=== PATIENT | male | born 1985 | race Hispanic/Latino ===

== ENCOUNTER 2018-04-07 18:37 | Emergency (ER) | payer OTHER ==
[~2018-04-07] VITALS: Ht 144.8 cm; Wt 52.6 kg
[2018-04-07 18:58] LABS: BASOPHILS # (AUTO) 0.1 (0.0-0.1); BASOPHILS % 1.3 % (0.0-1.0); EOSINOPHILS # (AUTO) 0.1 (0.0-0.4); EOSINOPHILS % 2.6 % (0.0-6.0); HEMOGLOBIN 8.4 g/dL (14.0-18.0); LYMPHOCYTES # (AUTO) 2.2 (1.0-3.2); LYMPHOCYTES % 58.2 % (18.0-39.1); MEAN CORPUSCULAR HEMOGLOBIN 32.3 pg (28-32); MEAN CORPUSCULAR HGB CONC 32.3 g/dL (31-35); MONOCYTES # (AUTO) 0.4 (0.2-0.8); MONOCYTES % 10.5 % (4.4-11.3); NEUTROPHILS % 27.1 % (38.7-80.0); PLATELET COUNT 249 x10e3/uL (140-360); RED CELL DISTRIBUTION WIDTH 14.4 % (11.7-14.4)
[2018-04-07] MEDS ORDERED: SODIUM CHLORIDE 0.9% 1000ML 1,000 ML IV SCH (19:00)
[2018-04-07 19:18] LABS: ALBUMIN 3.7 g/dL (3.5-5.0); ALBUMIN/GLOBULIN RATIO 0.9 (0.8-2.0); ANION GAP 14.6 mmol/L (8-16); CREATININE, SERUM 3.81 mg/dL (0.72-1.25); POTASSIUM 3.6 mmol/L (3.5-5.1)
--- NOTE | 2018-04-07 19:18 | Diagnostic Imaging Report ---
EXAMINATION: CHEST SINGLE (PORTABLE) INDICATION: \S\syncope. Weakness. COMPARISON: None FINDINGS: AP view TUBES and LINES: Right IJ dialysis catheter with tip in the right atrium. LUNGS: Lungs are well inflated. Lungs are clear. There is no evidence of pneumonia or pulmonary edema. PLEURA: No pleural effusion or pneumothorax. HEART AND MEDIASTINUM: The cardiomediastinal silhouette is unremarkable. BONES AND SOFT TISSUES: No acute osseous lesion. Soft tissues are unremarkable. UPPER ABDOMEN: No free air under the diaphragm. IMPRESSION: No acute thoracic abnormality. Signed by: Dr. Beau Eaton M.D. on 04/07/2018 7:15 PM
[2018-04-07 19:24] LABS: CREATINE KINASE MB 0.4 ng/mL (0-5.0)
--- NOTE | 2018-04-07 19:58 | Diagnostic Imaging Report ---
EXAMINATION: Head CT without contrast. HISTORY:Syncope and weakness. COMPARISON:None. TECHNIQUE: Multidetector axial images were obtained from the foramen magnum to the vertex without contrast. The images were reconstructed using brain and bone algorithms. Thin section brain images were reformatted into coronal and sagittal planes. Dose modulation, iterative reconstruction, and/or weight based adjustment of the mA/kV was utilized to reduce the radiation dose to as low as reasonably achievable. Intravenous contrast: None IMAGE QUALITY: Acceptable. FINDINGS: Skull/scalp: No lytic or blastic. lesions. No surgical changes. Parenchyma: No abnormal density. No acute hemorrhage, mass or acute major vascular territorial infarct. Arteries: No density suggestive of thrombosis. Dural sinuses: No abnormal density suggestive of thrombosis. Ventricles: No hydrocephalus or displacement. Extra-axial spaces: No abnormal density. Brain volume: Normal for age. Craniocervical junction: No mass, Chiari malformation, or basilar invagination. Sella: No mass. Paranasal/mastoid sinuses: Under pneumatization, partial opacification and sclerosis of left mastoid air cells may represents sequel of chronic inflammatory process. IMPRESSION: No intracranial abnormality. Signed by: Dr. Rosio Neal M.D. on 04/07/2018 7:55 PM
[2018-04-07 21:39] VITALS: BP 110/78
== END 2018-04-07 21:49 | disposition home or self-care (01) ==
LOC: ER 18:37
DX: R55 Syncope and collapse (principal); R51 Headache; R53.1 Weakness; N18.6 End stage renal disease; Z99.2 Dependence on renal dialysis; Q90.9 Down syndrome, unspecified
CPT/HCPCS: 36415; 70450; 71045; 80053; 82550; 82553; 83735; 84484; 85025; 93005; 99284

== ENCOUNTER 2018-09-04 21:46 | Emergency (ER) | payer OTHER ==
[~2018-09-04] VITALS: Ht 144.8 cm; Wt 57.2 kg
--- OUTSIDE RECORDS SUMMARY | 2018-09-04 21:49 | XMS REPORT ---
Author [facility] Address Unknown Phone Unavailable Care Team Providers Care Low Heel Builder Name Role Phone Bernie MCFARLAND Unavailable Unavailable Milad MUNROE Unavailable Unavailable Payers Payer Name Policy Type Policy Number Effective Date Expiration Date Problems This patient has no known problems. Allergies, Adverse Reactions, Alerts Allergy Name Allergy Type Status Severity Reaction(s) Onset Date Inactive Date Treating Clinician Comments phenylpropanolamine DA Active [place] 2018-03-09 00:00:00 brompheniramine DA Active [place] 2018-03-09 00:00:00 Medications This patient has no known medications. Results Test Description Test Time Test Comments Text Results Atomic Results Result Comments CT BRAIN WO 2018-04-07 19:49:00 [place] [address] Patient Name: LUIZA CHUN MR #: [id number] : 1985 Age/Sex: 32/M Req #: [id number] Adm Physician: Ordered by: NATE DE LA VEGA UND[employer]WRITER [employer] Report #: [id number] Location: ER Room/Bed: Procedure: [id number] CT/CT BRAIN WO Exam Date: 04/07/18 Exam Time: 1939 REPORT STATUS: Signed EXAMINATION: Head CT without contrast. HISTORY:Syncope and weakness. COMPARISON:None. TECHNIQUE: Multidetector axial images were obtained from the foramen magnum to the vertex without contrast. The images were reconstructed using brain and bone algorithms. Thin section brain images were reformatted into coronal and sagittal planes. Dose modulation, iterative reconstruction, and/or weight based adjustment of the mA/kV was utilized to reduce the radiation dose to as low as reasonably achievable. Intravenous contrast: None IMAGE QUALITY: Acceptable. FINDINGS: Skull/scalp: No lytic or blastic. lesions. No surgical changes. Parenchyma: No abnormal density. No acute hemorrhage, mass or acute major vascular territorial infarct. Arteries: No density suggestive of thrombosis. Dural sinuses: No abnormal density suggestive of thrombosis. Ventricles: No hydrocephalus or displacement. Extra- axial spaces: No abnormal density. Brain volume: Normal for age. Craniocervical junction: No mass, Chiari malformation, or basilar invagination. Sella: No mass. Paranasal/mastoid sinuses: Under pneumatization, partial opacification and sclerosis of left mastoid air cells may represents sequel of chronic inflammatory process. IMPRESSION: No intracranial abnormality. Signed by: Dr. Rosio Neal M.D. on 04/07/2018 7:55 PM Dictated By: ROSIO NEAL MD 54 Transcribed By: SAUNDRA on 04/07/181954 COPY TO: NATE DE LA VEGA NP CHEST SINGLE (PORTABLE) 2018-04-07 19:14:00 [place] [address] Patient Name: LUIZA CHUN MR #: [id number] : 1985 Age/Sex: 32/M Req #: [id number] Adm Physician: Ordered by: KIRK MCFARLAND MD Report #: [id number] Location: ER Room/Bed: Procedure: [id number] DX/CHEST SINGLE (PORTABLE) Exam Date: 04/07/18 Exam Time: 1850 REPORT STATUS: Signed EXAMINATION: CHEST SINGLE (PORTABLE) INDICATION: S syncope. Weakness. COMPARISON: None FINDINGS: AP view TUBES and LINES: Right IJ dialysis catheter with tip in the right atrium. LUNGS: Lungs are well inflated. Lungs are clear. There is no evidence of pneumonia or pulmonary edema. PLEURA: No pleural effusion or pneumothorax. HEART AND MEDIASTINUM: The cardiomediastinal silhouette is unremarkable. BONES AND SOFT TISSUES: No acute osseous lesion. Soft tissues are unremarkable. UPPER ABDOMEN: No free air under the diaphragm. IMPRESSION: No acute thoracic abnormality. Signed by: Dr. Beau Perez M.D. on 04/07/2018 7:15 PM Dictated By: BEAU PEREZ MD 14 Transcribed By: SAUNDRA on 04/07/181914 COPY TO: KIRK MCFARLAND MD U/S, PELVIC, LIMITED 2017-11-07 18:20:00 Reason for Exam:->CKD/KIDNEY TRANSPLANT EVALUATION FINAL REPORT HISTORY : Chronic kidney disease, kidney transplant evaluation COMPARISON : No comparisons available for review COMMENT : Complete ultrasound examination of the abdomen was performed and limited pelvic ultrasound was performed. The liver is normal in size measuring 14.0 cm in length along the right midclavicular line and homogeneous in echo- texture without evidence of a focal mass. The gallbladder contains shadowing echogenic gallstones. There is no gallbladder wall thickening or pericholecystic fluid. The gallbladder is nondistended The biliary tract is within normal limits with the common bile duct measuring 2 mm in maximum diameter. The visualized portions of the pancreas are within normal limits. The spleen is normal in size and echo-texture measuring 8.0 cm. The right kidney measures 7.4 cm and the left kidney 8.0 cm in maximum size. Both kidneys demonstrate increased cortical echogenicity. There is no evidence of cysts, masses, stones or hydronephrosis. The portal vein measures to a maximum of 0.8 cm in diameter. There is no ascites or pleural effusion. The visualized inferior vena cava, hepatic veins and abdominal aorta are within normal limits. The bladder is normal in appearance. Prevoid volume is 347 mL. Postvoid volume is 2 mL. IMPRESSION :1. Cholelithiasis without ultrasonographic evidence of acute cholecystitis.2. Atrophic bilateral kidneys with increased echogenicity compatible with medical renal disease. Signed: Miguelangel Abel Verified Date/Time: 11/07/2017 18:20:05 Reading Location: [place] [id number] Ultrasound Reading Room U/S, ABDOMINAL, COMPLETE 2017-11-07 18:20:00 Reason for Exam:->CKD/KIDNEY TRANSPLANT EVALUATION FINAL REPORT HISTORY : Chronic kidney disease, kidney transplant evaluation COMPARISON : No comparisons available for review COMMENT : Complete ultrasound examination of the abdomen was performed and limited pelvic ultrasound was performed. The liver is normal in size measuring 14.0 cm in length along the right midclavicular line and homogeneous in echo- texture without evidence of a focal mass. The gallbladder contains shadowing echogenic gallstones. There is no gallbladder wall thickening or pericholecystic fluid. The gallbladder is nondistended The biliary tract is within normal limits with the common bile duct measuring 2 mm in maximum diameter. The visualized portions of the pancreas are within normal limits. The spleen is normal in size and echo-texture measuring 8.0 cm. The right kidney measures 7.4 cm and the left kidney 8.0 cm in maximum size. Both kidneys demonstrate increased cortical echogenicity. There is no evidence of cysts, masses, stones or hydronephrosis. The portal vein measures to a maximum of 0.8 cm in diameter. There is no ascites or pleural effusion. The visualized inferior vena cava, hepatic veins and abdominal aorta are within normal limits. The bladder is normal in appearance. Prevoid volume is 347 mL. Postvoid volume is 2 mL. IMPRESSION :1. Cholelithiasis without ultrasonographic evidence of acute cholecystitis.2. Atrophic bilateral kidneys with increased echogenicity compatible with medical renal disease. Signed: Miguelangel bAel Verified Date/Time: 11/07/2017 18:20:05 Reading Location: [facility] B1 [id number] Ultrasound Reading Room , CHEST, 2 VIEWS 2017-11-07 11:05:00 Reason for Exam:->CKD/KIDNEY TRANSPLANT EVALUATION FINAL REPORT TECHNIQUE: 2 views of the chest. COMPARISON: None FINDINGS: The cardiac silhouette is within normal limits. Mediastinum is unremarkable. Lungs are clear. Osseous structures appear unremarkable. Soft tissues appear unremarkable. IMPRESSION: Normal chest exam. Signed: John Paul Rasconort Verified Date/Time: 11/07/2017 11:05:03 Reading Location: [facility] Radiology Reading Room D PANEL 2017-11-07 08:01:00 TRIGLYCERIDES (BEAKER) (test fqrh=252) 141 mg/dL CHOLESTEROL (BEAKER) (test hndx=224) 148 mg/dL HDL CHOLESTEROL (BEAKER) (test gllp=868) 27 mg/dL LDL CHOLESTEROL CALCULATED (BEAKER) (test hdmh=557) 93 mg/dL Triglyceride Reference Range: Low Risk <150 Borderline 150-199 High Risk 200-499 Very High Risk >=500Cholesterol Reference Range: Low Risk <200 Borderline 200-239 High Risk >240HDL Cholesterol Reference Range: Low Risk >=60 High Risk <40LDL Cholesterol Reference Range: Optimal <100 Near Optimal 100-129 Borderline 130-159 High 160-189 Very High >=190 OCCULT BLOOD, [id number] 01:02:00* Test Item Value Reference Range Comments FECAL OCCULT BLOOD (BEAKER) (test qcbi=890) Negative Negative OCCULT BLOOD, [id number] 01:02:00* Test Item Value Reference Range Comments FECAL OCCULT BLOOD (BEAKER) (test ezfy=673) Negative Negative URINE [id number] 10:07:00* Test Item Value Reference Range Comments CULTURE (BEAKER) (test udbe=4783) 10-19,000 col/mL skin chanelle VARICELLA ZOSTER ANTIBODY, [id number] 13:40:00* Test Item Value Reference Range Comments VARICELLA ZOSTER IGG (AL) (BEAKER) (test mrsw=1143) 2.5 Al VARICELLA ZOSTER RESULT INTERPRETATIONS: <=0.8 Al Nonreactive: Presumed non-immune to VZV 0.9-1.0 Al Equivocal >=1.1 Al Reactive: Presumed immune to VZVCYTOMEGALOVIRUS ANTIBODY, [id number] 13:37:00* Test Item Value Reference Range Comments CYTOMEGALOVIRUS IGG ANTIBODY (BEAKER) (test crmz=732) Positive CYTOMEGALOVIRUS ANTIBODY, [id number] 13:37:00* Test Item Value Reference Range Comments CYTOMEGALOVIRUS IGM ANTIBODY (BEAKER) (test ouaz=726) Negative EBV-VCA ANTIBODY, [id number] 13:37:00* Test Item Value Reference Range Comments NEFTALY-HATCH VCA IGG (BEAKER) (test epow=315) Positive EBV-VCA ANTIBODY, [id number] 13:37:00* Test Item Value Reference Range Comments NEFTALY-HATCH VCA IGM (BEAKER) (test hhkq=893) Negative [id number] 23:19:00* Test Item Value Reference Range Comments RPR SCREEN (BEAKER) (test uyom=919) Nonreactive Nonreactive HEPATITIS B SURFACE [id number] 15:15:00* Test Item Value Reference Range Comments HEPATITIS B SURFACE ANTIBODY (BEAKER) (test qgux=167) 9.7 mIU/mL <8.0 HEPATITIS B SURFACE [id number] 15:13:00* Test Item Value Reference Range Comments HEPATITIS B SURFACE ANTIGEN (2) (BEAKER) (test cqje=2638) Nonreactive Nonreactive HEPATITIS B CORE ANTIBODY, [id number] 15:13:00* Test Item Value Reference Range Comments HEPATITIS B CORE IGM ANTIBODY (BEAKER) (test emxl=820) Nonreactive Nonreactive HEPATITIS C [id number] 15:13:00* Test Item Value Reference Range Comments HEPATITIS C ANTIBODY (BEAKER) (test evbv=773) Nonreactive Nonreactive HIV-1 ANTIGEN WITH HIV-1/2 [id number] 15:13:00* Test Item Value Reference Range Comments HIV-1 ANTIGEN WITH HIV 1\T\2 ANTIBODY (2) (BEAKER) (test rlyq=2571) Nonreactive Nonreactive HEMOGLOBIN [id number] 13:30:00* Test Item Value Reference Range Comments HEMOGLOBIN A1C (BEAKER) (test bsmr=743) 5.2 % 4.3-6.1 URINALYSIS W/ [id number] 12:03:00* Test Item Value Reference Range Comments COLOR (BEAKER) (test avsg=800) Light Yellow CLARITY (BEAKER) (test qliz=978) Hazy SPECIFIC GRAVITY UA (BEAKER) (test jlny=485) 1.009 1.001-1.035 PH UA (BEAKER) (test islp=812) 5.5 5.0-8.0 PROTEIN UA (BEAKER) (test qgwo=245) 200 mg/dL Negative GLUCOSE UA (BEAKER) (test grei=382) Negative Negative KETONES UA (BEAKER) (test ftqe=188) Negative Negative BILIRUBIN UA (BEAKER) (test zsau=928) Negative Negative BLOOD UA (BEAKER) (test itjd=412) Moderate Negative NITRITE UA (BEAKER) (test ipfh=880) Negative Negative LEUKOCYTE ESTERASE UA (BEAKER) (test rgvv=643) Negative Negative UROBILINOGEN UA (BEAKER) (test nrha=010) 0.2 mg/dL 0.2-1.0 RBC UA (BEAKER) (test xvcj=258) 9 /HPF WBC UA (BEAKER) (test neip=513) 1 /HPF MUCUS (BEAKER) (test maqm=3470) Rare SQUAMOUS EPITHELIAL (BEAKER) (test wozc=783) < /HPF SOURCE(BEAKER) (test zffw=0813) CBC W/PLT COUNT & AUTO [id number] 12:02:00* Test Item Value Reference Range Comments WHITE BLOOD CELL COUNT (BEAKER) (test xzbk=147) 3.4 K/ L 3.5-10.5 RED BLOOD CELL COUNT (BEAKER) (test zcrn=970) 3.54 M/ L 4.63-6.08 HEMOGLOBIN (BEAKER) (test catk=184) 11.1 GM/DL 13.7-17.5 HEMATOCRIT (BEAKER) (test klmx=245) 33.8 % 40.1-51.0 MEAN CORPUSCULAR VOLUME (BEAKER) (test tpnb=343) 95.5 fL 79.0-92.2 MEAN CORPUSCULAR HEMOGLOBIN (BEAKER) (test rrwa=702) 31.4 pg 25.7-32.2 MEAN CORPUSCULAR HEMOGLOBIN CONC (BEAKER) (test xuyy=560) 32.8 GM/DL 32.3-36.5 RED CELL DISTRIBUTION WIDTH (BEAKER) (test kony=664) 14.3 % 11.6-14.4 PLATELET COUNT (BEAKER) (test hdyc=124) 206 K/CU MM 150-450 MEAN PLATELET VOLUME (BEAKER) (test dpet=676) 10.6 fL 9.4-12.4 NUCLEATED RED BLOOD CELLS (BEAKER) (test umwb=996) 0 /100 WBC 0-0 NEUTROPHILS RELATIVE PERCENT (BEAKER) (test gvdl=056) 40 % LYMPHOCYTES RELATIVE PERCENT (BEAKER) (test gvmg=096) 47 % MONOCYTES RELATIVE PERCENT (BEAKER) (test hwxq=831) 9 % EOSINOPHILS RELATIVE PERCENT (BEAKER) (test hkuv=127) 2 % BASOPHILS RELATIVE PERCENT (BEAKER) (test cywm=233) 2 % NEUTROPHILS ABSOLUTE COUNT (BEAKER) (test xxwf=492) 1.33 K/ L 1.78-5.38 LYMPHOCYTES ABSOLUTE COUNT (BEAKER) (test yohj=732) 1.59 K/ L 1.32-3.57 MONOCYTES ABSOLUTE COUNT (BEAKER) (test whpy=147) 0.31 K/ L 0.30-0.82 EOSINOPHILS ABSOLUTE COUNT (BEAKER) (test ietu=082) 0.06 K/ L 0.04-0.54 BASOPHILS ABSOLUTE COUNT (BEAKER) (test fvca=818) 0.06 K/ L 0.01-0.08 IMMATURE GRANULOCYTES-RELATIVE PERCENT (BEAKER) (test qrii=0661) 0 % 0-1 COMPREHENSIVE METABOLIC [id number] 11:44:00* Test Item Value Reference Range Comments TOTAL PROTEIN (BEAKER) (test wuyb=419) 7.4 gm/dL 6.0-8.3 ALBUMIN (BEAKER) (test xyzc=3629) 4.2 g/dL 3.5-5.0 ALKALINE PHOSPHATASE (BEAKER) (test jvkg=290) 118 U/L 40-150 BILIRUBIN TOTAL (BEAKER) (test tvfg=822) 0.3 mg/dL 0.2-1.2 SODIUM (BEAKER) (test nfaw=797) 141 meq/L 136-145 POTASSIUM (BEAKER) (test melr=568) 4.0 meq/L 3.5-5.1 CHLORIDE (BEAKER) (test yslk=025) 111 meq/L 98-107 CO2 (BEAKER) (test woik=076) 18 meq/L 22-29 BLOOD UREA NITROGEN (BEAKER) (test zuzf=071) 85 mg/dL 7-21 CREATININE (BEAKER) (test swzx=133) 5.78 mg/dL 0.57-1.25 GLUCOSE RANDOM (BEAKER) (test wnzz=023) 90 mg/dL 70-105 CALCIUM (BEAKER) (test eikn=113) 9.1 mg/dL 8.4-10.2 AST (SGOT) (BEAKER) (test mxrr=295) 10 U/L 5-34 ALT (SGPT) (BEAKER) (test ocqn=495) 10 U/L 6-55 EGFR (BEAKER) (test dzpl=5891) 12 mL/min/1.73 sq m ESTIMATED GFR IS NOT ACCURATE CREATININE CLEARANCE IN PREDICTING GLOMERULAR FILTRATION RATE. ESTIMATED GFR IS NOT APPLICABLE FOR DIALYSIS PATIENTS. URIC [id number] 11:42:00* Test Item Value Reference Range Comments URIC ACID (BEAKER) (test qonj=801) 12.7 mg/dL 2.6-7.2 [id number] 11:42:00* Test Item Value Reference Range Comments PHOSPHORUS (BEAKER) (test lqjj=922) 4.9 mg/dL 2.3-4.7 GAMMA GLUTAMYL TRANSFERASE (GGT)2017-10-25 11:42:00* Test Item Value Reference Range Comments GAMMA GLUTAMYL TRANSFERASE (BEAKER) (test gsdk=229) 11 U/L 9-64 LACTATE DEHYDROGENASE (LDH)2017-10-25 11:42:00* Test Item Value Reference Range Comments LACTATE DEHYDROGENASE (BEAKER) (test jfdf=835) 138 U/L 125-220 PTH, [id number] 11:37:00* Test Item Value Reference Range Comments PARATHYROID HORMONE INTACT (BEAKER) (test ekjn=026) 265.3 pg/mL 8.5-72.5 PT/[id number] 11:11:00* Test Item Value Reference Range Comments PROTIME (BEAKER) (test czgi=338) 14.0 seconds 11.7-14.7 INR (BEAKER) (test kewm=165) 1.1 <=5.9 PARTIAL THROMBOPLASTIN TIME (BEAKER) (test khew=509) 30.4 seconds 22.5-36.0 RECOMMENDED COUMADIN/WARFARIN INR THERAPY RANGESSTANDARD DOSE: 2.0 - 3.0 Inclu vandana: PROPHYLAXIS for venous thrombosis, systemic embolization; TREATMENT for german ous thrombosis and/or pulmonary embolus.HIGH RISK: Target INR is 2.5-3.5 for pat ients with mechanical heart valves.
--- OUTSIDE RECORDS SUMMARY | 2018-09-04 21:49 | XMS REPORT | Clinical Summary ---
Author Author [facility] Organization [facility] Address Unknown Phone Unavailable Care Team Providers Care Examiner Of Currency Name Role Phone Kumar Echevarria MD PCP Allergies Comments Active Allergy Reactions Severity Noted Date Brompheniramine-Ppa Rash High 07/13/2018 Medications End Date Status Medication Sig Dispensed Refills Start Date Active allopurinol (ZYLOPRIM) DIANA CELESTINE 1 300 MG tablet TABLETA 8 ORALMENTE CADA THOMAS Active amLODIPine (NORVASC) 5 mg DIANA CELESTINE tablet TABLETA 8 ORALMENTE CADA THOMAS PARA ARIEL PRESION Active ASPIR-LOW 81 mg enteric DIANA CELESTINE 1 coated tablet TABLETA 8 ORALMENTE CADA THOMAS Active ibuprofen (ADVIL,MOTRIN) DIANA CELESTINE 0 800 MG tablet TABLETA 8 ORALMENTE DOS VECES AL THOMAS ANY SEA NECESARIO PARA INFLAMACION Y DOLOR Active levothyroxine (SYNTHROID, DIANA CELESTINE LEVOXYL) 25 mcg tablet TABLETA 8 ORALMENTE CADA THOMAS PARA LA TIROIDES Active losartan (COZAAR) 50 MG 0 tablet 8 Active lovastatin (MEVACOR) 40 DIANA CELESTINE MG tablet TABLETA 8 ORALMENTE CADA THOMAS AL ACOSTARSE PARA COLESTEROL Active predniSONE (DELTASONE) 10 DIANA CELESTINE 0 mg tablet TABLETA 8 ORALMENTE DOS VECES AL THOMAS ANY SEA NECESARIO PARA INFLAMACION Y DOLOR Active docusate sodium (COLACE) Take 100 mg 0 100 MG capsule by mouth 2 (two) times a day as needed for constipation. 07/13/2018 Discontinued LINZESS 145 mcg capsule TOME CELESTINE 1 CAPSULA 8 ORALMENTE CADA THOMAS Active Problems Not on file Encounters Care Team Description Date Type Specialty Nitin Wynne CRNA 07/18/2018 Anesthesia General Surgery Event Donte Villalpando MD Preop testing 07/18/2018 Hospital General Surgery Encounter Canceled RIGHT UPPER EXTREMITY CREATION, AV FISTULA 07/18/2018 Surgery General Surgery Donte Villalpando MD 07/13/2018 Hospital Radiology Encounter Donte Villalpando MD Preop testing (Primary Dx) 07/13/2018 Pre-Admit Pre-Admission Testing Testing Appointment after 09/03/2017 Family History Medical History Relation Name Comments Hypertension Father Diabetes Mother Hypertension Mother Thyroid disease Mother Relation Name Status Comments Father Alive Mother Alive Social History Date Tobacco Use Types Packs/Day Years Used Never Smoker Smokeless Tobacco: Never Used Alcohol Use Drinks/Week oz/Week Comments No Alcohol Habits Answer Date Recorded How often do you have a drink containing alcohol? Never 07/13/2018 How many drinks containing alcohol do you have on Not asked a typical day when you are drinking? How often do you have six or more drinks on one Not asked occasion? Sex Assigned at Date Recorded Not on file Industry Job Start Date Occupation Not on file Not on file Not on file Travel End Travel History Travel Start No recent travel history available. Last Filed Vital Signs Time Taken Vital Sign Reading 07/18/2018 10:47 AM [employer] Blood Pressure 170/102 07/18/2018 10:47 AM [employer] Pulse 67 07/18/2018 10:47 AM [employer]INE [employer] Temperature 36.8 C (98.2 F) 07/18/2018 10:47 AM [employer] Respiratory Rate 18 07/18/2018 10:47 AM [employer]ACHINE [employer] Oxygen Saturation 100% - Inhaled Oxygen - Concentration 07/18/2018 10:47 AM [employer] Weight 56.2 kg (124 lb) 07/18/2018 10:47 AM [employer]INE [employer] Height 144.8 cm (4' 9") 07/18/2018 10:47 AM [employer] Body Mass Index 26.83 Plan of Treatment Health Maintenance Due Date Last Done Comments INFLUENZA VACCINE 02/08/2018 Procedures Comments Procedure Name Priority Date/Time Associated Diagnosis POTASSIUM LEVEL STAT 07/18/2018 Preop testing 10:23 AM [employer] TYPE AND SCREEN Routine 07/14/2018 Preop testing 11:11 AM [employer]INE [employer] XR CHEST 2 VW Routine 07/13/2018 Preop testing 8:46 AM [employer]INE [employer] ECG 12-LEAD Routine 07/13/2018 Preop testing 7:55 AM [employer]INE [employer] ESTIMATED GFR Routine 07/13/2018 6:59 AM [employer]ACHINE [employer]ER PARTIAL THROMBOPLASTIN Routine 07/13/2018 Preop testing TIME (PTT) 6:59 AM [employer]ACHINE [employer] PROTHROMBIN TIME WITH INR Routine 07/13/2018 Preop testing 6:59 AM [employer]EN[employer]ACHINE [employer] BASIC METABOLIC PANEL Routine 07/13/2018 Preop testing 6:59 AM [employer]INE [employer] HC COMPLETE BLD COUNT Routine 07/13/2018 Preop testing W/AUTO DIFF 6:59 AM [employer]ING [employer]ACHINE [employer] after 09/03/2017 Results * Potassium level (07/18/2018 10:23 AM STRAIGHTENING MACHINE FEEDER) Potassium 4.8 3.5 - 5.0 mEq/L [facility] Specimen Plasma specimen Performing Organization Address [facility] Phone Number [address] [place] [address] PATHOLOGY AND GENOMIC MEDICINE [address] * Type and screen (07/14/2018 11:11 AM STRAIGHTENING MACHINE FEEDER) ABO grouping O [facility] Rh type POS [facility] Antibody screen NEG [facility] Specimen Blood Performing Organization Address [facility] Phone Number [facility] [address] [place] [address] PATHOLOGY AND GENOMIC MEDICINE [address] * XR Chest 2 Vw (07/13/2018 8:46 AM STRAIGHTENING MACHINE FEEDER) Narrative Performed At EXAMINATION:XR CHEST 2 VW [facility] CLINICAL HISTORY:Z01.818 Encounter for other preprocedural examination, preop COMPARISON: None . IMPRESSION: 1.Heart size is normal. 2.Lungs are clear. 3.A pleural effusion or pneumothorax is not identified. 4.There is a dual lumen right-sided central venous catheter with the tip at level the distal SVC. 5.Osseous structures are intact. [id number] Procedure Note Hm Interface, Radiology Results Incoming - 07/13/2018 9:01 AM [employer]ENING [employer]ACHINE [employer]ER EXAMINATION: XR CHEST 2 VW CLINICAL HISTORY: Z01.818 Encounter for other preprocedural examination, preop COMPARISON: None . IMPRESSION: 1. Heart size is normal. 2. Lungs are clear. 3. A pleural effusion or pneumothorax is not identified. 4. There is a dual lumen right-sided central venous catheter with the tip at level the distal SVC. 5. Osseous structures are intact. [facility]-[id number] Performing Organization Address [facility] Phone Number [facility] [address] [place] [address] * ECG 12 lead (07/13/2018 7:55 AM STRAIGHTENING MACHINE FE[employer]ER) Ventricular rate 60 [facility] Atrial rate 60 [facility] FL interval 122 [facility] QRSD interval 72 [facility] QT interval 414 [facility] QTC interval 414 [facility] P axis 1 39 [facility] QRS axis 1 72 [facility] T wave axis 75 [facility] EKG impression Normal sinus rhythm-Normal [facility] ECG-No previous ECGs available- Narrative Performed At Performing Organization Address [facility] Phone Number [facility] [address] [place] [address] * Estimated GFR (07/13/2018 6:59 AM STRAIGHTENING MACHINE FEEDER) Estimated GFR 10 (A) mL/min/1.73 m2 [facility] Comment: [facility] CatergoryUnitsInte rpretation G1 >=90 Normal or high G2 60-89Mildly decreased [id number] Mildly to moderately decreased [id number] Moderately to severely decreased G4 15-29Severely decreased G5 <15Kidney failure The eGFR was calculated using the Chronic Kidney Disease Epidemiology Collaboration (CKD-EPI) equation. Interpretation is based on recommendations of the National Kidney Foundation-Kidney Disease Outcomes Quality Initiative (NKF-KDOQI) published in 2014. Specimen Plasma specimen Performing Organization Address [facility] Phone Number [address] [place] [address] [facility] [address] * Partial thromboplastin time, activated (07/13/2018 6:59 AM STRAIGHTENING MACHINE FEEDER) PTT 34.3 23.0 - 36.0 sec [facility] Comment: [facility] PTT therapeutic range for unfractionated heparin is 61.0-112.0 seconds which corresponds to Anti-Xa 0.3-0.7 U/ml. Specimen Blood Performing Organization Address [facility] Phone Number [address] [place] [address] [facility] [address] * Prothrombin time with INR (07/13/2018 6:59 AM STRAIGHTENING MACHINE FEEDER) Prothrombin time 13.3 11.5 - 14.5 sec [facility] INR 1.0 [facility] Comment: [facility] The International Normalized Ratio (INR) is a therapeutic monitoring tool for patients who are stable on oral anticoagulant therapy. An INR of 2.0-3.0 is suggested for deep vein thrombosis/pulmonary embolism. Specimen Blood Performing Organization Address [facility] Phone Number [address] [place] [address] [facility] [address] * CBC with platelet and differential (07/13/2018 6:59 AM STRAIGHTENING MACHINE FEEDER) WBC 6.71 4.50 - 11.00 k/uL [facility] RBC 3.88 (L) 4.40 - 6.00 m/uL [facility] HGB 12.8 (L) 14.0 - 18.0 g/dL [facility] HCT 38.5 (L) 41.0 - 51.0 % [facility] MCV 99.2 82.0 - 100.0 fL [facility] MCH 33.0 27.0 - 34.0 pg [facility] MCHC 33.2 31.0 - 37.0 g/dL [facility] RDW - SD 50.4 37.0 - 55.0 fL [facility] MPV 9.4 8.8 - 13.2 fL [facility] Platelet count 267 150 - 400 k/uL [facility] Nucleated RBC 0.00 /100 WBC [facility] Neutrophils 64.0 39.0 - 69.0 % [facility] Lymphocytes 25.9 25.0 - 45.0 % [facility] Monocytes 7.9 0.0 - 10.0 % [facility] Eosinophils 0.6 0.0 - 5.0 % [facility] Basophils 0.9 0.0 - 1.0 % [facility] Specimen Blood Performing Organization Address [facility] Phone Number [address] [place] [address] PATHOLOGY AND GENOMIC MEDICINE [address] * Basic metabolic panel (07/13/2018 6:59 AM STRAIGHTENING MACHINE FEEDER) Sodium 144 135 - 148 mEq/L [facility] Potassium 5.2 (H) 3.5 - 5.0 mEq/L [facility] Chloride 100 98 - 112 mEq/L [facility] CO2 30 24 - 31 mEq/L [facility] Anion gap 14@ANIO 7 - 15 mEq/L [facility] BUN 37 (H) 6 - 20 mg/dL [facility] Creatinine 6.90 (H) 0.70 - 1.20 mg/dL [facility] Glucose 92 65 - 99 mg/dL [facility] Calcium 8.9 8.3 - 10.2 mg/dL [facility] Specimen Plasma specimen Performing Organization Address [facility] Phone Number [address] [place] [phone] PATHOLOGY AND GENOMIC MEDICINE [address] [place] [phone] [facility] after 09/03/2017 Insurance Payer Benefit Subscriber ID Type Phone Address Plan / Group [facility] MEDICAID [facility] xxxxxxxxx HMO COMM STAR+ ALE[employer] Advance Directives Patient has advance care planning documents on file. For more information, audrey bunn contact: Ismael Mustafa [address] [place] [address]
--- OUTSIDE RECORDS SUMMARY | 2018-09-04 21:49 | XMS REPORT | Clinical Summary ---
Author Author VENKATESH [facility] Address Unknown Phone Unavailable Care Team Providers Care Putty Maker Name Role Phone Chucky--Kumar Escoto PCP Allergies No Known Allergies Medications End Date Status Medication Sig Dispensed Refills Start Date Active lovastatin (ALTOPREV) 40 Take 40 mg by 0 MG 24 hr tablet mouth daily. Active ibuprofen (ADVIL,MOTRIN) Take 400 mg 0 400 MG tablet by mouth every 6 (six) hours as needed for Pain. Active Problems Not on file Encounters Care Team Description Date Type Specialty Love Steinberg RN Awaiting transplantation of kidney (Primary Dx) 07/13/2018 Orders Only Transplant Love Steinberg RN ESRD (end stage renal disease) on dialysis (HCC) (Primary Dx); Awaiting transplantation of kidney 06/07/2018 Orders Only Transplant Betty Pemberton MD Patient awaiting renal transplant (Primary Dx) 06/06/2018 Orders Only Evens Lucia II, MD Patient awaiting renal transplant (Primary Dx) 03/22/2018 Orders Only Evens Lucia II, MD Provider, [facility] Generic 02/11/2018 [facility] Charge Transplant Visit Sally Turner 12/09/2017 Documentation Transplant Love Steinberg RN 12/08/2017 Documentation Transplant Meera Womack RN 12/08/2017 Abstract Transplant Meera Womack RN Chronic kidney disease, unspecified CKD stage (Primary Dx); ESRD (end stage renal disease) (HCC); Pre-transplant evaluation for end stage renal disease; Pre-transplant evaluation for chronic kidney disease 11/17/2017 Orders Only Transplant Mayank Cruz Marcelo 11/15/2017 Documentation Transplant Evens Villa II, MD ESRD (end stage renal disease) (HCC); Pre-transplant evaluation for chronic kidney disease; Anemia of renal disease; Essential hypertension 11/07/2017 Hospital Radiology Encounter Evens Villa II, MD ESRD (end stage renal disease) ([facility]); Pre-transplant evaluation for chronic kidney disease; Anemia of renal disease; Essential hypertension 11/07/2017 Hospital Radiology Encounter Evens Villa II, MD ESRD (end stage renal disease) ([facility]); Pre-transplant evaluation for chronic kidney disease; Anemia of renal disease; Essential hypertension 11/07/2017 Hospital Radiology Encounter Evens Villa II, MD ESRD (end stage renal disease) ([facility]); Pre-transplant evaluation for chronic kidney disease; Anemia of renal disease; Essential hypertension 11/07/2017 Hospital Cardiology Encounter Evens Villa II, MD ESRD (end stage renal disease) ([facility]); Pre-transplant evaluation for chronic kidney disease; Anemia of renal disease; Essential hypertension 11/07/2017 Hospital Cardiology Encounter Evens Villa II, MD ESRD (end stage renal disease) ([facility]); Pre-transplant evaluation for chronic kidney disease; Anemia of renal disease; Essential hypertension 11/07/2017 Orders Only Evens Lucia II, MD ESRD (end stage renal disease) on dialysis ([facility]); Pre-transplant evaluation for chronic kidney disease 11/07/2017 Orders Only Transplant Alondra Triplett RN ESRD (end stage renal disease) on dialysis ([facility]) (Primary Dx); Pre-transplant evaluation for chronic kidney disease 11/07/2017 Orders Only Transplant Evens Villa II, MD Pre-transplant evaluation for chronic kidney disease (Primary Dx) 10/25/2017 Evaluation Transplant Evens Villa II, MD Pre-transplant evaluation for chronic kidney disease (Primary Dx) 10/25/2017 Evaluation Transplant Evens Villa II, MD ESRD (end stage renal disease) ([facility]); Pre-transplant evaluation for chronic kidney disease; Anemia of renal disease; Essential hypertension 10/25/2017 Orders Only Transplant Hepatology Evens Villa II, MD Labrador, Florencia P, RN ESRD (end stage renal disease) ([facility]) (Primary Dx); Pre-transplant evaluation for chronic kidney disease; Anemia of renal disease; Essential hypertension 10/25/2017 Office Visit Transplant Kodi Ponce LCSW 10/25/2017 Social Work Transplant Carmine Keys 09/05/2017 Abstract Transplant Keys, Carmine 09/05/2017 Abstract Transplant after 09/03/2017 Social History Date Tobacco Use Types Packs/Day Years Used Never Smoker Smokeless Tobacco: Never Used Alcohol Use Drinks/Week oz/Week Comments No Sex Assigned at Date Recorded Not on file Industry Job Start Date Occupation Not on file Not on file Not on file Travel End Travel History Travel Start No recent travel history available. Last Filed Vital Signs Time Taken Vital Sign Reading 10/25/2017 1:00 PM CDT Blood Pressure 177/107 10/25/2017 1:00 PM CDT Pulse 67 10/25/2017 1:00 PM CDT Temperature 36.9 C (98.5 F) 10/25/2017 1:00 PM CDT Respiratory Rate 18 - Oxygen Saturation - - Inhaled Oxygen - Concentration 10/25/2017 1:00 PM CDT Weight 59.2 kg (130 lb 8.2 oz) 10/25/2017 1:00 PM CDT Height 145.5 cm (4' 9.28") 10/25/2017 1:00 PM CDT Body Mass Index 27.96 Plan of Treatment Health Maintenance Due Date Last Done Comments INFLUENZA VACCINE 04/10/2018 Procedures Comments Procedure Name Priority Date/Time Associated Diagnosis FLOW PRA CLASS I WITH Routine 06/06/2018 Patient awaiting renal REFLEX TO ANTIBODY 4:05 PM [employer] transplant SPECIFICITY FLOW PRA CLASS II WITH Routine 06/06/2018 Patient awaiting renal REFLEX TO ANTIBODY 4:05 PM [employer] transplant SPECIFICITY FLOW PRA CLASS II WITH Routine 03/22/2018 Patient awaiting renal REFLEX TO ANTIBODY 3:19 PM CDT transplant SPECIFICITY FLOW PRA CLASS I WITH Routine 03/22/2018 Patient awaiting renal REFLEX TO ANTIBODY 3:19 PM CDT transplant SPECIFICITY FLOW PRA CLASS II WITH Routine 11/19/2017 ESRD (end stage renal REFLEX TO ANTIBODY 7:54 AM CDT disease) (HCC) SPECIFICITY Pre-transplant evaluation for end stage renal disease Chronic kidney disease, unspecified CKD stage Pre-transplant evaluation for chronic kidney disease FLOW PRA CLASS I WITH Routine 11/19/2017 ESRD (end stage renal REFLEX TO ANTIBODY 7:54 AM CDT disease) ([facility]) SPECIFICITY Pre-transplant evaluation for end stage renal disease Chronic kidney disease, unspecified CKD stage Pre-transplant evaluation for chronic kidney disease HLA TYPING CII Routine 11/19/2017 ESRD (end stage renal 7:54 AM CDT disease) ([facility]) Pre-transplant evaluation for end stage renal disease Chronic kidney disease, unspecified CKD stage Pre-transplant evaluation for chronic kidney disease HLA TYPING CI Routine 11/19/2017 ESRD (end stage renal 7:54 AM CDT disease) ([facility]) Pre-transplant evaluation for end stage renal disease Chronic kidney disease, unspecified CKD stage Pre-transplant evaluation for chronic kidney disease TRANSFUSION SERVICE 11/08/2017 REPORT - SCAN 5:58 PM CDT ECHOCARDIOGRAM REPORT - 11/07/2017 SCAN 10:51 AM CDT XR CHEST 2 VIEWS Routine 11/07/2017 ESRD (end stage renal 10:13 AM CDT disease) ([facility]) Pre-transplant evaluation for chronic kidney disease Anemia of renal disease Essential hypertension US PELVIS LIMITED Routine 11/07/2017 9:58 AM CDT US ABDOMEN COMPLETE Routine 11/07/2017 ESRD (end stage renal 9:58 AM CDT disease) ([facility]) Pre-transplant evaluation for chronic kidney disease Anemia of renal disease Essential hypertension 2D ECHO W/ DOPPLER Routine 11/07/2017 ESRD (end stage renal (CW/PW/COLOR) 8:13 AM CDT disease) ([facility]) Pre-transplant evaluation for chronic kidney disease Anemia of renal disease Essential hypertension ECG 12-LEAD Routine 11/07/2017 7:33 AM CDT Procedure Note - Interface, External Ris In - 11/07/2017 7:38 AM CDT Ventricula r Rate 64 BPM Atrial Rate 64 BPM P-R Interval 122 ms QRS Duration 82 ms Q-T Interval 414 ms QTC Calculatio n(Bazett) 427 ms P [place] 22 degrees R [place] 70 degrees T [place] 52 degrees Normal sinus rhythm Normal ECG No previous ECGs available ECG 12-LEAD Routine 11/07/2017 ESRD (end stage renal 7:33 AM CDT disease) ([facility]) Pre-transplant evaluation for chronic kidney disease Anemia of renal disease Essential hypertension BLOOD TYPING, AUTOMATED Routine 11/07/2017 ESRD (end stage renal 7:16 AM CDT disease) ([facility]) Pre-transplant evaluation for chronic kidney disease Anemia of renal disease Essential hypertension LIPID PANEL Routine 11/07/2017 ESRD (end stage renal 7:16 AM CDT disease) ([facility]) Pre-transplant evaluation for chronic kidney disease Anemia of renal disease Essential hypertension OCCULT BLOOD, STOOL Routine 11/02/2017 ESRD (end stage renal 1:40 PM CDT disease) ([facility]) Pre-transplant evaluation for chronic kidney disease Anemia of renal disease Essential hypertension OCCULT BLOOD, STOOL Routine 11/02/2017 ESRD (end stage renal 1:40 PM CDT disease) ([facility]) Pre-transplant evaluation for chronic kidney disease Anemia of renal disease Essential hypertension TRANSFUSION SERVICE 10/26/2017 REPORT - SCAN 5:57 PM CDT HEMOGLOBIN A1C Routine 10/25/2017 ESRD (end stage renal 10:30 AM CDT disease) ([facility]) Pre-transplant evaluation for chronic kidney disease Anemia of renal disease Essential hypertension VARICELLA ZOSTER Routine 10/25/2017 ESRD (end stage renal ANTIBODY, IGG 10:30 AM CDT disease) ([facility]) Pre-transplant evaluation for chronic kidney disease Anemia of renal disease Essential hypertension URINALYSIS W/ MICROSCOPIC Routine 10/25/2017 ESRD (end stage renal 10:30 AM CDT disease) ([facility]) Pre-transplant evaluation for chronic kidney disease Anemia of renal disease Essential hypertension HEPATITIS C ANTIBODY Routine 10/25/2017 ESRD (end stage renal 10:30 AM CDT disease) ([facility]) Pre-transplant evaluation for chronic kidney disease Anemia of renal disease Essential hypertension HEPATITIS B CORE Routine 10/25/2017 ESRD (end stage renal ANTIBODY, IGM 10:30 AM CDT disease) ([facility]) Pre-transplant evaluation for chronic kidney disease Anemia of renal disease Essential hypertension HEPATITIS B SURFACE Routine 10/25/2017 ESRD (end stage renal ANTIGEN 10:30 AM CDT disease) ([facility]) Pre-transplant evaluation for chronic kidney disease Anemia of renal disease Essential hypertension HEPATITIS B SURFACE Routine 10/25/2017 ESRD (end stage renal ANTIBODY 10:30 AM CDT disease) ([facility]) Pre-transplant evaluation for chronic kidney disease Anemia of renal disease Essential hypertension HIV-1 ANTIGEN WITH Routine 10/25/2017 ESRD (end stage renal HIV-1/2 ANTIBODY 10:30 AM CDT disease) ([facility]) Pre-transplant evaluation for chronic kidney disease Anemia of renal disease Essential hypertension URINE CULTURE Routine 10/25/2017 ESRD (end stage renal 10:30 AM CDT disease) ([facility]) Pre-transplant evaluation for chronic kidney disease Anemia of renal disease Essential hypertension CBC W/PLT COUNT & AUTO Routine 10/25/2017 ESRD (end stage renal DIFFERENTIAL 10:29 AM CDT disease) ([facility]) Pre-transplant evaluation for chronic kidney disease Anemia of renal disease Essential hypertension TYPE AND SCREEN, Routine 10/25/2017 ESRD (end stage renal AUTOMATED 10:29 AM CDT disease) ([facility]) Pre-transplant evaluation for chronic kidney disease Anemia of renal disease Essential hypertension DIRECT AHG (NAKUL)/DIRECT Routine 10/25/2017 ESRD (end stage renal CIRO 10:29 AM CDT disease) ([facility]) Pre-transplant evaluation for chronic kidney disease Anemia of renal disease Essential hypertension URIC ACID Routine 10/25/2017 ESRD (end stage renal 10:29 AM CDT disease) ([facility]) Pre-transplant evaluation for chronic kidney disease Anemia of renal disease Essential hypertension T SPOT TB Routine 10/25/2017 ESRD (end stage renal 10:29 AM CDT disease) ([facility]) Pre-transplant evaluation for chronic kidney disease Anemia of renal disease Essential hypertension RPR Routine 10/25/2017 ESRD (end stage renal 10:29 AM CDT disease) ([facility]) Pre-transplant evaluation for chronic kidney disease Anemia of renal disease Essential hypertension PT/APTT Routine 10/25/2017 ESRD (end stage renal 10:29 AM CDT disease) ([facility]) Pre-transplant evaluation for chronic kidney disease Anemia of renal disease Essential hypertension PTH, INTACT Routine 10/25/2017 ESRD (end stage renal 10:29 AM CDT disease) ([facility]) Pre-transplant evaluation for chronic kidney disease Anemia of renal disease Essential hypertension PHOSPHORUS Routine 10/25/2017 ESRD (end stage renal 10:29 AM CDT disease) ([facility]) Pre-transplant evaluation for chronic kidney disease Anemia of renal disease Essential hypertension LACTATE DEHYDROGENASE Routine 10/25/2017 ESRD (end stage renal (LDH) 10:29 AM CDT disease) ([facility]) Pre-transplant evaluation for chronic kidney disease Anemia of renal disease Essential hypertension GAMMA GLUTAMYL Routine 10/25/2017 ESRD (end stage renal TRANSFERASE (GGT) 10:29 AM CDT disease) ([facility]) Pre-transplant evaluation for chronic kidney disease Anemia of renal disease Essential hypertension EBV ANTIBODY, IGM Routine 10/25/2017 ESRD (end stage renal 10:29 AM CDT disease) ([facility]) Pre-transplant evaluation for chronic kidney disease Anemia of renal disease Essential hypertension EBV ANTIBODY, IGG Routine 10/25/2017 ESRD (end stage renal 10:29 AM CDT disease) ([facility]) Pre-transplant evaluation for chronic kidney disease Anemia of renal disease Essential hypertension COMPREHENSIVE METABOLIC Routine 10/25/2017 ESRD (end stage renal PANEL 10:29 AM CDT disease) ([facility]) Pre-transplant evaluation for chronic kidney disease Anemia of renal disease Essential hypertension CYTOMEGALOVIRUS ANTIBODY, Routine 10/25/2017 ESRD (end stage renal IGM 10:29 AM CDT disease) ([facility]) Pre-transplant evaluation for chronic kidney disease Anemia of renal disease Essential hypertension CYTOMEGALOVIRUS ANTIBODY, Routine 10/25/2017 ESRD (end stage renal IGG 10:29 AM CDT disease) (HCC) Pre-transplant evaluation for chronic kidney disease Anemia of renal disease Essential hypertension CBC W/PLT COUNT & AUTO Routine 10/25/2017 ESRD (end stage renal DIFFERENTIAL 10:29 AM CDT disease) (HCC) Pre-transplant evaluation for chronic kidney disease Anemia of renal disease Essential hypertension after 09/03/2017 Results * FLOW PRA CLASS II WITH REFLEX TO ANTIBODY SPECIFICITY (06/06/2018 4:05 PM [employer]) Only the most recent of 3 results within the time period is included. Flow Class II Percent 0 [facility] Positive Flow Class Report [facility] Comments Specimen Blood Narrative Performed At Disclaimer: [facility] This test was developed and its performance characteristics determined by the [facility]. It has not been cleared or approved by the U.S. Food and Drug Administration. The FDA has determined that such clearance or approval is not necessary. This test is used for clinical purposes. It should not be regarded as investigational or for research. This laboratory is certified under the Clinical Laboratory Improvement Amendments of 1988 (CLIA-88) as qualified to perform high complexity clinical laboratory testing. Performing Organization Address City/State/Zipcode Phone Number [facility] [address], [address]: [id number], [place] [address] CLIA#[id number] CAP#[id number] [facility]#[id number] * FLOW PRA CLASS I WITH REFLEX TO ANTIBODY SPECIFICITY (06/06/2018 4:05 PM [employer]UM TOUR GUIDE) Only the most recent of 3 results within the time period is included. Flow Class I Percent 0 [facility] Positive Flow Class Report [facility] Comments Specimen Blood Narrative Performed At Disclaimer: [facility] This test was developed and its performance characteristics determined by the [facility]. It has not been cleared or approved by the U.S. Food and Drug Administration. The FDA has determined that such clearance or approval is not necessary. This test is used for clinical purposes. It should not be regarded as investigational or for research. This laboratory is certified under the Clinical Laboratory Improvement Amendments of 1988 (CLIA-88) as qualified to perform high complexity clinical laboratory testing. Performing Organization Address City/[facility]/Zipcode Phone Number [facility] [address], [address]: [id number], [place] [address] CLIA#[id number] CAP#[id number] [facility]#[id number] * HLA TYPING CII (11/19/2017 7:54 AM CDT) HLA-DR AG1 1 [facility] HLA-DR AG2 8 [facility] HLA-DR AG3-1 [facility] HLA-DR AG3-2 [facility] HLA-DR AG4-1 [facility] HLA-DR AG4-2 [facility] HLA-DR AG5-1 [facility] HLA-DR AG5-2 [facility] HLA-DQA1 AG 1-1 01 [facility] HLA-DQA1 AG 1-2 04 [facility] HLA-DQB1 AG 1-1 5 [facility] HLA-DQB1 AG 1-2 4 [facility] HLA-DPA1 AG 1-1 01 [facility] HLA-DPA1 AG 1-2 02 [facility] HLA-DPB1 AG 1-1 04:02 [facility] HLA-DPB1 AG 1-2 05:01 [facility] HLA-AG Notes [facility] HLA-AG Report Comments [facility] Specimen Blood Performing Organization Address [facility] Phone Number [facility] [address] [facility] [address], [address]: [id number], [place] [address] CLIA#[id number] CAP#[id number] [facility]#[id number] * HLA TYPING CI (11/19/2017 7:54 AM CDT) HLA-A AG1 2 [facility] HLA-A AG2 31 [facility] HLA-B AG1 7 [facility] HLA-B AG2 35 [facility] HLA-C AG1 7 [facility] HLA-C AG2 4 [facility] HLA-B BW1 6 [facility] HLA-B BW2 6 [facility] HLA-AG Notes [facility] HLA-AG Report Comments [facility] Specimen Blood Performing Organization Address City/[facility] Phone Number [facility] [address], [address]: [id number], [place] [address] CLIA#[id number] CAP#[id number] [facility]#[id number] * TRANSFUSION SERVICE REPORT - SCAN (11/08/2017 5:58 PM CDT) Only the most recent of 2 results within the time period is included. Narrative Performed At * ECHOCARDIOGRAM REPORT - SCAN (11/07/2017 10:51 AM CDT) Narrative Performed At * XR chest 2 views (11/07/2017 10:13 AM CDT) Narrative Performed At FINAL REPORT [employer] TECHNIQUE: 2 views of the chest. COMPARISON: None FINDINGS: The cardiac silhouette is within normal limits.Mediastinum is unremarkable. Lungs are clear.Osseous structures appear unremarkable. Soft tissues appear unremarkable. IMPRESSION: Normal chest exam. Signed: John Paul Rascon MD Report Verified Date/Time:11/07/2017 11:05:03 Reading Location: [facility] Radiology Reading Room Procedure Note Interface, External Ris In - 11/07/2017 11:07 AM CDT FINAL REPORT TECHNIQUE: 2 views of the chest. COMPARISON: None FINDINGS: The cardiac silhouette is within normal limits. Mediastinum is unremarkable. Lungs are clear. Osseous structures appear unremarkable. Soft tissues appear unremarkable. IMPRESSION: Normal chest exam. Signed: John Paul Rascon MD Report Verified Date/Time: 11/07/2017 11:05:03 Reading Location: [facility] Radiology Reading Room Performing Organization Address City/State/Zipcode Phone Number [employer] * US pelvis limited (11/07/2017 9:58 AM CDT) Narrative Performed At FINAL REPORT [facility] HISTORY : Chronic kidney disease, kidney transplant evaluation COMPARISON : No comparisons available for review COMMENT : Complete ultrasound examination of the abdomen was performed and limited pelvic ultrasound was performed. The liver is normal in size measuring 14.0 cm in length along the right midclavicular line and homogeneous in echo-texture without evidence of a focal mass. The gallbladder contains shadowing echogenic gallstones. There is no gallbladder wall thickening or pericholecystic fluid. The gallbladder is nondistended The biliary tract is within normal limits with the common bile duct measuring 2 mm in maximum diameter.The visualized portions of the pancreas are within normal limits.The spleen is normal in size and echo-texture measuring 8.0 cm.The right kidney measures 7.4 cm and the [...] mL. Postvoid volume is 2 mL. IMPRESSION : 1. Cholelithiasis without ultrasonographic evidence of acute cholecystitis. 2. Atrophic bilateral kidneys with increased echogenicity compatible with medical renal disease. Signed: Miguelangel Abel MD Report Verified Date/Time:11/07/2017 18:20:05 Reading Location: [facility] [id number] Ultrasound Reading Room Procedure Note Interface, External Ris In - 11/07/2017 6:22 PM CDT FINAL REPORT HISTORY : Chronic kidney disease, kidney transplant evaluation COMPARISON : No comparisons available for review COMMENT : Complete ultrasound examination of the abdomen was performed and limited pelvic ultrasound was performed. The liver is normal in size measuring 14.0 cm in length along the right midclavicular line and homogeneous in echo-texture without evidence of a focal mass. The [...] mL. Postvoid volume is 2 mL. IMPRESSION : 1. Cholelithiasis without ultrasonographic evidence of acute cholecystitis. 2. Atrophic bilateral kidneys with increased echogenicity compatible with medical renal disease. Signed: Miguelangel Abel MD Report Verified Date/Time: 11/07/2017 18:20:05 Reading Location: [facility] [id number] Ultrasound Reading Room Performing Organization Address City/State/Zipcode Phone Number [employer] * US abdomen complete (11/07/2017 9:58 AM CDT) Narrative Performed At FINAL REPORT [facility] HISTORY : Chronic kidney disease, kidney transplant evaluation COMPARISON : No comparisons available for review COMMENT : Complete ultrasound examination of the abdomen was performed and limited pelvic ultrasound was performed. The liver is normal in size measuring 14.0 cm in length along the right midclavicular line and homogeneous in echo-texture without evidence of a focal mass. The gallbladder contains shadowing echogenic gallstones. There is no gallbladder wall thickening or pericholecystic fluid. The gallbladder is nondistended The biliary tract is within normal limits with the common bile duct measuring 2 mm in maximum diameter.The visualized portions of the pancreas are within normal limits.The spleen is normal in size and echo-texture measuring 8.0 cm.The right kidney measures 7.4 cm and the [...] mL. Postvoid volume is 2 mL. IMPRESSION : 1. Cholelithiasis without ultrasonographic evidence of acute cholecystitis. 2. Atrophic bilateral kidneys with increased echogenicity compatible with medical renal disease. Signed: Miguelangel Abel MD Report Verified Date/Time:11/07/2017 18:20:05 Reading Location: [facility] P006 Ultrasound Reading Room Procedure Note Interface, External Ris In - 11/07/2017 6:22 PM CDT FINAL REPORT HISTORY : Chronic kidney disease, kidney transplant evaluation COMPARISON : No comparisons available for review COMMENT : Complete ultrasound examination of the abdomen was performed and limited pelvic ultrasound was performed. The liver is normal in size measuring 14.0 cm in length along the right midclavicular line and homogeneous in echo-texture without evidence of a focal mass. The [...] mL. Postvoid volume is 2 mL. IMPRESSION : 1. Cholelithiasis without ultrasonographic evidence of acute cholecystitis. 2. Atrophic bilateral kidneys with increased echogenicity compatible with medical renal disease. Signed: Miguelangel Abel MD Report Verified Date/Time: 11/07/2017 18:20:05 Reading Location: [address] Ultrasound Reading Room Performing Organization Address City/State/Zipcode Phone Number GE RIS * 2D Echo W/Doppler(CW/PW/Color) (11/07/2017 8:13 AM CDT) Ejection Fraction [facility] Narrative Performed At Transthoracic Echocardiography Report (TTE) [facility] Demographics [facility] Patient Name Trev HILL of Study 11/07/2017 [id number] GenderMale Visit Number [id number] RaceUnknown [id number] Number OP Number Date of Birth1985 Referring Physician Allen Stinson Age32 year(s) 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 Clinical History HGB 11.1 HCT 33.8 % Down syndrome, ESRD, HLD, Single kidney, left Height: 57 inches Weight: 58.97 kg (130 lbs) BSA: 1.5 m^2 BMI: 28.13 kg/m^2 HR: 56 bpm BP: 165/103 mmHg Summary The left ventricle is chamber size (by vol index) is normal. No evidence of LV hypertrophy. All of the LV segments contract normally . LVEF by Salinas's method of disk assessment is normal (>60%) . Normal diastolic function. Estimated peak systolic PA pressure is 25-30 mmHg . A trivial pericardial effusion is present . Signature Findings Technical Quality: Technically adequate exam. Rhythm/BPSinus bradycardia during the exam. Left Ventricle The left ventricle is chamber size (by vol index) is normal. No evidence of LV hypertrophy. All of the LV segments contract normally . LVEF by Salinas's method of disk assessment is normal (>60%) . Normal diastolic function. Left AtriumLA size is normal . Right VentricleThe right ventricular chamber size and systolic function are within normal limits. Right Atrium RA size is normal. Aortic Valve Normal AoV structure. No evidence of aortic stenosis. Mild aortic regurgitation. Mitral Valve Normal MV structure. No evidence of mitral regurgitation. Tricuspid ValveTV structure is normal. A trace of tricuspid regurgitation. Estimated peak systolic PA pressure is 25-30 mmHg . Peak systolic pressure may be underestimated; partial TR signal. Pulmonic Valve PV is not well visualized. A trace of pulmonary regurgitation. AortaAortic root size (SInus of Valsalva diameter) is normal . Visualized aortic arch is normal . PericardiumA trivial pericardial effusion is present . IVC/SVC/PA/PV/PleuralThe estimated RA pressure by IVC dynamics 0-5mmHg . Chambers/Structures Left Atrium LA Volume: 42.02 ml LA Area: 15.33 cm^2 LA Vol. Index: 28 ml/m^2 Left Ventricle LVIDd: 3.57 cm LVIDs: 1.79 cm LV Septum Diastolic: 0.99 cm LV PW Diastolic: 0.94 cmLV FS: 49.9 % LVEDV Salinas's:120.88 ml LVESV Salinas's:47.94 mlLVEDVI: 81 ml/m^2 LVEF Salinas's: 60.3 %LVESVI: 32 ml/m^2 LVOT Diameter: 2.32 cm Doppler/Quantitative Measurements Mitral Valve MV Peak E-Wave: 1.04 m/sMV Peak A-Wave: 0.61 m/s E/A Ratio: 1.7 Peak Gradient: 4.32 mmHg MV Trey. Peak: Tissue Doppler E' Lateral Velocity: 0.12 m/s E/E': 8.87 Aortic Valve Peak Velocity: 1.21 m/sMean Velocity: 0.9 m/s Peak Gradient: 5.9 mmHgMean Gradient: 3.62 mmHg AV Area (continuity): 3.55 cm^2 AV VTI: 28.66 cm AV DVI: 0.84 LVOT Peak Velocity: 1.12 m/s Peak Gradient: 4.99 mmHg Mean Velocity: 0.67 m/s Mean Gradient: 2.12 mmHg LVOT Diameter: 2.32 cmLVOT VTI: 24.08 cm LVOT Area: 4.23 cm^2LVOT SV:101.74 ml LVOT CO: 5.7 l/minLVOT CI: 3.8 l/min/m^2 Tricuspid Valve TR Velocity: 2.41 m/s TR Gradient: 23.19 mmHg Procedure Note Interface, External Ris In - 11/07/2017 10:26 AM CDT Transthoracic Echocardiography Report (TTE) Demographics Patient Name GRANT HILL Date of Study 11/07/2017 Gender Male Visit Number [id number] Race Unknown Room Number OP Number Date of 1985 Referring Physician Allen Stinson Age 32 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 Clinical History HGB 11.1 HCT 33.8 % Down syndrome, ESRD, HLD, Single kidney, left Height: 57 inches Weight: 58.97 kg (130 lbs) BSA: 1.5 m^2 BMI: 28.13 kg/m^2 HR: 56 bpm BP: 165/103 mmHg Summary The left ventricle is chamber size (by vol index) is normal. No evidence of LV hypertrophy. All of the LV segments contract normally . LVEF by Salinas's method of disk assessment is normal (>60%) . Normal diastolic function. Estimated peak systolic PA pressure is 25-30 mmHg . A trivial pericardial effusion is present . Signature Findings Technical Quality: Technically adequate exam. Rhythm/BP Sinus bradycardia during the exam. Left Ventricle The left ventricle is chamber size (by vol index) is normal. No evidence of LV hypertrophy. All of the LV segments contract normally . LVEF by Salinas's method of disk assessment is normal (>60%) . Normal diastolic function. Left Atrium LA size is normal . Right Ventricle The right ventricular chamber size and systolic function are within normal limits. Right Atrium RA size is normal. Aortic Valve Normal AoV structure. No evidence of aortic stenosis. Mild aortic regurgitation. Mitral Valve Normal MV structure. No evidence of mitral regurgitation. Tricuspid Valve TV structure is normal. A trace of tricuspid regurgitation. Estimated peak systolic PA pressure is 25-30 mmHg . Peak systolic pressure may be underestimated; partial TR signal. Pulmonic Valve PV is not well visualized. A trace of pulmonary regurgitation. Aorta Aortic root size (SInus of Valsalva diameter) is normal . Visualized aortic arch is normal . Pericardium A trivial pericardial effusion is present . IVC/SVC/PA/PV/Pleural The estimated RA pressure by IVC dynamics 0-5mmHg . Chambers/Structures Left Atrium LA Volume: 42.02 ml LA Area: 15.33 cm^2 LA Vol. Index: 28 ml/m^2 Left Ventricle LVIDd: 3.57 cm LVIDs: 1.79 cm LV Septum Diastolic: 0.99 cm LV PW Diastolic: 0.94 cm LV FS: 49.9 % LVEDV Salinas's:120.88 ml LVESV Salinas's:47.94 ml LVEDVI: 81 ml/m^2 LVEF Salinas's: 60.3 % LVESVI: 32 ml/m^2 LVOT Diameter: 2.32 cm Doppler/Quantitative Measurements Mitral Valve MV Peak E-Wave: 1.04 m/s MV Peak A-Wave: 0.61 m/s E/A Ratio: 1.7 Peak Gradient: 4.32 mmHg MV Trey. Peak: Tissue Doppler E' Lateral Velocity: 0.12 m/s E/E': 8.87 Aortic Valve Peak Velocity: 1.21 m/s Mean Velocity: 0.9 m/s Peak Gradient: 5.9 mmHg Mean Gradient: 3.62 mmHg AV Area (continuity): 3.55 cm^2 AV VTI: 28.66 cm AV DVI: 0.84 LVOT Peak Velocity: 1.12 m/s Peak Gradient: 4.99 mmHg Mean Velocity: 0.67 m/s Mean Gradient: 2.12 mmHg LVOT Diameter: 2.32 cm LVOT VTI: 24.08 cm LVOT Area: 4.23 cm^2 LVOT SV:101.74 ml LVOT CO: 5.7 l/min LVOT CI: 3.8 l/min/m^2 Tricuspid Valve TR Velocity: 2.41 m/s TR Gradient: 23.[address] [facility] Organization Address City/State/Zipcode Phone Number [facility] MKCKESSON CPACS * ECG 12 lead (11/07/2017 7:33 AM CDT) Narrative Performed At Ventricular Rate 64 BPM GE MUSE Atrial Rate 64 BPM P-R Interval 122 ms QRS Duration 82 ms Q-T Interval 414 ms QTC Calculation(Bazett) 427 ms P Demarest 22 degrees R Demarest 70 degrees T Demarest 52 degrees Normal sinus rhythm Normal ECG No previous ECGs available Confirmed by MD HALI, RADHA ([id number]) on 11/08/2017 7:38:27 AM Procedure Note Interface, External Ris In - 11/08/2017 7:38 AM CDT Ventricular Rate 64 BPM Atrial Rate 64 BPM P-R Interval 122 ms QRS Duration 82 ms Q-T Interval 414 ms QTC Calculation(Bazett) 427 ms P Demarest 22 degrees R Demarest 70 degrees T Demarest 52 degrees Normal sinus rhythm Normal ECG No previous ECGs available Confirmed by MD HALI, RADHA ([id number]) on 11/08/2017 7:38:27 AM Performing Organization Address City/State/[facility] Phone Number GE GISELL * Blood typing, automated (11/07/2017 7:16 AM CDT) ABO/RH AUTOMATED (BEAKER) O POSITIVE [facility] Specimen Blood Performing Organization Address City/[facility] Phone Number [facility] [address] [place], [place] [id number] [facility] * Lipid panel (11/07/2017 7:16 AM CDT) Triglycerides 141 mg/dL [facility] Cholesterol 148 mg/dL [facility] HDL 27 mg/dL [facility] LDL Calculated 93 mg/dL [facility] Specimen Blood Narrative Performed At Triglyceride Reference Range: [facility] Low Risk <150 [facility] [id number] High Risk 200-499 Very High Risk>=500 Cholesterol Reference Range: Low Risk <200 [id number] High Risk>240 HDL Cholesterol Reference Range: Low Risk >=60 High Risk <40 LDL Cholesterol Reference Range: Optimal<100 Near [id number] [id number] Very High >=190 Performing Organization Address [facility] Phone Number [address] [address] [facility] * Occult blood, stool (11/02/2017 1:40 PM CDT) Only the most recent of 2 results within the time period is included. Occult blood Negative Negative [facility] Specimen Stool - Stool Performing Organization Address [facility] Phone Number [address] [address] [phone] [address] * HIV-1 Antigen with HIV-1/2 Antibody (10/25/2017 10:30 AM CDT) HIV-1 Antigen with HIV NON-REACTIVE Nonreactive [facility] 1&2 Antibody [facility] Specimen Blood Performing Organization Address [facility] Phone Number [address] [address] [phone] [place] [address] * Hepatitis C Antibody (10/25/2017 10:30 AM CDT) Hepatitis C Ab NON-REACTIVE Nonreactive [facility] Specimen Blood Performing Organization Address [facility] Phone Number [address] [address] [phone] [address] * Hepatitis B core antibody, IgM (10/25/2017 10:30 AM CDT) Hep B C IgM NON-REACTIVE Nonreactive [facility] Specimen Blood Performing Organization Address [facility] Phone Number [address] [address] [facility] * Hepatitis B surface antibody (10/25/2017 10:30 AM CDT) Hep B S Ab 9.7 (H) <8.0 mIU/mL [facility] Specimen Blood Performing Organization Address [facility] Phone Number [address] [phone] * Hepatitis B surface antigen (10/25/2017 10:30 AM CDT) hepatitis B Surface Ag NON-REACTIVE Nonreactive [facility] Specimen Blood Performing Organization Address City/[facility]/Zipcode Phone Number [facility] [address] [place] [address] [facility] * Urinalysis, Routine (10/25/2017 10:30 AM CDT) Color, UA Light Yellow [facility] Clarity, UA Hazy [facility] Specific Sabinal, UA 1.009 1.001 - 1.035 [facility] pH, UA 5.5 5.0 - 8.0 [facility] Protein, UA 200 mg/dL (A) Negative [facility] Glucose, UA Negative Negative [facility] Ketones, UA Negative Negative [facility] Bilirubin, UA Negative Negative [facility] Blood, UA Moderate (A) Negative [facility] Nitrite, UA Negative Negative [facility] Leukocytes, UA Negative Negative [facility] Urobilinogen, UA 0.2 0.2 - 1.0 mg/dL [facility] RBC, UA 9 /HPF [facility] WBC, UA 1 /HPF [facility] Mucus Rare [facility] Squam Epithel, UA <1 /HPF [facility] Specimen Source [facility] Specimen Urine Performing Organization Address City/State/Zipcode Phone Number [facility] [address] [place] [address] [facility] * Urine Culture (10/25/2017 10:30 AM CDT) Result 10-19,000 col/mL skin chanelle [facility] Specimen Urine Performing Organization Address [facility] Phone Number [address] * Varicella Zoster Antibody, IgG (10/25/2017 10:30 AM CDT) Varicella IgG 2.5 Al [facility] Specimen Blood Narrative Performed At VARICELLA ZOSTER RESULT INTERPRETATIONS: [facility] <=0.8 AlNonreactive:Presumed non-immune to VZV [facility] 0.9-1.0 AlEquivocal >=1.1 AlReactive:Presumed immune to VZV Performing Organization Address [facility] Phone Number [address] * Hemoglobin A1c (10/25/2017 10:30 AM CDT) Hemoglobin A1C 5.2 4.3 - 6.1 % [facility] Specimen Blood Performing Organization Address City/[facility] Phone Number [address] * Type and Screen, Automated (10/25/2017 10:29 AM CDT) ABO/RH AUTOMATED (BEAKER) O POSITIVE [facility] Ab Scrn NEGATIVE [facility] Specimen Blood Performing Organization Address [facility] Phone Number [address] * T Spot TB (10/25/2017 10:29 AM CDT) T-Spot TB Negative [facility] Neg Ctrl Spot Count 0 [facility] Panel A Spot 0 [facility] Panel B Spot 0 [facility] Pos Ctrl Spot Ct 0 [facility] Scan Result [facility] Specimen Blood Narrative Performed At Performing Organization Address [facility] Phone Number [facility] [address] [place] [address] LABORATORIES 100 * PT/aPTT (10/25/2017 10:29 AM CDT) Protime 14.0 11.7 - 14.7 seconds [facility] INR 1.1 <=5.9 [facility] PTT 30.4 22.5 - 36.0 seconds [facility] Specimen Blood Narrative Performed At RECOMMENDED COUMADIN/WARFARIN INR THERAPY RANGES [facility] STANDARD DOSE: 2.0 - 3.0 Includes: PROPHYLAXIS for venous thrombosis, [facility] systemic embolization; TREATMENT for venous thrombosis and/or pulmonary embolus. HIGH RISK: Target INR is 2.5-3.5 for patients with mechanical heart valves. Performing Organization Address City/State/Zipcode Phone Number [facility] [address] [place] [address] [facility] * CBC with platelet count + automated diff (10/25/2017 10:29 AM CDT) WBC 3.4 (L) 3.5 - 10.5 K/L [facility] RBC 3.54 (L) 4.63 - 6.08 M/L [facility] Hemoglobin 11.1 (L) 13.7 - 17.5 GM/DL [facility] Hematocrit 33.8 (L) 40.1 - 51.0 % [facility] MCV 95.5 (H) 79.0 - 92.2 fL [facility] MCH 31.4 25.7 - 32.2 pg [facility] MCHC 32.8 32.3 - 36.5 GM/DL [facility] RDW 14.3 11.6 - 14.4 % [facility] Platelets 206 150 - 450 K/CU MM [facility] MPV 10.6 9.4 - 12.4 fL [facility] nRBC 0 0 - 0 /100 WBC [facility] % Neutros 40 % [facility] % Lymphs 47 % [facility] % Monos 9 % [facility] % Eos 2 % [facility] % Baso 2 % [facility] # Neutros 1.33 (L) 1.78 - 5.38 K/L [facility] # Lymphs 1.59 1.32 - 3.57 K/L [facility] # Monos 0.31 0.30 - 0.82 K/L [facility] # Eos 0.06 0.04 - 0.54 K/L [facility] # Baso 0.06 0.01 - 0.08 K/L [facility] Immature 0 0 - 1 % [facility] Granulocytes-[facility] Specimen Blood Performing Organization Address City/[facility]/Zipcode Phone Number [address] * Cytomegalovirus antibody, IgM (10/25/2017 10:29 AM CDT) CMV IgM Negative [facility] Specimen Blood Performing Organization Address City/[facility]/Zipcode Phone Number [address] * EBV-VCA antibody, IgM (10/25/2017 10:29 AM CDT) EBV VCA IgM Negative [facility] Specimen Blood Performing Organization Address City/[facility]/Zipcode Phone Number [address] * EBV-VCA antibody, IgG (10/25/2017 10:29 AM CDT) EBV VCA IgG Positive [facility] Specimen Blood Performing Organization Address City/[facility]/Zipcode Phone Number [facility] [phone] [place] [address] * RPR (10/25/2017 10:29 AM CDT) RPR Nonreactive Nonreactive [facility] Specimen Blood Performing Organization Address City/[facility] Phone Number [phone] [place] [address] * Cytomegalovirus antibody, IgG (10/25/2017 10:29 AM CDT) CMV IgG Positive [facility] Specimen Blood Performing Organization Address [facility] Phone Number [address] * Direct AHG (NAKUL)/Direct Ciro (10/25/2017 10:29 AM CDT) Direct AHG-IGG NEGATIVE [facility] Direct AHG-C3B, C3D NEGATVIE [facility] Specimen Blood Performing Organization Address [facility] Phone Number [address] * Uric Acid (10/25/2017 10:29 AM CDT) Uric Acid 12.7 (H) 2.6 - 7.2 mg/dL [facility] Specimen Blood Performing Organization Address City/[facility] Phone Number [address] * Phosphorus (10/25/2017 10:29 AM CDT) Phosphorus 4.9 (H) 2.3 - 4.7 mg/dL [facility] Specimen Blood Performing Organization Address [facility] Phone Number [address] * PTH, Intact (10/25/2017 10:29 AM CDT) PTH 265.3 (H) 8.5 - 72.5 pg/mL [facility] Specimen Blood Performing Organization Address City/[facility] Phone Number [address] * Lactate Dehydrogenase (LDH) (10/25/2017 10:29 AM CDT) LDH 138 125 - 220 U/L [facility] Specimen Blood Performing Organization Address City/[facility] Phone Number [address] * Gamma Glutamyl Transferase (GGT) (10/25/2017 10:29 AM CDT) GGT 11 9 - 64 U/L [facility] Specimen Blood Performing Organization Address [facility] Phone Number [address] * Comprehensive metabolic panel (10/25/2017 10:29 AM CDT) Protein, Total 7.4 6.0 - 8.3 gm/dL [facility] Albumin 4.2 3.5 - 5.0 g/dL [facility] Alkaline Phosphatase 118 40 - 150 U/L [facility] Total Bilirubin 0.3 0.2 - 1.2 mg/dL [facility] Sodium 141 136 - 145 meq/L [facility] Potassium 4.0 3.5 - 5.1 meq/L [facility] Chloride 111 (H) 98 - 107 meq/L [facility] CO2 18 (L) 22 - 29 meq/L [facility] BUN 85 (H) 7 - 21 mg/dL [facility] Creatinine 5.78 (H) 0.57 - 1.25 mg/dL [facility] Glucose 90 70 - 105 mg/dL [facility] Calcium 9.1 8.4 - 10.2 mg/dL [facility] AST 10 5 - 34 U/L [facility] ALT 10 6 - 55 U/L [facility] EGFR 12Comment: ESTIMATED GFR IS mL/min/1.73 sq m [facility] NOT ACCURATE CREATININE [facility] CLEARANCE IN PREDICTING GLOMERULAR FILTRATION RATE. ESTIMATED GFR IS NOT APPLICABLE FOR DIALYSIS PATIENTS. Specimen Blood Performing Organization Address City/State/Zipcode Phone Number [facility] [address] [place] [address] [facility]ENTER after 09/03/2017 Insurance Payer Benefit Subscriber ID Type Phone Address Plan / Group OPTUM NON UNITED - [employer] xxxxxxxxx MEDICAID MGD CARE NON-UNITED STAR
--- NOTE | 2018-09-05 02:54 | Diagnostic Imaging Report ---
EXAMINATION: CHEST SINGLE (PORTABLE) COMPARISON: Chest x-ray 04/07/2018 INDICATION: Chest pain ^RIGHT TUNNELED IJ WHICH IS NOT SUTURED IN, C/O PAIN AT SITE DISCUSSION: Frontal view of the chest obtained at 0237 hours. HEART AND MEDIASTINUM: The cardiomediastinal silhouette is unremarkable. LINES: Dual lumen central venous catheter remains in the cavoatrial junction. The catheter is intact. No surrounding calcifications. LUNGS: The lungs are well inflated and clear. No pneumonia or pulmonary edema. PLEURA: No pleural effusion or pneumothorax. BONES AND SOFT TISSUES: No focal osseous lesion. The soft tissues are normal. IMPRESSION: No acute cardiopulmonary disease. Stable central venous catheter position as described above. Signed by: Dr. Regina Schultz MD on 09/05/2018 2:51 AM
[2018-09-05 05:07] VITALS: BP 112/87
== END 2018-09-05 05:16 | disposition home or self-care (01) ==
LOC: ER 21:46
DX: R07.89 Other chest pain (principal); N18.6 End stage renal disease; Z99.2 Dependence on renal dialysis; Q90.9 Down syndrome, unspecified
CPT/HCPCS: 71045; 99283

== ENCOUNTER 2019-03-11 10:36 | Emergency (ER) | payer OTHER ==
[~2019-03-11] VITALS: Ht 144.8 cm; Wt 57.2 kg
--- OUTSIDE RECORDS SUMMARY | 2019-03-11 10:39 | XMS REPORT | Clinical Summary ---
Author Author [facility] Organization [facility] Address Unknown Phone Unavailable Care Team Providers Care Tests Superintendent Name Role Phone Kumar Echevarria MD PCP Allergies No Known Allergies Medications End Date Status Medication Sig Dispensed Refills Start Date Active allopurinol (ZYLOPRIM) DIANA CELESTINE 300 MG tablet TABLETA 8 ORALMENTE CADA THOMAS Active amLODIPine (NORVASC) 5 mg DIANA CELESTINE tablet TABLETA 8 ORALMENTE CADA THOMAS PARA ARIEL PRESION Active ASPIR-LOW 81 mg enteric DIANA CELESTINE coated tablet TABLETA 8 ORALMENTE CADA THOMAS [...] Discontinued LINZESS 145 mcg capsule TOME CELESTINE CAPSULA 8 ORALMENTE CADA THOMAS Active Problems Not on file Encounters Care Team Description Date Type Specialty Nathan Kelley MD 10/03/2018 Anesthesia General Surgery Event Donte Villalpando MD RIGHT ARM AV FISTULA CREATION 10/03/2018 Surgery General Surgery Donte Villalpando MD 10/03/2018 Hospital General Surgery Encounter Ben Shah MD Ali, Faisal, COLOR RECEIVER 07/18/2018 Anesthesia General Surgery Event Donte Villalpando MD Preop testing 07/18/2018 Hospital General Surgery Encounter Donte Villalpando MD Canceled RIGHT UPPER EXTREMITY CREATION, AV FISTULA 07/18/2018 Surgery General Surgery Donte Villalpando MD 07/13/2018 Hospital Radiology Encounter Donte Villalpando MD Preop testing (Primary Dx) 07/13/2018 Pre-Admit Pre-Admission Testing Testing Appointment after 03/10/2018 Family History Medical History Relation Name Comments Hypertension Father Diabetes Mother Hypertension Mother Thyroid disease Mother Relation Name Status Comments Father Alive Mother Alive Social History Date Tobacco Use Types Packs/Day Years Used Never Smoker Smokeless Tobacco: Never Used Drinks/Week oz/Week Comments Alcohol Use No Alcohol Habits Answer Date Recorded How [...] travel history available. Last Filed Vital Signs Reading Time Taken Comments Vital Sign 143/74 10/03/2018 5:17 PM CDT Blood Pressure 80 10/03/2018 5:17 PM CDT Pulse 36.6 C (97.8 F) 10/03/2018 4:28 PM CDT Temperature 18 10/03/2018 5:17 PM CDT Respiratory Rate 100% 10/03/2018 5:17 PM CDT Oxygen Saturation - - Inhaled Oxygen Concentration 57.2 kg (126 lb 1 oz) 10/03/2018 11:48 AM CDT Weight 144.8 cm (4' 9") 10/03/2018 11:48 AM CDT Height 27.28 10/03/2018 11:48 AM CDT Body Mass Index Plan of Treatment Health Maintenance Due Date Last Done Comments INFLUENZA VACCINE 02/08/2019 Procedures Comments Procedure Name Priority Date/Time Associated Diagnosis GA AN ELECTIVE Routine 10/03/2018 SUPRAGLOTTIC AIRWAY 2:38 PM CDT Procedure Note - Arden Epstein CRNA - 10/03/2018 2:38 PM CDT Airway Date/Time: 10/03/2018 2:26 PM Performed by: Arden Epstein CRNA Authorized by: Nathan Kelley MD Location: OR Urgency: Elective Anesthesio logist: Nathan Kelley MD Resident/C RNA/AA: Arden Epstein CRNA Performed by: resident/C RNA and resident/C RNA/AA Preoxygena erin with 100% O2: Yes C-spine Precaution s Maintained Throughout : Yes Mask Ventilatio n: Easy mask Final Airway Type: Supraglott ic airway Final LMA: Unique LMA Size: 4 Number of Attempts at Approach: 1 Teeth intact, atraumatic intubation CREATION, AV FISTULA 10/03/2018 ESRD 2:18 PM CDT ESTIMATED GFR Routine 10/03/2018 11:20 AM CDT PROTHROMBIN TIME WITH INR Routine 10/03/2018 11:20 AM CDT PARTIAL THROMBOPLASTIN Routine 10/03/2018 TIME (PTT) 11:20 AM CDT BASIC METABOLIC PANEL Routine 10/03/2018 11:20 AM CDT HC COMPLETE BLD COUNT Routine 10/03/2018 W/AUTO DIFF 11:20 AM CDT TYPE AND SCREEN Routine 10/03/2018 11:14 AM CDT ECG 12-LEAD Routine 10/03/2018 10:18 AM CDT POTASSIUM LEVEL STAT 07/18/2018 Preop testing 10:23 AM MARKETING OPERATIONS COORDINATOR TYPE AND SCREEN Routine 07/14/2018 Preop testing 11:11 AM MARKETING OPERATIONS COORDINATOR XR CHEST 2 VW Routine 07/13/2018 Preop testing 8:46 AM MARKETING OPERATIONS COORDINATOR ECG 12-LEAD Routine 07/13/2018 Preop testing 7:55 AM MARKETING OPERATIONS COORDINATOR ESTIMATED GFR Routine 07/13/2018 6:59 AM MARKETING OPERATIONS COORDINATOR PARTIAL THROMBOPLASTIN Routine 07/13/2018 Preop testing TIME (PTT) 6:59 AM MARKETING OPERATIONS COORDINATOR PROTHROMBIN TIME WITH INR Routine 07/13/2018 Preop testing 6:59 AM MARKETING OPERATIONS COORDINATOR BASIC METABOLIC PANEL Routine 07/13/2018 Preop testing 6:59 AM MARKETING OPERATIONS COORDINATOR HC COMPLETE BLD COUNT Routine 07/13/2018 Preop testing W/AUTO DIFF 6:59 AM MARKETING OPERATIONS COORDINATOR after 03/10/2018 Results * Estimated GFR (10/03/2018 11:20 AM CDT) Only the most recent of 2 results within the time period is included. [facility] Estimated GFR 6 (A) mL/min/1.73 m2 DRURY Comment: [facility] rpretation G1 >=90 Normal or high G2 60-89Mildly decreased [id number] Mildly to moderately decreased O7a06-89 Moderately to severely decreased G4 15-29Severely decreased G5 <15Kidney failure The eGFR was calculated using the Chronic Kidney Disease Epidemiology Collaboration (CKD-EPI) equation. Interpretation is based on recommendations of the National Kidney Foundation-Kidney Disease Outcomes Quality Initiative (NKF-KDOQI) published in 2014. Specimen Plasma specimen Performing Organization Address City/State/Zipcode [place] [address] [place] [address] PATHOLOGY AND GENOMIC MEDICINE [facility] [address] [place] [address] [facility] * Partial thromboplastin time, activated (10/03/2018 11:20 AM CDT) Only the most recent of 2 results within the time period is included. [facility] PTT 36.7 (H) 23.0 - 36.0 sec DRURY Comment: [facility] PTT therapeutic range for [facility] unfractionated heparin is 61.0-112.0 seconds which corresponds to Anti-Xa 0.3-0.7 U/ml. Specimen Blood Performing Organization Address [facility] Phone Number [address] [place] [address] PATHOLOGY AND GENOMIC MEDICINE [address] * Prothrombin time with INR (10/03/2018 11:20 AM CDT) Only the most recent of 2 results within the time period is included. Prothrombin 13.1 11.5 - 14.5 sec [facility] INR 1.0 DRURY Comment: [facility] Normalized [facility] Ratio (INR) is a therapeutic monitoring tool for patients who are stable on oral anticoagulant therapy. An INR of 2.0-3.0 is suggested for deep vein thrombosis/pulmonary embolism. Specimen Blood Performing Organization Address [facility] Phone Number [address] [place] [address] PATHOLOGY AND [facility] MEDICINE [address] * CBC with platelet and differential (10/03/2018 11:20 AM CDT) Only the most recent of 2 results within the time period is included. WBC 4.23 (L) 4.50 - 11.00 k/uL [facility] RBC 3.81 (L) 4.40 - 6.00 m/uL [facility] HGB 12.7 (L) 14.0 - 18.0 g/dL [facility] HCT 38.7 (L) 41.0 - 51.0 % [facility] MCV 101.6 (H) 82.0 - 100.0 fL [facility] MCH 33.3 27.0 - 34.0 pg [facility] MCHC 32.8 31.0 - 37.0 g/dL [facility] RDW - SD 50.1 37.0 - 55.0 fL [facility] MPV 9.6 8.8 - 13.2 fL [facility] Platelet count 212 150 - 400 k/uL [facility] Nucleated RBC 0.00 /100 WBC [facility] Neutrophils 34.3 (L) 39.0 - 69.0 % [facility] Lymphocytes 50.6 (H) 25.0 - 45.0 % [facility] Monocytes 12.5 (H) 0.0 - 10.0 % [facility] Eosinophils 0.7 0.0 - 5.0 % [facility] Basophils 1.4 (H) 0.0 - 1.0 % [facility] Specimen Blood Performing Organization Address [facility] Phone Number [facility] DEPARTMENT [address] [place] [address] PATHOLOGY AND [facility] MEDICINE [address] * Basic metabolic panel (10/03/2018 11:20 AM CDT) Only the most recent of 2 results within the time period is included. Sodium 140 135 - 148 mEq/L [facility] Potassium 5.2 (H) 3.5 - 5.0 mEq/L [facility] Chloride 98 98 - 112 mEq/L [facility] CO2 28 24 - 31 mEq/L [facility] Anion gap 14@ANIO 7 - 15 mEq/L [facility] BUN 43 (H) 6 - 20 mg/dL [facility] Creatinine 10.70 (H) 0.70 - 1.20 mg/dL [facility] Glucose 93 65 - 99 mg/dL [facility] Calcium 9.2 8.3 - 10.2 mg/dL [facility] Specimen Plasma specimen Performing Organization Address [facility] Phone Number [address] [place] [address] PATHOLOGY AND GENOMIC MEDICINE [address] * Type and screen (10/03/2018 11:14 AM CDT) Only the most recent of 2 results within the time period is included. ABO grouping O [facility] Rh type POS [facility] Antibody screen NEG [facility] Specimen Blood Performing Organization Address [facility] Phone Number [facility] [place] [address] PATHOLOGY AND GENOMIC MEDICINE [address] * ECG 12 lead (10/03/2018 10:18 AM CDT) Only the most recent of 2 results within the time period is included. Ventricular 51 [facility] rate Atrial rate 51 [facility] GA interval 126 [facility] QRSD interval 88 [facility] QT interval 464 [facility] QTC interval 427 [facility] P axis 1 36 [facility] QRS axis 1 61 [facility] T wave axis 63 [facility] EKG impression Sinus bradycardia-Otherwise [facility] normal ECG-In automated comparison with ECG of 13-JUL-2018 07:55,-No significant change was found- Specimen Narrative Performed At Performing Organization Address [facility] Phone Number [facility] [address] [place] [address] * Potassium level (07/18/2018 10:23 AM MARKETING OPERATIONS COORDINATOR) Potassium 4.8 3.5 - 5.0 mEq/L [facility] Specimen Plasma specimen Performing Organization Address [facility] Phone Number [facility] [place] [address] PATHOLOGY AND GENOMIC MEDICINE [address] * XR Chest 2 Vw (07/13/2018 8:46 AM MARKETING OPERATIONS COORDINATOR) Specimen Narrative Performed At EXAMINATION:XR CHEST 2 VW RADIANT CLINICAL HISTORY:Z01.818 Encounter for other preprocedural examination, preop COMPARISON: None . IMPRESSION: 1.Heart size is normal. 2.Lungs are clear. 3.A pleural effusion or pneumothorax is not identified. 4.There is a dual lumen right-sided central venous catheter with the tip at level the distal SVC. 5.Osseous structures are intact. [facility]-[id number] Procedure Note Interface, Radiology Results Incoming - 07/13/2018 9:01 AM MARKETING OPERATIONS COORDINATOR EXAMINATION: XR CHEST 2 VW CLINICAL HISTORY: Z01.818 Encounter for other preprocedural examination, preop COMPARISON: None . IMPRESSION: 1. Heart size is normal. 2. Lungs are clear. 3. A pleural effusion or pneumothorax is not identified. 4. There is a dual lumen right-sided central venous catheter with the tip at level the distal SVC. 5. Osseous structures are intact. [facility]-[id number] Performing Organization Address City/State/Zipcode Phone Number [facility] [address] [place] [address] after 03/10/2018 Insurance Type Payer Benefit Subscriber ID Effective Phone Address Plan / Dates Group O [facility] MEDICAID [facility] xxxxxxxxx 2011-P [employer]+ resent [facility] Advance Directives For more information, please contact: [phone] Patient Manager Plan Explanation Type Date Recorded Letter of Guardianship Advance Directives, 10/03/2018 10:58 AM Living Will and Medical Power of Public Finance Specialist
--- OUTSIDE RECORDS SUMMARY | 2019-03-11 10:39 | XMS REPORT | Clinical Summary ---
Author Author [facility] Organization [facility] Address Unknown Phone Unavailable Care Team Providers Care Cinder Crew Worker Name Role Phone Chucky--Kumar Escoto PCP Allergies No Known Allergies Medications End Date Status Medication Sig Dispensed Refills Start Date Active lovastatin (ALTOPREV) 40 Take 40 mg by 0 MG 24 hr tablet mouth daily. Active ibuprofen (ADVIL,MOTRIN) Take 400 mg 0 400 MG tablet by mouth every 6 (six) hours as needed for Pain. Active linaclotide (LINZESS) 145 Take 145 mcg 0 mcg Cap by mouth daily. Active sevelamer (RENVELA) 800 Take 800 mg 0 mg tabletIndications: 3 by mouth 3 tabs w/ meals (three) times daily with meals. Active cholecalciferol, vitamin Take 5,000 0 D3, 5,000 unit Tab Units by mouth daily. Active amLODIPine (NORVASC) 5 MG Take 5 mg by 0 tablet mouth daily. Active Problems Not on file Encounters Care Team Description Date Type Specialty Betty Pemberton MD Etheridge, Whitson B. II, MD Awaiting transplantation of kidney (Primary Dx) 10/26/2018 Evaluation Transplant Yue Sally 10/10/2018 Documentation Transplant Love Steinberg RN Awaiting transplantation of kidney (Primary Dx) 07/13/2018 Orders Only Transplant Love Steinberg RN ESRD (end stage renal disease) on dialysis (HCC) (Primary Dx); Awaiting transplantation of kidney 06/07/2018 Orders Only Transplant Betty Pemberton MD Patient awaiting renal transplant (Primary Dx) 06/06/2018 Orders Only Lab Evens Villa II, MD Patient awaiting renal transplant (Primary Dx) 03/22/2018 Orders Only Lab after 03/10/2018 Social History Date Tobacco Use Types Packs/Day Years Used Never Smoker Smokeless Tobacco: Never Used Alcohol Use Drinks/Week oz/Week Comments No Sex Assigned at Date Recorded Not on file Industry Job Start Date Occupation Not on file Not on file Not on file Travel End Travel History Travel Start No recent travel history available. Last Filed Vital Signs Time Taken Vital Sign Reading 10/26/2018 1:21 PM CDT Blood Pressure 131/82 10/26/2018 1:21 PM CDT Pulse 73 10/26/2018 1:21 PM CDT Temperature 36.8 C (98.3 F) 10/26/2018 1:21 PM CDT Respiratory Rate 18 - Oxygen Saturation - - Inhaled Oxygen - Concentration 10/26/2018 1:21 PM CDT Weight 57.7 kg (127 lb 3.2 oz) 10/26/2018 1:21 PM CDT Height 145.5 cm (4' 9.28") 10/26/2018 1:21 PM CDT Body Mass Index 27.26 Plan of Treatment Not on file Procedures Comments Procedure Name Priority Date/Time Associated Diagnosis FLOW PRA CLASS II WITH Routine 09/06/2018 Awaiting transplantation REFLEX TO ANTIBODY 1:13 PM MACHINE MILKER of kidney SPECIFICITY FLOW PRA CLASS I WITH Routine 09/06/2018 Awaiting transplantation REFLEX TO ANTIBODY 1:13 PM MACHINE MILKER of kidney SPECIFICITY FLOW PRA CLASS I WITH Routine 06/06/2018 Patient awaiting renal REFLEX TO ANTIBODY 4:05 PM MACHINE MILKER transplant SPECIFICITY FLOW PRA CLASS II WITH Routine 06/06/2018 Patient awaiting renal REFLEX TO ANTIBODY 4:05 PM MACHINE MILKER transplant SPECIFICITY FLOW PRA CLASS II WITH Routine 03/22/2018 Patient awaiting renal REFLEX TO ANTIBODY 3:19 PM CDT transplant SPECIFICITY FLOW PRA CLASS I WITH Routine 03/22/2018 Patient awaiting renal REFLEX TO ANTIBODY 3:19 PM CDT transplant SPECIFICITY after 03/10/2018 Results * FLOW PRA CLASS II WITH REFLEX TO ANTIBODY SPECIFICITY (09/06/2018 1:13 PM MACHINE MILKER) Only the most recent of 3 results within the time period is included. Flow Class II Percent 0 [facility] Positive Flow Class Report [facility] Comments Specimen Blood Narrative Performed At Disclaimer: [facility] This test was developed and its performance characteristics determined by the [facility] Laboratory. It has not been cleared [...] complexity clinical laboratory testing. Performing Organization Address City/State/[facility] Phone Number [facility] [address] Lindsey Ward, MS: [id number], [place] [address] CLIA#[id number] CAP#[id number] UN[facility]#[id number] * FLOW PRA CLASS I WITH REFLEX TO ANTIBODY SPECIFICITY (09/06/2018 1:13 PM MACHINE MILKER) Only the most recent of 3 results within the time period is included. Flow Class I Percent 0 [facility] Positive Flow Class Report [facility] Comments Specimen Blood Narrative Performed At Disclaimer: [facility] This test was developed and its performance characteristics determined by the [facility] Laboratory. It has not been cleared [...] complexity clinical laboratory testing. Performing Organization Address City/State/[facility] Phone Number [facility] Lindsey Ward, MS: [id number], [place] [address] CLIA#[id number] CAP#[id number] [facility]#[id number] after 03/10/2018 Insurance Payer Benefit Subscriber ID Type Phone Address Plan / Group OPTUM NON UNITED - [employer] xxxxxxxxx MEDICAID [facility] NON-UNITED STAR
[2019-03-11 11:39] LABS: BASOPHILS # (AUTO) 0.1 (0.0-0.1); BASOPHILS % 0.8 % (0.0-1.0); EOSINOPHILS % 0.5 % (0.0-6.0); HEMATOCRIT 33.5 % (38.2-49.6); HEMOGLOBIN 11.2 g/dL (14.0-18.0); LYMPHOCYTES # (AUTO) 1.7 (1.0-3.2); MEAN CORPUSCULAR HEMOGLOBIN 33.6 pg (28-32); MEAN CORPUSCULAR HGB CONC 33.4 g/dL (31-35); MEAN CORPUSCULAR VOLUME 100.6 fL (81-99); MONOCYTES # (AUTO) 0.7 (0.2-0.8); MONOCYTES % 11.4 % (4.4-11.3); NEUTROPHILS # (AUTO) 3.9 (2.1-6.9); NEUTROPHILS % 60.8 % (38.7-80.0); PLATELET COUNT 224 x10e3/uL (140-360); RED BLOOD COUNT 3.33 x10e6/uL (4.3-5.7); RED CELL DISTRIBUTION WIDTH 14.7 % (11.7-14.4)
--- NOTE | 2019-03-11 11:49 | Diagnostic Imaging Report ---
EXAM: CT of the abdomen and pelvis WITHOUT contrast HISTORY: Pain, pelvic, lower back, CVA tenderness, dialysis patient COMPARISON: None available. TECHNIQUE: The abdomen and pelvis were scanned utilizing a multidetector helical scanner. Coronal and sagittal reformats are available. PROTOCOL: Renal colic IV CONTRAST: None, which limits sensitivity and specificity of evaluation of the soft tissues and vascular structures. ORAL CONTRAST: None, which limits sensitivity and specificity of evaluation of the bowel. RADIATION DOSE: Total DLP: 181.5 mGy*cm Estimated effective dose: (DLP x 0.015 x size factor) Dose modulation, iterative reconstruction, and/or weight based adjustment of the mA/kV was utilized to reduce the radiation dose to as low as reasonably achievable. COMPLICATIONS: None FINDINGS: LOWER THORAX: Unremarkable. HEPATOBILIARY: No definite focal hepatic lesions. No biliary ductal dilatation. The gallbladder is mildly contracted. SPLEEN: No splenomegaly. PANCREAS: No focal masses or ductal dilatation. ADRENALS: No adrenal nodule. KIDNEYS/URETERS: Diffuse bilateral renal cortical atrophy. No hydronephrosis or stone. PELVIC ORGANS/BLADDER: The visualized pelvic organs appear unremarkable. PERITONEUM / RETROPERITONEUM: No free air or fluid. GI TRACT: On limited evaluation of the gastrointestinal tract, no dilation or wall thickening identified. No adjacent focal inflammatory changes. LYMPH NODES: No pathologically enlarged lymph nodes. Nonspecific small mesenteric and retroperitoneal lymph nodes. VESSELS: Appear unremarkable. BONES and JOINTS: No aggressive osseous lesion or acute fracture. SOFT TISSUES: Nonspecific ventral predominant superficial soft tissue densities, correlate for history of injections. IMPRESSION: 1. No acute CT abnormality to definitively account for the symptoms. 2. Specifically, no hydronephrosis or urinary tract stone. Signed by: Dr. Latrell Eubanks D.O., M.M.M. on 03/11/2019 11:46 AM
[2019-03-11 12:01] LABS: ALBUMIN 3.3 g/dL (3.5-5.0); ALBUMIN/GLOBULIN RATIO 0.8 (0.8-2.0); ANION GAP 18.7 mmol/L (8-16); CALCIUM 9.4 mg/dL (8.4-10.2); CREATININE, SERUM 11.35 mg/dL (0.72-1.25); POTASSIUM 4.7 mmol/L (3.5-5.1)
[2019-03-11 13:19] LABS: BILIRUBIN,URINE NEGATIVE (NEGATIVE); CLARITY,URINE SL CLOUDY (CLEAR); COLOR,URINE YELLOW (YELLOW); KETONES,URINE NEGATIVE (NEGATIVE); LEUKOCYTE ESTERASE ,URINE NEGATIVE (NEGATIVE); NITRITE,URINE NEGATIVE (NEGATIVE); PROTEIN,URINE DIPSTICK 2+ (NEGATIVE); URINE UROBILINOGEN 0.2 mg/dL (0.2 - 1)
[2019-03-11 13:30] LABS: BACTERIA,URINE MODERATE /HPF; EPITHELIAL CELLS,URINE MODERATE /LPF; RBC,URINE >50 /HPF (0-5)
[2019-03-11 15:26] VITALS: BP 129/80
== END 2019-03-11 15:28 | disposition home or self-care (01) ==
LOC: ER 10:36
DX: R10.31 Right lower quadrant pain (principal); M79.652 Pain in left thigh; M79.651 Pain in right thigh; N18.6 End stage renal disease; Z99.2 Dependence on renal dialysis; Q90.9 Down syndrome, unspecified; M10.9 Gout, unspecified
CPT/HCPCS: 36415; 74176; 80053; 81001; 85025; 99284

== ENCOUNTER 2019-04-22 17:57 | Inpatient (IN) | payer OTHER ==
[~2019-04-22] VITALS: Ht 152.4 cm; Wt 52.6 kg
--- NOTE | 2019-04-22 18:27 | NUR ---
TYLENOL 975 MG PO. TEMP 103.9
[2019-04-22] MEDS ORDERED: ACETAMINOPHEN 325 MG TAB PO STA (18:28)
[2019-04-22] MEDS ORDERED: ACETAMINOPHEN 325 MG TAB ONE (18:29)
[2019-04-22] MEDS ORDERED: SODIUM CHLORIDE 0.9% 1000ML 1,000 ML IV SCH (18:30)
[2019-04-22] MEDS ORDERED: ACETAMINOPHEN 325 MG TAB PO ONE (18:45)
[2019-04-22 18:52] LABS: BASOPHILS # (AUTO) 0.1 (0.0-0.1); BASOPHILS % 0.5 % (0.0-1.0); EOSINOPHILS # (AUTO) 0.1 (0.0-0.4); EOSINOPHILS % 0.7 % (0.0-6.0); HEMATOCRIT 30.2 % (38.2-49.6); HEMOGLOBIN 9.9 g/dL (14.0-18.0); LYMPHOCYTES # (AUTO) 1.1 (1.0-3.2); MEAN CORPUSCULAR HEMOGLOBIN 31.9 pg (28-32); MEAN CORPUSCULAR HGB CONC 32.8 g/dL (31-35); MEAN CORPUSCULAR VOLUME 97.4 fL (81-99); MONOCYTES # (AUTO) 0.6 (0.2-0.8); MONOCYTES % 5.6 % (4.4-11.3); NEUTROPHILS # (AUTO) 8.3 (2.1-6.9); NEUTROPHILS % 81.6 % (38.7-80.0); PLATELET COUNT 249 x10e3/uL (140-360); RED CELL DISTRIBUTION WIDTH 15.7 % (11.7-14.4)
[2019-04-22 19:13] LABS: ALBUMIN 2.7 g/dL (3.5-5.0); ALBUMIN/GLOBULIN RATIO 0.6 (0.8-2.0); ANION GAP 17.4 mmol/L (8-16); CREATININE, SERUM 11.1 mg/dL (0.72-1.25); POTASSIUM 4.4 mmol/L (3.5-5.1)
[2019-04-22 19:19] LABS: CREATINE KINASE MB 3.3 ng/mL (0-5.0)
--- NOTE | 2019-04-22 19:25 | NUR ---
DR. JARAMILLO NOTIFIED AND AWARE OF CRITICAL LAB VALUE, TROPONIN, 1.284.
[2019-04-22 19:26] LABS: CLARITY,URINE HAZY (CLEAR); COLOR,URINE YELLOW (YELLOW)
[2019-04-22 19:27] LABS: AMORPHOUS SEDIMENT,URINE FEW (FEW); BACTERIA,URINE FEW /HPF; BILIRUBIN,URINE NEGATIVE (NEGATIVE); EPITHELIAL CELLS,URINE FEW /LPF; KETONES,URINE NEGATIVE (NEGATIVE); LEUKOCYTE ESTERASE ,URINE 1+ (NEGATIVE); MUCUS,URINE FEW (RARE); NITRITE,URINE NEGATIVE (NEGATIVE); PROTEIN,URINE DIPSTICK 2+ (NEGATIVE); URINE UROBILINOGEN 0.2 mg/dL (0.2 - 1)
--- NOTE | 2019-04-22 21:10 | Diagnostic Imaging Report ---
EXAMINATION: CHEST SINGLE (NOT PORTABLE) INDICATION: Sepsis. Fever and chills COMPARISON: 09/05/2018. FINDINGS: TUBES and LINES: None. LUNGS: Lungs are well inflated. Lungs are clear. There is mild prominence of the central pulmonary vasculature, consistent with pulmonary venous congestion. PLEURA: No pleural effusion or pneumothorax. HEART AND MEDIASTINUM: Cardiac size is mildly enlarged. BONES AND SOFT TISSUES: No acute osseous lesion. Soft tissues are unremarkable. UPPER ABDOMEN: No free air under the diaphragm. IMPRESSION: Mild cardiomegaly. Mild pulmonary venous congestion versus technique. Signed by: Dr. Tay Villanueva M.D. on 04/22/2019 9:07 PM
[2019-04-22] MEDS ORDERED: ONDANSETRON HCL INJ 2MG/ML 2ML 2 MG/ML VIAL IV PRN (21:45)
[2019-04-22] MEDS ORDERED: CEFTRIAXONE SOD 1 GM/NS 50 ML 50 ML IV SCH (22:15)
[2019-04-22] MEDS ORDERED: CEFTRIAXONE SOD 1 GM VIAL ONE (22:18)
[2019-04-22 22:45] VITALS: BP 116/51
--- NOTE | 2019-04-22 22:45 | NUR ---
patient is a new admit that came via stretcher. patient is awake and alert. patient has been transferred to the bed. bed is in lowest position and call santillan is within reach. will continue to monitor patient.
[2019-04-22 23:00] VITALS: BP 116/51
[2019-04-23] VITALS (8 sets, daily range): BP systolic 116–134; BP diastolic 51–63
[2019-04-23 03:42] LABS: CREATINE KINASE MB 1.8 ng/mL (0-5.0)
[2019-04-23] MEDS ORDERED: OMEPRAZOLE40 MG PO (04:46)
[2019-04-23] MEDS ORDERED: METOCLOPRAMIDE10 MG PO (04:46)
[2019-04-23] MEDS ORDERED: MONTELUKAST SOD10 MG PO (04:46)
--- NOTE | 2019-04-23 07:20 | NUR ---
PATIENT IS IN STABLE CONDITION WITH NO S/S OF RESPIRATORY DISTRESS. LEFT HAND PAIN 2/10. MOTHER PRESENT IN ROOM. TELEMETRY APPLIED. CALL LIGHT IS WITHIN REACH, PATIENT IS INSTRUCTED TO CALL FOR ASSISTANCE NEEDED.
--- NOTE | 2019-04-23 07:27 | NUR ---
report given to day nurse. patient is resting comfortably in bed. bed is in lowest position and call santillan is within reach.
[2019-04-23] MEDS ORDERED: METOCLOPRAMIDE HCL 10 MG TAB PO PRN (08:45)
[2019-04-23] MEDS ORDERED: DEXTROSE 50% SYRINGE 50 ML IV PRN (08:45)
[2019-04-23] MEDS: ACETAMINOPHEN 325 MG TAB PO PRN ×2 (08:45→23:54)
[2019-04-23] MEDS ORDERED: VITAMIN D35000 UNI1 PO (08:58)
[2019-04-23] MEDS ORDERED: AMLODIPINE BESYL5 MG PO (08:58)
[2019-04-23] MEDS ORDERED: THERA-M TABLET1 EACH PO (08:58)
[2019-04-23] MEDS ORDERED: RENVELA800 MG PO (08:58)
[2019-04-23] MEDS ORDERED: CEFUROXIME500 MG PO (08:58)
[2019-04-23] MEDS ORDERED: LEVOTHYROXINE50 MCG PO (08:58)
[2019-04-23] MEDS ORDERED: Linzess PO (08:58)
[2019-04-23] MEDS ORDERED: ALLOPURINOL300 MG PO (08:58)
[2019-04-23] MEDS: MONTELUKAST SODIUM 10 MG TAB PO SCH (09:37)
[2019-04-23] MEDS: PANTOPRAZOLE SOD 40 MG TABEC PO SCH (09:37)
--- NOTE | 2019-04-23 10:22 | NUR ---
RECEIVED CALL FROM [facility] REGASRDING BLOOD CULTURE RESULTS. Zach LOPEZ ON THE UNIT AND INFORMED OF BLOOD CULTURE RESULTS- NEW ORDER RECEIVED.
[2019-04-23 10:46] LABS: CREATINE KINASE MB 1.5 ng/mL (0-5.0)
[2019-04-23] MEDS: INSULIN REGULAR, HUMAN 100 UNIT/1 ML 3ML VIAL SQ SCH ×3 (11:30→21:00)
[2019-04-23] MEDS: EPOETIN ALFA 10000 UNIT/ML VIAL SC SCH (12:26)
--- NOTE | 2019-04-23 13:50 | NUR ---
CALLED AND SPOKE WITH DR. AHUMADA REGARDING CRITICAL TROPONIN LEVEL OF 1.234- NO NEW ORDERS GIVEN AND DR. AHUMADA IS AWARE OF PATIENT'S CARDIAC LABS. Addendum: 04/23/19 at 1352 by Roopa Guerra RN CALLED AND SPOKE WITH DR. AHUMADA AT 0190
--- NOTE | 2019-04-23 15:20 | History and Physical ---
CHIEF COMPLAINT: Mr. Hill is a pleasant 33-year-old man who presents to the emergency room with his parents with a complaint of fevers and chills. HISTORY OF PRESENT ILLNESS: Family tells me that he has been taking antibiotics at home, cefuroxime 500 mg twice a day for as much as three weeks, but continues to have fevers and chills. Source of this fever was not immediately clear. He has told us that he has a runny nose and sore throat. He denies dysuria. PAST MEDICAL HISTORY: Significant evidently for Down syndrome. He also has end-stage renal failure, been on hemodialysis since February 2018. Family denies diabetes. He does have gout. MEDICATIONS: His home medications have been Linzess 145 mg daily, multivitamin daily, amlodipine 5 mg daily, levothyroxine 25 mcg daily, allopurinol 300 mg a day. PERSONAL/SOCIAL HISTORY: He lives with his parents, never attended school. REVIEW OF SYSTEMS: Cardiac: He denies chest pain or previous knowledge of any cardiac problem. Gastrointestinal: He denies constipation or diarrhea. OTHER SURGICAL HISTORY: He did have a right AV fistula implanted, right upper arm. PHYSICAL EXAMINATION: GENERAL: At this time shows a pleasant man who is awake, has amblyopia, roving eye movements. VITAL SIGNS: Presenting temperature was 100.7, normotensive. HEAD, EYES, EARS, NOSE, and THROAT: Otherwise unremarkable. NECK: Thick. THORAX: Heart sounds S1, S2 are equal, slightly rapid. There is faint 1/6 systolic murmur. LUNGS: Clear. ABDOMEN: Protuberant. Normal bowel sounds. EXTREMITIES: No cyanosis, clubbing, or edema. There is a fistula with a bruit in the right upper arm. PERTINENT LABORATORY STUDIES: Show flu and strep screen negative. Urinalysis shows white cells 11-20, 1+ leukocyte esterase. Chemistries show BUN 64, creatinine 11.1. CPK and CK-MBs are normal. Troponins are elevated. Dialysis due to his kidney failure. CBC shows hemoglobin 9.9, white count 10.2. Chest x-ray, relatively unremarkable. ASSESSMENT: 1. Fever, unknown origin. 2. Possible urinary tract infection. 3. Down syndrome. PLAN: We will obtain cultures and echocardiogram to exclude the possibility of endocarditis. We will ask for renal help with Dr. Engle and Infectious Disease consultation with Dr. Holbrook. We will monitor fingerstick blood sugars. Further management based on clinical course. MD CALEB Birch/LAURITA /[id number] cc: MD Rafaela Bergman MD Ramon A Pineda, MD
--- NOTE | 2019-04-23 15:45 | NUR ---
Nutrition Intervention Note RD Recommendation(s) for Physician (04/23): -Continue current cardiac diet. -Recommend renal diet pending lab trends. -Recommend Nepro BID if pt is having poor po intake. -The patient meets criteria for MILD protein-calorie malnutrition. Plan of Care: RD following, monitoring for tolerance and adequacy. Nepro BID. Education provided. Nutrition reason for involvement: Diagnosis- ESRD RD Assessment 04/23: 33 YOM admitted for ESRD was seen resting in bed with family at bedside. Family speaks Bur[place]ian and some Citizen Of [place]. Cultural link was used (ID # [id number]). Mother reports the pt had a poor appetite for about 3 weeks, she stated there was weight loss, but she was unaware of how much. Per EMR, pt has weight fluctuations, probably d/t fluid. Pt was 116 lbs in Spet of last year and in Mar of this year was 126 lbs, suggesting an 7.9% weight loss within 1 month which is significant. She denied N/V/C/D/chewing or swallowing issues as well as any food allergies for the pt. Pt is not new to dialysis, he has been on if for about one year. Discussed pt in rounds. Mother knew about renal diet already, but RD provided her with additional information regarding the diet in Burundian. Chart reviewed. Labs and meds reviewed. Pt is on insulin, put per H and P-the family denied DM. No A1c obtained. Will continue to monitor. Principal Problems/Diagnoses: ESRD, Fever and chills, UTI PMH: ESRD on Hemodyalisis, down syndrome, GOUT GI: Abd: soft, Protuberant, .non tender, BS: normal LBM: 04/23 Skin: no wound present per EMR, No cyanosis, clubbing, or edema. There is a fistula with a bruit in the right upper arm. Labs: 04/23: Creat kinase: 9, troponin 1.234 Meds: Protonix, abx, insulin, reglan, zofran Ht: 57 in Wt: 116 lb BMI: 22.8 kg/m2 IBW: 88 lb Malnutrition Evaluation (04/23) The patient meets criteria for MILD protein-calorie malnutrition. Energy intake: <75% of estimated energy requirements for >7 days Weight loss: >5% in 1 month (Acute) Fat loss: Mild Muscle loss: Mild Supporting Evidence: Fluid accumulation: no edema Functional Status: to evaluate Nutrition Prescription (Diet Order): Estimated Nutritional Needs: Calories: 5461-2427(25-35 kcal/kg/ day) Weight used : CBW: 52 kg Protein : 52-78(1-1.5 gram/protein/day) Weight used: CBW: 52 kg Diet Adequacy: Not meeting calorie needs, Not meeting protein needs Diet Education Needs Assessment: Diet education indicated and family agreeable. Nutrition Care Level: mod Nutrition Diagnosis: Acute mild protein calorie malnutrition related to medical condition as evidenced by 7.9% weight loss within one month and reports of poor intake. Goal: Patient will meet 75-100% of estimated needs by follow up Progress: N/A Interventions: - cholesterol, fat (mineral) sodium, phos, potass modified diet, Commercial beveragePrescription medications, Survival information Monitoring/Evaluation: -Total energy intake, Total protein intake,Prescription medication, Modified diet, Liquid supplement, Weight change, Learner(s): pts family Barriers: None, family was able to be educated Cultural/Language Modifications: Family and pt speak Burundian Readiness: acceptance Method: discussion, handout Topics: Renal diet Understanding/Compliance: verbalized understanding, anticipate good compliance Signed: Margi Park RD, LD
--- NOTE | 2019-04-23 19:31 | NUR ---
PATIENT IS IN STABLE CONDITION WITH NO S/S OF RESPIRATORY DISTRESS. PATIENT RECEIVING DIALYSIS. CALL LIGHT IS WITHIN REACH, PATIENT IS INSTRUCTED TO CALL FOR ASSISTANCE NEEDED. BEDSIDE REPORT GIVEN TO ONCOMING NURSE.
--- NOTE | 2019-04-23 19:35 | NUR ---
PT IS RESTING IN BED GETTING HIS DIALYSIS. RESPIRATION IS EVEN AND UNLABORED, NO DISTRESS NOTED. BED IN THE LOWEST POSITION, LOCKED, AND CALL LIGHT WITHIN REACH. WILL CONTINUE TO MONITOR.
[2019-04-23] MEDS ORDERED: SODIUM CHLORIDE 0.9% 250ML 250 ML ONE (21:03)
[2019-04-23] MEDS: VANCOMYCIN 1GM/NS 250 ML 250 ML IV SCH (21:13)
[2019-04-23] MEDS: MORPHINE SULFATE INJ 4 MG/ML INJ 1ML IV PRN (21:14)
[2019-04-24] VITALS (8 sets, daily range): BP systolic 107–129; BP diastolic 52–90
--- NOTE | 2019-04-24 00:17 | Consultation ---
DATE OF CONSULTATION: REASON FOR CONSULTATION: Fever. HISTORY OF PRESENT ILLNESS: This patient is a very pleasant 33-year-old male, who has Down syndrome and end-stage renal disease on hemodialysis since February 2018. The patient comes into the hospital with fever and chills, not really much complaint we could get from the patient or his family. Apparently, he was taking antibiotics, cefuroxime, but continued to have fever, chills, so he was sent here. The patient was alert, follows very simple commands, does not have any complaints. LABORATORY DATA: Blood cultures, gram-positive cocci. White count of 10, hemoglobin 9.1. His sodium 136, potassium 4.4, creatinine 11. Liver enzyme within normal limits. The patient had a chest x-ray, which showed mild cardiomegaly. PHYSICAL EXAMINATION: GENERAL: He is currently alert, confused, does not seem to be in acute distress. VITAL SIGNS: Running fever. HEENT: Not icteric. NECK: Supple. CHEST: Clear. HEART: S1 and S2. No murmurs. ABDOMEN: Soft. Bowel sounds present. EXTREMITIES: No edema. He is currently on Rocephin and vancomycin. IMPRESSION: Sepsis, present on admission and gram-positive cocci, concerned about endocarditis. I agree with vancomycin. Discontinue Rocephin. Obtain echocardiogram. Recheck blood cultures. Further recommendations depending on his clinical progress. MD IRMA Fletcher/LAURITA /[id number]
[2019-04-24] MEDS: INSULIN REGULAR, HUMAN 100 UNIT/1 ML 3ML VIAL SQ SCH ×4 (07:30→21:06)
[2019-04-24] MEDS: MONTELUKAST SODIUM 10 MG TAB PO SCH (08:27)
[2019-04-24] MEDS: PANTOPRAZOLE SOD 40 MG TABEC PO SCH (08:27)
[2019-04-24] MEDS ORDERED: GENTAMICIN 60MG/NS 50ML 50 ML IV SCH (14:15)
[2019-04-24] MEDS: GENTAMICIN 60MG/NS 50ML 50 ML IV SCH (14:50)
--- NOTE | 2019-04-24 17:32 | Progress Note ---
DATE: SUBJECTIVE: Mr. Hill is doing better. There are no new complaints. REVIEW OF SYSTEMS: Otherwise negative. HEENT: Negative. PULMONARY: Negative. He grew enterococcus species from his blood. We do not have sensitivity, but his review of systems otherwise unremarkable. LABORATORY DATA: White count 10, hemoglobin 9.9. PHYSICAL EXAMINATION: GENERAL: He is currently alert, oriented, does not seem to be in acute distress. VITAL SIGNS: Stable, currently afebrile. HEENT: He is not icteric. NECK: Supple. CHEST: Clear. COR: S1, S2. No murmur. ABDOMEN: Soft. Bowel sounds present. No tenderness. EXTREMITIES: No edema. IMPRESSION: Bacteremia, enterococcus present on admission, concerned about endothelial infection, concerned about endocarditis. He does have a fistula on his right upper extremity, does not seem red or swollen. Continue vancomycin. We will add gentamicin hemodialysis. We will obtain a gentamicin trough and vancomycin trough. Obtain sedimentation rate and C-reactive protein. Await echocardiogram. Further recommendations to follow. The length of treatment depends on the finding of the echo and the repeat blood culture results. MD IRMA Fletcher/LAURITA /[id number]
--- NOTE | 2019-04-24 17:50 | NUR ---
Spoke to [facility] to Mrs fox regarding patient's Dialysis tomorrow morning per Dr Hernandez.
--- NOTE | 2019-04-24 17:51 | NUR ---
patient resting in bed, not in any distress, Dr Holbrook aware about Blood culture result, Per family Dr Hernandez is his kidney Doctor, Dr Hernandez already saw the patient
--- NOTE | 2019-04-24 19:17 | NUR ---
PT IS RESTING IN BED WITH FAMILY AT BEDSIDE. RESPIRATION IS EVEN AND UNLABORED, NO DISTRESS NOTED. BED IN THE LOWEST POSITION, LOCKED, BED ALARM ON, AND CALL LIGHT WITHIN REACH. WILL CONTINUE TO MONITOR.
[2019-04-25] VITALS (7 sets, daily range): BP systolic 118–137; BP diastolic 56–63
[2019-04-25 06:54] LABS: ALBUMIN 2.1 g/dL (3.5-5.0); ALBUMIN/GLOBULIN RATIO 0.6 (0.8-2.0); ANION GAP 14.5 mmol/L (8-16); CALCIUM 8.8 mg/dL (8.4-10.2); CREATININE, SERUM 11.69 mg/dL (0.72-1.25); POTASSIUM 4.5 mmol/L (3.5-5.1)
[2019-04-25] MEDS: INSULIN REGULAR, HUMAN 100 UNIT/1 ML 3ML VIAL SQ SCH ×4 (07:30→21:00)
[2019-04-25] MEDS: PANTOPRAZOLE SOD 40 MG TABEC PO SCH (08:07)
[2019-04-25] MEDS: MONTELUKAST SODIUM 10 MG TAB PO SCH (08:07)
[2019-04-25] MEDS: EPOETIN ALFA 10000 UNIT/ML VIAL SC SCH (12:10)
--- NOTE | 2019-04-25 12:22 | NUR ---
Dr Ruelas here for rounds, stated he going to do JOSE MARIA on Tuesday, family aware, Notified poleyard supervisor regarding the procedure.
[2019-04-25] MEDS: GENTAMICIN 60MG/NS 50ML 50 ML IV SCH (14:32)
--- NOTE | 2019-04-25 19:53 | NUR ---
RECEIVED PT IN BED RECEIVING DIALYSIS .DENIES PAIN FAMILY AT THE BEDSIDE .CALL LIGHT WITH IN REACH .CONTINUE TO MONITOR
[2019-04-25] MEDS: MORPHINE SULFATE INJ 4 MG/ML INJ 1ML IV PRN (21:45)
--- NOTE | 2019-04-25 22:46 | NUR ---
COOPER CULTURE IS POSITIVE AND PAGED DR VICTOR .WAITING FOR CALL BACK FROM DR THOMAS
[2019-04-25] MEDS: VANCOMYCIN 1GM/NS 250 ML 250 ML IV SCH (23:00)
[2019-04-26] VITALS (8 sets, daily range): BP systolic 115–139; BP diastolic 46–62
--- NOTE | 2019-04-26 05:35 | NUR ---
PT HAD DIALYSIS DURING THE NIGHT AND TAKEN 2 L OF FLUID .DENIES PAIN .FAMILY AT THE BEDSIDE .CALL LIGHT WITH IN REACH .CONTINUE TO MONITOR
--- NOTE | 2019-04-26 07:11 | NUR ---
BEDSIDE REPORT GIVEN TO THE ONCOMING NURSE
[2019-04-26] MEDS: INSULIN REGULAR, HUMAN 100 UNIT/1 ML 3ML VIAL SQ SCH ×4 (07:30→20:55)
[2019-04-26] MEDS: MONTELUKAST SODIUM 10 MG TAB PO SCH (09:08)
[2019-04-26] MEDS: PANTOPRAZOLE SOD 40 MG TABEC PO SCH (09:08)
[2019-04-26] MEDS ORDERED: ONDANSETRON HCL 4 MG ORAL DISINTEGRATING TAB PO PRN (10:15)
[2019-04-26] MEDS: GENTAMICIN 60MG/NS 50ML 50 ML IV SCH ×2 (14:15→23:33)
[2019-04-26] MEDS ORDERED: AMPICILLIN SOD 1 GM/NS 50ML 1 G in AMPICILLIN SOD 1 GM/NS 50ML 50 ML IV SCH (14:30)
[2019-04-26] MEDS: AMPICILLIN SOD 1 GM/NS 50ML 50 ML IV SCH (14:45)
--- NOTE | 2019-04-26 14:46 | NUR ---
per Dr Holbrook IV Gentamycin should be after Dialysis and get trough level before tomorrow's dose
[2019-04-26] MEDS ORDERED: DIATRIZOATE MEGL/DIATRIZOA SOD 30 ML BTL PO ONE (17:20)
--- NOTE | 2019-04-26 17:54 | Progress Note ---
DATE: SUBJECTIVE: Mr. Hill was lying in bed comfortably, family at the bedside. No new problems. The patient otherwise doing good. He did have a low fever 100.8. His blood cultures on 15 was positive, on 13 was positive Enterococcus faecalis, which was pretty much pansensitive vancomycin, streptomycin synergy and gentamicin synergy. PHYSICAL EXAMINATION: GENERAL: He is currently alert, oriented, does not seem to be in acute distress. VITAL SIGNS: Stable, currently afebrile. HEENT: Not icteric. NECK: Supple. CHEST: Clear. HEART: S1 and S2. No murmur. ABDOMEN: Soft. IMPRESSION: Endothelial infection, bacteremia, Enterococcus, concerned about endocarditis. We will change ampicillin 2 g q.24 hours. Continue gentamicin. Recheck blood cultures. I agree with JOSE MARIA. We will check blood cultures. We will follow. MD IRMA Fletcher/LAURITA /[id number]
--- NOTE | 2019-04-26 18:24 | NUR ---
Dr Ruelas had rounds, patient and family aware about NPO after midnight and procedure tomorrow
--- NOTE | 2019-04-26 19:24 | Diagnostic Imaging Report ---
CT Abdomen And Pelvis with Intravenous Contrast INDICATION: ^r/o abscess, IV MEDICALLY INDICATED PER DR PADILLA ^[id number] ^1360 TECHNIQUE: Thin collimation axial images obtained from the diaphragm to the level of the pubic symphysis following the uneventful administration of 100 cc of low osmolar, nonionic intravenous contrast. Oral contrast was also administered Dose reduction techniques used: Automated exposure control, adjustment of the mAs and/or kVp according to patient size, standardized low-dose protocol, and/or iterative reconstruction technique. RADIATION DOSE: Total DLP: 336.56 mGy*cm Estimated effective dose: (DLP x 0.015 x size factor) mSv CTDIvol has been reviewed. It is below the limits set by the Radiation Protocol Committee (RPC). COMPARISON: CT abdomen/pelvis 03/11/2019. ABDOMEN FINDINGS: Initial images were motion degraded. These were repeated with limited success. Lung Bases: Small posterior pleural effusions. Small pericardial effusion. Liver: Normal attenuation. No evidence for mass. Gallbladder: Present and contracted. No biliary ductal dilatation. Pancreas: Normal attenuation without mass or ductal dilatation. Spleen: Normal in size. No evidence of mass. Adrenal Glands: No evidence for mass. Kidneys: Right: Diminutive and stable. No soft tissue mass. No hydronephrosis. Left: Diminutive and stable. No soft tissue mass. No hydronephrosis. Lymph Nodes: No enlarged abdominal or periaortic lymph nodes. Aorta: Normal in diameter The SMA lies posterior and to the left of the SMV. PELVIS FINDINGS: Bowel: Stomach: Contains enteric contrast and appears normal. Small Bowel: Contains enteric contrast. No mural thickening or dilatation. Large Bowel: Moderate to large amount of stool throughout. The descending colon lies at the midline of the abdomen. The sigmoid colon is in the right lower quadrant. This is stable in position. No focal mural thickening or pericolonic inflammation. A few diverticula in the sigmoid colon may be present. Appendix: Best visualized on coronal reformations and is normal. Bladder: Underdistended with circumferential mural thickening. Peritoneum/retroperitoneum: No free fluid or fluid collection. Bones: Minimal degenerative changes of the spine with several Schmorl's nodes in the lower thoracic spine. Soft tissues: Unremarkable. IMPRESSION: 1. No evidence for bowel obstruction or inflammation. Normal appendix. Stable positioning of the large bowel. This is suggestive of partial malrotation. 2. Diminutive kidneys suggestive of chronic renal disease. Circumferential mural thickening may be the result of cystitis. 3. No evidence of abscess. 4. Small pleural and pericardial effusions. Signed by: Dr. Regina Schultz MD on 04/26/2019 7:21 PM
--- NOTE | 2019-04-26 20:09 | NUR ---
RECEIVED PT IN BED AOX2 .DENIES PAIN .FAMILY AT THE BEDSIDE .CALL LIGHT WITH IN REACH .CONTINUE TO MONITOR
[2019-04-26] MEDS ORDERED: SODIUM CHLORIDE 0.9% 50ML 50 ML ONE (22:35)
[2019-04-26] MEDS ORDERED: IOPAMIDOL 370 MG/ML 200 ML INFUS..BTL INJ ONE (22:35)
[2019-04-27] VITALS (8 sets, daily range): BP systolic 108–132; BP diastolic 51–60
--- NOTE | 2019-04-27 06:04 | NUR ---
PT RESTED DURING THE NIGHT DENIES PAIN .NPO AFTER MIDNIGHT FOR JOSE MARIA.DIALYSIS AFTER JOSE MARIA.GIVE GENTAMICIN AFTER DIALYSIS .DO VANCO TROUGH BEFORE GIVING VANCOMYCIN.
--- NOTE | 2019-04-27 07:17 | NUR ---
BEDSIDE REPORT GIVEN TO THE ONCOMING NURSE.
[2019-04-27] MEDS: INSULIN REGULAR, HUMAN 100 UNIT/1 ML 3ML VIAL SQ SCH ×3 (07:30→16:30)
[2019-04-27] MEDS: PANTOPRAZOLE SOD 40 MG TABEC PO SCH (07:30)
[2019-04-27] MEDS ORDERED: SODIUM CHLORIDE 0.9% 1000ML 1,000 ML ONE (08:57)
[2019-04-27] MEDS ORDERED: BENZOCAINE 20% SPR 60 ML CAN ONE (08:57)
--- NOTE | 2019-04-27 09:28 | NUR ---
PATIENT OFF THE UNIT PER BED TO LEVEL VIAL CURVATURE GAUGER- PATIENT IN STABLE CONDITION WITH NO S/S OF RESPIRATORY DISTRESS.
--- NOTE | 2019-04-27 10:00 | NUR ---
Nutrition Intervention Note RD Recommendation(s) for Physician (04/27): -Continue current cardiac diet. -Recommend renal diet pending lab trends. -Recommend Nepro TID if pt is having poor po intake. -The patient meets criteria for MILD protein-calorie malnutrition. Plan of Care: RD following, monitoring for tolerance and adequacy. Nepro TID. Education provided. Nutrition reason for involvement: Follow up RD Assessment 04/27: Follow up: Pt was seen sleeping in bed, mother at bedside. Nurse was in the room who was able to help translate. The mother reported the pts appetite has improved significantly and that he is going the bathroom as well. Pt has been consuming 75% of his meals per meal assessment. Pt is currently NPO d/t pending procedure later today (JOSE MARIA). Pt will receive dialysis after procedure today per note. Mother had no more questions or concerns. Will continue to monitor. 04/23: 33 YOM admitted for ESRD was seen resting in bed with family at bedside. Family speaks Turkmen and some Greenlandic. Cultural link was used (ID # [id number]). Mother reports the pt had a poor appetite for about 3 weeks, she stated there was weight loss, but she was unaware of how much. Per EMR, pt has weight fluctuations, probably d/t fluid. Pt was 116 lbs in Spet of last year and in Mar of this year was 126 lbs, suggesting an 7.9% weight loss within 1 month which is significant. She denied N/V/C/D/chewing or swallowing issues as well as any food allergies for the pt. Pt is not new to dialysis, he has been on if for about one year. Discussed pt in rounds. Mother knew about renal diet already, but RD provided her with additional information regarding the diet in Turkmen. Chart reviewed. Labs and meds reviewed. Pt is on insulin, put per H and P-the family denied DM. No A1c obtained. Will continue to monitor. Principal Problems/Diagnoses: ESRD, Fever and chills, UTI PMH: ESRD on Hemodyalisis, down syndrome, GOUT GI: Abd: soft, non tender, LBM: 04/27 Skin: no wound present per EMR Labs: 04/27: POC GM: 93-140 04/23: Creat kinase: 9, troponin 1.234 Meds: Protonix, abx, insulin, reglan, zofran Ht: 57 in Wt: 116 lb BMI: 22.8 kg/m2 IBW: 88 lb Malnutrition Evaluation (04/23) The patient meets criteria for MILD protein-calorie malnutrition. Energy intake: <75% of estimated energy requirements for >7 days Weight loss: >5% in 1 month (Acute) Fat loss: Mild Muscle loss: Mild Supporting Evidence: Fluid accumulation: no edema Functional Status: to evaluate Nutrition Prescription (Diet Order): Estimated Nutritional Needs: Calories: 7691-0122 (25-35 kcal/kg/ day) Weight used : CBW: 52 kg Protein : 52-78 (1-1.5 gram/protein/day) Weight used: CBW: 52 kg Diet Adequacy: Not meeting calorie needs, Not meeting protein needs Diet Education Needs Assessment: Diet education indicated and family agreeable. Nutrition Care Level: mod Nutrition Diagnosis: Acute mild protein calorie malnutrition related to medical condition as evidenced by 7.9% weight loss within one month and reports of poor intake. Goal: Patient will meet 75-100% of estimated needs by follow up Progress:progressing Interventions: - cholesterol, fat (mineral) sodium, phos, potass modified diet, Commercial beveragePrescription medications, Survival information Monitoring/Evaluation: -Total energy intake, Total protein intake,Prescription medication, Modified diet, Liquid supplement, Weight change, Learner(s): pts family Barriers: None, family was able to be educated Cultural/Language Modifications: Family and pt speak Turkmen Readiness: acceptance Method: discussion, handout Topics: Renal diet Understanding/Compliance: verbalized understanding, anticipate good compliance Signed: Margi Park RD, LD
--- NOTE | 2019-04-27 10:30 | NUR ---
Procedure note: 0948- Patient brought into OR#4 for JOSE MARIA. Anesthesia at bedside assessing patient. Reed, echo technician present. 0950- Physician arrived. 0953- Time out performed with all participating staff and all agree. 0956- JOSE MARIA probe in. Procedure start. 1001- Bubble study done. Negative. 1002- JOSE MAIRA probe out. Procedure end. 1007- Patient taken to Phase 1 PACU room #[address] Aguilera. Full report given to BRICE Palma.
[2019-04-27] MEDS: EPOETIN ALFA 10000 UNIT/ML VIAL SC SCH (11:28)
[2019-04-27] MEDS: MONTELUKAST SODIUM 10 MG TAB PO SCH (12:09)
[2019-04-27] MEDS ORDERED: SODIUM CHLORIDE 0.9% 1000ML 2,000 ML ONE (14:00)
[2019-04-27] MEDS ORDERED: GENTAMICIN 60MG/NS 50ML 50 ML IV SCH (14:30)
--- NOTE | 2019-04-27 15:08 | NUR ---
PATIENT STARTED DIALYSIS- PATIENT IN STABLE CONDITION WITH NO S/S OF RESPIRATOR DISTRESS.
[2019-04-27] MEDS ORDERED: PROPOFOL IV EMULSION 10 MG/ML 20 ML VIAL ONE (15:57)
[2019-04-27] MEDS ORDERED: MIDAZOLAM HCL 2 MG/2 ML VIAL ONE (16:12)
[2019-04-27] MEDS ORDERED: FENTANYL CITRATE/PF 100MCG/2 ML INJ ONE (16:12)
[2019-04-27] MEDS ORDERED: CALCIUM ACETAT667 M1 PO (17:44)
--- NOTE | 2019-04-27 19:12 | NUR ---
REPORT RECEIVED FROM IESHA RN,PT'S ANTIBIOTIC(AMPICILLIN) NOT ADMINISTERED YET DUE TO PT GETTING DIALYSIS TX,WALKING ROUNDS DONE.RECEIVED PT RESTING IN BED WITH NO S/S OF ACUTE DISTRESS.PT CURRENTLY FINISHING DIALYSIS TX PER DIALYSIS NURSE AT BEDSIDE.FAMILY MEMBERS AT BEDSIDE.CALL LIGHT WITHIN EASY REACH.
--- NOTE | 2019-04-27 19:28 | NUR ---
PATIENT IN STABLE CONDITION WITH NO S/S OF RESPIRATORY DISTRESS. NO PAIN VOICED. PATIENT STILL RECEIVING DIALYSIS. FAMILY MEMBERS PRESENT IN ROOM. CALL LIGHT IS WITHIN REACH, PATIENT INSTRUCTED TO CALL FOR ASSISTANCE NEEDED. BEDSIDE REPORT GIVEN TO ONCOMING NURSE.
[2019-04-27] MEDS: ACETAMINOPHEN 325 MG TAB PO PRN (20:12)
[2019-04-27] MEDS: AMPICILLIN SOD 1 GM/NS 50ML 50 ML IV SCH (20:16)
[2019-04-27] MEDS: GENTAMICIN 60MG/NS 50ML 50 ML IV SCH (21:04)
[2019-04-28] VITALS (7 sets, daily range): BP systolic 117–139; BP diastolic 53–60
--- NOTE | 2019-04-28 07:14 | NUR ---
REPORT GIVEN TO ONCOMING NURSE,WALKING ROUNDS MADE.PT RESTING IN BED WITH NO S/S OF DISTRESS.
--- NOTE | 2019-04-28 07:40 | NUR ---
PATIENT IS AWAKE AND IN STABLE CONDITION WITH NO S/S OF RESPIRATORY DISTRESS. NO PAIN VOICED FAMILY MEMBER IN THE ROOM. CALL LIGHT IS WITHIN REACH, PATIENT IS INSTRUCTED TO CALL FOR ASSISTANCE NEEDED.
[2019-04-28] MEDS: MONTELUKAST SODIUM 10 MG TAB PO SCH (08:18)
[2019-04-28] MEDS: PANTOPRAZOLE SOD 40 MG TABEC PO SCH (08:18)
[2019-04-28] MEDS: AMPICILLIN SOD 1 GM/NS 50ML 50 ML IV SCH (13:36)
--- NOTE | 2019-04-28 19:10 | NUR ---
PATIENT IS IN STABLE CONDITION WITH NO S/S OF RESPIRATORY DISTRESS. NO PAIN VOICED. FAMILY MEMBERS PRESENT IN ROOM. CALL LIGHT IS WITHIN REACH, PATIENT IS INSTRUCTED TO CALL FOR ASSISTANCE NEEDED. BEDSIDE REPORT GIVEN TO ONCOMING NURSE.
[2019-04-29] VITALS (7 sets, daily range): BP systolic 121–132; BP diastolic 54–61
--- NOTE | 2019-04-29 07:05 | NUR ---
REPORT GIVEN TO ONCOMING NURSE,WALKING ROUNDS MADE.PT RESTING IN BED WITH NO S/S OF DISTRESS
--- NOTE | 2019-04-29 07:10 | NUR ---
PATIENT IS EASILY AWAKEN BY VOICE/SOUND- PATIENT IN STABLE CONDITION WITH NO S/S OF RESPIRATORY DISTRESS. PATIENT DENIES PAIN. FAMILY MEMBER PRESENT IN ROOM. CALL LIGHT IS WITHIN REACH, PATIENT IS INSTRUCTED TO CALL FOR ASSISTANCE NEEDED.
[2019-04-29] MEDS: PANTOPRAZOLE SOD 40 MG TABEC PO SCH (08:05)
[2019-04-29] MEDS: MONTELUKAST SODIUM 10 MG TAB PO SCH (08:05)
--- NOTE | 2019-04-29 13:15 | Operative Report ---
DATE OF PROCEDURE: 04/27/2019 SURGEON: Helio Ruelas MD PROCEDURE: Transesophageal echocardiogram. For interpretation of images, please see the separate study. INDICATION: Positive blood cultures and murmur. DESCRIPTION OF PROCEDURE: The patient was brought to the endoscopy suite/operating room in the fasting and partially sedated state. Anesthesia was provided by the Anesthesia Department. The patient was sedated and the transesophageal probe was advanced easily into the esophagus. Cardiac structures were imaged in multiple planes. Briefly, there was a vegetation seen on the aortic valve. The probe was removed. The patient is awake and in stable condition is returned to his room. FINAL IMPRESSION: 1. Successful transesophageal echocardiogram. 2. Vegetation on aortic valve. 3. No complication. 4. No blood loss. MD CALEB Birch/MODL /[id number] cc: MD Rafaela Quintana MD Salman A Khan, MD
[2019-04-29] MEDS: AMPICILLIN SOD 1 GM/NS 50ML 50 ML IV SCH (14:09)
--- NOTE | 2019-04-29 16:25 | NUR ---
Visit made by the Spiritual Care Department Pastoral Visitor, Bright Juinor. PV provided pastoral presence, prayer, communion, hospitality, and supportive listening. Pastoral Visitor informed pt/family of the scope of [employer] and availability. DEBBIE GLORIA Correctional Program Officer Spiritual Care Department O: [phone] Pager: [phone] ([phone] number calling from)
--- NOTE | 2019-04-29 19:12 | NUR ---
PATIENT IS RESTING IN BED- IN STABLE CONDITION WITH NO S/S OF RESPIRATORY DISTRESS. NO PAIN INDICATED. MOTHER PRESENT IN ROOM. CALL LIGHT IS WITHIN REACH- PATIENT IS INSTRUCTED TO CALL FOR ASSISTANCE NEEDED. BEDSIDE REPORT GIVEN TO ONCOMING NURSE.
[2019-04-30] VITALS (7 sets, daily range): BP systolic 97–129; BP diastolic 40–60
--- NOTE | 2019-04-30 07:16 | NUR ---
REPORT GIVEN TO ONCOMING NURSE,WALKING ROUNDS MADE.PT RESTING IN BED WITH NO S/S OF DISTRESS.
[2019-04-30] MEDS ORDERED: MANNITOL 25% 12.5GM/50 ML VIAL IV PRN (07:45)
[2019-04-30] MEDS ORDERED: SODIUM CHLORIDE 0.9% 250ML 500 ML IV PRN (07:45)
[2019-04-30] MEDS ORDERED: SODIUM CHLORIDE 0.9% 1000ML 2,000 ML IV PRN (07:45)
[2019-04-30] MEDS ORDERED: ALBUMIN 25% 12.5GM 0.25 GM/ML BTL IV PRN (07:45)
[2019-04-30] MEDS: PANTOPRAZOLE SOD 40 MG TABEC PO SCH (08:50)
[2019-04-30] MEDS: MONTELUKAST SODIUM 10 MG TAB PO SCH (08:50)
[2019-04-30 11:37] LABS: BASOPHILS # (AUTO) 0.1 (0.0-0.1); BASOPHILS % 0.9 % (0.0-1.0); EOSINOPHILS # (AUTO) 0.1 (0.0-0.4); EOSINOPHILS % 1.5 % (0.0-6.0); HEMATOCRIT 25.6 % (38.2-49.6); HEMOGLOBIN 8.3 g/dL (14.0-18.0); LYMPHOCYTES # (AUTO) 1.8 (1.0-3.2); LYMPHOCYTES % 33.5 % (18.0-39.1); MEAN CORPUSCULAR HEMOGLOBIN 32.2 pg (28-32); MEAN CORPUSCULAR HGB CONC 32.4 g/dL (31-35); MEAN CORPUSCULAR VOLUME 99.2 fL (81-99); MONOCYTES # (AUTO) 0.5 (0.2-0.8); MONOCYTES % 9.1 % (4.4-11.3); NEUTROPHILS % 54.5 % (38.7-80.0); PLATELET COUNT 211 x10e3/uL (140-360); RED BLOOD COUNT 2.58 x10e6/uL (4.3-5.7); RED CELL DISTRIBUTION WIDTH 18.1 % (11.7-14.4)
[2019-04-30 11:39] LABS: ANION GAP 19.6 mmol/L (8-16); CALCIUM 9.1 mg/dL (8.4-10.2); CREATININE, SERUM 11.72 mg/dL (0.72-1.25); POTASSIUM 4.6 mmol/L (3.5-5.1)
--- NOTE | 2019-04-30 14:54 | NUR ---
spoke to dr sumner. Patient will need Ampicillin 3G after each HD and Gentamycin 60 mg after each HD. Duration 8 weeks Addendum: 05/01/19 at 0820 by Shirley Landis HD center pt goes to does not have ampicillin. Notified Dr. Sumner who changed amp to Vancomycin 1G p every HD. Resent updated order to fresenious
--- NOTE | 2019-04-30 15:46 | NUR ---
Spoke with Patient and his mother. Patient goes to [facility] phone number [phone]. Orders faxed to HD clinic @ [phone]. Spoke with Con regarding the need for IV Abx with Hd. She is going to call neighboring facilities to see about obtaining ampicillin. no one carries ampicillin and they would have to order it - it would be there in 4-5 days. Anticipated DC is today. Notified Dr. Holbrook Addendum: 04/30/19 at 1551 by Shirley Landis CM awaiting call back from Dr. Holbrook
[2019-04-30] MEDS: GENTAMICIN 60MG/NS 50ML 50 ML IV SCH (16:00)
[2019-04-30] MEDS: AMPICILLIN SOD 1 GM/NS 50ML 50 ML IV SCH (16:14)
--- NOTE | 2019-04-30 17:19 | Progress Note ---
DATE: SUBJECTIVE: Mr. Grant Hill is up in a chair. His family at the bedside. Discussed his case with the family as well with the case management. There are no new problems. The patient clinically seems to be stable. REVIEW OF SYSTEMS: There is nothing new. PHYSICAL EXAMINATION: GENERAL: He is alert, but pleasantly confused. HEENT: He is not icteric. NECK: Supple. CHEST: Few crackles bilateral. COR: S1 and S2. No S3, S4, or murmur. ABDOMEN: Soft. Bowel sounds present. No tenderness. EXTREMITIES: No edema. SKIN: No rash. IMPRESSION: 1. Aortic valve endocarditis with Enterococcus. 2. Discussed with Renal. Discussed with case management. Discussed with the family. Recommend 8 weeks of ampicillin and gentamicin. Ampicillin 3 g after each hemodialysis or 1 g daily and gentamicin at 60 mg after each hemodialysis. He would need weekly CBC, weekly chem panel and weekly vancomycin trough to check blood cultures. He grew Enterococcus avium bacteria and Enterococcus faecalis. We will try to work on discharge planning. 3. End-stage renal disease, on hemodialysis. 4. Mental retardation. 5. Debility. 6. Down syndrome. 7. Anemia of chronic disease. 8. We will follow. MD IRMA Fletcher/MODL /[id number]
--- NOTE | 2019-04-30 19:05 | NUR ---
Completed rounds with morning nurse. Patient alert and oriented to name. Patient standing up on side of bed. Denies pain at this time. Family at bedside. Call santillan within reach. Will continue to monitor.
[2019-05-01] VITALS: BP 130/60
[2019-05-01 04:00] VITALS: BP 105/49
[2019-05-01 07:30] VITALS: BP 120/57
[2019-05-01 08:00] VITALS: BP 120/57
[2019-05-01] MEDS: MONTELUKAST SODIUM 10 MG TAB PO SCH (09:24)
[2019-05-01] MEDS: PANTOPRAZOLE SOD 40 MG TABEC PO SCH (09:24)
--- NOTE | 2019-05-01 10:22 | NUR ---
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
[2019-05-01 11:50] VITALS: BP 113/53
--- NOTE | 2019-05-01 12:04 | NUR ---
per [facility], patient approved for IV abx at .
[2019-05-01] MEDS: AMPICILLIN SOD 1 GM/NS 50ML 50 ML IV SCH (14:45)
[2019-05-01 15:29] VITALS: BP 125/59
--- NOTE | 2019-05-01 15:33 | NUR ---
Nutrition Intervention Note RD Recommendation(s) for Physician: -Continue current cardiac diet and supplement -The patient meets criteria for MILD protein-calorie malnutrition. Plan of Care: RD following, monitoring for tolerance and adequacy. Nepro TID. Education provided. Nutrition reason for involvement: Follow up RD Assessment 05/01: Follow up. Pt eating lunch at time of visit, mother at bedside assisting with meals. Pt eating well, 75-100% of meals, and mother denies pt is having any GI distress. Plan for discharge today per CM. Continue current diet and supplement. 04/27: Follow up: Pt was seen sleeping in bed, mother at bedside. Nurse was in the room who was able to help translate. The mother reported the pts appetite has improved significantly and that he is going the bathroom as well. Pt has been consuming 75% of his meals per meal assessment. Pt is currently NPO d/t pending procedure later today (JOSE MARIA). Pt will receive dialysis after procedure today per note. Mother had no more questions or concerns. Will continue to monitor. 04/23: 33 YOM admitted for ESRD was seen resting in bed with family at bedside. Family speaks Citizen [place] and some Hebrew. Cultural link was used (ID # [id number]). Mother reports the pt had a poor appetite for about 3 weeks, she stated there was weight loss, but she was unaware of how much. Per EMR, pt has weight fluctuations, probably d/t fluid. Pt was 116 lbs in Spet of last year and in Mar of this year was 126 lbs, suggesting an 7.9% weight loss within 1 month which is significant. She denied N/V/C/D/chewing or swallowing issues as well as any food allergies for the pt. Pt is not new to dialysis, he has been on if for about one year. Discussed pt in rounds. Mother knew about renal diet already, but RD provided her with additional information regarding the diet in [place]. Chart reviewed. Labs and meds reviewed. Pt is on insulin, put per H and P-the family denied DM. No A1c obtained. Will continue to monitor. Principal Problems/Diagnoses: ESRD, Fever and chills, UTI PMH: ESRD on Hemodyalisis, down syndrome, GOUT GI: Abd: soft, non tender, LBM: 04/28 Skin: no wound present per EMR Labs: 05/01: BUN 70, Cr 11.72 04/27: POC GM: 93-140 04/23: Creat kinase: 9, troponin 1.234 Meds: Protonix, abx, insulin, reglan, zofran Ht: 57 in Wt: 116 lb BMI: 22.8 kg/m2 IBW: 88 lb Malnutrition Evaluation (04/23) The patient meets criteria for MILD protein-calorie malnutrition. Energy intake: <75% of estimated energy requirements for >7 days Weight loss: >5% in 1 month (Acute) Fat loss: Mild Muscle loss: Mild Supporting Evidence: Fluid accumulation: no edema Functional Status: to evaluate Nutrition Prescription (Diet Order): Cardiac, nepro with meals Estimated Nutritional Needs: Calories: 2360-7466 (25-35 kcal/kg/ day) Weight used : CBW: 52 kg Protein : 52-78 (1-1.5 gram/protein/day) Weight used: CBW: 52 kg Diet Adequacy: meeting calorie needs, meeting protein needs Diet Education Needs Assessment: Diet education indicated and family agreeable. 04/27 Nutrition Care Level: low Nutrition Diagnosis: Acute mild protein calorie malnutrition related to medical condition as evidenced by 7.9% weight loss within one month and reports of poor intake. Goal: Patient will meet 75-100% of estimated needs by follow up Progress: goal met Interventions: - cholesterol, fat (mineral) sodium, phos, potass modified diet, Commercial beverage, Prescription medications, Survival information Monitoring/Evaluation: -Total energy intake, Total protein intake,Prescription medication, Modified diet, Liquid supplement, Weight change, Learner(s): pts family Barriers: None, family was able to be educated Cultural/Language Modifications: Family and pt speak [place] Readiness: acceptance Method: discussion, handout Topics: Renal diet Understanding/Compliance: verbalized understanding, anticipate good compliance Signed: Yesenia Ferrera RD, LD, [facility]
--- NOTE | 2019-05-01 18:19 | NUR ---
Pt discharged at this time with all personal belongings. Pt will continue IV at dialysis. Family and pt verbalized understanding of all discharge instructions.
--- NOTE | 2019-05-02 12:15 | Discharge Summary ---
Mr. Hill is a mentally retarded 33-year-old male with end-stage renal failure, who presented from Dr. Locke's office on the with a complaint of 2 weeks of fever, resistant to antibiotic treatment. HOSPITAL COURSE: The patient was found to have a murmur and blood cultures were positive for Enterococcus. His initial echocardiogram was relatively unremarkable, but may have actually missed underlying vegetation. His murmur changed over the days from very faint initially to a 2/6 diastolic murmur. On the , he had transesophageal echocardiogram performed, which showed very distinct vegetation on aortic valve perhaps up to 23 mm in size with moderate aortic insufficiency. The patient became afebrile and no complaint, ambulating. Today, he is afebrile. His 2/6 diastolic murmur seems much the same and he has been arranged to have ampicillin and gentamicin with each dialysis treatment for a total of 8 weeks of treatment. He will follow up in my office in 2 weeks with a repeat echocardiogram and with Dr. Holbrook and Dr. Locke on a regular basis. DISCHARGE DIAGNOSES: 1. Endocarditis. 2. End-stage renal failure, on dialysis. 3. Mental retardation. MD CALEB Birch/ENEDINAL /[id number] cc: MD Elver Quintana MD Zaher Shebib, MD
== END 2019-05-01 15:43 | disposition home or self-care (01) | DRG 871 ==
LOC: ER 17:57 → ERHOLD 21:31 → MED/SURG3 22:39
PROVIDERS: ADMIT Internal Medicine Cardiovascular Disease; ATTEND Internal Medicine Cardiovascular Disease
PROC: 5A1D70Z Performance of Urinary Filtration, Intermittent, Less than 6 Hours Per Day (ICD-10-PCS; principal; 2019-04-23)
PROC: 5A1D70Z Performance of Urinary Filtration, Intermittent, Less than 6 Hours Per Day (ICD-10-PCS; 2019-04-25)
PROC: 5A1D70Z Performance of Urinary Filtration, Intermittent, Less than 6 Hours Per Day (ICD-10-PCS; 2019-04-27)
PROC: B24BZZ4 Ultrasonography of Heart with Aorta, Transesophageal (ICD-10-PCS; 2019-04-27)
PROC: 5A1D70Z Performance of Urinary Filtration, Intermittent, Less than 6 Hours Per Day (ICD-10-PCS; 2019-04-30)
DX: A41.81 Sepsis due to Enterococcus (principal); N18.6 End stage renal disease; I33.0 Acute and subacute infective endocarditis; N30.01 Acute cystitis with hematuria; I12.0 Hypertensive chronic kidney disease with stage 5 chronic kidney disease or end stage renal disease; Z99.2 Dependence on renal dialysis; Q90.9 Down syndrome, unspecified; M10.9 Gout, unspecified; Z82.49 Family history of ischemic heart disease and other diseases of the circulatory system; R53.81 Other malaise; F79 Unspecified intellectual disabilities; D63.1 Anemia in chronic kidney disease; B95.2 Enterococcus as the cause of diseases classified elsewhere; I35.1 Nonrheumatic aortic (valve) insufficiency
CPT/HCPCS: 36415; 71045; 74177; 80048; 80053; 80170; 81001; 82550; 82553; 82948; 83518; 83605; 83735; 84484; 85025; 85651; 86140; 86704; 86705; 86706; 87040; 87070; 87071; 87086; 87186; 87205; 87340; 87400; 90962; 93005; 93306; 93312; 93320; 93325; 99284; J0290; J0696; J1580; J1817; J2250; J2270; J3010; J3370; J7030; J7050; Q4081; Q9967

== ENCOUNTER 2020-03-04 14:10 | Emergency (ER) | payer OTHER ==
[~2020-03-04] VITALS: Ht 175.3 cm; Wt 52.6 kg
[~2020-03-04 14:10] MED LIST: ALLOPURINOL300 MG PO; AMLODIPINE BESYL5 MG PO; CALCIUM ACETAT667 M1 PO; CEFUROXIME500 MG PO; LEVOTHYROXINE50 MCG PO; Linzess PO; METOCLOPRAMIDE10 MG PO; MONTELUKAST SOD10 MG PO; OMEPRAZOLE40 MG PO; RENVELA800 MG PO; THERA-M TABLET1 EACH PO; VITAMIN D35000 UNI1 PO
--- OUTSIDE RECORDS SUMMARY | 2020-03-04 14:31 | XMS REPORT | Clinical Summary ---
Author Author [facility] Address Unknown Phone Unavailable Care Team Providers Care Public Health Educator Name Role Phone Kumar Echevarria MD PCP Allergies No Known Allergies Medications End Date Status Medication Sig Dispensed Refills Start Date Active allopurinol (ZYLOPRIM) DIANA CELESTINE 1 01 300 MG tablet TABLETA 8 ORALMENTE CADA THOMAS Active amLODIPine (NORVASC) 5 mg DIANA CELESTINE 06/10 tablet TABLETA 8 ORALMENTE CADA THOMAS PARA ARIEL PRESION Active ASPIR-LOW 81 mg enteric DIANA CELESTINE coated tablet TABLETA 8 ORALMENTE CADA THOMAS Active ibuprofen (ADVIL,MOTRIN) DIANA CELESTINE 0 06/27 800 MG tablet TABLETA 8 ORALMENTE DOS VECES AL THOMAS ANY SEA NECESARIO PARA INFLAMACION Y DOLOR Active levothyroxine (SYNTHROID, DIANA CELESTINE 06/10 LEVOXYL) 25 mcg tablet TABLETA 8 ORALMENTE CADA THOMAS PARA LA TIROIDES Active losartan (COZAAR) 50 MG 0 tablet 8 Active lovastatin (MEVACOR) 40 DIANA CELESTINE MG tablet TABLETA 8 ORALMENTE CADA THOMAS AL ACOSTARSE PARA COLESTEROL Active predniSONE (DELTASONE) 10 DIANA CELESTINE 0 06/10 mg tablet TABLETA 8 ORALMENTE DOS VECES AL THOMAS ANY SEA NECESARIO PARA INFLAMACION Y DOLOR Active docusate sodium (COLACE) Take 100 mg 0 100 MG capsule by mouth 2 (two) times a day as needed for constipation. Active Problems Not on file Family History Medical History Relation Name Comments [...] drinks containing alcohol do you have on No t asked a typical day when you are drinking? How often do you have six or more drinks on one Not asked occasion? Sex Assigned at Date Recorded Not on file Industry Job Start Date Occupation Not on file Not on file Not on file Travel End Travel History Travel Start No recent travel history available. Last Filed Vital Signs Not on file Plan of Treatment Health Maintenance Due Date Last Done Comments INFLUENZA VACCINE 04/10/2020 Results Not on fileafter 03/04/2019 Insurance Type Payer Benefit Subscriber ID Effective Phone Address Plan / Dates Group [facility] MEDICAID [facility] xxxxxxxxx [id number] COMM STAR+ resent ALEXA Advance Directives For more information, please contact: [phone] Patient Braid Maker Explanation Type Date Recorded Letter of Guardianship Advance Directives, 10/03/2018 10:58 AM Living Will and Medical Power of Site Reliability Engineer
--- OUTSIDE RECORDS SUMMARY | 2020-03-04 14:31 | XMS REPORT | Clinical Summary ---
Author Author [facility] Address Unknown Phone Unavailable Care Team Providers Care Dust Puller Name Role Phone Locke--Kumar Escoto PCP Allergies No Known Allergies Medications End Date Status Medication Sig Dispensed Refills Start Date Active lovastatin (ALTOPREV) 40 Take 40 mg by 0 MG 24 hr tablet mouth daily. Active linaclotide (LINZESS) 145 Take 145 mcg 0 mcg Cap by mouth daily. Active sevelamer (RENVELA) 800 Take 800 mg 0 mg tabletIndications: 3 by mouth 3 tabs w/ meals (three) times daily with meals. Active cholecalciferol, vitamin Take 1,000 0 D3, 5,000 unit Tab Units by mouth daily . Active amLODIPine (NORVASC) 5 MG Take 5 mg by 0 tablet mouth daily. Active multivit,tx with Take by mouth 0 iron,minerals (THERA-M daily. ORAL) Active allopurinoL (ZYLOPRIM) Take 300 mg 0 300 MG tablet by mouth daily. Active levothyroxine (SYNTHROID, Take 25 mcg 0 LEVOTHROID) 25 MCG tablet by mouth Every morning on an empty stomach. Active omeprazole (PRILOSEC) 40 Take 40 mg by 0 MG capsule mouth daily. 01/03/2020 Discontinued ibuprofen (ADVIL,MOTRIN) Take 800 mg 0 400 MG tablet by mouth every 6 (six) hours as needed for Pain . Active Problems Problem Noted Date Aortic insufficiency 11/26/2019 ESRD (end stage renal disease) Down syndrome History of acute bacterial endocarditis Encounters Care Team Description Date Type Specialty Glen Felix MD Aortic valve insufficiency, etiology of cardiac valve disease unspecified (Primary Dx); ESRD (end stage renal disease) (HCC); Down syndrome; History of acute bacterial endocarditis 01/03/2020 Office Visit Cardiology 01/03/2020 Travel Sally Turner Appointment 12/11/2019 Telephone Transplant Sally Turner 12/10/2019 Documentation Transplant Sally Turner 12/10/2019 Documentation Transplant Glen Felix MD Aortic valve insufficiency, etiology of cardiac valve disease unspecified; ESRD (end stage renal disease) (HCC); Down syndrome; History of acute bacterial endocarditis; Nonrheumatic aortic valve insufficiency 11/22/2019 Office Visit Cardiology Love Steinberg RN 11/12/2019 Documentation Transplant Love Steinberg RN Waitlist Maintenance 11/08/2019 Telephone Transplant Love Steinberg RN 11/08/2019 Documentation Transplant Sally Turner 10/25/2019 Telephone Transplant Sally Turner Appointment 10/25/2019 Telephone Transplant Sally Turner Appointment 10/25/2019 Telephone Transplant Candy Hurst E 10/15/2019 Documentation Transplant Love Steinberg RN Awaiting transplantation of kidney (Prim rajni Dx) 07/24/2019 Orders Only Transplant after 03/04/2019 Social History Date Tobacco Use Types Packs/Day Years Used Never Smoker Smokeless Tobacco: Never Used Alcohol Use Drinks/Week oz/Week Comments No Sex Assigned at Date Recorded Not on file Industry Job Start Date Occupation Not on file Not on file Not on file Travel End Travel History Travel Start No recent travel history available. Last Filed Vital Signs Time Taken Vital Sign Reading 01/03/2020 12:35 PM CDT Blood Pressure 123/58 01/03/2020 12:35 PM CDT Pulse 86 01/03/2020 12:35 PM CDT Temperature 36.6 C (97.8 F) 01/03/2020 12:35 PM CDT Respiratory Rate 18 01/03/2020 12:35 PM CDT Oxygen Saturation 100% - Inhaled Oxygen - Concentration 01/03/2020 12:35 PM CDT Weight 52.6 kg (116 lb) 01/03/2020 12:35 PM CDT Height 145.5 cm (4' 9.28") 01/03/2020 12:35 PM CDT Body Mass Index 24.86 Plan of Treatment Health Maintenance Due Date Last Done Comments INFLUENZA VACCINE (#1) 2020 LIPID PANEL 11/07/2020 11/07/2017 Results Not on fileafter 03/04/2019 Insurance Payer Benefit Subscriber ID Type Phone Address Plan / Group OPTUM NON UNITED - OPTUM xxxxxxxxx MEDICAID MGD CARE NON-UNITED [place]AR MEDICAID - MEDICAID MGD ALEXA [facility] xxxxxxxxx Medica id CARE COMM STAR Contracted [facility] [place] [phone]
--- OUTSIDE RECORDS SUMMARY | 2020-03-04 14:32 | XMS REPORT | Continuity of Care Document ---
Author Author [facility] t Organization [facility] Address 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 Name Role Phone UMANG SINGH, Davina MITCHELL PCP Elvira SINGH, Tino Carroll Attphys [phone] Sally Turner Attphys Unavailable Maryan NARVAEZ, Love Attphys Unavailable Emiliana Hurstria Attphys Unavailable Jo Ann Muñoz Attphys Nathanael Lin Attphys Davina AHUMADA Attphys Unavailable Zahira LYN Attphys Unavailable Davina HARRIS Attphys Unavailable Bernie MCFARLAND Attphys Unavailable Milad MUNROE Attphys Unavailable Nathanael Lin Admphys Davina AHUMADA Admphys Unavailable Payers Payer Name Policy Type Policy Number Effective Date Expiration Date S ource OPTUM NON UNITED - MEDICAID MGD CAREOPTUM NON-UNITED STARxxxxxxx xx x[facility] - [facility] MGD CARED COMM STAR PLANxxxxxxxxxMe dicaid Contracted xxxxxxxxx [facility] [id number] 2011 00:00 :00 [facility] Problems Condition Name Condition Details Condition Category Status Onset Date Resolution Date Last Treatment Date Treating Clinician Comments Source Aortic insufficiency Aortic insufficiency Disease Active 00:00:00 [facility] HEADACHE / ARM PAIN HEAD ACHE / ARM PAIN Active 08/18/2019 [facility] Diagnosis Active 2019-08-18 08:00:00 2020-02-22 16:28:00 [facility] AVF TRANSPOSITION, RIGHT UPPER EXTREMITY AVF TRANSPOSITION, RIGHT UPPER EXTREMITY Active 07/31/2019 [facility] Diagnosis Active 2019-07-31 00:00:00 2019-09-16 15:12:00 [facility] PORT COMPLICATIONS PORT COMPLICATIONS Active 05/18/2019 [facility] Diagnosis Active 2019-05-18 00:00:00 2019-05-18 21:44:00 [facility] 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 History of acute bacterial endocarditis History of acute beth terial endocarditis Disease Active [facility] Chest pain, unspecified [place] t pain, unspecified 08/18/2019 08/20/2019 [facility] Problem 2019-08-18 18:00:00 2019 22:44:50 2019-08-20 22:44:50 [facility] Pain in arm, unspecified Pain in arm, unspecified 08/18/2019 08/20/2019 [facility] Problem 2019-08-18 18:00:00 2019 22:44:50 2019-08-20 22:44:50 [facility] Allergies, Adverse Reactions, Alerts Allergy Name Allergy Type Status Severity Reaction(s) Onset Date Inacti ve Date Treating Clinician Comments Source phenylpropanolamine DA Active [place] 2018-03-09 00:00:00 [facility] brompheniramine DA Active [place] 2018-03-09 00:00:00 [facility] Family History Family Member Diagnosis Comments Start Date Stop Date Source Natural father Hypertension [place] [facility] Natural mother Diabetes [facility] Natural mother Hypertension [place] [facility] Natural mother Thyroid disease [place] [facility] Social History Social Habit Start Date Stop Date Quantity Comments Source History SDOH Alcohol Std Drinks [place] [facility] History SDOH Alcohol Binge [place] [facility] Sex Assigned At [facility] Alcohol intake 2018-10-04 00:00:00 2018-10-04 00:00:00 Current non-drinker of alcohol (finding) [place] [facility] History SDOH Alcohol Frequency 2018-07-13 00:00:00 2018-07-13 00:00:0 0 1 [place] [facility] Smoking Status Start Date Stop Date Source Social History [facility] Medications Ordered Medication Name Filled Medication Name Start Date Stop Da te Current Medication? Ordering Clinician Indication Dosage Frequency Signature (SIG) Comments Components Source omeprazole (PRILOSEC) 40 MG capsule 2020-01-03 12:48:14 Yes 40mg QD Take 40 mg by mouth daily. [facility] ibuprofen (ADVIL,MOTRIN) 400 MG tablet 2019-12-11 5 12:47:42 2020-01-03 00:00:00 No 800mg Take 800 mg by mouth every 6 (si x) hours as needed for Pain . [facility] cholecalciferol, vitamin D3, 5,000 unit Tab 2019-11-22 12:22:19 Yes 1000U QD Take 1,000 Units by mouth daily . [facility] levothyroxine (SYNTHROID, LEVOTHROID) 25 MCG tablet 11-21 12:22:19 Yes 25ug Take 25 mcg by mouth Every morning on an empty stomach. [facility] multivit,tx with iron,minerals (THERA-M ORAL) 2019-11-22 12:22:1 8 Yes QD Take by mouth daily. [facility] allopurinoL (ZYLOPRIM) 300 MG tablet 2019-11-22 12:22:18 Ye s 300mg QD Take 300 mg by mouth daily. [facility] Tylenol 2019-08-18 17:55:00 No 650 mg, Route: PO, Drug form: TAB, ONCE, Dosing Weight 50.909, kg, Priority: STAT, Start date: 08/18/19 11:55:00 HEAD OF STORE OPERATIONS, Stop date: 08/18/19 11:55:00 [facility] [place] Saline Flush 0.9% 2019-08-18 15:32:00 No Notes: (Same as: BD Posiflush) [facility] Allopurinol 2019-05-20 15:00:00 No Notes: ( Same as: Zyloprim) [facility] Vitamin D3 2019-05-20 15:00:00 No Notes: (S jimena as: Vitamin D3) [facility] Linzess 145 mcg oral capsule 2019-05-20 15:00:00 No Linzess 145 mcg oral capsule, 145 microgram, Route: PO, Daily, 05/20/19 9:00:00 HEAD OF STORE OPERATIONS, Duration: 30 day, Stop date: 06/18/19 9:00:00 HEAD OF STORE OPERATIONS [facility] Centrum Silver oral tablet 2019-05-20 15:00:00 No Centrum Silver oral tablet, 1 tab, Route: PO, Daily, 05/20/19 9:00:00 HEAD OF STORE OPERATIONS, Duration: 30 day, Stop date: 06/18/19 9:00:00 HEAD OF STORE OPERATIONS [facility] multivitamin with minerals 2019-05-20 15:00:00 No Notes: (Same as:Thera-M, Theragran-M) WASTE: F/P - Black; E - Municipal Trash Bin Give with food. [facility] Levothroid 2019-05-20 12:30:00 No Notes: (S jimena as:Levothroid) [facility] heparin 2019-05-20 06:00:00 No Notes: porci ne heparin [facility] montelukast 2019-05-20 03:00:00 No Notes: ( Same as:Singulair) [facility] Vancomycin 2019-05-19 23:00:00 No 2001 mg: infuse over 2.5 hours For adult patients only: Round to nearest 250 mg per Medical Staff approval MEDICATION WASTE Product Size: 1000 mg Product Wasted: ___ mg [facility] Gentamicin 2019-05-19 20:37:00 No Notes: TIME CRITICAL MEDICATION (Same as Garamycin) For adult patients only: Round to nearest 10 mg per Medical Staff approval [facility] Nurse please bring home med FINA to Pharmacy for label 2019-05-19 20:30:00 No Nurse please b [facility] to Pharmacy for label, 1, Drug form: MISC, Route: MISC, TID, 05/19/19 14:30:00 HEAD OF STORE OPERATIONS, Duration: 30 day, Stop date: 06/18/19 9:00:00 HEAD OF STORE OPERATIONS, 0 [facility] Marcelo keller ePHEDrine ([facility]) 2019-05-19 18:16:00 No Route: IV, Drug form: INJ, ONCE, Stop date: 05/19/19 12:16:00 HEAD OF STORE OPERATIONS Meghana lopezritc [facility] protamine ([facility]) 2019-05-19 18:16:00 No Route: IV, Drug form: INJ, ONCE, Stop date: 05/19/19 12:16:00 HEAD OF STORE OPERATIONS Meghana lopezritc [place] ondansetron ([facility]) 2019-05-19 18:16:00 No Route: IV, Drug form: INJ, ONCE, Stop date: 05/19/19 12:16:00 [facility]) 2019-05-19 17:49:00 No Route: IV, Drug form: INJ, ONCE, Stop date: 05/19/19 11:49:00 HEAD OF STORE OPERATIONS [facility] lid[facility]aine ([facility]) 2019-05-19 17:29:00 No Route: IV, Drug form: INJ, ONCE, Stop date: 05/19/19 11:29:00 [facility] STORE OPERATIONS [facility] fentaNYL ([facility]) 2019-05-19 17:29:00 No Route: IV, Drug form: INJ, ONCE, Stop date: 05/19/19 11:29:00 [facility] OPER[facility] ([facility]) 2019-05-19 17:29:00 No Route: IV, Drug form: INJ, ONCE, Stop date: 05/19/19 11:29:00 [facility] ST[facility] OPER[facility] mid[facility] ([facility]) 2019-05-19 17:24:00 No Route: IV, Drug form: SOLN, ONCE, Stop date: 05/19/19 11:24:00 HEAD OF STORE OPERATIONS jessicaritc Alcocerann ceFAZolin ([facility]) 2019-05-19 17:24:00 No Route: IV, Drug form: INJ, ONCE, Stop date: 05/19/19 11:24:00 HEAD OF STORE OPERATIONS M emoritc [place] vancomycin (ANES) 1000 mg 2019-05-19 16:40:00 No Route: IV, Drug form: INJ, Start date: 05/19/19 10:40:00 HEAD OF STORE OPERATIONS, Stop date: 05/19/19 11:40:00 HEAD OF STORE OPERATIONS [facility] Dextrose 50% Syringe 2019-05-19 16:18:00 No 25 gm, Route: IVP, Dosing Weight 60.455, kg, ONCE, STAT, Start date: 05/19/19 10:18:00 HEAD OF STORE OPERATIONS, Stop date: 05/19/19 10:18:00 HEAD OF STORE OPERATIONS [facility] lambert Insulin regular 2019-05-19 16:17:00 No 5 unit, Route: IV, ONCE, Dosing Weight 60.455, kg, Priority: STAT, Start date: 05/19/19 10:17:00 HEAD OF STORE OPERATIONS, Stop date: 05/19/19 10:17:00 HEAD OF STORE OPERATIONS Kaylin wei [facility] Kayexalate 2019-05-19 16:12:00 No Notes: (sodium polystyrene sulfonate 15 gm/60 ml CAMPOS) Shake well before use. (Same as: Kayexalate, SPS) [facility] ATTN: RN PLEASE UPDATE HWA ON ADHOC 2019-05-19 05:00:00 No ATTN: RN PLEASE UPDATE HWA ON ADHOC, ATTN:RN - UPDATE ALLERGIES !!!, Drug form: MISC, Route: MISC, Q10Min, 05/18/19 23:00:00 HEAD OF STORE OPERATIONS, Duration: 1 day, Stop date: 05/19/19 22:50:00 HEAD OF STORE OPERATIONS, 0 [facility] Levothroid 25 mcg (0.025 mg) oral tablet 2019-05-19 05:00:00 Yes 25 microgram = 1 tab, PO, Daily, 0 Refill(s) [facility] Centrum Silver oral tablet 2019-05-19 05:00:00 Yes 1 tab, PO, Daily, 0 Refill(s) [facility] allopurinol 300 mg oral tablet 2019-05-19 05:00:00 Yes 300 mg = 1 tab, PO, Daily, 0 Refill(s) [facility] montelukast 10 mg oral tablet 2019-05-19 05:00:00 Yes 10 mg = 1 tab, PO, Daily, 0 Refill(s) [facility] linaclotide 0.145 MG Oral Capsule [Linzess] 2019-05-19 05:00:00 Yes 145 microgram = 1 cap, PO, Daily, 30 minutes prior to the first meal of the day, # 30 cap, 0 Refill(s) [facility] Vitamin D3 2019-05-19 05:00:00 Yes 5,000 IntlUnit, PO, Daily, 0 Refill(s) [facility] ATTN: RN PLEASE UPDATE HWA ON ADHOC 2019-05-19 04:00:00 No ATTN: RN PLEASE UPDATE HWA ON ADHOC, REMINDER, Drug form: MISC, Route: MISC, Q15Min, 05/18/19 22:00:00 HEAD OF STORE OPERATIONS, Duration: 30 day, Stop date: 06/17/19 21:45:00 HEAD OF STORE OPERATIONS, 0 [facility] Dextrose 50% Syringe 2019-05-19 03:33:00 No 12.5 gm, 25 mL, Route: IVP, Drug Form: INJ, Dosing Weight 52.727, kg, PRN, PRN Blood Glucose Results, Start date: 05/18/19 21:33:00 HEAD OF STORE OPERATIONS, Duration: 30 day, Stop date: 06/17/19 21:32:00 HEAD OF STORE OPERATIONS, 0 [facility] Glucagon 2019-05-19 03:33:00 No 1 mg, Route: IM, Drug form: PDR/INJ, PRN, Dosing Weight 52.727, kg, PRN Blood Glucose Results, Start date: 05/18/19 21:33:00 HEAD OF STORE OPERATIONS, Duration: 30 day, Stop date: 06/17/19 21:32:00 HEAD OF STORE OPERATIONS, 0 [facility] Ondansetron 2019-05-19 03:33:00 No Notes: (Same as: Zofran) MEDICATION WASTE Product Size: 4 mg Product Wasted: ___ mg [facility] Saline Flush 0.9% 2019-05-18 21:53:00 No Notes: (Same as: BD Posiflush) [facility] amLODIPine (NORVASC) 5 MG tablet 2018-10-26 13:51:49 Yes 5mg QD Take 5 mg by mouth daily. [facility] linaclotide (LINZESS) 145 mcg Cap 2018-10-26 13:51:48 Yes 145ug QD Take 145 mcg by mouth daily. [facility] sevelamer (RENVELA) 800 mg tablet 2018-10-26 13:51:48 Yes 800mg Take 800 mg by mouth 3 (three) times daily with meals. [facility] docusate sodium (COLACE) 100 MG capsule 2018-10-03 17:26:55 Yes 100mg Q.5D Take 100 mg by mouth 2 (two) times a day as needed for constipat ion. Ismael Mustafa amLODIPine (NORVASC) 5 mg tablet 2018-06-28 00:00:00 Yes DIANA CELESTINE TABLETA ORALMENTE CADA THOMAS PARA ARIEL PRESION Ismael Mustafa levothyroxine (SYNTHROID, LEVOXYL) 25 mcg tablet 2018-06-28 00:00:00 Yes DIANA CELESTINE TABLETA ORALMENTE CADA THOMAS PARA LA TI ROIDES Ismael Mustafa allopurinol (ZYLOPRIM) 300 MG tablet 2018-06-27 00:00:00 Ye s DIANA CELESTINE TABLETA ORALMENTE CADA THOMAS [facility] ethodist ibuprofen (ADVIL,MOTRIN) 800 MG tablet 2018-06-27 00:00:00 Yes DIANA CELESTINE TABLETA ORALMENTE DOS VECES AL THOMAS ANY SEA NECESARIO PARA INFLAMACION Y DOLOR Ismael Mustafa predniSONE (DELTASONE) 10 mg tablet 2018-06-27 00:00:00 Yes DIANA CELESTINE TABLETA ORALMENTE DOS VECES AL THOMAS ANY SEA NECESARIO PARA INFLAMACION Y DOLOR Ismael Mustafa losartan (COZAAR) 50 MG tablet 2018-06-26 00:00:00 Yes Ismael Mustafa ASPIR-LOW 81 mg enteric coated tablet 2018-06-06 00:00:00 Y es DIANA CELESTINE TABLETA ORALMENTE CADA THOMAS [facility]ist lovastatin (MEVACOR) 40 MG tablet 2018-06-06 00:00:00 Yes DIANA CELESTINE TABLETA ORALMENTE CADA THOMAS AL ACOSTARSE PARA COLESTEROL Ismael Mustafa lovastatin (ALTOPREV) 40 MG 24 hr tablet 2017-10-25 09:05:40 Yes 40mg QD Take 40 mg by mouth daily. [facility] Allopurinol 300 Mg Tablet Allopurinol 300 Mg Tablet Yes 300 Daily [facility] Calcium Acetate 667 Mg Capsule Calcium Acetate 667 Mg Capsule Yes 667 Three Times Daily With Meals [facility] Cholecalciferol (Vitamin D3) (Vitamin D3) 5,000 Unit T ablet Cholecalciferol (Vitamin D3) (Vitamin D3) 5,000 Unit Tablet Yes 5000 Daily [facility] Levothyroxine Sodium 50 Mcg Tablet Levothyroxine Sodium 50 Mcg Tablet Yes 25 Daily [facility] Linzess Linzess Yes 145 Daily [facility] Metoclopramide Hcl 10 Mg Tablet Metoclopramide Hcl 10 Mg Tablet Yes 10 Twice A Day as needed for Nausea [facility] Montelukast Sodium 10 Mg Tablet Montelukast Sodium 10 Mg Tablet Yes 10 Daily [facility] Multivits,Ca,Minerals/Iron/Fa (Thera-M Tablet) 1 Each Tablet Multivits,Ca,Minerals/Iron/Fa (Thera-M Tablet) 1 Each Tablet Yes 1 Daily [facility] Omeprazole 40 Mg Capsule. Omeprazole 40 Mg Capsule. Yes 1 Daily [facility] Amlodipine Besylate 5 Mg Tablet, 5 Mg Oral Amlodipine Besylate 5 Mg Tablet, 5 Mg Oral 2019-05-01 00:00:00 No 5 Daily [facility] Cefuroxime Axetil (Cefuroxime) 500 Mg Tablet, 500 Mg O ral Cefuroxime Axetil (Cefuroxime) 500 Mg Tablet, 500 Mg Oral 2019-05-01 00:00:00 No 500 Twice A Day [facility] Sevelamer Hcl (Renvela) 800 Mg Tab, 800 Mg Oral Sevela hola Hcl (Renvela) 800 Mg Tab, 800 Mg Oral 2019-04-27 00:00:00 No 800 Three Times Daily With Meals [facility] Vital Signs Vital Name Observation Time Observation Value Comments Source Systolic blood pressure 2020-01-03 12:35:00 123 mm[Hg] [facility] Diastolic blood pressure 2020-01-03 12:35:00 58 mm[Hg] [facility] Heart rate 2020-01-03 12:35:00 86 /min [facility] Body temperature 2020-01-03 12:35:[address] [facility] Respiratory rate 2020-01-03 12:35:00 18 /min [facility] Body height 2020-01-03 12:35:00 145.5 cm [facility] Body weight Measured 2020-01-03 12:35:[address] [facility] BMI 2020-01-03 12:35:00 24.86 kg/m2 [facility] Oxygen saturation in Arterial blood by Pulse oximetry 01-02 12:35:00 100 /[facility]mm Hg) 2019-08-18 20:38:00 Sunday rial Nikos Diastolic (mm Hg) 2019-08-18 20:38:00 Mem [facility] [place] Heart Rate 2019-08-18 20:38:00 [facility] [place] Respitory Rate 2019-08-18 20:38:00 [facility] [place] Temperature Oral (F) 2019-08-18 20:38:00 98 F [facility] [place] Systolic (mm Hg) 2019-08-18 19:05:00 Sunday rial Nikos Diastolic (mm Hg) 2019-08-18 19:05:00 Mem o[facility] Systolic (mm Hg) 2019-08-18 15:29:00 Sunday [facility] [place] Diastolic (mm Hg) 2019-08-18 15:29:00 Mem [facility] Heart Rate 2019-08-18 15:29:00 [facility] Respitory Rate 2019-08-18 15:29:00 [facility] [place] Temperature Oral (F) 2019-08-18 15:29:00 97.4 F [facility] [place] Height 2019-08-18 15:29:00 152.4 cm [facility] [place] BMI Calculated 2019-08-18 15:29:00 [facility] [place] Weight 2019-08-18 15:29:00 [facility] Temperature Oral (F) 2019-05-20 18:17:00 98.7 F [facility] [place] Heart Rate 2019-05-20 18:17:00 [facility] Systolic (mm Hg) 2019-05-20 18:17:00 Sunday [facility] [place] Diastolic (mm Hg) 2019-05-20 18:17:00 Mem o[facility] Respitory Rate 2019-05-20 18:17:00 Memori [facility] Respitory Rate 2019-05-20 13:44:00 Memori [facility] Systolic (mm Hg) 2019-05-20 13:44:00 Sunday rial [facility] Diastolic (mm Hg) 2019-05-20 13:44:00 Mem o[facility] Heart Rate 2019-05-20 13:44:00 [facility] [place] Temperature Oral (F) 2019-05-20 13:44:00 98.1 F [facility] [place] Respitory Rate 2019-05-20 12:08:00 [facility] [place] Temperature Oral (F) 2019-05-20 09:14:00 98.7 F [facility] Heart Rate 2019-05-20 09:14:00 [facility] [place] Systolic (mm Hg) 2019-05-20 09:14:00 Sunday [facility] [place] Diastolic (mm Hg) 2019-05-20 09:14:00 Mem [facility] Height 2019-05-19 04:48:00 160.02 cm [facility] [place] Weight 2019-05-19 04:48:00 [facility] [place] BMI Calculated 2019-05-19 04:48:00 [facility] [place] Height 2019-05-18 21:53:00 127 cm [facility] BMI Calculated 2019-05-18 21:53:00 [facility] Weight 2019-05-18 21:53:00 [facility] Procedures Procedure Date / Time Performed Performing Clinician [facility] e MRI (magnetic resonance imaging) 2019-04-27 00:00:00 ROWDY REDMAN [facility] Computed tomography of abdomen and pelvis with contrast 2018 00:00:00 FRANKLYN PADILLA [facility] X-ray of chest, single view 2019-04-22 00:00:00 DEBBIE MUNROE [facility] CT of abdomen and pelvis without contrast 2019-03-11 00:00:00 MARISELA ACOSTA [facility] Plan of Care Planned Activity Planned Date Details Comments Source Future Scheduled Test 2020-11-07 00:00:00 Lipid panel (proce dure) [code = 83141065] [facility] Jenifer r Future Scheduled Test 2020-04-10 00:00:00 INFLUENZA VACCINE [code = INFLUENZA VACCINE] Ismael Mustafa Future Scheduled Test 2020-03-11 00:00:00 INFLUENZA VACCINE (#1) [code = INFLUENZA VACCINE (#1)] [facility] Start Date/Time End Date/Time Encounter Type Admission Type [facility] Care Department Encounter ID Source 2019-08-18 09:26:52 2019-08-18 14:44:00 [address] [facility] [id number] 2019-08-18 09:26:00 2019-08-18 09:26:00 Emergency E [id number] 2019-05-18 15:46:07 2019-05-20 17:29:[address] [facility] [id number] 2019-04-22 21:31:00 2019-05-01 15:43:00 Discharged Inpatient 1 NAEEM AHUMADA [facility] [id number] [facility] 2019-03-11 10:36:00 2019-03-11 15:28:00 Departed Emergency Room 1 MARISELA LYN [facility] [id number] [facility] 2018-09-04 21:46:00 2018-09-05 05:16:00 Departed Emergency Room 1 CARI HARRIS [facility] [id number] [facility] 2018-04-07 18:37:00 2018-04-07 21:49:00 Departed Emergency Room 1 KIRK MCFARLAND [facility] [id number] [facility] Results Test Description Test Time Test Comments Results Result Comments Source BASIC METABOLIC PANEL 2019-11-13 10:45:00 Test Item SODIUM (test code = NA) 141 mmol/L 136-145 N POTASSIUM (test code = K) 4.6 mmol/L 3.5-5.1 N CHLORIDE (test code = CL) 103.0 mmol/L 98-107 N CARBON DIOXIDE (test code = CO2) 27.0 mmol/L 21-32 N ANION GAP (test code = GAP) 15.6 10-20 N GLUCOSE (test code = GLU) 126 mg/dL 74-106 H BLOOD UREA NITROGEN (test code = BUN) 48 mg/dL 7-18 H GLOMERULAR FILTRATION RATE (test code = GFR) 7 mL/min >=60 Estimated GFR by using Modified MDRD formula.Chronic kidney disease is defined as either kidney damageor GFR <60 mL/min/1.73 m2 for >3 months. CREATININE (test code = CREAT) 9.20 mg/dL 0.7-1.3 H BUN/CREATININE RATIO (test code = BUN/CREA) 5.2 10-20 L CALCIUM (test code = CA) 9.4 mg/dL 8.5-10.1 N BASIC METABOLIC [id number] 10:31:00* Test Item Value Reference Range Interpretation Comments SODIUM (test code = NA) 141 mmol/L 136-145 N POTASSIUM (test code = K) 4.6 mmol/L 3.5-5.1 N CHLORIDE (test code = CL) 103.0 mmol/L 98-107 N CARBON DIOXIDE (test code = CO2) mmol/L 21-32 ANION GAP (test code = GAP) 10-20 GLUCOSE (test code = GLU) mg/dL 74-106 BLOOD UREA NITROGEN (test code = BUN) mg/dL 7-18 GLOMERULAR FILTRATION RATE (test code = GFR) mL/min >=60 CREATININE (test code = CREAT) mg/dL 0.7-1.3 BUN/CREATININE RATIO (test code = BUN/CREA) 10-20 CALCIUM (test code = CA) mg/dL 8.5-10.1 CBC W/AUTO [id number] 10:04:00* Test Item Value Reference Range Interpretation Comments WHITE BLOOD CELL (test code = WBC) 5.5 K/mm3 4.5-12.5 N RED BLOOD CELL (test code = RBC) 3.70 mill/mm3 4.0-5.8 L HEMOGLOBIN (test code = HGB) 13.1 gram/dL 13.0-17.5 N HEMATOCRIT (test code = HCT) 41.0 % 42.0-52.0 L MEAN CELL VOLUME (test code = MCV) 110.8 fL 80-98 H MEAN CELL HGB (test code = MCH) 35.4 picogram 27.0-33.0 H MEAN CELL HGB CONCETRATION (test code = MCHC) 32.0 gram/dL 33.0-36. 0 L RED CELL DISTRIBUTION WIDTH (test code = RDW) 15.9 % 11.6-16. 2 N RED CELL DISTRIBUTION WIDTH SD (test code = RDW-SD) 64.9 fL 37 .0-51.0 H PLATELET COUNT (test code = PLT) 165 K/mm3 150-450 N MEAN PLATELET VOLUME (test code = MPV) 10.8 fL 6.7-11.0 N NEUTROPHIL % (test code = NT%) 65.1 % 39.0-69.0 N IMMATURE GRANULOCYTE % (test code = IG%) 0.4 % 0.0-5.0 N LYMPHOCYTE % (test code = LY%) 23.8 % 25.0-55.0 L MONOCYTE % (test code = MO%) 8.7 % 0.0-10.0 N EOSINOPHIL % (test code = EO%) 0.9 % 0.0-5.0 N BASOPHIL % (test code = BA%) 1.1 % 0.0-1.0 H NUCLEATED RBC % (test code = NRBC%) 0.4 % 0-0 H NEUTROPHIL # (test code = NT#) 3.59 K/mm3 1.8-7.7 N IMMATURE GRANULOCYTE # (test code = IG#) 0.02 x10 3/uL 0-0.03 N LYMPHOCYTE # (test code = LY#) 1.31 K/mm3 1.0-5.0 N MONOCYTE # (test code = MO#) 0.48 K/mm3 0-0.8 N EOSINOPHIL # (test code = EO#) 0.05 K/mm3 0.0-0.5 N BASOPHIL # (test code = BA#) 0.06 K/mm3 0.0-0.2 N NUCLEATED RBC # (test code = NRBC#) 0.02 K/mm3 0.0-0.1 N AB HEPATITIS B [id number] 07:11:00* Test Item Value Reference Range Interpretation Comments AB HEPATITIS B SURFACE (test code = HBSAB) Reactive () Non Reactive: Inconsistent with immunity, less than 10 mIU/mL Reactive: Consistent with immunity, greater than 9.9 mIU/mLPerformed At: [facility] [address] [id number] Hernandez MD Ph:[phone] HEPATITIS B CORE ANTIBODY,[id number] 07:11:00* Test Item Value Reference Range Interpretation Comments HEPATITIS B CORE ANTIBODY,TOT (test code = HBCAB) Negative Nega tive Performed At: HD [facility] [address] [id number] Hernandez MD Ph:[phone] CBC W/O [id number] 08:59:00* Test Item Value Reference Range Interpretation Comments WHITE BLOOD CELL (test code = WBC) K/mm3 4.5-12.5 RED BLOOD CELL (test code = RBC) mill/mm3 4.0-5.8 HEMOGLOBIN (test code = HGB) 13.0 gram/dL 13.0-17.5 N HEMATOCRIT (test code = HCT) % 42.0-52.0 MEAN CELL VOLUME (test code = MCV) fL 80-98 MEAN CELL HGB (test code = MCH) picogram 27.0-33.0 MEAN CELL HGB CONCETRATION (test code = MCHC) gram/dL 33.0-36. 0 RED CELL DISTRIBUTION WIDTH (test code = RDW) % 11.6-16. 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 0 L RED CELL DISTRIBUTION WIDTH (test code = RDW) 15.9 % 11.6-16. 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: REDRAW DUE TO HEMOLYZED SAMPLERENAL FUNCTION PANEL 2019-11-12 08:28:00* Test Item Value Reference Range Interpretation Comments SODIUM (test code = NA) 141 mmol/L 136-145 N POTASSIUM (test code = K) 5.5 mmol/L 3.5-5.1 H CHLORIDE (test code = CL) 105.0 mmol/L 98-107 N CARBON DIOXIDE (test code = CO2) 24.0 mmol/L 21-32 N ANION GAP (test code = GAP) 17.5 10-20 N GLUCOSE (test code = GLU) 89 mg/dL 74-106 N BLOOD UREA NITROGEN (test code = BUN) 61 mg/dL 7-18 H CREATININE (test code = CREAT) 11.40 mg/dL 0.7-1.3 H ALBUMIN (test code = ALB) 3.2 g/dL 3.4-5.0 L CALCIUM (test code = CA) 9.4 mg/dL 8.5-10.1 N PHOSPHORUS (test code = PHOS) 5.6 mg/dL 2.5-4.9 H B-TYPE NATRIURETIC [id number] 05:59:00* Test Item Value Reference Range Interpretation Comments B-TYPE NATRIURETIC PEPTIDE (test code = BNP) 876.07 pgram/mL 0-100 H PROTHROMBIN [id number] 05:08:00* Test Item Value Reference Range Interpretation Comments PROTHROMBIN TIME PATIENT (test code = PTP) 12.1 seconds 9.0-14.0 N INTERNATIONAL NORMAL RATIO (test code = INR) 1.0 0.8-1.2 N The therapeutic range for oral anticoagulant therapy formost indications is an international normalized ratio (INR)of between 2.0 and 3.0. The recommended therapeutic INRrange for various clinical situations is listed below: Clinical Situation INR range Pulmonary e mbolism treatment (2.0-3.0)Venous thrombosis treatmentVenous thrombosis prophylaxis (high risk surgery)Prevention of systemic embolism from: Acute myocardial infarction Valvular heart disease Atrial fibrillation Mechanical prosthetic heart valves (2.5-3.5) IS PATIENT ON ANTICOAGULANTS? NTHROMBOPLASTIN TIME [id number] 05:08:00* Test Item Value Reference Range Interpretation Comments THROMBOPLASTIN TIME PARTIAL (test code = PTT) 32.4 seconds 23.0-37. 0 N IS PATIENT ON ANTICOAGULANTS? NCBC W/O [id number] 05:00:00* Test Item Value Reference Range Interpretation Comments WHITE BLOOD CELL (test code = WBC) 5.8 K/mm3 4.5-12.5 N RED BLOOD CELL (test code = RBC) 3.43 mill/mm3 4.0-5.8 L HEMOGLOBIN (test code = HGB) 12.3 gram/dL 13.0-17.5 L HEMATOCRIT (test code = HCT) 38.3 % 42.0-52.0 L MEAN CELL VOLUME (test code = MCV) 111.7 fL 80-98 H MEAN CELL HGB (test code = MCH) 35.9 picogram 27.0-33.0 H MEAN CELL HGB CONCETRATION (test code = MCHC) 32.1 gram/dL 33.0-36. 0 L RED CELL DISTRIBUTION WIDTH (test code = RDW) 15.6 % 11.6-16. 2 N PLATELET COUNT (test code = PLT) 173 K/mm3 150-450 N MEAN PLATELET VOLUME (test code = MPV) 10.9 fL 6.7-11.0 N BASIC METABOLIC [id number] 05:48:00* Test Item Value Reference Range Interpretation Comments SODIUM (test code = NA) 142 mmol/L 136-145 N POTASSIUM (test code = K) 4.6 mmol/L 3.5-5.1 N CHLORIDE (test code = CL) 105.0 mmol/L 98-107 N CARBON DIOXIDE (test code = CO2) 25.0 mmol/L 21-32 N ANION GAP (test code = GAP) 16.6 10-20 N GLUCOSE (test code = GLU) 87 mg/dL 74-106 N BLOOD UREA NITROGEN (test code = BUN) 58 mg/dL 7-18 H GLOMERULAR FILTRATION RATE (test code = GFR) 6 mL/min >=60 Estimated GFR by using Modified MDRD formula.Chronic kidney disease is defined as either kidney damageor GFR <60 mL/min/1.73 m2 for >3 months. CREATININE (test code = CREAT) 10.50 mg/dL 0.7-1.3 H BUN/CREATININE RATIO (test code = BUN/CREA) 5.5 10-20 L CALCIUM (test code = CA) 9.0 mg/dL 8.5-10.1 N BASIC METABOLIC [id number] 05:36:00* Test Item Value Reference Range Interpretation Comments SODIUM (test code = NA) 142 mmol/L 136-145 N POTASSIUM (test code = K) 4.6 mmol/L 3.5-5.1 N CHLORIDE (test code = CL) 105.0 mmol/L 98-107 N CARBON DIOXIDE (test code = CO2) mmol/L 21-32 ANION GAP (test code = GAP) 10-20 GLUCOSE (test code = GLU) mg/dL 74-106 BLOOD UREA NITROGEN (test code = BUN) mg/dL 7-18 GLOMERULAR FILTRATION RATE (test code = GFR) mL/min >=60 CREATININE (test code = CREAT) mg/dL 0.7-1.3 BUN/CREATININE RATIO (test code = BUN/CREA) 10-20 CALCIUM (test code = CA) mg/dL 8.5-10.1 AG HEPAT B [id number] 21:19:00* Test Item Value Reference Range Interpretation Comments AG HEPAT B SURF (test code = HBSAG) Nonreactive Index Nonreactive [id number] 08:38:00* Test Item Value Reference Range Interpretation Comments POTASSIUM (test code = K) 4.7 mmol/L 3.5-5.1 N Novel Coronavirus [id number] 12:55:00* Test Item Value Reference Range Interpretation Comments Novel Coronavirus 2019 Inhouse (test code = [id number]) Negative Negative Positive results are indicative of the presence sgLYPE-WtY-8 RNA, clinical correlation with patient historyand other diagnostic information is necessary to determinepatient infection status. Positive results do not rule outbacterial infection or co-infection with other viruses. Negative results do not preclude SARS-CoV-2 infection andshould not be used as the sole basis for patient managementdecisions. Negative results must be combined with otherclinical observations, patient history, and epidemiologicalinformation. Detection of SARS-CoV-2 RNA may be affected bysample collection methods, storage conditions, and/or stageof infection. Viral RNA mutations, vaccinations, antiviraltherapeutics, antibiotics, chemotherapeutic orimmunosuppressant drugs have not been evaluated for effectson detection. Results are for the identification of SARS-CoV-2 RNA usingthe [employer]err000 System under the FDA Emergency UseAuthorization. The testing is performed by personneltrained in the procedures for the Wyzerr000 moleculardiagnostic SARS-CoV-2 assay in vitro. Testing Criteria: Preprocedure ScreeningComments: PROCEDURE SCHEDULED FOR [facility] Coronavirus [id number] 12:55:00* Test Item Value Reference Range Interpretation Comments Novel Coronavirus 2019 Inhouse (test code = [id number]) Negative Negative Positive results are indicative of the presence vmUWET-FgR-1 RNA, clinical correlation with patient historyand other diagnostic information is necessary to determinepatient infection status. Positive results do not rule outbacterial infection or co-infection with other viruses. Negative results do not preclude SARS-CoV-2 infection andshould not be used as the sole basis for patient managementdecisions. Negative results must be combined with otherclinical observations, patient history, and epidemiologicalinformation. Detection of SARS-CoV-2 RNA may be affected bysample collection methods, storage conditions, and/or stageof infection. Viral RNA mutations, vaccinations, antiviraltherapeutics, antibiotics, chemotherapeutic orimmunosuppressant drugs have not been evaluated for effectson detection. Results are for the identification of SARS-CoV-2 RNA usingthe Wyzerr000 System under the FDA Emergency UseAuthorization. The testing is performed by personneltrained in the procedures for the Wyzerr000 moleculardiagnostic SARS-CoV-2 assay in vitro. Testing Criteria: Preprocedure ScreeningComments: PROCEDURE SCHEDULED FOR PROTHROMBIN [id number] 16:26:00* Test Item Value Reference Range Interpretation Comments PROTHROMBIN TIME PATIENT (test code = PTP) 12.2 seconds 9.0-14.0 N INTERNATIONAL NORMAL RATIO (test code = INR) 1.0 0.8-1.2 N The therapeutic range for oral anticoagulant therapy formost indications is an international normalized ratio (INR)of between 2.0 and 3.0. The recommended therapeutic INRrange for various clinical situations is listed below: Clinical Situation INR range Pulmonary e mbolism treatment (2.0-3.0)Venous thrombosis treatmentVenous thrombosis prophylaxis (high risk surgery)Prevention of systemic embolism from: Acute myocardial infarction Valvular heart disease Atrial fibrillation Mechanical prosthetic heart valves (2.5-3.5) IS PATIENT ON ANTICOAGULANTS? NTHROMBOPLASTIN TIME [id number] 16:26:00* Test Item Value Reference Range Interpretation Comments THROMBOPLASTIN TIME PARTIAL (test code = PTT) 99.0 seconds 23.0-37. 0 CALLED OFFICE BUT NO REPONSELEFT A VOICEMAIL AT DR. AQUINO OFFICEAT [phone], ALSO FAXED REPORT TO [phone] IS PATIENT ON ANTICOAGULANTS? NCOMPREHENSIVE METABOLIC [id number] 15:46:00 * Test Item Value Reference Range Interpretation Comments SODIUM (test code = NA) 140 mmol/L 136-145 N POTASSIUM (test code = K) 3.6 mmol/L 3.5-5.1 N CHLORIDE (test code = CL) 100.0 mmol/L 98-107 N CARBON DIOXIDE (test code = CO2) 31.0 mmol/L 21-32 N ANION GAP (test code = GAP) 12.6 10-20 N GLUCOSE (test code = GLU) 84 mg/dL 74-106 N BLOOD UREA NITROGEN (test code = BUN) 21 mg/dL 7-18 H GLOMERULAR FILTRATION RATE (test code = GFR) 12 mL/min >=60 Estimated GFR by using Modified MDRD formula.Chronic kidney disease is defined as either kidney damageor GFR <60 mL/min/1.73 m2 for >3 months. CREATININE (test code = CREAT) 5.60 mg/dL 0.7-1.3 H BUN/CREATININE RATIO (test code = BUN/CREA) 3.8 10-20 L TOTAL PROTEIN (test code = PROT) 8.6 gram/dL 6.4-8.2 H ALBUMIN (test code = ALB) 4.3 g/dL 3.4-5.0 N GLOBULIN (test code = GLOB) 4.3 gram/dL 2.7-4.2 H ALBUMIN/GLOBULIN RATIO (test code = A/G) 1.0 0.75-1.50 N CALCIUM (test code = CA) 9.0 mg/dL 8.5-10.1 N BILIRUBIN TOTAL (test code = BILT) 0.50 mg/dL 0.0-1.0 N SGOT/AST (test code = AST) 18 IUnit/L 15-37 N SGPT/ALT (test code = ALT) 15 IUnit/L 12-78 N ALKALINE PHOSPHATASE TOTAL (test code = ALKP) 117 IUnit/L 45-117 N Note change in reference range due to change in reagent. COMPREHENSIVE METABOLIC [id number] 15:39:00* Test Item Value Reference Range Interpretation Comments SODIUM (test code = NA) 140 mmol/L 136-145 N POTASSIUM (test code = K) 3.6 mmol/L 3.5-5.1 N CHLORIDE (test code = CL) 100.0 mmol/L 98-107 N CARBON DIOXIDE (test code = CO2) mmol/L 21-32 ANION GAP (test code = GAP) 10-20 GLUCOSE (test code = GLU) mg/dL 74-106 BLOOD UREA NITROGEN (test code = BUN) mg/dL 7-18 GLOMERULAR FILTRATION RATE (test code = GFR) mL/min >=60 CREATININE (test code = CREAT) mg/dL 0.7-1.3 BUN/CREATININE RATIO (test code = BUN/CREA) 10-20 TOTAL PROTEIN (test code = PROT) gram/dL 6.4-8.2 ALBUMIN (test code = ALB) g/dL 3.4-5.0 GLOBULIN (test code = GLOB) gram/dL 2.7-4.2 ALBUMIN/GLOBULIN RATIO (test code = A/G) 0.75-1.50 CALCIUM (test code = CA) mg/dL 8.5-10.1 BILIRUBIN TOTAL (test code = BILT) mg/dL 0.0-1.0 SGOT/AST (test code = AST) IUnit/L 15-37 SGPT/ALT (test code = ALT) IUnit/L 12-78 ALKALINE PHOSPHATASE TOTAL (test code = ALKP) IUnit/L 45-117 CBC W/AUTO [id number] 15:28:00* Test Item Value Reference Range Interpretation Comments WHITE BLOOD CELL (test code = WBC) 4.2 K/mm3 4.5-12.5 L RED BLOOD CELL (test code = RBC) 3.73 mill/mm3 4.0-5.8 L HEMOGLOBIN (test code = HGB) 13.5 gram/dL 13.0-17.5 N HEMATOCRIT (test code = HCT) 40.0 % 42.0-52.0 L MEAN CELL VOLUME (test code = MCV) 107.2 fL 80-98 H MEAN CELL HGB (test code = MCH) 36.2 picogram 27.0-33.0 H MEAN CELL HGB CONCETRATION (test code = MCHC) 33.8 gram/dL 33.0-36. 0 N RED CELL DISTRIBUTION WIDTH (test code = RDW) 14.9 % 11.6-16. 2 N RED CELL DISTRIBUTION WIDTH SD (test code = RDW-SD) 58.5 fL 37 .0-51.0 H PLATELET COUNT (test code = PLT) 173 K/mm3 150-450 N MEAN PLATELET VOLUME (test code = MPV) 10.8 fL 6.7-11.0 N NEUTROPHIL % (test code = NT%) 41.2 % 39.0-69.0 N IMMATURE GRANULOCYTE % (test code = IG%) 0.5 % 0.0-5.0 N LYMPHOCYTE % (test code = LY%) 44.9 % 25.0-55.0 N MONOCYTE % (test code = MO%) 11.3 % 0.0-10.0 H EOSINOPHIL % (test code = EO%) 0.7 % 0.0-5.0 N BASOPHIL % (test code = BA%) 1.4 % 0.0-1.0 H NUCLEATED RBC % (test code = NRBC%) 0.0 % 0-0 N NEUTROPHIL # (test code = NT#) 1.74 K/mm3 1.8-7.7 L IMMATURE GRANULOCYTE # (test code = IG#) 0.02 x10 3/uL 0-0.03 N LYMPHOCYTE # (test code = LY#) 1.90 K/mm3 1.0-5.0 N MONOCYTE # (test code = MO#) 0.48 K/mm3 0-0.8 N EOSINOPHIL # (test code = EO#) 0.03 K/mm3 0.0-0.5 N BASOPHIL # (test code = BA#) 0.06 K/mm3 0.0-0.2 N NUCLEATED RBC # (test code = NRBC#) 0.00 K/mm3 0.0-0.1 N MANUAL DIFF REQUIRED (test code = MDIFF) NO - XR CHEST 1 [id number] 14:55:00 FAX: Britton Sanchez MD [phone] [place]: B St: PRE FAX: Gabrielle Locke Kumar Escoto [phone] Name: LUIZA CHUN [facility] : 1985 Age/S: 34/M [address] Unit #: [id number] Loc: [place] [address] Phys: Britton Aquino MD Acct: [id number] Dis Date: Status: PRE IN PHONE #: [phone] Exam Date: 11/06/2019 143 FAX #: [phone] Reason: PREOP EXAMS: CPT CODE: [id number] XR CHEST 1 V [id number] REASON FOR EXAM: PREOP Exam Order Date: 11/06/2019 2:34 PM Ordering MMartínez: Britton Aquino MD PROCEDURE: - XR CHEST 1 V COMPARISON: Chest x-ray October 13, 2019 FINDINGS: The lungs are clear. There is no pleural effusion or pneumothorax. Pulmonary vascularity is within normal limits. Cardiomediastinal silhouette is prominent but stable in size. The mediastinal contours are within normal limits. Right IJ Tesio catheter is unchanged in position from the prior exam Musculoskeletal structures are within normal limits. The visualized upper abdomen is within normal limits. IMPRESSION: No acute cardiopulmonary process or change from prior exam. Location: [facility] at 3136 Reported and signed by: Augustin Álvarez MD CC: Britton Aquino MD; Kumar Ding MD Technologist: RT RADHA(R) Trnscrd Date/Time/By: 11/06/2019 (6516) : By: [email or web address] Orig Print D/T: S: 11/06/2019 (5651) PAGE 1 Signed Report BASIC METABOLIC [id number] 07:37:00* Test Item Value Reference Range Interpretation Comments SODIUM (test code = NA) 140 mmol/L 136-145 N POTASSIUM (test code = K) 4.1 mmol/L 3.5-5.1 N CHLORIDE (test code = CL) 101.0 mmol/L 98-107 N CARBON DIOXIDE (test code = CO2) 28.0 mmol/L 21-32 N ANION GAP (test code = GAP) 15.1 10-20 N GLUCOSE (test code = GLU) 90 mg/dL 74-106 N BLOOD UREA NITROGEN (test code = BUN) 45 mg/dL 7-18 H GLOMERULAR FILTRATION RATE (test code = GFR) 7 mL/min >=60 Estimated GFR by using Modified MDRD formula.Chronic kidney disease is defined as either kidney damageor GFR <60 mL/min/1.73 m2 for >3 months. CREATININE (test code = CREAT) 8.40 mg/dL 0.7-1.3 H BUN/CREATININE RATIO (test code = BUN/CREA) 5.4 10-20 L CALCIUM (test code = CA) 9.0 mg/dL 8.5-10.1 N BASIC METABOLIC [id number] 07:32:00* Test Item Value Reference Range Interpretation Comments SODIUM (test code = NA) 140 mmol/L 136-145 N POTASSIUM (test code = K) 4.1 mmol/L 3.5-5.1 N CHLORIDE (test code = CL) 101.0 mmol/L 98-107 N CARBON DIOXIDE (test code = CO2) mmol/L 21-32 ANION GAP (test code = GAP) 10-20 GLUCOSE (test code = GLU) mg/dL 74-106 BLOOD UREA NITROGEN (test code = BUN) mg/dL 7-18 GLOMERULAR FILTRATION RATE (test code = GFR) mL/min >=60 CREATININE (test code = CREAT) mg/dL 0.7-1.3 BUN/CREATININE RATIO (test code = BUN/CREA) 10-20 CALCIUM (test code = CA) mg/dL 8.5-10.1 CBC W/AUTO [id number] 07:18:00* Test Item Value Reference Range Interpretation Comments WHITE BLOOD CELL (test code = WBC) 3.5 K/mm3 4.5-12.5 L RED BLOOD CELL (test code = RBC) 3.59 mill/mm3 4.0-5.8 L HEMOGLOBIN (test code = HGB) 13.2 gram/dL 13.0-17.5 N HEMATOCRIT (test code = HCT) 40.6 % 42.0-52.0 L MEAN CELL VOLUME (test code = MCV) 113.1 fL 80-98 H MEAN CELL HGB (test code = MCH) 36.8 picogram 27.0-33.0 H MEAN CELL HGB CONCETRATION (test code = MCHC) 32.5 gram/dL 33.0-36. 0 L RED CELL DISTRIBUTION WIDTH (test code = RDW) 17.5 % 11.6-16. 2 H RED CELL DISTRIBUTION WIDTH SD (test code = RDW-SD) 74.5 fL 37 .0-51.0 H PLATELET COUNT (test code = PLT) 172 K/mm3 150-450 N MEAN PLATELET VOLUME (test code = MPV) 10.7 fL 6.7-11.0 N NEUTROPHIL % (test code = NT%) 35.6 % 39.0-69.0 L IMMATURE GRANULOCYTE % (test code = IG%) 0.3 % 0.0-5.0 N LYMPHOCYTE % (test code = LY%) 49.3 % 25.0-55.0 N MONOCYTE % (test code = MO%) 12.2 % 0.0-10.0 H EOSINOPHIL % (test code = EO%) 1.2 % 0.0-5.0 N BASOPHIL % (test code = BA%) 1.4 % 0.0-1.0 H NUCLEATED RBC % (test code = NRBC%) 0.0 % 0-0 N NEUTROPHIL # (test code = NT#) 1.23 K/mm3 1.8-7.7 L IMMATURE GRANULOCYTE # (test code = IG#) 0.01 x10 3/uL 0-0.03 N LYMPHOCYTE # (test code = LY#) 1.70 K/mm3 1.0-5.0 N MONOCYTE # (test code = MO#) 0.42 K/mm3 0-0.8 N EOSINOPHIL # (test code = EO#) 0.04 K/mm3 0.0-0.5 N BASOPHIL # (test code = BA#) 0.05 K/mm3 0.0-0.2 N NUCLEATED RBC # (test code = NRBC#) 0.00 K/mm3 0.0-0.1 N CBC W/AUTO [id number] 07:14:00* Test Item Value Reference Range Interpretation Comments WHITE BLOOD CELL (test code = WBC) K/mm3 4.5-12.5 RED BLOOD CELL (test code = RBC) mill/mm3 4.0-5.8 HEMOGLOBIN (test code = HGB) 13.2 gram/dL 13.0-17.5 N HEMATOCRIT (test code = HCT) % 42.0-52.0 MEAN CELL VOLUME (test code = MCV) fL 80-98 MEAN CELL HGB (test code = MCH) picogram 27.0-33.0 MEAN CELL HGB CONCETRATION (test code = MCHC) gram/dL 33.0-36. 0 RED CELL DISTRIBUTION WIDTH (test code = RDW) % 11.6-16. 2 RED CELL DISTRIBUTION WIDTH SD (test code = RDW-SD) fL 37 .0-51.0 PLATELET COUNT (test code = PLT) K/mm3 150-450 MEAN PLATELET VOLUME (test code = MPV) fL 6.7-11.0 NEUTROPHIL % (test code = NT%) % 39.0-69.0 IMMATURE GRANULOCYTE % (test code = IG%) % 0.0-5.0 LYMPHOCYTE % (test code = LY%) % 25.0-55.0 MONOCYTE % (test code = MO%) % 0.0-10.0 EOSINOPHIL % (test code = EO%) % 0.0-5.0 BASOPHIL % (test code = BA%) % 0.0-1.0 NEUTROPHIL # (test code = NT#) K/mm3 1.8-7.7 LYMPHOCYTE # (test code = LY#) K/mm3 1.0-5.0 MONOCYTE # (test code = MO#) K/mm3 0-0.8 EOSINOPHIL # (test code = EO#) K/mm3 0.0-0.5 BASOPHIL # (test code = BA#) K/mm3 0.0-0.2 - XR CHEST 2 [id number] 06:46:00 FAX: Britton Sanchez MD [phone] [place]: St: REG FAX: Gabrielle EscotoKumar [phone] Name: LIUZA CHUN [facility] : 1985 Age/S: 34/M [address] [facility] Unit #: [id number] Loc: [place] [address] Phys: Britton Aquino MD Acct: [id number] Dis Date: Status: REG [facility] PHONE #: [phone] Exam Date: 11/02/2019628 FAX #: [phone] Reason: PREOP TESTING EXAMS: CPT CODE: [id number] XR CHEST 2 V [id number] EXAM: - XR CHEST 2 V HISTORY: PREOP TESTING Location code:C3 COMPARISON: 03/09/2018 FINDINGS: PA and lateral view of the chest is provided. Right-sided dual-lumen dialysis catheter with tip projecting about the upper right atrium is present. Heart size and vascularity are within normal limits. The lungs are clear of focal consolidation. No effusion, pneumothorax, or acute osseous abnormality. IMPRESSION: 1. No radiographic evidence of acute cardiopulmonary process. at 0646 Reported and signed by: Jose Walls M.D. CC: Britton Aquino MD; Kumar Ding MD Technologist: PAUL AMADOR JR Trnscrd Date/Time/By: 11/02/2019 (0646) : By: [email or web address] Orig Print D/T: S: 11/02/2019 (0649) PAGE 1 Signed Report CARDIAC [id number] 17:51:0040[facility]ann[facility]ARDIAC [id number] 17:51:00<0.02[facility]annCHEM [id number] 17:51:0088[facility]annCHEM [id number] 17:51:0044[facility]annCHEM [id number] 17:51:008.39[facility] HermannCHEM [id number] 17:51:65531Zcxzjyjy HermannCHEM [id number] 17:51:005.0 [facility]annCHEM [id number] 17:51:45451Mjxoyrce HermannCHEM PANEL 2019-08-18 17:51:0027[facility] HermannCHEM [id number] 17:51:009.3[facility]annCHEM [id number] 17:51:009.0[facility] HermannCHEM [id number] 17:51:004.4[facility] HermannCHEM [id number] 17:51:0066[facility] HermannCHEM [id number] 17:51:0035[facility] HermannCHEM [id number] 17:51:44796 [facility]annCHEM [id number] 17:51:000.5[facility] HermannCHEM PANEL 2019-08-18 17:51:0014.0[facility] HermannCHEM [id number] 17:51:00* Test Item Value Reference Range Interpretation Comments B/C Ratio (test code = B/C Ratio) 5 1 6-25 [facility]annCHEM [id number] 17:51:004.6[facility] HermannCHEM PANEL 2019-08-18 17:51:00* Test Item Value Reference Range Interpretation Comments A/G Ratio (test code = A/G Ratio) 1.0 1 0.7-1.6 [facility]annCHEM [id number] 17:51:008[facility] HermannCHEM PANEL 2019-08-18 17:51:002.3[facility] HermannCHEM [id number] 17:51:006.2[facility] [id number] 17:51:005.3[facility] [id number] 17:51:004.58[facility] HksywtlBKEGTVVHVD3918-96-25 17:51:0014.5[facility] IFARHWGKEM3729-90-02 17:51:0044.3[facility] GoxwbohYHFLMRAJCP2499-17-18 17:51:00 96.7[facility] RizzfygXGPVARBFVG2292-34-85 17:51:00* Test Item Value Reference Range Interpretation Comments MCH (test code = MCH) 31.8 pg 27.0-31.0 [facility] XozsydeYBADNYGMJL2830-63-80 17:51:0032.8[facility]annHEMATOLOGY 2019-08-18 17:51:0019.4[facility] CeemaekSQRVTFJTLS5868-10-90 17:51:86700Ksqbqnir NuclnfuWEXDIMJBCO1012-11-17 17:51:008.3[facility] MhmxzmjPIHIIZIMYQ6928-10-72 17:51:0046.6[facility] VhamopoLNQPVBIMSU3554-04-47 17:51:0041.7[facility] UXYBYRXBGZ5328-00-17 17:51:0010.2[facility] EkubwfmQUILQDCRLJ2682-06-44 17:51:00 0.4[facility] YmxdpbpIMYPWRHJUY3959-94-67 17:51:001.1[facility]annHEMATOLOGY 2019-08-18 17:51:002.5[facility] OvcesfhVVHCKUTLTT7313-87-31 17:51:002.2[facility] CrshopeLQFIRGZSTG4376-39-54 17:51:000.5[facility] QmtxpptSFQJSYNTHL3261-13-51 17:51:000.1[facility]annCHEM EKKER3336-66-64 09:23:66662Ytwumsaq HermannCHEM AFKHV0856-42-61 09:23:0021[facility]annCHE[facility] JTBIN5682-19-60 09:23:006.91 [facility]annCHE[facility] BROKO1191-88-49 09:23:32765Gyylyrtx HermannCHEM PANEL 2019-05-20 09:23:005.1[facility]annCHEM OROJD7160-74-72 09:23:59527Zysvdbel HermannCHEM NERLT2162-55-33 09:23:0027[facility]annCHE[facility] TQFSV8306-81-20 09:23:0011.1[facility]annCHEM VAOHZ7114-14-59 09:23:007.7[facility]annCHEM URLIY7953-82-51 09:23:0010[facility] AdloyjmAZYJSQNZKT9250-24-78 09:23:004.6 [facility] NrqsaecIPBLTRVFQY8088-69-95 09:23:002.46[facility]annHEMATOLOGY 2019-05-20 09:23:008.4[facility] RfovbjnBTWFDCUNLF7699-88-88 09:23:0025.9[facility] OwuyjgtVNJCLOMWTQ9207-13-41 09:23:65939.3[facility] XhhwzsfGMAUOUBCPL6446-02-10 09:23:00* Test Item Value Reference Range Interpretation Comments MCH (test code = MCH) 34.0 pg 27.0-31.0 [facility] QrctwtfYNJGFQNSZW4180-34-87 09:23:0032.3[facility]annHEMATOLOGY 2019-05-20 09:23:0020.3[facility] NwdslqmSXDEKLHAJK3042-81-59 09:23:09780Jhnggyxo BneubwtCBIYQBYCLM0461-23-58 09:23:009.1[facility] EepwgrqSOULGPEKIM2018-87-91 09:23:0060.0[facility] OizqkqeHOSTYSBDTS8697-59-97 09:23:0028.7[facility] [place] ADZWGEKWQR5904-36-12 09:23:008.8[facility] FehjufxOPJJDASSNF4060-24-04 09:23:000.9 [facility] GzztrsgDNTYKHAKXK3236-11-11 09:23:001.6[facility]annHEMATOLOGY 2019-05-20 09:23:002.8[facility] JgrmyzcUTFPPTGRYE8324-41-11 09:23:001.3[facility] HhbfwmkBJHGDMZTKE2945-36-36 09:23:000.4[facility] PrzhdpxKCNIPACBVC6017-23-19 09:23:000.1[facility] QosmqvcANIDKROMBC6594-83-11 09:23:002+ *ABN*(05/20/19 3:23 AM)[facility] AGCXEVR3191-56-98 16:00:00Product available (05/19/19 10:00 AM)[facility] [facility] IGRNUCQ8564-65-71 15:29:00Negative (05/19/19 9:29 AM)[facility]annCHEM FUVDF8504-05-99 15:29:0089[facility] CHEM CMIYZ9906-82-57 15:29:0053[facility]annCHE[facility] SXUWL0805-95-08 15:29:00 13.80[facility]annCHE[facility] MESHX3368-09-95 15:29:24568Jyyvjugq HermannCHEM PANEL 2019-05-19 15:29:005.6[facility]annCHEM SDJGG0000-49-46 15:29:03669Gbgicdna HermannCHEM OMLNS5790-04-71 15:29:0025[facility]annCHEM VEGYD1920-07-79 15:29:008.2[facility]annCHEM XGIAD9422-56-93 15:29:004[facility]CHE[facility] SPIJF3669-41-51 15:29:0014.6[facility] VhtxjxfHPNVKXANYY5802-50-52 15:29:00* Test Item Value Reference Range Interpretation Comments PT (test code = PT) 15.4 s 12.0-14.7 [facility] BfhdhyqOAEUGBIPDA9233-03-54 15:29:00* Test Item Value Reference Range Interpretation Comments INR (test code = INR) 1.24 1 0.85-1.17 [facility] MtnlqukDGWNDNATCF0436-82-76 15:29:00* Test Item Value Reference Range Interpretation Comments PTT (test code = PTT) 36.5 s 22.9-35.8 [facility] CzgwmfpVRQNWSDTFP9840-18-58 15:29:00Negative *NA*(05/19/19 9:29 AM) [facility] HermannCHEM QGGKA9785-61-72 22:11:0084[facility]annCHEM PANEL 2019-05-18 22:11:0049[facility]annCHEM DUDQS3525-04-67 22:11:0012.30[facility]annCHEM ZXELW9668-72-16 22:11:45628Zxwutjwl HermannCHEM ADSVR6365-97-47 22:11:005.1[facility]annCHEM ZXGXO7636-81-03 22:11:78927Fliflskk HermannCHEM PMZYU7347-77-63 22:11:0024[facility]annCHEM PIGNN7764-95-13 22:11:008.9 [facility]CHE[facility] VGJRI6899-90-76 22:11:005[facility]annCHEM PANEL 2019-05-18 22:11:0014.1[facility] MvfmohdXHWQYFFDJI4256-11-54 22:11:006.0[facility] TglkjflCUICQOQBJR3955-10-16 22:11:002.88[facility] EmtkxjqUUMRHILRMU7900-77-41 22:11:009.7[facility] XgtuoojUCCJPXJFLK9358-00-56 22:11:0029.9[facility] [place] ANZQKWTMTC0997-81-93 22:11:70272.9[facility] HcjgwcwWHIVEDKVLY1747-99-22 22:11:00 * Test Item Value Reference Range Interpretation Comments MCH (test code = MCH) 33.7 pg 27.0-31.0 [facility] FbrxoklZXECCSIERJ1757-87-86 22:11:0032.4[facility] HermannHEMATOLOGY 2019-05-18 22:11:0020.7[facility] ZwvcldoHKDCDBPLXR7285-37-03 22:11:50348Sqizyvey SscubamZEZJJTLPWF9294-42-55 22:11:009.0[facility] XjvutvqAEGYJQHIOV5203-99-21 22:11:00* Test Item Value Reference Range Interpretation Comments PT (test code = PT) 15.0 s 12.0-14.7 [facility] MausvjsIIXRUWSKKX5208-28-50 22:11:00* Test Item Value Reference Range Interpretation Comments INR (test code = INR) 1.20 1 0.85-1.17 [facility] RgknmpmJSMPYQWXQA3422-56-31 22:11:00* Test Item Value Reference Range Interpretation Comments PTT (test code = PTT) 35.2 s 22.9-35.8 [facility] LckvzcqFMXKIDODTA0348-05-94 22:11:0037.2[facility] HermannHEMATOLOGY 2019-05-18 22:11:0052.1[facility] VypcqziMSQBMYMYJC7507-10-55 22:11:007.9[facility] TcxuhefJZWUIJMJQK7721-88-99 22:11:001.0[facility] KcspmgjUCMCHTXFPI3633-82-01 22:11:001.8[facility] TheqvgwXLVVBNRNBF8791-05-13 22:11:002.2[facility] [place] WEXVTCRYUX8655-88-94 22:11:003.1[facility] AxaurzlHKVVEQFFSE2425-18-39 22:11:000.5 [facility] WialmxfZWXEZHPYZL0565-19-26 22:11:000.1[facility] HermannHEMATOLOGY 2019-05-18 22:11:000.1[facility] CqkinmbQWKPUOWEZZ7544-08-30 22:11:001+ *ABN*(05/18/19 4:11 PM)[facility] Uruhn6817-52-67 11:47:00* Test Item Value Reference Range Interpretation Comments Sodium Level (test code = 2951-2) 137 136-145 [facility]bergPotassium Moake6010-60-77 11:47:00* Test Item Value Reference Range Interpretation Comments Potassium Level (test code = 2823-3) 4.6 3.5-5.1 [facility] KlebergChloride Awuuo5662-32-53 11:47:00* Test Item Value Reference Range Interpretation Comments Chloride Level (test code = 2075-0) 99 98-107 [facility] KlebergCarbon Dioxide Pawbt7935-89-20 11:47:00* Test Item Value Reference Range Interpretation Comments Carbon Dioxide Level (test code = 2028-9) 23 22-29 [facility] KlebergAnion Rhw3116-94-85 11:47:00* Test Item Value Reference Range Interpretation Comments Anion Gap (test code = 01196-0) 19.6 8-16 H [facility] KlebergBlood Urea Aoykcapf5749-60-36 11:47:00* Test Item Value Reference Range Interpretation Comments Blood Urea Nitrogen (test code = 3094-0) 70 7-26 H [facility] KlebergCreatinine2019 11:47:00* Test Item Value Reference Range Interpretation Comments Creatinine (test code = 2160-0) 11.72 0.72-1.25 H [facility] KlebergBUN/Creatinine Jwtrs3308-31-59 11:47:00* Test Item Value Reference Range Interpretation Comments BUN/Creatinine Ratio (test code = 3097-3) 6 6-25 [facility] KlebergEstimat Glomerular Filtration Rate 2019-04-30 11:47:00* Test Item Value Reference Range Interpretation Comments Estimat Glomerular Filtration Rate (test code = 764069729) 5 >60 L Ranges were taken from the National Kidney Disease Education Program and the [facility] literature.Reference ranges:60 or greater: Mzsrgx47-12 ( for 3 consecutive months): Chronic kidney disease 15 or less: Kidney failureCHRISTUS [facility]ohn Hospital – KlebergGlucose Ptdnw8640-11-78 11:47:00* Test Item Value Reference Range Interpretation Comments Glucose Level (test code = QEU0623) 113 74-118 [facility] KlebergCalcium Wlcrv5117-27-77 11:47:00* Test Item Value Reference Range Interpretation Comments Calcium Level (test code = 96870-1) 9.1 8.4-10.2 [facility] KlebergWhite Blood Hnrgj1060-63-26 11:44:00* Test Item Value Reference Range Interpretation Comments White Blood Count (test code = 6690-2) 5.47 4.8-10.8 [facility] KlebergRed Blood Iaqmc8846-96-77 11:44:00* Test Item Value Reference Range Interpretation Comments Red Blood Count (test code = 789-8) 2.58 4.3-5.7 L [facility] KlebergHemoglobin2019 11:44:00* Test Item Value Reference Range Interpretation Comments Hemoglobin (test code = 50407-4) 8.3 14.0-18.0 L [facility] KlebergHematocrit2019 11:44:00* Test Item Value Reference Range Interpretation Comments Hematocrit (test code = 4544-3) 25.6 38.2-49.6 L [facility] KlebergMean Corpuscular Acawiw1583-06-95 11:44:00* Test Item Value Reference Range Interpretation Comments Mean Corpuscular Volume (test code = 787-2) 99.2 81-99 H [facility] KlebergMean Corpuscular Yrkvihtqor7562-86-06 11:44:00* Test Item Value Reference Range Interpretation Comments Mean Corpuscular Hemoglobin (test code = 785-6) 32.2 28-32 H [facility] KlebergMean Corpuscular Hemoglobin Concent 2019-04-30 11:44:00* Test Item Value Reference Range Interpretation Comments Mean Corpuscular Hemoglobin Concent (test code = 786-4) 32.4 31-35 [facility] KlebergRed Cell Distribution Nawlb1076-10-86 11:44:00* Test Item Value Reference Range Interpretation Comments Red Cell Distribution Width (test code = 23156-9) 18.1 11.7 -14.4 H [facility] KlebergPlatelet Uboxd7585-58-39 11:44:00* Test Item Value Reference Range Interpretation Comments Platelet Count (test code = 777-3) 211 140-360 [facility] KlebergNeutrophils (%) (Auto)2019-04-30 11:44:00 * Test Item Value Reference Range Interpretation Comments Neutrophils (%) (Auto) (test code = 71970-8) 54.5 38.7-80.0 [facility] KlebergLymphocytes (%) (Auto)2019-04-30 11:44:00 * Test Item Value Reference Range Interpretation Comments Lymphocytes (%) (Auto) (test code = 736-9) 33.5 18.0-39.1 [facility] KlebergMonocytes (%) (Auto)2019-04-30 11:44:00* Test Item Value Reference Range Interpretation Comments Monocytes (%) (Auto) (test code = 5905-5) 9.1 4.4-11.3 [facility]bergEosinophils (%) (Auto)2019-04-30 11:44:00 * Test Item Value Reference Range Interpretation Comments Eosinophils (%) (Auto) (test code = 713-8) 1.5 0.0-6.0 [facility] KlebergBasophils (%) (Auto)2019-04-30 11:44:00* Test Item Value Reference Range Interpretation Comments Basophils (%) (Auto) (test code = 706-2) 0.9 0.0-1.0 [facility] KlebergIM GRANULOCYTES %2019-04-30 11:44:00* Test Item Value Reference Range Interpretation Comments IM GRANULOCYTES % (test code = IM GRANULOCYTES %) 0.5 0.0- 1.0 [facility]bergNeutrophils # (Auto)2019-04-30 11:44:00* Test Item Value Reference Range Interpretation Comments Neutrophils # (Auto) (test code = 751-8) 3.0 2.1-6.9 [facility] KlebergLymphocytes # (Auto)2019-04-30 11:44:00* Test Item Value Reference Range Interpretation Comments Lymphocytes # (Auto) (test code = 75533-1) 1.8 1.0-3.2 [facility] KlebergMonocytes # (Auto)2019-04-30 11:44:00* Test Item Value Reference Range Interpretation Comments Monocytes # (Auto) (test code = 742-7) 0.5 0.2-0.8 [facility]bergEosinophils # (Auto)2019-04-30 11:44:00* Test Item Value Reference Range Interpretation Comments Eosinophils # (Auto) (test code = 711-2) 0.1 0.0-0.4 [facility] KlebergBasophils # (Auto)2019-04-30 11:44:00* Test Item Value Reference Range Interpretation Comments Basophils # (Auto) (test code = 704-7) 0.1 0.0-0.1 [facility] KlebergAbsolute Immature Granulocyte (auto 2019-04-30 11:44:00* Test Item Value Reference Range Interpretation Comments Absolute Immature Granulocyte (auto (gladis t code = Absolute Immature Granulocyte (auto) 0.03 0-0.1 [facility] KlebergGentamicin Level Nainai0710-37-33 17:37:00* Test Item Value Reference Range Interpretation Comments Gentamicin Level Trough (test code = 3665-7) 0.5 0.5-2.0 Detection Limit = 0.3 <0.3 indicates None DetectedPerformed at: [facility] [id number] Director: Froylan Flores MD, Phone: [phone] [facility] KlebergBlood Efhqxhn1205-85-31 16:35:00* Test Item Value Reference Range Interpretation Comments Blood Culture (test code = 14074026) NO GROWTH AFTER 72 HOURS [facility] Ftgtjhr4891-80-52 13:28:00* Test Item Value Reference Range Interpretation Comments Blood Culture (test code = 600-7) No Result Data Provided [facility] KlebergBedside Hzfrgbv3482-87-79 03:15:00* Test Item Value Reference Range Interpretation Comments Bedside Glucose (test code = 35203-1) 151 70-120 H Meter ID: [id number] [facility] 2019-04-26 19:13:00 [facility] [address] [address] Patient Name: LUIZA CHUN MR #: [id number] : 1985 Age/Sex: 33/M Req #: [id number] Adm Physician: NAEEM AHUMADA MD Ordered by: FRANKLYN PADILLA MD Report #: [id number] Location: MED/SURG3 Room/Bed: [facility] Procedure: [id number] CT/CT A BDOMEN/PELVIS W Exam Date: 04/26/19 Exam Time: 1819 REPORT STATUS: Signed CT Abdomen And Pelvis with Intravenous Contrast INDICATION: r/o abscess, IV MEDI MIN INDICATED PER DR PADILLA [id number] TECHNIQUE: Thin collimation a xial images obtained from the diaphragm to the level of the pubic symphysis fo llowing the uneventful administration of 100 cc of low osmolar, nonionic intr avenous contrast. Oral contrast was also administered Dose reduction tech niques used: Automated exposure control, adjustment of the mAs and/or kVp acco rding to patient size, standardized low-dose protocol, and/or iterative recons truction technique. RADIATION DOSE: Total DLP: 336.56 mGy*cm Estimated effective dose: (DLP x 0.015 x size factor) mSv CTDIvol has been reviewed. It is below the limits set by the Radiation Protocol Commit dyan (RPC). COMPARISON: CT abdomen/pelvis 03/11/2019. ABDOMEN FINDINGS: Initial images were motion degraded. These were repeated with limited success. Lung Bases: Small posterior pleural effusions. Small pericardial effusi on. Liver: Normal attenuation. No evidence for mass. Gallbladder: Pr esent and contracted. No biliary ductal dilatation. Pancreas: Normal attenu ation without mass or ductal dilatation. Spleen: Normal in size. No eviden ce of mass. Adrenal Glands: No evidence for mass. Kidneys: Right : Diminutive and stable. No soft tissue mass. No hydronephrosis. Left: D iminutive and stable. No soft tissue mass. No hydronephrosis. Lymph Nodes : No enlarged abdominal or periaortic lymph nodes. Aorta: Normal in diame ter The SMA lies posterior and to the left of the SMV. PELVIS FINDINGS: Bowel: Stomach: Contains enteric contrast and appears normal. Small B owel: Contains enteric contrast. No mural thickening or dilatation. Large Michael wel: Moderate to large amount of stool throughout. The descending colon lies a t the midline of the abdomen. The sigmoid colon is in the right lower quadrant . This is stable in position. No focal mural thickening or pericolonic inflamm ation. A few diverticula in the sigmoid colon may be present. Appendix: Best visualized on coronal reformations and is normal. Bladder: Underdistended w ith circumferential mural thickening. Peritoneum/retroperitoneum: No free f luid or fluid collection. Bones: Minimal degenerative changes of the spine with several Schmorl's nodes in the lower thoracic spine. Soft tissues: U nremarkable. IMPRESSION: 1. No evidence for bowel obstruction or inf lammation. Normal appendix. Stable positioning of the large bowel. This is sug gestive of partial malrotation. 2. Diminutive kidneys suggestive of chron ic renal disease. Circumferential mural thickening may be the result of cystit is. 3. No evidence of abscess. 4. Small pleural and pericardial effusi ons. Signed by: Dr. Regina Arana MD on 04/26/2019 7:21 PM Dict ated By: REGINA ARANA MD 20 Transcribed By: SAUNDRA on 04/26/191920 COPY TO: MALENA PADILLA MD C-Reactive Eampesi7724-28-25 11:22:00* Test Item Value Reference Range Interpretation Comments C-Reactive Protein (test code = 1988-5) 67 0-10 H Performed at: [address] [id number] Director: Froylan Flores MD, Phone: [phone] Spohn Hospital – KlebergErythrocyte Sedimentation Fctx2244-91-29 12:12:00* Test Item Value Reference Range Interpretation Comments Erythrocyte Sedimentation Rate (test code = 4537-7) 31 0- 13 H [facility] KlebergTotal Whsbksmqf6148-30-22 06:54:00* Test Item Value Reference Range Interpretation Comments Total Bilirubin (test code = 1975-2) 0.3 0.2-1.2 [facility] KlebergAspartate Amino Transf (AST/SGOT) 2019-04-25 06:54:00* Test Item Value Reference Range Interpretation Comments Aspartate Amino Transf (AST/SGOT) (test code = Aspartate Amino Transf (AST/SGOT)) 24 5-34 [facility] KlebergAlanine Aminotransferase (ALT/SGPT) 2019-04-25 06:54:00* Test Item Value Reference Range Interpretation Comments Alanine Aminotransferase (ALT/SGPT) (test code = 1742-6) 25 0-55 [facility] KlebergTotal Zdizitc2790-26-55 06:54:00* Test Item Value Reference Range Interpretation Comments Total Protein (test code = 2885-2) 5.7 6.5-8.1 L [facility] KlebergAlbumin2019-10-16 06:54:00* Test Item Value Reference Range Interpretation Comments Albumin (test code = 1751-7) 2.1 3.5-5.0 L [facility] KlebergGlobulin2019-10-16 06:54:00* Test Item Value Reference Range Interpretation Comments Globulin (test code = 74586-7) 3.6 2.3-3.5 H [facility] KlebergAlbumin/Globulin Goish3821-64-49 06:54:00 * Test Item Value Reference Range Interpretation Comments Albumin/Globulin Ratio (test code = 1759-0) 0.6 0.8-2.0 L [facility] KlebergAlkaline Fkhioazgpzy0099-51-52 06:54:00* Test Item Value Reference Range Interpretation Comments Alkaline Phosphatase (test code = 6768-6) 228 40-150 H [facility]Hep[facility] B Surface Antibody, Quant 2019-04-24 08:21:00* Test Item Value Reference Range Interpretation Comments Hepatitis B Surface Antibody, Quant (test code = 5194-6) >1000.0 Immunity>9.9 Status of Immunity Anti-HBs Level Inconsistent with Immunity 0.0 - 9.9Consistent with Immunity >9.9[facility] B Core Total Sfogrwud2065-80-04 08:21:00* Test Item Value Reference Range Interpretation Comments Hepatitis B Core Total Antibody (test code = 34263-2) Negative Negative [facility] B Surface Ftrnptf2497-20-80 08:21:00* Test Item Value Reference Range Interpretation Comments Hepatitis B Surface Antigen (test code = 5196-1) Negative Negat teagan [facility] B Core IgM Wrpdorlp8165-50-19 08:21:00* Test Item Value Reference Range Interpretation Comments Hepatitis B Core IgM Antibody (test code = 21411-7) Negative Ne gative Performed at: [facility] [id number] Director: Froylan Flores MD, Phone: [phone] Spohn Hospital – KlebergCreatine Kinase RZ3772-89-18 10:51:00* Test Item Value Reference Range Interpretation Comments Creatine Kinase MB (test code = 19626-4) 1.50 0-5.0 [facility] KlebergTroponin G2417-02-24 10:51:00* Test Item Value Reference Range Interpretation Comments Troponin I (test code = DIB4144) 1.234 0-0.300 H Elevated result called to barber milligan at 1049 on 04/23/19 by Belia Guadalupe. [facility] KlebergLactic Acid Vprja2829-23-49 10:41:00* Test Item Value Reference Range Interpretation Comments Lactic Acid Level (test code = Lactic Acid Level) 11.5 4.5- 19.8 [facility] KlebergCreatine Sivmka7959-76-82 10:41:00* Test Item Value Reference Range Interpretation Comments Creatine Kinase (test code = 2157-6) 9 30-200 L [facility] HospitalCHEST SINGLE (NOT PORTABLE)2019-04-22 21:06:00 [facility] [address] [address] Patient Name: LUIZA CHUN MR #: [id number] : 1985 Age/Sex: 33/M Req #: [id number] Adm Physician: Ordered by: DEBBIE MUNROE [employer] Report #: [id number] Location: ER Room/Bed: Procedure: [id number] DX/ CHEST SINGLE (NOT PORTABLE) Exam Date: 04/22/19 Exam Time: 2029 REPORT STATUS: Signed EXAMINATION: CHEST SINGLE (NOT PORTABLE) INDICATION: Sepsis. Fever and chills COMPARISON: 09/05/2018. FINDINGS: TUBES and LINES: N one. LUNGS: Lungs are well inflated. Lungs are clear. There is mild pro minence of the central pulmonary vasculature, consistent with pulmonary venous congestion. PLEURA: No pleural effusion or pneumothorax. HEART AND MEDIASTINUM: Cardiac size is mildly enlarged. BONES AND SOFT TISSUES: No acute osseous lesion. Soft tissues are unremarkable. UPPER ABDOMEN: No free air under the diaphragm. IMPRESSION: Mild cardiomegaly. Mild pulmonary venous congestion versus technique. Signed by: Dr. Tay Noyola M.D. on 04/22/2019 9:07 PM Dictated By: MAIKOL NOYOLA MD, MD 06 Transcribed B y: SAUNDRA on 04/22/192106 COPY TO: DEBBIE MUNROE NP Influenza Virus Types A,B Lfrpwmi1247-67-50 19:43:00* Test Item Value Reference Range Interpretation Comments Influenza Virus Types A,B Antigen (test code = 08993-7) NEGATIVE NEGATIVE [facility] KlebergMagnesium Rtnpm0597-39-20 19:35:00* Test Item Value Reference Range Interpretation Comments Magnesium Level (test code = 75578-9) 2.2 1.3-2.1 H [facility] KlebergUrine Pkkcs3495-05-44 19:28:00* Test Item Value Reference Range Interpretation Comments Urine Color (test code = 5778-6) YELLOW YELLOW [facility] KlebergUrine Ankkcll3073-73-76 19:28:00* Test Item Value Reference Range Interpretation Comments Urine Clarity (test code = 95618-8) HAZY CLEAR [facility] KlebergUrine Specific Qxgaqod1510-02-00 19:28:00 * Test Item Value Reference Range Interpretation Comments Urine Specific [place] (test code = 5811-5) 1.010 1.010-1.02 5 [facility] KlebergUrine eL3633-26-55 19:28:00* Test Item Value Reference Range Interpretation Comments Urine pH (test code = 39555-1) 7.5 5-7 [facility]bergUrine Leukocyte Iasvpvrz1020-75-27 19:28:00* Test Item Value Reference Range Interpretation Comments Urine Leukocyte Esterase (test code = 5799-2) 1+ NEGATIVE H [facility] KlebergUrine Eulwuzl1833-30-88 19:28:00* Test Item Value Reference Range Interpretation Comments Urine Nitrite (test code = 50024-9) NEGATIVE NEGATIVE [facility] KlebergUrine Olmfjdr1951-76-28 19:28:00* Test Item Value Reference Range Interpretation Comments Urine Protein (test code = 5804-0) 2+ NEGATIVE H [facility] KlebergUrine Glucose (UA)2019-04-22 19:28:00* Test Item Value Reference Range Interpretation Comments Urine Glucose (UA) (test code = 2349-9) NEGATIVE NEGATIVE [facility] KlebergUrine Pmkbwvv0165-62-79 19:28:00* Test Item Value Reference Range Interpretation Comments Urine Ketones (test code = 04434-5) NEGATIVE NEGATIVE [facility] KlebergUrine Numklwyxzcxc9082-19-67 19:28:00* Test Item Value Reference Range Interpretation Comments Urine Urobilinogen (test code = 22325-4) 0.2 0.2-1 [facility] KlebergUrine Otwuxhjxe0097-23-87 19:28:00* Test Item Value Reference Range Interpretation Comments Urine Bilirubin (test code = 1978-6) NEGATIVE NEGATIVE [facility] Rvegr2889-40-80 19:28:00* Test Item Value Reference Range Interpretation Comments Urine Blood (test code = 06776-9) 2+ NEGATIVE H [facility] KlebergUrine DUX9412-12-30 19:28:00* Test Item Value Reference Range Interpretation Comments Urine WBC (test code = 5821-4) 11-20 0-5 H [facility] KlebergUrine WIL4877-45-67 19:28:00* Test Item Value Reference Range Interpretation Comments Urine RBC (test code = 05604-9) 11-20 0-5 H [facility] KlebergUrine Mydyiatc8463-36-96 19:28:00* Test Item Value Reference Range Interpretation Comments Urine Bacteria (test code = 58558-5) FEW NONE [facility] KlebergUrine Epithelial Erlqg9297-72-78 19:28:00 * Test Item Value Reference Range Interpretation Comments Urine Epithelial Cells (test code = 31995-6) FEW NONE [facility]bergUrine Amorphous Hafptsyv2906-24-62 19:28:00* Test Item Value Reference Range Interpretation Comments Urine Amorphous Sediment (test code = 8246-1) FEW FEW [facility]bergUrine Fine Granular Egtjz9504-59-70 19:28:00* Test Item Value Reference Range Interpretation Comments Urine Fine Granular Casts (test code = 80559-5) 1-5 >0 H [facility] KlebergUrine Acxbu3514-19-56 19:28:00* Test Item Value Reference Range Interpretation Comments Urine Mucus (test code = 8247-9) FEW RARE H [facility] KlebergGroup A Streptococcus Pbpttx2080-13-82 19:25:00* Test Item Value Reference Range Interpretation Comments Group A Streptococcus Screen (test code = 96768-7) NEGATIVE NEG ATIVE [facility] KlebergUrine DYA1921-82-63 13:31:00* Test Item Value Reference Range Interpretation Comments Urine WBC (test code = 5821-4) 6-10 0-5 H [facility] KlebergUrine YPO5347-66-52 13:31:00* Test Item Value Reference Range Interpretation Comments Urine RBC (test code = 53023-6) >50 0-5 H [facility] KlebergUrine Gldsxfuc2139-73-52 13:31:00* Test Item Value Reference Range Interpretation Comments Urine Bacteria (test code = 90523-5) MODERATE NONE H [facility] KlebergUrine Epithelial Rjdiq3546-24-36 13:31:00 * Test Item Value Reference Range Interpretation Comments Urine Epithelial Cells (test code = 71063-7) MODERATE NONE [facility] KlebergU[facility] Xrkvs8142-02-11 13:22:00* Test Item Value Reference Range Interpretation Comments Urine Color (test code = 5778-6) YELLOW YELLOW [facility]bergUrine Tdnpzky8023-07-10 13:22:00* Test Item Value Reference Range Interpretation Comments Urine Clarity (test code = 12633-6) SL CLOUDY CLEAR H [facility] KlebergUrine Specific Hpffkar5301-30-49 13:22:00 * Test Item Value Reference Range Interpretation Comments Urine Specific [place] (test code = 5811-5) 1.015 1.010-1.02 5 [facility]bergU[facility] oE1452-18-84 13:22:00* Test Item Value Reference Range Interpretation Comments Urine pH (test code = 28461-1) 7 5-7 [facility]bergUrine Leukocyte Xopkzcmb5175-26-70 13:22:00* Test Item Value Reference Range Interpretation Comments Urine Leukocyte Esterase (test code = 18530-8) NEGATIVE NEGATIV E [facility]bergUrine Pnsrxlw1111-87-97 13:22:00* Test Item Value Reference Range Interpretation Comments Urine Nitrite (test code = 37392-4) NEGATIVE NEGATIVE [facility]berg[facility] Nsxsooo8203-62-40 13:22:00* Test Item Value Reference Range Interpretation Comments Urine Protein (test code = 63777-4) 2+ NEGATIVE H [facility]bergUrine Glucose (UA)2019-03-11 13:22:00* Test Item Value Reference Range Interpretation Comments Urine Glucose (UA) (test code = 56058-7) 1+ NEGATIVE H [facility]bergUrine Fzhjqvw6844-40-18 13:22:00* Test Item Value Reference Range Interpretation Comments Urine Ketones (test code = 62612-4) NEGATIVE NEGATIVE [facility] Ygkajbnjxxpl8084-89-41 13:22:00* Test Item Value Reference Range Interpretation Comments Urine Urobilinogen (test code = 33304-4) 0.2 0.2-1 [facility] Tuimvcstc0777-16-92 13:22:00* Test Item Value Reference Range Interpretation Comments Urine Bilirubin (test code = 1977-8) NEGATIVE NEGATIVE [facility] Ykygh4680-73-54 13:22:00* Test Item Value Reference Range Interpretation Comments Urine Blood (test code = 67709-9) 3+ [facility]GATIVE [facility] Jylfl3263-58-20 12:05:00* Test Item Value Reference Range Interpretation Comments Sodium Level (test code = 2951-2) 143 136-145 [facility]bergPotassium Zjgjs2884-47-56 12:05:00* Test Item Value Reference Range Interpretation Comments Potassium Level (test code = 2823-3) 4.7 3.5-5.1 [facility]bergChloride Ifjvc9298-06-62 12:05:00* Test Item Value Reference Range Interpretation Comments Chloride Level (test code = 2075-0) 100 98-107 [facility]bergCarbon Dioxide Bavua6645-04-26 12:05:00* Test Item Value Reference Range Interpretation Comments Carbon Dioxide Level (test code = 2028-9) 29 22-29 [facility]bergAnion Mmk1450-26-85 12:05:00* Test Item Value Reference Range Interpretation Comments Anion Gap (test code = 19776-3) 18.7 8-16 H [facility]bergBlood Urea Xzrziumz8362-98-72 12:05:00* Test Item Value Reference Range Interpretation Comments Blood Urea Nitrogen (test code = 3094-0) 64 7-26 H [facility]bergCreatinine2019-09-01 12:05:00* Test Item Value Reference Range Interpretation Comments Creatinine (test code = 2160-0) 11.35 0.72-1.25 H [facility]bergBUN/Creatinine Etlfk5377-43-60 12:05:00* Test Item Value Reference Range Interpretation Comments BUN/Creatinine Ratio (test code = 3097-3) 6 01-02 [facility]bergEstimat Glomerular Filtration Rate 2019-03-11 12:05:00* Test Item Value Reference Range Interpretation Comments Estimat Glomerular Filtration Rate (test code = 953487256) 5 >60 L Ranges were taken from the National Kidney Disease Education Program and the [facility] Foundation literature.Reference ranges:60 or greater: Lwsqbf83-93 ( for 3 consecutive months): Chronic kidney disease 15 or less: Kidney failureCHRISTUS Spohn [facility] – KlebergGlucose Dzfxl6569-49-77 12:05:00* Test Item Value Reference Range Interpretation Comments Glucose Level (test code = YTW3820) 117 74-118 [facility]bergCalcium Eqxdn1838-60-38 12:05:00* Test Item Value Reference Range Interpretation Comments Calcium Level (test code = 78773-4) 9.4 8.4-10.2 [facility]bergTotal Iqmstpefk5908-01-99 12:05:00* Test Item Value Reference Range Interpretation Comments Total Bilirubin (test code = 1975-2) 0.5 0.2-1.2 [facility] KlebergAspartate Amino Transf (AST/SGOT) 2019-03-11 12:05:00* Test Item Value Reference Range Interpretation Comments Aspartate Amino Transf (AST/SGOT) (test code = Aspartate Amino Transf (AST/SGOT)) 15 5-34 [facility]bergAlanine Aminotransferase (ALT/SGPT) 2019-03-11 12:05:00* Test Item Value Reference Range Interpretation Comments Alanine Aminotransferase (ALT/SGPT) (test code = 1742-6) 40 0-55 [facility]bergTotal Ykshpte5585-10-63 12:05:00* Test Item Value Reference Range Interpretation Comments Total Protein (test code = 2885-2) 7.6 6.5-8.1 [facility] KlebergAlbumin2019-09-01 12:05:00* Test Item Value Reference Range Interpretation Comments Albumin (test code = 1751-7) 3.3 3.5-5.0 L [facility]bergGlobulin2019-09-01 12:05:00* Test Item Value Reference Range Interpretation Comments Globulin (test code = 91730-9) 4.3 2.3-3.5 H [facility]bergAlbumin/Globulin Etrgn9449-83-99 12:05:00 * Test Item Value Reference Range Interpretation Comments Albumin/Globulin Ratio (test code = 1759-0) 0.8 0.8-2.0 [facility] KlebergAlkaline Nchyeiwzlfy4852-22-98 12:05:00* Test Item Value Reference Range Interpretation Comments Alkaline Phosphatase (test code = 6768-6) 118 40-150 [facility] KlebergWhite Blood Myyux5484-88-36 11:50:00* Test Item Value Reference Range Interpretation Comments White Blood Count (test code = 6690-2) 6.42 4.8-10.8 [facility]bergRed Blood Moweq7006-87-84 11:50:00* Test Item Value Reference Range Interpretation Comments Red Blood Count (test code = 789-8) 3.33 4.3-5.7 L [facility]bergHemoglobin2019-09-01 11:50:00* Test Item Value Reference Range Interpretation Comments Hemoglobin (test code = 14320-5) 11.2 14.0-18.0 L [facility]bergHematocrit2019-09-01 11:50:00* Test Item Value Reference Range Interpretation Comments Hematocrit (test code = 4544-3) 33.5 38.2-49.6 L [facility] KlebergMean Corpuscular Erhlhv6420-58-33 11:50:00* Test Item Value Reference Range Interpretation Comments Mean Corpuscular Volume (test code = 787-2) 100.6 81-99 H [facility]bergMean Corpuscular Xoyqfdccnn6340-30-49 11:50:00* Test Item Value Reference Range Interpretation Comments Mean Corpuscular Hemoglobin (test code = 785-6) 33.6 28-32 H [facility] KlebergMean Corpuscular Hemoglobin Concent 2019-03-11 11:50:00* Test Item Value Reference Range Interpretation Comments Mean Corpuscular Hemoglobin Concent (test code = 786-4) 33.4 31-35 [facility] KlebergRed Cell Distribution Cfhxg9609-15-71 11:50:00* Test Item Value Reference Range Interpretation Comments Red Cell Distribution Width (test code = 40096-2) 14.7 11.7 -14.4 H [facility] KlebergPlatelet Ilcxn4275-79-01 11:50:00* Test Item Value Reference Range Interpretation Comments Platelet Count (test code = 777-3) 224 140-360 [facility] KlebergNeutrophils (%) (Auto)2019-03-11 11:50:00 * Test Item Value Reference Range Interpretation Comments Neutrophils (%) (Auto) (test code = 79732-0) 60.8 38.7-80.0 [facility] KlebergLymphocytes (%) (Auto)2019-03-11 11:50:00 * Test Item Value Reference Range Interpretation Comments Lymphocytes (%) (Auto) (test code = 736-9) 26.0 18.0-39.1 [facility] KlebergMonocytes (%) (Auto)2019-03-11 11:50:00* Test Item Value Reference Range Interpretation Comments Monocytes (%) (Auto) (test code = 5905-5) 11.4 4.4-11.3 H [facility]bergEosinophils (%) (Auto)2019-03-11 11:50:00 * Test Item Value Reference Range Interpretation Comments Eosinophils (%) (Auto) (test code = 713-8) 0.5 0.0-6.0 [facility]bergBasophils (%) (Auto)2019-03-11 11:50:00* Test Item Value Reference Range Interpretation Comments Basophils (%) (Auto) (test code = 706-2) 0.8 0.0-1.0 [facility] KlebergIM GRANULOCYTES %2019-03-11 11:50:00* Test Item Value Reference Range Interpretation Comments IM GRANULOCYTES % (test code = IM GRANULOCYTES %) 0.5 0.0- 1.0 [facility]bergNeutrophils # (Auto)2019-03-11 11:50:00* Test Item Value Reference Range Interpretation Comments Neutrophils # (Auto) (test code = 751-8) 3.9 2.1-6.9 [facility] KlebergLymphocytes # (Auto)2019-03-11 11:50:00* Test Item Value Reference Range Interpretation Comments Lymphocytes # (Auto) (test code = 88801-5) 1.7 1.0-3.2 [facility]bergMonocytes # (Auto)2019-03-11 11:50:00* Test Item Value Reference Range Interpretation Comments Monocytes # (Auto) (test code = 742-7) 0.7 0.2-0.8 [facility]bergEosinophils # (Auto)2019-03-11 11:50:00* Test Item Value Reference Range Interpretation Comments Eosinophils # (Auto) (test code = 711-2) 0.0 0.0-0.4 [facility]bergBasophils # (Auto)2019-03-11 11:50:00* Test Item Value Reference Range Interpretation Comments Basophils # (Auto) (test code = 704-7) 0.1 0.0-0.1 [facility] KlebergAbsolute Immature Granulocyte (auto 2019-03-11 11:50:00* Test Item Value Reference Range Interpretation Comments Absolute Immature Granulocyte (auto (gladis t code = Absolute Immature Granulocyte (auto) 0.03 0-0.1 [facility] KlebergCT ABDOMEN/PELVIS TL0725-59-27 11:32:00 [facility] [address] [address] Patient Name: LUIZA CHUN MR #: [id number] : 1985 Age/Sex: 33/M Req #: [id number] Adm Physician: Ordered by: MARISELA LYN MD Report #: [id number] Location: ER Room/Bed: Procedure: [id number] CT/C T ABDOMEN/PELVIS WO Exam Date: 03/11/19 Exam Time: 1 100 REPORT STATUS: Signed EXAM: CT of the abdomen and pelvis WITHOUT contrast HISTORY: Pain, pelvic, lower back, CVA tenderness, dialysis patient COMPARISON: None available. WOOD HNIQUE: The abdomen and pelvis were scanned utilizing a multidetector helical scanner. Coronal and sagittal reformats are available. JENNIFER COL: Renal colic IV CONTRAST: None, which limits sensitivity and specificity of evaluation of the soft tissues and vascular structures. ORAL CONTRAST: None, which limits sensitivity and specificity of eval uation of the bowel. RADIATION DOSE: Total DLP: 181.5 mGy*cm Estimated effective dose: (DLP x 0.015 x size factor) Dose modulation, iterative reconstruction, and/or weight based adjustment of the mA/kV was utilized to reduce the radiation dose to as low as reasonably achiev able. COMPLICATIONS: None FINDINGS: LOWER THORAX: Unremarka ble. HEPATOBILIARY: No definite focal hepatic lesions. No biliary duct al dilatation. The gallbladder is mildly contracted. SPLEEN: No splenomega ly. PANCREAS: No focal masses or ductal dilatation. ADRENALS: No ad renal nodule. KIDNEYS/URETERS: Diffuse bilateral renal cortical atrophy. No hydronephrosis or stone. PELVIC ORGANS/BLADDER: The visualized pelvic organs appear unremarkable. PERITONEUM / RETROPERITONEUM: No free air or fl uid. GI TRACT: On limited evaluation of the gastrointestinal tract, no dilatio n or wall thickening identified. No adjacent focal inflammatory changes. LYMPH NODES: No pathologically enlarged lymph nodes. Nonspecific small mesen teric and retroperitoneal lymph nodes. VESSELS: Appear unremarkable. BONES a nd JOINTS: No aggressive osseous lesion or acute fracture. SOFT TISSUES: Nons pecific ventral predominant superficial soft tissue densities, correlate for h istory of injections. IMPRESSION: 1. No acute CT abnormality to definit ively account for the symptoms. 2. Specifically, no hydronephrosis or urinary tract stone. Signed by: Dr. Latrell Hidalgo D.O., M.M.M. on 03/11/2019 11:46 AM Dictated By: LATRELL HIDALGO DO 1146 Transcribed By: SAUNDRA on 03/11/19 1146 COPY TO: MAIRSELA LYN MD CHEST SINGLE (PORTABLE)2018-09-05 02:49:00 [address] [place] [address] Patient Name: LUIZA CHUN MR #: [id number] : 1985 Age/Sex: 32/M Req #: [id number] Adm Physician: Ordered by: CARI HARRIS MD Report #: [id number] Location: ER Room/Bed: Procedure: [id number] DX[facility] SINGLE (PORTABLE) Exam Date: Exam Time: REPORT STATUS: Signed EXAMINATION: [facility] SINGLE (PORTABLE) COMPARISON: Chest x-ray 04/07/2018 INDICATION: Chest pain RIGHT TUNNELED IJ WHICH IS NOT SUTURED IN, C/O PAIN AT SITE DISCUSSION: Frontal view of the chest obtained at 0237 hours. HEART AND MEDIASTINUM: The cardiomediastinal silhouette is unremarkable. LINES: Dual lumen central venous catheter remains in the cavoatrial junction. The ca theter is intact. No surrounding calcifications. LUNGS: The lungs are well inflated and clear. No pneumonia or pulmonary edema. PLEURA: No pleural e ffusion or pneumothorax. BONES AND SOFT TISSUES: No focal osseous lesion. The soft tissues are normal. IMPRESSION: No acute cardiopulmonary dis ease. Stable central venous catheter position as described above. Signed by: Dr. Regina Arana MD on 09/05/2018 2:51 AM Dictated By: REGINA ARANA MD 0 Tr anscribed By: SAUNDRA on 09/05/18250 COPY TO: CARI HARRIS MD CT BRAIN NL8143-60-36 19:49:00 [address] [place] [address] Patient Name: LUIZA CHUN MR #: [id number] : 1985 Age/Sex: 32/M Req #: [id number] Adm Physician: Ordered by: NATE DE LA VEGA [employer] ENGINEER Report #: [id number] Location: ER Room/Bed: Procedure: [id number] CT/CT BRAIN WO Exam Date: Exam Time: 1939 REPORT STATUS: Signed EXA MINATION: Head CT without contrast. HISTORY:Syncope and weakness. COMPARISON:None. TECHNIQUE: Multidetector axial images were obtained from the foramen magnum to the vertex without contrast. The images were reconstructed using brain and bone algorithms. Thin section brain images were reformatted i nto coronal and sagittal planes. Dose modulation, iterative reconstruction, and/or weight based adjustment of the mA/kV was utilized to reduce the radiati on dose to as low as reasonably achievable. Intravenous contrast: None IMAGE QUALITY: Acceptable. FINDINGS: Skull/scalp: No lytic or bl astic. lesions. No surgical changes. Parenchyma: No abnormal density. N o acute hemorrhage, mass or acute major vascular territorial infarct. Yareli stephon: No density suggestive of thrombosis. Dural sinuses: No abnormal d ensity suggestive of thrombosis. Ventricles: No hydrocephalus or displace ment. Extra-axial spaces: No abnormal density. Brain volume: Payal l for age. Craniocervical junction: No mass, Chiari malformation, or basil ar invagination. Sella: No mass. Paranasal/mastoid sinuses: Under pneumatization, partial opacification and sclerosis of left mastoid air cells may represents sequel of chronic inflammatory process. IMPRESSION: No intracranial abnormality. Signed by: Dr. Kelton Neal M.D. on 018 7:55 PM Dictated By: KELTON NEAL MD 54 Transcribed By: SAUNDRA on 04/07/181954 COPY TO: NATE DE LA VEGA NP Magnesium Chjqo9846-43-93 19:38:00* Test Item Value Reference Range Interpretation Comments Magnesium Level (test code = 64519-8) 1.9 1.3-2.1 [facility]bergMagnesium Mrjkf1268-40-09 19:38:00* Test Item Value Reference Range Interpretation Comments Magnesium Level (test code = 92011-1) 1.9 1.3-2.1 [facility]bergCreatine Kinase SP8191-68-04 19:26:00* Test Item Value Reference Range Interpretation Comments Creatine Kinase MB (test code = 03363-0) 0.40 0-5.0 [facility] KlebergTroponin Q1123-89-83 19:26:00* Test Item Value Reference Range Interpretation Comments Troponin I (test code = EEC8588) 0.007 0-0.300 [facility] KlebergCreatine Kinase QS0806-93-67 19:26:00* Test Item Value Reference Range Interpretation Comments Creatine Kinase MB (test code = 41931-8) 0.40 0-5.0 [facility] KlebergTroponin R7807-37-02 19:26:00* Test Item Value Reference Range Interpretation Comments Troponin I (test code = SHT9168) 0.007 0-0.300 [facility] Udhrf4649-91-17 19:20:00* Test Item Value Reference Range Interpretation Comments Sodium Level (test code = 2951-2) 143 136-145 [facility] KlebergPotassium Ovfdk4346-32-26 19:20:00* Test Item Value Reference Range Interpretation Comments Potassium Level (test code = 2823-3) 3.6 3.5-5.1 [facility] KlebergChloride Altja9617-94-87 19:20:00* Test Item Value Reference Range Interpretation Comments Chloride Level (test code = 2075-0) 102 98-107 [facility] KlebergCarbon Dioxide Dsosb3333-80-81 19:20:00* Test Item Value Reference Range Interpretation Comments Carbon Dioxide Level (test code = 2028-9) 30 22-29 H [facility] KlebergAnion Ffg5759-78-12 19:20:00* Test Item Value Reference Range Interpretation Comments Anion Gap (test code = 26597-2) 14.6 8-16 [facility]bergBlood Urea Pfjjgrrs1456-72-70 19:20:00* Test Item Value Reference Range Interpretation Comments Blood Urea Nitrogen (test code = 3094-0) 17 7-26 [facility] KlebergCreatinine2018-09-28 19:20:00* Test Item Value Reference Range Interpretation Comments Creatinine (test code = 2160-0) 3.81 0.72-1.25 H [facility] KlebergBUN/Creatinine Fpmhb8293-30-18 19:20:00* Test Item Value Reference Range Interpretation Comments BUN/Creatinine Ratio (test code = 3097-3) 4 6-25 L [facility] KlebergEstimat Glomerular Filtration Rate 2018-04-07 19:20:00* Test Item Value Reference Range Interpretation Comments Estimat Glomerular Filtration Rate (test code = 840790389) 19 >60 L Ranges were taken from the National Kidney Disease Education Program and the [facility] Kidney Foundation literature.Reference ranges:60 or greater: Wxkujr77-33 ( for 3 consecutive months): Chronic kidney disease 15 or less: Kidney failureCHRISTUS Spohn [facility] – KlebergGlucose Dtrmj3409-46-29 19:20:00* Test Item Value Reference Range Interpretation Comments Glucose Level (test code = TZD9627) 112 74-118 [facility] KlebergCalcium Mebsd9597-05-39 19:20:00* Test Item Value Reference Range Interpretation Comments Calcium Level (test code = 35174-3) 9.0 8.4-10.2 [facility]bergTotal Apccdlfdo2063-92-05 19:20:00* Test Item Value Reference Range Interpretation Comments Total Bilirubin (test code = 1975-2) 0.3 0.2-1.2 [facility] KlebergAspartate Amino Transf (AST/SGOT) 2018-04-07 19:20:00* Test Item Value Reference Range Interpretation Comments Aspartate Amino Transf (AST/SGOT) (test code = Aspartate Amino Transf (AST/SGOT)) 21 5-34 [facility] KlebergAlanine Aminotransferase (ALT/SGPT) 2018-04-07 19:20:00* Test Item Value Reference Range Interpretation Comments Alanine Aminotransferase (ALT/SGPT) (test code = 1742-6) 15 0-55 [facility] KlebergTotal Zczrcha1665-17-61 19:20:00* Test Item Value Reference Range Interpretation Comments Total Protein (test code = 2885-2) 7.6 6.5-8.1 [facility] KlebergAlbumin2018-09-28 19:20:00* Test Item Value Reference Range Interpretation Comments Albumin (test code = 1751-7) 3.7 3.5-5.0 [facility] KlebergGlobulin2018-09-28 19:20:00* Test Item Value Reference Range Interpretation Comments Globulin (test code = 30872-4) 3.9 2.3-3.5 H [facility] KlebergAlbumin/Globulin Dpvir2690-43-41 19:20:00 * Test Item Value Reference Range Interpretation Comments Albumin/Globulin Ratio (test code = 1759-0) 0.9 0.8-2.0 [facility] KlebergAlkaline Xidzxmmtipp2840-03-27 19:20:00* Test Item Value Reference Range Interpretation Comments Alkaline Phosphatase (test code = 6768-6) 107 40-150 [facility] KlebergCreatine Bgyyhp5414-90-34 19:20:00* Test Item Value Reference Range Interpretation Comments Creatine Kinase (test code = 2157-6) 57 30-200 [facility]odium Ozmhh1921-91-11 19:20:00* Test Item Value Reference Range Interpretation Comments Sodium Level (test code = 2951-2) 143 136-145 [facility] KlebergPotassium Hbxok9174-90-49 19:20:00* Test Item Value Reference Range Interpretation Comments Potassium Level (test code = 2823-3) 3.6 3.5-5.1 [facility] KlebergChloride Qtzuz5809-79-58 19:20:00* Test Item Value Reference Range Interpretation Comments Chloride Level (test code = 2075-0) 102 98-107 [facility] KlebergCarbon Dioxide Fdfvd5868-04-17 19:20:00* Test Item Value Reference Range Interpretation Comments Carbon Dioxide Level (test code = 2028-9) 30 22-29 H [facility] KlebergAnion Inv6790-61-21 19:20:00* Test Item Value Reference Range Interpretation Comments Anion Gap (test code = 38094-7) 14.6 8-16 [facility] KlebergBlood Urea Spllfrim6616-59-46 19:20:00* Test Item Value Reference Range Interpretation Comments Blood Urea Nitrogen (test code = 3094-0) 17 7-26 [facility] KlebergCreatinine2018-09-28 19:20:00* Test Item Value Reference Range Interpretation Comments Creatinine (test code = 2160-0) 3.81 0.72-1.25 H [facility] KlebergBUN/Creatinine Vdhhs9408-32-66 19:20:00* Test Item Value Reference Range Interpretation Comments BUN/Creatinine Ratio (test code = 3097-3) 4 6-25 L [facility] KlebergEstimat Glomerular Filtration Rate 2018-04-07 19:20:00* Test Item Value Reference Range Interpretation Comments Estimat Glomerular Filtration Rate (test code = 385451007) 19 >60 L Ranges were taken from the National Kidney Disease Education Program and the [facility] Kid[facility] Foundation literature.Reference ranges:60 or greater: Ttqddk75-99 ( for 3 consecutive months): Chronic kidney disease 15 or less: Kidney failureCHRISTUS Spohn Hospital – KlebergGlucose Mevvh0582-02-34 19:20:00* Test Item Value Reference Range Interpretation Comments Glucose Level (test code = TCC6348) 112 74-118 [facility] KlebergCalcium Xjwom1266-30-21 19:20:00* Test Item Value Reference Range Interpretation Comments Calcium Level (test code = 31938-5) 9.0 8.4-10.2 [facility]bergTotal Retapcrkp0907-94-34 19:20:00* Test Item Value Reference Range Interpretation Comments Total Bilirubin (test code = 1975-2) 0.3 0.2-1.2 [facility] KlebergAspartate Amino Transf (AST/SGOT) 2018-04-07 19:20:00* Test Item Value Reference Range Interpretation Comments Aspartate Amino Transf (AST/SGOT) (test code = Aspartate Amino Transf (AST/SGOT)) 21 5-34 [facility] KlebergAlanine Aminotransferase (ALT/SGPT) 2018-04-07 19:20:00* Test Item Value Reference Range Interpretation Comments Alanine Aminotransferase (ALT/SGPT) (test code = 1742-6) 15 0-55 [facility] KlebergTotal Mmtckaq8143-73-07 19:20:00* Test Item Value Reference Range Interpretation Comments Total Protein (test code = 2885-2) 7.6 6.5-8.1 [facility] KlebergAlbumin2018-09-28 19:20:00* Test Item Value Reference Range Interpretation Comments Albumin (test code = 1751-7) 3.7 3.5-5.0 [facility] KlebergGlobulin2018-09-28 19:20:00* Test Item Value Reference Range Interpretation Comments Globulin (test code = 13547-3) 3.9 2.3-3.5 H [facility] KlebergAlbumin/Globulin Fijlu0576-12-23 19:20:00 * Test Item Value Reference Range Interpretation Comments Albumin/Globulin Ratio (test code = 1759-0) 0.9 0.8-2.0 [facility] KlebergAlkaline Abkslfzlvtb3539-52-71 19:20:00* Test Item Value Reference Range Interpretation Comments Alkaline Phosphatase (test code = 6768-6) 107 40-150 [facility] KlebergCreatine Exdfnx3962-18-43 19:20:00* Test Item Value Reference Range Interpretation Comments Creatine Kinase (test code = 2157-6) 57 30-200 [facility] KlebergCHEST SINGLE (PORTABLE)2018-04-07 19:14:00 [facility] [address] [address] Patient Name: LUIZA CHUN MR #: [id number] : 1985 Age/Sex: 32/M Req #: [id number] Adm Physician: Ordered by: KIRK MCFARLAND MD Report #: [id number] Location: ER Room/Bed: Procedure: [id number] DX/CHEST SINGLE (PORTABLE) E xam Date: 04/07/18 Exam Time: 1850 REPORT STATU S: Signed EXAMINATION: CHEST SINGLE (PORTABLE) INDICATION: S syncope. Weakness. COMPARISON: None FINDINGS: AP view T UBES and LINES: Right IJ dialysis catheter with tip in the right atrium. L UNGS: Lungs are well inflated. Lungs are clear. There is no evidence of pneu monia or pulmonary edema. PLEURA: No pleural effusion or pneumothorax. HEART AND MEDIASTINUM: The cardiomediastinal silhouette is unremarkable. BONES AND SOFT TISSUES: No acute osseous lesion. Soft tissues are unrem arkable. UPPER ABDOMEN: No free air under the diaphragm. IMPRESSIO N: No acute thoracic abnormality. Signed by: Dr. Beau Perez M.D. on 03/12 7:15 PM Dictated By: BEAU PEREZ MD 14 Transcribed By: SAUNDRA on 04/07/181914 COPY TO: KIRK MCFARLAND MD White Blood [id number] 18:59:00* Test Item Value Reference Range Interpretation Comments White Blood Count (test code = 6690-2) 3.80 4.8-10.8 L [facility] [id number] 18:59:00* Test Item Value Reference Range Interpretation Comments Red Blood Count (test code = 789-8) 2.60 4.3-5.7 L [facility]emoglobin2018-09-28 18:59:00* Test Item Value Reference Range Interpretation Comments Hemoglobin (test code = 10521-4) 8.4 14.0-18.0 L [facility]Hematocrit2018-09-28 18:59:00* Test Item Value Reference Range Interpretation Comments Hematocrit (test code = 4544-3) 26.0 38.2-49.6 L [facility]bergMean Corpuscular [id number] 18:59:00* Test Item Value Reference Range Interpretation Comments Mean Corpuscular Volume (test code = 787-2) 100.0 81-99 H [facility] Corpuscular [id number] 18:59:00* Test Item Value Reference Range Interpretation Comments Mean Corpuscular Hemoglobin (test code = 785-6) 32.3 28-32 H [facility] Corpuscular Hemoglobin Concent 2018-04-07 18:59:00* Test Item Value Reference Range Interpretation Comments Mean Corpuscular Hemoglobin Concent (test code = 786-4) 32.3 31-35 [facility] Cell Distribution [id number] 18:59:00* Test Item Value Reference Range Interpretation Comments Red Cell Distribution Width (test code = 61088-6) 14.4 11.7 -14.4 [facility]berg[facility]atelet [id number] 18:59:00* Test Item Value Reference Range Interpretation Comments Platelet Count (test code = 777-3) 249 140-360 [facility]bergNeutrophils (%) (Auto)2018-04-07 18:59:00 * Test Item Value Reference Range Interpretation Comments Neutrophils (%) (Auto) (test code = 23594-3) 27.1 38.7-80.0 L [facility]bergLymphocytes (%) (Auto)2018-04-07 18:59:00 * Test Item Value Reference Range Interpretation Comments Lymphocytes (%) (Auto) (test code = 736-9) 58.2 18.0-39.1 H [facility]bergMonocytes (%) (Auto)2018-04-07 18:59:00* Test Item Value Reference Range Interpretation Comments Monocytes (%) (Auto) (test code = 5905-5) 10.5 4.4-11.3 [facility]osinophils (%) (Auto)2018-04-07 18:59:00 * Test Item Value Reference Range Interpretation Comments Eosinophils (%) (Auto) (test code = 713-8) 2.6 0.0-6.0 [facility]ophils (%) (Auto)2018-04-07 18:59:00* Test Item Value Reference Range Interpretation Comments Basophils (%) (Auto) (test code = 706-2) 1.3 0.0-1.0 H [facility]bergIM GRANULOCYTES %2018-04-07 18:59:00* Test Item Value Reference Range Interpretation Comments IM GRANULOCYTES % (test code = IM GRANULOCYTES %) 0.3 0.0- 1.0 [facility]bergNeutrophils # (Auto)2018-04-07 18:59:00* Test Item Value Reference Range Interpretation Comments Neutrophils # (Auto) (test code = 751-8) 1.0 2.1-6.9 L [facility]bergLymphocytes # (Auto)2018-04-07 18:59:00* Test Item Value Reference Range Interpretation Comments Lymphocytes # (Auto) (test code = 18488-9) 2.2 1.0-3.2 [facility]bergMonocytes # (Auto)2018-04-07 18:59:00* Test Item Value Reference Range Interpretation Comments Monocytes # (Auto) (test code = 742-7) 0.4 0.2-0.8 [facility]osinophils # (Auto)2018-04-07 18:59:00* Test Item Value Reference Range Interpretation Comments Eosinophils # (Auto) (test code = 711-2) 0.1 0.0-0.4 [facility]ophils # (Auto)2018-04-07 18:59:00* Test Item Value Reference Range Interpretation Comments Basophils # (Auto) (test code = 704-7) 0.1 0.0-0.1 [facility]bergAbsolute Immature Granulocyte (auto 2018-04-07 18:59:00* Test Item Value Reference Range Interpretation Comments Absolute Immature Granulocyte (auto (gladis t code = Absolute Immature Granulocyte (auto) 0.01 0-0.1 [facility]bergWhite Blood [id number] 18:59:00* Test Item Value Reference Range Interpretation Comments White Blood Count (test code = 6690-2) 3.80 4.8-10.8 L [facility]Red Blood [id number] 18:59:00* Test Item Value Reference Range Interpretation Comments Red Blood Count (test code = 789-8) 2.60 4.3-5.7 L [facility]bergHemoglobin2018-09-28 18:59:00* Test Item Value Reference Range Interpretation Comments Hemoglobin (test code = 43692-9) 8.4 14.0-18.0 L [facility]bergHematocrit2018-09-28 18:59:00* Test Item Value Reference Range Interpretation Comments Hematocrit (test code = 4544-3) 26.0 38.2-49.6 L [facility]Mean Corpuscular [id number] 18:59:00* Test Item Value Reference Range Interpretation Comments Mean Corpuscular Volume (test code = 787-2) 100.0 81-99 H [facility]Mean Corpuscular [id number] 18:59:00* Test Item Value Reference Range Interpretation Comments Mean Corpuscular Hemoglobin (test code = 785-6) 32.3 28-32 H [facility] Corpuscular Hemoglobin Concent 2018-04-07 18:59:00* Test Item Value Reference Range Interpretation Comments Mean Corpuscular Hemoglobin Concent (test code = 786-4) 32.3 31-35 [facility]bergRed Cell Distribution [id number] 18:59:00* Test Item Value Reference Range Interpretation Comments Red Cell Distribution Width (test code = 20930-4) 14.4 11.7 -14.4 [facility]bergPlatelet [id number] 18:59:00* Test Item Value Reference Range Interpretation Comments Platelet Count (test code = 777-3) 249 140-360 [facility]bergNeutrophils (%) (Auto)2018-04-07 18:59:00 * Test Item Value Reference Range Interpretation Comments Neutrophils (%) (Auto) (test code = 55220-4) 27.1 38.7-80.0 L [facility] KlebergLymphocytes (%) (Auto)2018-04-07 18:59:00 * Test Item Value Reference Range Interpretation Comments Lymphocytes (%) (Auto) (test code = 736-9) 58.2 18.0-39.1 H [facility]bergMonocytes (%) (Auto)2018-04-07 18:59:00* Test Item Value Reference Range Interpretation Comments Monocytes (%) (Auto) (test code = 5905-5) 10.5 4.4-11.3 [facility]bergEosinophils (%) (Auto)2018-04-07 18:59:00 * Test Item Value Reference Range Interpretation Comments Eosinophils (%) (Auto) (test code = 713-8) 2.6 0.0-6.0 [facility]bergBasophils (%) (Auto)2018-04-07 18:59:00* Test Item Value Reference Range Interpretation Comments Basophils (%) (Auto) (test code = 706-2) 1.3 0.0-1.0 H [facility]bergIM GRANULOCYTES %2018-04-07 18:59:00* Test Item Value Reference Range Interpretation Comments IM GRANULOCYTES % (test code = IM GRANULOCYTES %) 0.3 0.0- 1.0 [facility]bergNeutrophils # (Auto)2018-04-07 18:59:00* Test Item Value Reference Range Interpretation Comments Neutrophils # (Auto) (test code = 751-8) 1.0 2.1-6.9 L [facility]bergLymphocytes # (Auto)2018-04-07 18:59:00* Test Item Value Reference Range Interpretation Comments Lymphocytes # (Auto) (test code = 36977-6) 2.2 1.0-3.2 [facility]bergMonocytes # (Auto)2018-04-07 18:59:00* Test Item Value Reference Range Interpretation Comments Monocytes # (Auto) (test code = 742-7) 0.4 0.2-0.8 [facility]bergEosinophils # (Auto)2018-04-07 18:59:00* Test Item Value Reference Range Interpretation Comments Eosinophils # (Auto) (test code = 711-2) 0.1 0.0-0.4 [facility]Basophils # (Auto)2018-04-07 18:59:00* Test Item Value Reference Range Interpretation Comments Basophils # (Auto) (test code = 704-7) 0.1 0.0-0.1 [facility]bergAbsolute Immature Granulocyte (auto 2018-04-07 18:59:00* Test Item Value Reference Range Interpretation Comments Absolute Immature Granulocyte (auto (gladis t code = Absolute Immature Granulocyte (auto) 0.01 0-0.1 [facility]bergU/S, PELVIC, [id number] 18:20:00 Reason for Exam:->CKD/KIDNEY TRANSPLANT EVALUATIONFINAL REPORT HISTORY : Chronic kidney disease, kidney [...] hepatic veins and abdominal aorta are within norm al limits. The bladder is normal in appearance. Prevoid volume is 347 mL. Postv oid volume is 2 mL. IMPRESSION :1. Cholelithiasis without ultrasonographic evide nce of acute cholecystitis.2. Atrophic bilateral kidneys with increased echogeni city compatible with medical renal disease. Signed: Miguelangel Abel MDReport Shahana ified Date/Time: 11/07/2017 18:20:05 Reading Location: [address] Ultrasound Reading Room 0 6:20 PM U/S, ABDOMINAL, [id number] 18:20:00Reason for Exam:->CKD/KIDNEY TRANSPLANT EVALUATIONFINAL REPORT HISTORY : Chronic kidney disease, kidney [...] compatible with medical renal disease. Signed: Miguelangel Abelort Verified Date/Time: 11/07/2017 18:20:05 Reading Location: [address] Ultrasound Reading Room 0 6:20 PM RAD, CHEST, 2 [id number] 11:05:00Reason for Exam:->CKD/KIDNEY TRANSPLANT EVALUATIONFINAL REPORT TECHNIQUE: 2 views of the chest. COMPARISON: None FINDINGS: The cardiac silhouette is within normal limits. Mediastinum is unremarkable. Lungs are clear. Osseous structures appear unremarkable. Soft tissues appear unremarkable. IMPRESSION: Normal chest exam. Signed: John Paul Riosort Verified Date/Time: 11/07/2017 11:05:03 Reading Location: [facility] Radiology Reading Room D [id number] 08:01:00* Test Item Value Reference Range Interpretation Comments TRIGLYCERIDES (BEAKER) (test code = 540) 141 mg/dL CHOLESTEROL (BEAKER) (test code = 631) 148 mg/dL HDL CHOLESTEROL (BEAKER) (test code = 976) 27 mg/dL LDL CHOLESTEROL CALCULATED (BEAKER) (test code = 633) 93 mg/dL Triglyceride Reference Range: Low Risk <150 Borderline 150-199 High Risk 200-499 Very High Risk >=500Cholesterol Reference Range: Low Risk <200 Borderline 200-239 High Risk >240HDL Cholesterol Reference Range: Low Risk >=60 High Risk <40LDL Cholesterol Reference Range: Optimal <100 Near Optimal 100-129 Borderline 130-159 High 160-189 Very High >=190 OCCULT BLOOD, [id number] 01:02:00* Test Item Value Reference Range Interpretation Comments FECAL OCCULT BLOOD (BEAKER) (test code = 618) Negative Negative OCCULT BLOOD, [id number] 01:02:00* Test Item Value Reference Range Interpretation Comments FECAL OCCULT BLOOD (BEAKER) (test code = 618) Negative Negative URINE [id number] 10:07:00* Test Item Value Reference Range Interpretation Comments CULTURE (BEAKER) (test code = 1095) 10-19,000 col/mL skin chanelle VARICELLA ZOSTER ANTIBODY, [id number] 13:40:00* Test Item Value Reference Range Interpretation Comments VARICELLA ZOSTER IGG (AL) (BEAKER) (test code = 3197) 2.5 Al VARICELLA ZOSTER RESULT INTERPRETATIONS: <=0.8 Al Nonreactive: Presumed non-immune to VZV 0.9-1.0 Al Equivocal >=1.1 Al Reactive: Presumed immune to VZVCYTOMEGALOVIRUS ANTIBODY, [id number] 13:37:00* Test Item Value Reference Range Interpretation Comments CYTOMEGALOVIRUS IGG ANTIBODY (BEAKER) (test code = 790) Positive CYTOMEGALOVIRUS ANTIBODY, [id number] 13:37:00* Test Item Value Reference Range Interpretation Comments CYTOMEGALOVIRUS IGM ANTIBODY (BEAKER) (test code = 816) Negative EBV-VCA ANTIBODY, [id number] 13:37:00* Test Item Value Reference Range Interpretation Comments NEFTALY-HATCH VCA IGG (BEAKER) (test code = 983) Positive EBV-VCA ANTIBODY, [id number] 13:37:00* Test Item Value Reference Range Interpretation Comments NEFTALY-HATCH VCA IGM (BEAKER) (test code = 984) Negative [id number] 23:19:00* Test Item Value Reference Range Interpretation Comments RPR SCREEN (BEAKER) (test code = 420) Nonreactive Nonreactive HEPATITIS B SURFACE [id number] 15:15:00* Test Item Value Reference Range Interpretation Comments HEPATITIS B SURFACE ANTIBODY (BEAKER) (test code = 647) 9.7 mIU/mL <8.0 H HEPATITIS B SURFACE [id number] 15:13:00* Test Item Value Reference Range Interpretation Comments HEPATITIS B SURFACE ANTIGEN (2) (BEAKER) (test code = 2585) Nonreactive Nonreactive HEPATITIS B CORE ANTIBODY, [id number] 15:13:00* Test Item Value Reference Range Interpretation Comments HEPATITIS B CORE IGM ANTIBODY (BEAKER) (test code = 645) Non reactive Nonreactive HEPATITIS C [id number] 15:13:00* Test Item Value Reference Range Interpretation Comments HEPATITIS C ANTIBODY (BEAKER) (test code = 367) Nonreactive Nonrea ctive HIV-1 ANTIGEN WITH HIV-1/2 [id number] 15:13:00* Test Item Value Reference Range Interpretation Comments HIV-1 ANTIGEN WITH HIV 1\T\2 ANTIBODY (2) (BEAKER) (te st code = 2586) Nonreactive Nonreactive HEMOGLOBIN [id number] 13:30:00* Test Item Value Reference Range Interpretation Comments HEMOGLOBIN A1C (BEAKER) (test code = 368) 5.2 % 4.3-6.1 URINALYSIS W/ [id number] 12:03:00* Test Item Value Reference Range Interpretation Comments COLOR (BEAKER) (test code = 470) Light Yellow CLARITY (BEAKER) (test code = 469) Hazy SPECIFIC GRAVITY UA (BEAKER) (test code = 468) 1.009 1.001-1 .035 PH UA (BEAKER) (test code = 467) 5.5 5.0-8.0 PROTEIN UA (BEAKER) (test code = 464) 200 mg/dL Negative A GLUCOSE UA (BEAKER) (test code = 365) Negative Negative KETONES UA (BEAKER) (test code = 371) Negative Negative BILIRUBIN UA (BEAKER) (test code = 462) Negative Negative BLOOD UA (BEAKER) (test code = 461) Moderate Negative A NITRITE UA (BEAKER) (test code = 465) Negative Negative LEUKOCYTE ESTERASE UA (BEAKER) (test code = 466) Negative Negat teagan UROBILINOGEN UA (BEAKER) (test code = 463) 0.2 mg/dL 0.2-1.0 RBC UA (BEAKER) (test code = 519) 9 /HPF WBC UA (BEAKER) (test code = 520) 1 /HPF MUCUS (BEAKER) (test code = 1574) Rare SQUAMOUS EPITHELIAL (BEAKER) (test code = 516) < /HPF SOURCE(BEAKER) (test code = 2795) CBC W/PLT COUNT & AUTO [id number] 12:02:00* Test Item Value Reference Range Interpretation Comments WHITE BLOOD CELL COUNT (BEAKER) (test code = 775) 3.4 K/ L 3.5- 10.5 L RED BLOOD CELL COUNT (BEAKER) (test code = 761) 3.54 M/ L 4.63-6 .08 L HEMOGLOBIN (BEAKER) (test code = 410) 11.1 GM/DL 13.7-17.5 L HEMATOCRIT (BEAKER) (test code = 411) 33.8 % 40.1-51.0 L MEAN CORPUSCULAR VOLUME (BEAKER) (test code = 753) 95.5 fL 79. 0-92.2 H MEAN CORPUSCULAR HEMOGLOBIN (BEAKER) (test code = 751) 31.4 pg 25.7-32.2 MEAN CORPUSCULAR HEMOGLOBIN CONC (BEAKER) (test code = 752) 32.8 GM/DL 32.3-36.5 RED CELL DISTRIBUTION WIDTH (BEAKER) (test code = 412) 14.3 % 11.6-14.4 PLATELET COUNT (BEAKER) (test code = 756) 206 K/CU MM 150-450 MEAN PLATELET VOLUME (BEAKER) (test code = 754) 10.6 fL 9.4-12 .4 NUCLEATED RED BLOOD CELLS (BEAKER) (test code = 413) 0 /100 WBC 0 -0 NEUTROPHILS RELATIVE PERCENT (BEAKER) (test code = 429) 40 % LYMPHOCYTES RELATIVE PERCENT (BEAKER) (test code = 430) 47 % MONOCYTES RELATIVE PERCENT (BEAKER) (test code = 431) 9 % EOSINOPHILS RELATIVE PERCENT (BEAKER) (test code = 432) 2 % BASOPHILS RELATIVE PERCENT (BEAKER) (test code = 437) 2 % NEUTROPHILS ABSOLUTE COUNT (BEAKER) (test code = 670) 1.33 K/ L 1.78-5.38 L LYMPHOCYTES ABSOLUTE COUNT (BEAKER) (test code = 414) 1.59 K/ L 1.32-3.57 MONOCYTES ABSOLUTE COUNT (BEAKER) (test code = 415) 0.31 K/ L 0. 30-0.82 EOSINOPHILS ABSOLUTE COUNT (BEAKER) (test code = 416) 0.06 K/ L 0.04-0.54 BASOPHILS ABSOLUTE COUNT (BEAKER) (test code = 417) 0.06 K/ L 0. 01-0.08 IMMATURE GRANULOCYTES-RELATIVE PERCENT (BEAKER) (test code = 2801) 0 % 0-1 COMPREHENSIVE METABOLIC [id number] 11:44:00* Test Item Value Reference Range Interpretation Comments TOTAL PROTEIN (BEAKER) (test code = 770) 7.4 gm/dL 6.0-8.3 ALBUMIN (BEAKER) (test code = 1145) 4.2 g/dL 3.5-5.0 ALKALINE PHOSPHATASE (BEAKER) (test code = 346) 118 U/L 40-150 BILIRUBIN TOTAL (BEAKER) (test code = 377) 0.3 mg/dL 0.2-1.2 SODIUM (BEAKER) (test code = 381) 141 meq/L 136-145 POTASSIUM (BEAKER) (test code = 379) 4.0 meq/L 3.5-5.1 CHLORIDE (BEAKER) (test code = 382) 111 meq/L 98-107 H CO2 (BEAKER) (test code = 355) 18 meq/L 22-29 L BLOOD UREA NITROGEN (BEAKER) (test code = 354) 85 mg/dL 7-21 H CREATININE (BEAKER) (test code = 358) 5.78 mg/dL 0.57-1.25 H GLUCOSE RANDOM (BEAKER) (test code = 652) 90 mg/dL 70-105 CALCIUM (BEAKER) (test code = 697) 9.1 mg/dL 8.4-10.2 AST (SGOT) (BEAKER) (test code = 353) 10 U/L 5-34 ALT (SGPT) (BEAKER) (test code = 347) 10 U/L 6-55 EGFR (BEAKER) (test code = 1092) 12 mL/min/1.73 sq m ESTIMATED GFR IS NOT ACCURATE CREATININE CLEARANCE IN PREDICTING GLOMERULAR FILTRATION RATE. ESTIMATED GFR IS NOT APPLICABLE FOR DIALYSIS PATIENTS. URIC [id number] 11:42:00* Test Item Value Reference Range Interpretation Comments URIC ACID (BEAKER) (test code = 773) 12.7 mg/dL 2.6-7.2 H [id number] 11:42:00* Test Item Value Reference Range Interpretation Comments PHOSPHORUS (BEAKER) (test code = 604) 4.9 mg/dL 2.3-4.7 H GAMMA GLUTAMYL TRANSFERASE (GGT)2017-10-25 11:42:00* Test Item Value Reference Range Interpretation Comments GAMMA GLUTAMYL TRANSFERASE (BEAKER) (test code = 364) 11 U/L 9-64 LACTATE DEHYDROGENASE (LDH)2017-10-25 11:42:00* Test Item Value Reference Range Interpretation Comments LACTATE DEHYDROGENASE (BEAKER) (test code = 635) 138 U/L 125-2 20 PTH, [id number] 11:37:00* Test Item Value Reference Range Interpretation Comments PARATHYROID HORMONE INTACT (BEAKER) (test code = 577) 265.3 pg/mL 8.5-72.5 H [id number] 11:11:00* Test Item Value Reference Range Interpretation Comments PROTIME (BEAKER) (test code = 759) 14.0 seconds 11.7-14.7 INR (BEAKER) (test code = 370) 1.1 <=5.9 PARTIAL THROMBOPLASTIN TIME (BEAKER) (test code = 760) 30.4 seconds 22.5-36.0 RECOMMENDED COUMADIN/WARFARIN INR THERAPY RANGESSTANDARD DOSE: 2.0 - 3.0 Inclu vandana: PROPHYLAXIS for venous thrombosis, systemic embolization; TREATMENT for german ous thrombosis and/or pulmonary embolus.HIGH RISK: Target INR is 2.5-3.5 for pat ients with mechanical heart valves.
[2020-03-04 14:41] LABS: BASOPHILS % 0.8 % (0.0-1.0); EOSINOPHILS % 0.4 % (0.0-6.0); HEMATOCRIT 29.7 % (38.2-49.6); HEMOGLOBIN 9.7 g/dL (14.0-18.0); LYMPHOCYTES # (AUTO) 1.6 (1.0-3.2); LYMPHOCYTES % 31.6 % (18.0-39.1); MEAN CORPUSCULAR HEMOGLOBIN 31.5 pg (28-32); MEAN CORPUSCULAR HGB CONC 32.7 g/dL (31-35); MEAN CORPUSCULAR VOLUME 96.4 fL (81-99); MONOCYTES # (AUTO) 0.4 (0.2-0.8); MONOCYTES % 7.6 % (4.4-11.3); NEUTROPHILS % 59.4 % (38.7-80.0); PLATELET COUNT 228 x10e3/uL (140-360); RED BLOOD COUNT 3.08 x10e6/uL (4.3-5.7); RED CELL DISTRIBUTION WIDTH 18.7 % (11.7-14.4)
--- NOTE | 2020-03-04 14:45 | Emergency Department Note ---
History of Present Illnes History of Present Illness Chief Complaint: General Medicine Complaints History of Present Illness This is a 34 year old male Chief Complaint Comment sob and white/yellow phlem onset today 299. pt with down syndrome. here with mom. pt is a dialysis pt tues/thurs/sat. pt calm. no acute distress noted at this time. pt with eyes moving side to side rapidly and twitching like, mom states normal for pt. Historian: Patient, Family Member Arrival Mode: Car Grit Blaster Required: Yes Onset (how long ago): day(s) (1) Location: chest Quality: cough Radiation: Reports non-radiation Severity: mild Onset quality: sudden Duration (how long): day(s) (1) Timing of current episode: constant Progression: unchanged Chronicity: new Context: Denies recent illness, Denies recent surgery Relieving factors: none Exacerbating factors: none Associated symptoms: Reports denies other symptoms Treatments prior to arrival: none Past Medical/Family History Physician Review I have reviewed the patient's past medical and family history. Any updates have been documented here. Past Medical History Recent Fever: No Clinical Suspicion of Infectio: No New/Unexplained Change in Ment: No Past Medical History: ESRD, Hemodyalisis Other Medical History: down syndrome GOUT Other Surgery: right tunneled dialysis catheter, REMOVED FISTULA RIGHT UPPER ARM Other Last Tetanus: UNKNOWN Review of Systems Review of Systems Constitutional: Reports no symptoms EENTM: Reports no symptoms Cardiovascular: Reports no symptoms Respiratory: Reports change in phlegm color, Reports cough Gastrointestinal: Reports no symptoms Genitourinary: Reports no symptoms Musculoskeletal: Reports no symptoms Integumentary: Reports no symptoms Neurological: Reports no symptoms Psychological: Reports no symptoms Endocrine: Reports no symptoms Hematological/Lymphatic: Reports no symptoms Physical Exam Related Data Allergies: Coded Allergies: No Known Allergies (Unverified , 04/07/18) Triage Vital Signs Vital Signs Date Time Temp Pulse Resp B/P (MAP) Pulse Ox O2 Delivery O2 Flow Rate FiO2 03/04/20 14:20 99.0 16 Room Air Vital signs reviewed: Yes Physical Exam CONSTITUTIONAL Constitutional: Present well-developed, Present well-nourished HENT HENT: Present atraumatic, Present oropharynx clear/moist, Present nose normal HENT L/R: Present left ext ear normal, Present right ext ear normal EYES Eyes: Reports PERRL, Reports conjunctivae normal NECK Neck: Present ROM normal PULMONARY Pulmonary: Present effort normal, Present breath sounds normal CARDIOVASCULAR Cardiovascular: Present regular rhythm (2/6 murmur), Present capillary refill normal, Present normal rate GASTROINTESTINAL Abdominal: Present soft, Present nontender, Present bowel sounds normal GENITOURINARY Genitourinary: Present exam deferred SKIN Skin: Present warm, Present dry MUSCULOSKELETAL Musculoskeletal: Present ROM normal NEUROLOGICAL Neurological: Present alert, Present oriented x 3, Present no gross motor or sensory deficits PSYCHOLOGICAL Psychological: Present mood/affect normal, Present judgement normal Results Laboratory Laboratory Laboratory Tests Test 03/04/20 14:30 Lab results reviewed: Yes Imaging Imaging results reviewed: Yes Assessment & Plan Medical Decision Making MDM 34-year-old male with past medical history significant for Down syndrome and cardiac abnormalities who presents to emergency department for cough. Started last night. Exam is largely unremarkable but does have known cardiac murmur. Vital signs stable, within normal limits. Cranial: A workup was largely unremarkable and appears patient's baseline. I discussed patient with Dr. Quintana and will follow-up in clinic. Patient family state agreement plan is for discharge. Additionally fluorescin stain of the right eye is unremarkable. Reassessment Reassessment time: 17:34 Reassessment Well appearing, NAD Assessment & Plan Final Impression: (1) Cough Depart Disposition: HOME, SELF-CARE Last Vital Signs Date Time Temp Pulse Resp B/P (MAP) Pulse Ox O2 Delivery O2 Flow Rate FiO2 03/04/20 14:20 99.0 16 Room Air Home Meds Reported Medications Calcium Acetate (CALCIUM ACETATE) 667 Mg Capsule, 667 MG PO TIDWM 04/27/19 Cholecalciferol (Vitamin D3) (VITAMIN D3) 5,000 Unit Tablet, 5000 UNITS PO DAILY 04/23/19 Levothyroxine Sodium (LEVOTHYROXINE SODIUM) 50 Mcg Tablet, 25 MCG PO DAILY, #30 TAB 04/23/19 [Linzess] No Conflict Check, 145 MCG PO DAILY 04/23/19 Allopurinol (ALLOPURINOL) 300 Mg Tablet, 300 MG PO DAILY, #30 TAB 04/23/19 Multivits,Ca,Minerals/Iron/Fa (THERA-M TABLET) 1 Each Tablet, 1 TAB PO DAILY 04/23/19 Metoclopramide Hcl (METOCLOPRAMIDE HCL) 10 Mg Tablet, 10 MG PO BID PRN for NA USEA, TAB 04/23/19 Montelukast Sodium (MONTELUKAST SODIUM) 10 Mg Tablet, 10 MG PO DAILY, #30 TAB 04/23/19 Omeprazole (OMEPRAZOLE) 40 Mg Capsule., 1 CAP PO DAILY 04/23/19 VENESSA KUMAR MD Mar 04, 2020 14:45
[2020-03-04 14:58] LABS: ALBUMIN 3.7 g/dL (3.5-5.0); ALBUMIN/GLOBULIN RATIO 0.9 (0.8-2.0); ANION GAP 17.4 mmol/L (8-16); CALCIUM 9.5 mg/dL (8.4-10.2); CREATININE, SERUM 6.09 mg/dL (0.72-1.25); POTASSIUM 3.4 mmol/L (3.5-5.1)
--- NOTE | 2020-03-04 15:11 | Diagnostic Imaging Report ---
EXAMINATION: CHEST SINGLE (PORTABLE) INDICATION: Cough COMPARISON: Chest radiograph 04/22/2019 FINDINGS: LINES/TUBES:None LUNGS:There is perihilar fullness and indistinctness of the pulmonary vasculature. No focal consolidation. PLEURA:No pleural effusion or pneumothorax. MEDIASTINUM:Marked cardiomegaly, increased compared to 04/22/2019 BONES/SOFT TISSUES:No acute osseous injury. ABDOMEN:No free air under the diaphragm. IMPRESSION: Marked cardiomegaly. Central pulmonary vascular congestion. No focal pneumonia. Signed by: Nathan Uriostegui MD on 03/04/2020 3:07 PM
[2020-03-04] MEDS ORDERED: FLUORESCEIN SOD(OPTH) 1 MG STRP OP ONE (16:15)
[2020-03-04 17:35] VITALS: BP 132/51
== END 2020-03-04 17:39 | disposition home or self-care (01) ==
LOC: ER 14:28
DX: R05 Cough (principal); R06.02 Shortness of breath; Q90.9 Down syndrome, unspecified; N18.6 End stage renal disease; Z99.2 Dependence on renal dialysis
CPT/HCPCS: 36415; 71045; 80053; 83880; 84484; 85025; 99284

== ENCOUNTER 2020-03-11 07:53 | Emergency (ER) | payer OTHER ==
[~2020-03-11] VITALS: Ht 175.3 cm; Wt 52.6 kg
--- OUTSIDE RECORDS SUMMARY | 2020-03-11 08:04 | XMS REPORT | Clinical Summary ---
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
--- OUTSIDE RECORDS SUMMARY | 2020-03-11 08:04 | XMS REPORT | Clinical Summary ---
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
--- OUTSIDE RECORDS SUMMARY | 2020-03-11 08:05 | XMS REPORT | Continuity of Care Document ---
Author Author [facility] t Organization [facility] Address [address] [place] [address] Phone Unavailable Care Team Providers Care Roller Printer Name Role Phone UMANG SINGH, MD Davina MITCHELL PCP Real Mckee Attphys Unavailable Tino Felix MD Attphys [phone] Sally Turner Attphys Unavailable Maryan NARVAEZ, Love Attphys Unavailable Emiliana Hurst Attphys Unavailable Jo Ann Muñoz Attphys Nathanael Lin Attphys Davina AHUMADA Attphys Unavailable Zahira LYN Attphys Unavailable Davina HARRIS Attphys Unavailable Bernie MCFARLAND Attphys Unavailable Milad MUNROE Attphys Unavailable Nathanael Lin Admphys Davina AHUMADA Admphys Unavailable Payers Payer Name Policy Type Policy Number Effective Date Expiration Date S [facility] [id number] 2019 00:00 :00 [facility] [place]UM NON [place]GD CAREOPTUM NON-[place] [id number] xx xxxxxxxxx [facility] MEDICAID - MEDICAID D [facility] COMM STAR PLANxxxxxxxxxMe dicaid Contracted xxxxxxxxx [facility] Problems Condition Name Condition Details Condition Category Status Onset Date Resolution Date Last Treatment Date Treating Clinician Comments Source Aortic insufficiency Aortic insufficiency Disease Active 00:00:00 [facility] HEADACHE / ARM PAIN HEAD ACHE / ARM PAIN Active 08/18/2019 [facility] Active 2019-08-18 08:00:00 2020-02-22 16:28:00 [facility] AVF TRANSPOSITION, RIGHT UPPER EXTREMITY AVF TRANSPOSITION, RIGHT UPPER EXTREMITY Active 07/31/2019 [facility] Active 2019-07-31 00:00:00 2019-09-16 15:12:00 [facility] PORT COMPLICATIONS PORT COMPLICATIONS Active 05/18/2019 [facility] Active 2019-05-18 00:00:00 2019-05-18 21:44:00 [facility] 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 Active 05/18/2019 [facility] Active 2018-07 00:00:00 2019-05-21 10:30:00 [facility] Fever with chills Fever and chills Problem Active [facility] Urinary tract infection UTI (urinary tract infection) Problem Active [facility] Cough Problem Active [facility] ESRD (end stage renal disease) ESRD (end stage renal disease) Disease Active [facility] Down syndrome Down syndrome Disease Active [facility] History of acute bacterial endocarditis History of acute beth terial endocarditis Disease Active [facility] Chest pain, unspecified Ches t pain, unspecified 08/18/2019 08/20/2019 [facility] Problem 2019-08-18 18:00:00 2019 22:44:50 2019-08-20 22:44:50 [facility] Pain in arm, unspecified Pain in arm, unspecified 08/18/2019 08/20/2019 [facility] Problem 2019-08-18 18:00:00 2019 22:44:50 2019-08-20 22:44:50 [facility] Allergies, Adverse Reactions, Alerts Allergy Name Allergy Type Status Severity Reaction(s) Onset Date Inacti ve Date Treating Clinician Comments Source phenylpropanolamine DA Active [place] 2018-03-09 00:00:00 [facility] brompheniramine DA Active [place] 2018-03-09 00:00:00 [facility] Family History Family Member Diagnosis Comments Start Date Stop Date Source Natural father Hypertension [place] Natural mother Diabetes [place] Natural mother Hypertension [place] Natural mother Thyroid disease [place] Social History Social Habit Start Date Stop Date Quantity Comments Source History SDOH Alcohol Std Drinks [place] History SDOH Alcohol Binge [place] Sex Assigned At [facility] Alcohol intake 2018-10-04 00:00:00 2018-10-04 00:00:00 Current non-drinker of alcohol (finding) [place] History SDOH Alcohol Frequency 2018-07-13 00:00:00 2018-07-13 00:00:0 0 1 [place] Smoking Status Start Date Stop Date Source Social History [facility] Medications Ordered Medication Name Filled Medication Name Start Date Stop Da te Current Medication? Ordering Clinician Indication Dosage Frequency Signature (SIG) Comments Components Source omeprazole (PRILOSEC) 40 MG capsule 2020-01-03 12:48:14 Yes 40mg QD Take 40 mg by mouth daily. [facility] ibuprofen (ADVIL,MOTRIN) 400 MG tablet 2019-12-11 5 12:47:42 2020-01-03 00:00:00 No 800mg Take 800 mg by mouth every 6 (si x) hours as needed for Pain . [facility] cholecalciferol, vitamin D3, 5,000 unit Tab 2019-11-22 12:22:19 Yes 1000U QD Take 1,000 Units by mouth daily . [facility] levothyroxine (SYNTHROID, LEVOTHROID) 25 MCG tablet 11-21 12:22:19 Yes 25ug Take 25 mcg by mouth Every morning on an empty stomach. [facility] multivit,tx with iron,minerals (THERA-M ORAL) 2019-11-22 12:22:1 8 Yes QD Take by mouth daily. [facility] allopurinoL (ZYLOPRIM) 300 MG tablet 2019-11-22 12:22:18 Ye s 300mg QD Take 300 mg by mouth daily. [facility] Tylenol 2019-08-18 17:55:00 No 650 mg, Route: PO, Drug form: TAB, ONCE, Dosing Weight 50.909, kg, Priority: STAT, Start date: 08/18/19 11:55:00 SPUD SORTER, Stop date: 08/18/19 11:55:00 [facility] [place] Saline Flush 0.9% 2019-08-18 15:32:00 No Notes: (Same as: BD Posiflush) [facility] Allopurinol 2019-05-20 15:00:00 No Notes: ( Same as: Zyloprim) [facility] Vitamin D3 2019-05-20 15:00:00 No Notes: (S jimena as: Vitamin D3) [facility] Linzess 145 mcg oral capsule 2019-05-20 15:00:00 No Linzess 145 mcg oral capsule, 145 microgram, Route: PO, Daily, 05/20/19 9:00:00 SPUD SORTER, Duration: 30 day, Stop date: 06/18/19 9:00:00 SPUD SORTER [facility] Centrum Silver oral tablet 2019-05-20 15:00:00 No Centr Silver oral tablet, 1 tab, Route: PO, Daily, 05/20/19 9:00:00 SPUD SORTER, Duration: 30 day, Stop date: 06/18/19 9:00:00 SPUD SORTER [facility] multivitamin with minerals 2019-05-20 15:00:00 No Notes: (Same as:Thera-M, Theragran-M) WASTE: F/P - Black; E - Municipal Trash Bin Give with food. [facility] Levothroid 2019-05-20 12:30:00 No Notes: (S jimena as:Levothroid) [facility] heparin 2019-05-20 06:00:00 No Notes: porci ne heparin [facility] montelukast 2019-05-20 03:00:00 No Notes: ( Same as:Yvonir) [facility] Vancomycin 2019-05-19 23:00:00 No 2001 mg: infuse over 2.5 hours For adult patients only: Round to nearest 250 mg per Medical Staff approval MEDICATION WASTE Product Size: 1000 mg Product Wasted: ___ mg [facility] Gentamicin 2019-05-19 20:37:00 No Notes: TIME CRITICAL MEDICATION (Same as Garamycin) For adult patients only: Round to nearest 10 mg per Medical Staff approval [facility] Nikos Nurse please bring home med LINJANEYS to Pharmacy for label 2019-05-19 20:30:00 No Nurse please b ring home med LINZESS to Pharmacy for label, 1, Drug form: MISC, Route: MISC, TID, 05/19/19 14:30:00 SPUD SORTER, Duration: 30 day, Stop date: 06/18/19 9:00:00 SPUD SORTER, 0 [facility] ziamyrna ePHEDrine ([facility]) 2019-05-19 18:16:00 No Route: IV, Drug form: INJ, ONCE, Stop date: 05/19/19 12:16:00 SPUD SORTER Meghana megan Knott protamine ([facility]) 2019-05-19 18:16:00 No Route: IV, Drug form: INJ, ONCE, Stop date: 05/19/19 12:16:00 SPUD SORTER Meghana megan Knott ondansetron ([facility]) 2019-05-19 18:16:00 No Route: IV, Drug form: INJ, ONCE, Stop date: 05/19/19 12:16:00 [facility] phenyle[facility] ([facility]) 2019-05-19 17:49:00 No Route: IV, Drug form: INJ, ONCE, Stop date: 05/19/19 11:49:00 [facility] ([facility]) 2019-05-19 17:29:00 No Route: IV, Drug form: INJ, ONCE, Stop date: 05/19/19 11:29:00 SPUD [facility]ORTER [facility] fentaNYL ([facility]) 2019-05-19 17:29:00 No Route: IV, Drug form: INJ, ONCE, Stop date: 05/19/19 11:29:00 SPUD SORTER [facility] propofol ([facility]) 2019-05-19 17:29:00 No Route: IV, Drug form: INJ, ONCE, Stop date: 05/19/19 11:29:00 SPUD SORTER [facility] midazolam ([facility]) 2019-05-19 17:24:00 No Route: IV, Drug form: SOLN, ONCE, Stop date: 05/19/19 11:24:00 SPUD SORTER M megan Knott ceFAZolin (ANES) 2019-05-19 17:24:00 No Route: IV, Drug form: INJ, ONCE, Stop date: 05/19/19 11:24:00 SPUD SORTER Meghana Knott vancomycin (ANES) 1000 mg 2019-05-19 16:40:00 No Route: IV, Drug form: INJ, Start date: 05/19/19 10:40:00 SPUD SORTER, Stop date: 05/19/19 11:40:00 SPUD SORTER [place] Dextrose 50% Syringe 2019-05-19 16:18:00 No 25 gm, Route: IVP, Dosing Weight 60.455, kg, ONCE, STAT, Start date: 05/19/19 10:18:00 SPUD SORTER, Stop date: 05/19/19 10:18:00 SPUD SORTER Kings lambert Insulin regular 2019-05-19 16:17:00 No 5 unit, Route: IV, ONCE, Dosing Weight 60.455, kg, Priority: STAT, Start date: 05/19/19 10:17:00 SPUD SORTER, Stop date: 05/19/19 10:17:00 SPUD SORTER Kaylin Knott Kayexalate 2019-05-19 16:12:00 No Notes: (sodium polystyrene sulfonate 15 gm/60 ml CAMPOS) Shake well before use. (Same as: Kayexalate, SPS) [facility] [place]t ATTN: RN PLEASE UPDATE HWA ON [facility] 2019-05-19 05:00:00 No ATTN: RN PLEASE UPDATE [facility] ON [facility], ATTN:RN - UPDATE ALLERGIES !!!, Drug form: MISC, Route: MISC, Q10Min, 05/18/19 23:00:00 SPUD SORTER, Duration: 1 day, Stop date: 05/19/19 22:50:00 SPUD SORTER, 0 [facility] [place] Levothroid 25 mcg (0.025 mg) oral tablet 2019-05-19 05:00:00 Yes 25 microgram = 1 tab, PO, Daily, 0 Refill(s) [facility] [place] Centrum Silver oral tablet 2019-05-19 05:00:00 Yes 1 tab, PO, Daily, 0 Refill(s) [facility] [place] allopurinol 300 mg oral tablet 2019-05-19 05:00:00 Yes 300 mg = 1 tab, PO, Daily, 0 Refill(s) [facility] lambert montelukast 10 mg oral tablet 2019-05-19 05:00:00 Yes 10 mg = 1 tab, PO, Daily, 0 Refill(s) [facility] [place] linaclotide 0.145 MG Oral Capsule [Linzess] 2019-05-19 [...] form: MISC, Route: MISC, Q15Min, 05/18/19 22:00:00 SPUD SORTER, Duration: 30 day, Stop date: 06/17/19 21:45:00 SPUD SORTER, 0 [facility] [place] Dextrose 50% Syringe 2019-05-19 03:33:00 No 12.5 gm, 25 mL, Route: IVP, Drug Form: INJ, Dosing Weight 52.727, kg, PRN, PRN Blood Glucose Results, Start date: 05/18/19 21:33:00 SPUD SORTER, Duration: 30 day, Stop date: 06/17/19 21:32:00 SPUD SORTER, 0 [facility] [place] Glucagon 2019-05-19 03:33:00 No 1 mg, Route: IM, Drug form: PDR/INJ, PRN, Dosing Weight 52.727, kg, PRN Blood Glucose Results, Start date: 05/18/19 21:33:00 SPUD SORTER, Duration: 30 day, Stop date: 06/17/19 21:32:00 SPUD SORTER, 0 [facility] [place] Ondansetron 2019-05-19 03:33:00 No Notes: (Same as: Danelle) MEDICATION WASTE Product Size: 4 mg Product Wasted: ___ mg [facility] [place] Saline Flush 0.9% 2019-05-18 21:53:00 No Notes: (Same as: BD Posiflush) [facility] [place] amLODIPine (NORVASC) 5 MG tablet 2018-10-26 13:51:49 Yes 5mg QD Take 5 mg by mouth daily. [facility] linaclotide (LINZESS) 145 mcg Cap 2018-10-26 13:51:48 Yes 145ug QD Take 145 mcg by mouth daily. [facility] sevelamer (RENVELA) 800 mg tablet 2018-10-26 13:51:48 Yes 800mg Take 800 mg by mouth 3 (three) times daily with meals. [facility] docusate sodium (COLACE) 100 MG capsule 2018-10-03 [...] s DIANA CELESTINE TABLETA ORALMENTE CADA THOMAS [facility] ethodist ibuprofen (ADVIL,MOTRIN) 800 MG tablet 2018-06-27 [...] es DIANA CELESTINE TABLETA ORALMENTE CADA THOMAS [facility] ethodist lovastatin (MEVACOR) 40 MG tablet 2018-06-06 00:00:00 Yes DIANA CELESTINE TABLETA ORALMENTE CADA THOMAS AL ACOSTARSE PARA COLESTEROL Ismael Mustafa lovastatin (ALTOPREV) 40 MG 24 hr tablet 2017-10-25 09:05:40 Yes 40mg QD Take 40 mg by mouth daily. [facility] Allopurinol Allopurinol Yes 300 Daily [facility] Calcium Acetate Calcium Acetate Yes 667 Three Times Daily With Meals [facility] Cholecalciferol (Vitamin D3) (Vitamin D3) 5,000 Unit T ABLET Cholecalciferol (Vitamin D3) (Vitamin D3) 5,000 Unit TABLET Yes 5000 Daily [facility] Levothyroxine Sodium Levothyroxine Sodium Yes 25 Daily [facility] Linzess Linzess Yes 145 Daily [facility] Metoclopramide Hcl Metoclopramide Hcl Yes 10 Twice A Day as needed for Nausea [facility] Montelukast Sodium Montelukast Sodium Yes 10 Da kim [facility] Multivits,Ca,Minerals/Iron/Fa (Thera-M Tablet) 1 Each TABLET Multivits,Ca,Minerals/Iron/Fa (Thera-M Tablet) 1 Each TABLET Yes 1 Daily [facility] Omeprazole Omeprazole Yes 1 Daily [facility] Amlodipine Besylate Amlodipine Besylate 2019-05-01 00:00:00 No 5 Daily [facility] Cefuroxime Axetil (Cefuroxime) 500 Mg TABLET Cefuroxim e Axetil (Cefuroxime) 500 Mg TABLET 2019-05-01 00:00:00 No 500 Twice A Day [facility] Sevelamer Hcl (Renvela) 800 Mg TAB Sevelamer Hcl (Renvela) 800 M g TAB 2019-04-27 00:00:00 No 800 Three Times Daily Wi th Meals [facility] Vital Signs Vital Name Observation Time Observation Value Comments Source Body Temperature 2020-03-04 17:35:00 98.7 [degF] [facility] Weight 2020-03-04 14:20:00 116 [lb_av] [facility] BMI (Body Mass Index) 2020-03-04 14:20:00 17.1 kg/m2 [facility] Systolic blood pressure 2020-01-03 12:35:00 123 mm[Hg] [facility] Diastolic blood pressure 2020-01-03 12:35:00 58 mm[Hg] [facility] Heart rate 2020-01-03 12:35:00 86 /min [facility] Body temperature 2020-01-03 12:35:00 36.56 Gricelda [facility] Respiratory rate 2020-01-03 12:35:00 18 /min [facility] Body height 2020-01-03 12:35:00 145.5 cm [facility] Body weight Measured 2020-01-03 12:35:00 52.617 kg [facility] BMI 2020-01-03 12:35:00 24.86 kg/m2 [facility] Oxygen saturation in Arterial blood by Pulse oximetry 01-02 12:35:00 100 /min [facility] 2019-08-18 20:38:00 Sunday rial [facility]os Diastolic (mm Hg) 2019-08-18 20:38:00 Mem o[facility] Heart Rate 2019-08-18 20:38:00 [facility] Respitory Rate 2019-08-18 20:38:00 [facility] [place] Temperature Oral (F) 2019-08-18 20:38:00 98 F [facility] [place] Systolic (mm Hg) 2019-08-18 19:05:00 Sunday rial [place] Diastolic (mm Hg) 2019-08-18 19:05:00 Mem orial [facility] Systolic (mm Hg) 2019-08-18 15:29:00 Sunday rial [place] Diastolic (mm Hg) 2019-08-18 15:29:00 Mem orial [place] Heart Rate 2019-08-18 15:29:00 [facility] Respitory Rate 2019-08-18 15:29:00 [facility] [place] Temperature Oral (F) 2019-08-18 15:29:00 97.4 F [facility] Height 2019-08-18 15:29:00 152.4 cm [facility] [place] BMI Calculated 2019-08-18 15:29:00 [facility] [place] Weight 2019-08-18 15:29:00 [facility] [place] Temperature Oral (F) 2019-05-20 18:17:00 98.7 F [facility] [place] Heart Rate 2019-05-20 18:17:00 [facility] Systolic (mm Hg) 2019-05-20 18:17:00 Sunday rial [place] Diastolic (mm Hg) 2019-05-20 18:17:00 Mem orial [place] Respitory Rate 2019-05-20 18:17:00 Memori al [facility] Respitory Rate 2019-05-20 13:44:00 Memori al [facility] Systolic (mm Hg) 2019-05-20 13:44:00 Sunday rial [facility] Diastolic (mm Hg) 2019-05-20 13:44:00 Mem orial [place] Heart Rate 2019-05-20 13:44:00 [facility] Temperature Oral (F) 2019-05-20 13:44:00 98.1 F [facility] Respitory Rate 2019-05-20 12:08:00 [facility] [place] Temperature Oral (F) 2019-05-20 09:14:00 98.7 F [facility] Heart Rate 2019-05-20 09:14:00 [facility] [place] Systolic (mm Hg) 2019-05-20 09:14:00 Sunday rial [place] Diastolic (mm Hg) 2019-05-20 09:14:00 Mem orial [facility] Height 2019-05-19 04:48:00 160.02 cm [facility] Weight 2019-05-19 04:48:00 [facility] BMI Calculated 2019-05-19 04:48:00 [facility] [place] Height 2019-05-18 21:53:00 127 cm [facility] [place] BMI Calculated 2019-05-18 21:53:00 Mem[facility] Weight 2019-05-18 21:53:00 [facility] Procedures This patient has no known procedures. Plan of Care Planned Activity Planned Date Details Comments Source Future Scheduled Test 2020-11-07 00:00:00 Lipid panel (proce dure) [code = 69094455] [facility] Future Scheduled Test 2020-04-10 00:00:00 INFLUENZA VACCINE [code = INFLUENZA VACCINE] Ismael Mustafa Future Scheduled Test 2020-03-11 00:00:00 INFLUENZA VACCINE (#1) [code = INFLUENZA VACCINE (#1)] [facility] Instructions Upper Respiratory Infection - Adult [facility] Encounters Start Date/Time End Date/Time Encounter Type Admission Type Attendi [facility] Care Department Encounter ID Source 2020-03-04 14:28:00 2020-03-04 17:39:00 Departed Emergency Room [address] [facility] [id number] [facility] 2019-08-18 09:26:52 2019-08-18 14:44:00 [facility] [id number] 2019-08-18 09:26:00 2019-08-18 09:26:00 Emergency E [id number] 2019-05-18 15:46:07 2019-05-20 17:29:00 Outpatient Noah [facility] [id number] 2019-04-22 21:31:00 2019-05-01 15:43:00 Discharged Inpatient 1 NAEEM AHUMADA [facility] [id number] [facility] 2019-03-11 10:36:00 2019-03-11 15:28:00 Departed Emergency Room 1 MARISELA LYN [facility] [id number] [facility] 2018-09-04 21:46:00 2018-09-05 05:16:00 Departed Emergency Room 1 CARI HARRIS [facility] [id number] [facility] 2018-04-07 18:37:00 2018-04-07 21:49:00 Departed Emergency Room 1 KIRK MCFARLAND [facility] [id number] [facility] Results Test Description Test Time Test Comments Results Result Comments Source Troponin I measurement by highly sensitive enzyme immu noassay 2020-03-04 16:53:00 Test Item Troponin I (test code = 26248-6) 0.477 0-0.300 [facility]2020-03-04 15:06:00 [facility] [address] [address] Patient Name: LUIZA CHUN MR #: [id number] : 1985 Age/Sex: 34/M Req #: [id number] Adm Physician: Ordered by: Venessa Mckee MD Report #: [id number] Location: ER Room/Bed: Procedure: [id number] DX/CHEST SIN GLE (PORTABLE) Exam Date: 03/04/20 Exam Time: 1430 REPORT STATUS: Signed EXAMINATION: CHEST SINGLE (PORTABLE) INDICATION: Cough COMPARISON: Chest rad iograph 04/22/2019 FINDINGS: LINES/TUBES:None LUNGS:There is perihilar fullness and indistinctness of the pulmonary vasculature. No focal consolidation. PLEURA:No pleural effusion or pneumothorax. MEDIASTINUM :Marked cardiomegaly, increased compared to 04/22/2019 BONES/SOFT TISSUES:N o acute osseous injury. ABDOMEN:No free air under the diaphragm. IM PRESSION: Marked cardiomegaly. Central pulmonary vascular congestion. No focal pneumonia. Signed by: Franklyn Padilla MD on 03/04/2020 3:07 PM Dic tated By: FRANKLYN PADILLA MD 150 7 Transcribed By: SAUNDRA on 03/04/20 1507 COPY TO: VENESSA MCKEE MD Blood leukocytes automated count (number/volume)2020-03-04 14:30:00* Test Item Value Reference Range Interpretation Comments White Blood Count (test code = 6690-2) 5.12 4.8-10.8 [facility] automated count (number/volume)2020-03-04 14:30:00* Test Item Value Reference Range Interpretation Comments Red Blood Count (test code = 789-8) 3.08 4.3-5.7 [facility] measurement (moles/volume)2020-03-04 14:30:00* Test Item Value Reference Range Interpretation Comments Hemoglobin (test code = 08147-0) 9.7 14.0-18.0 [facility] hematocrit (volume fraction)2020-03-04 14:30:00* Test Item Value Reference Range Interpretation Comments Hematocrit (test code = 4544-3) 29.7 38.2-49.6 [facility] erythrocyte mean corpuscular [id number] 14:30:00* Test Item Value Reference Range Interpretation Comments Mean Corpuscular Volume (test code = 787-2) 96.4 81-99 [facility] eryth[facility] mean corpuscular hemoglobin (mass per erythrocyte)2020-03-04 14:30:00* Test Item Value Reference Range Interpretation Comments Mean Corpuscular Hemoglobin (test code = 785-6) 31.5 28-32 [facility] erythrocyte mean corpuscular hemoglobin concentration measurement (mass/volume)2020-03-04 14:30:00* Test Item Value Reference Range Interpretation Comments Mean Corpuscular Hemoglobin Concent (test code = 786-4) 32.7 31-35 [facility]lakeRDW [id number] 14:30:00* Test Item Value Reference Range Interpretation Comments Red Cell Distribution Width (test code = 26249-4) 18.7 11.7 -14.4 [facility]lake[facility] blood platelet count (count/volume)2020-03-04 14:30:00* Test Item Value Reference Range Interpretation Comments Platelet Count (test code = 777-3) 228 140-360 [facility]lakeAutunc [facility]ed blood segmented neutrophil count as percentage of total [id number] 14:30:00* Test Item Value Reference Range Interpretation Comments Neutrophils (%) (Auto) (test code = 43078-3) 59.4 38.7-80.0 [facility]lake[facility] blood lymphocyte count as percentage ot total [id number] 14:30:00* Test Item Value Reference Range Interpretation Comments Lymphocytes (%) (Auto) (test code = 736-9) 31.6 18.0-39.1 [facility]lake[facility] blood monocyte count as percentage of total [id number] 14:30:00* Test Item Value Reference Range Interpretation Comments Monocytes (%) (Auto) (test code = 5905-5) 7.6 4.4-11.3 [facility]lake[facility] blood eosinophil count as percentage of total [id number] 14:30:00* Test Item Value Reference Range Interpretation Comments Eosinophils (%) (Auto) (test code = 713-8) 0.4 0.0-6.0 [facility]lake[facility] blood basophil count as percentage of total [id number] 14:30:00* Test Item Value Reference Range Interpretation Comments Basophils (%) (Auto) (test code = 706-2) 0.8 0.0-1.0 [facility] SouthlakeFluoroscopic procedure less than one hour [id number] 14:30:00* Test Item Value Reference Range Interpretation Comments IM GRANULOCYTES % (test code = IM GRANULOCYTES %) 0.2 0.0- 1.0 [facility] blood neutrophil count 2020-03-04 14:30:00* Test Item Value Reference Range Interpretation Comments Neutrophils # (Auto) (test code = 751-8) 3.0 2.1-6.9 [facility]lake[facility] lymphocytes count (number/volume) 2020-03-04 14:30:00* Test Item Value Reference Range Interpretation Comments Lymphocytes # (Auto) (test code = 18918-8) 1.6 1.0-3.2 [facility]lakeBlood monocytes automated count (number/volume)2020-03-04 14:30:00* Test Item Value Reference Range Interpretation Comments Monocytes # (Auto) (test code = 742-7) 0.4 0.2-0.8 [facility] SouthlakeAutomated blood eosinophil count 2020-03-04 14:30:00* Test Item Value Reference Range Interpretation Comments Eosinophils # (Auto) (test code = 711-2) 0.0 0.0-0.4 [facility]lakeAutomated blood basophil count (count/volume)2020-03-04 14:30:00* Test Item Value Reference Range Interpretation Comments Basophils # (Auto) (test code = 704-7) 0.0 0.0-0.1 [facility] SouthlakeFluoroscopic procedure less than one hour lirvpnjx9617-17-38 14:30:00* Test Item Value Reference Range Interpretation Comments Absolute Immature Granulocyte (auto (gladis t code = Absolute Immature Granulocyte (auto) 0.01 0-0.1 [facility] sodium measurement (moles/volume)2020-03-04 14:30:00* Test Item Value Reference Range Interpretation Comments Sodium Level (test code = 2951-2) 143 136-145 [facility] potassium measurement (moles/volume)2020-03-04 14:30:00* Test Item Value Reference Range Interpretation Comments Potassium Level (test code = 2823-3) 3.4 3.5-5.1 [facility] chloride measurement (moles/volume)2020-03-04 14:30:00* Test Item Value Reference Range Interpretation Comments Chloride Level (test code = 2075-0) 98 98-107 [facility] plasma carbon dioxide, total measurement (moles/volume)2020-03-04 14:30:00* Test Item Value Reference Range Interpretation Comments Carbon Dioxide Level (test code = 2028-9) 31 22-29 [facility] anion xny8926-14-95 14:30:00* Test Item Value Reference Range Interpretation Comments Anion Gap (test code = 35596-9) 17.4 8-16 [facility] urea nitrogen measurement (mass/volume)2020-03-04 14:30:00* Test Item Value Reference Range Interpretation Comments Blood Urea Nitrogen (test code = 3094-0) 25 - [facility] plasma creatinine measurement (mass/volume)2020-03-04 14:30:00* Test Item Value Reference Range Interpretation Comments Creatinine (test code = 2160-0) 6.09 0.72-1.25 [facility] plasma urea nitrogen/creatinine mass fvozu0169-48-53 14:30:00* Test Item Value Reference Range Interpretation Comments BUN/Creatinine Ratio (test code = 3097-3) 4 - [facility]lakeEstimated glomerular filtration rate (GFR) kvfnfsbrjafiq1581-01-75 14:30:00* Test Item Value Reference Range Interpretation Comments Estimat Glomerular Filtration Rate (test code = 106330277) 11 >60 Ranges were taken from the National Kidney Disease Education Program and the [facility] Foundation literature.Reference ranges:60 or greater: Esrqxk43-48 ( for 3 consecutive months): Chronic kidney disease 15 or less: Kidney failureTexas [facility] SouthlakeGlucose kcvbslbjbhk4869-18-76 14:30:00* Test Item Value Reference Range Interpretation Comments Glucose Level (test code = CEP0871) 100 74-118 [facility] calcium measurement (mass/volume)2020-03-04 14:30:00* Test Item Value Reference Range Interpretation Comments Calcium Level (test code = 71977-9) 9.5 8.4-10.2 [facility] plasma total bilirubin measurement (mass/volume)2020-03-04 14:30:00* Test Item Value Reference Range Interpretation Comments Total Bilirubin (test code = 1975-2) 0.7 0.2-1.2 [facility]lakeFluoroscopic procedure less than one hour zlxzhtpn5621-00-95 14:30:00* Test Item Value Reference Range Interpretation Comments Aspartate Amino Transf (AST/SGOT) (test code = Aspartate Amino Transf (AST/SGOT)) 15 5-34 [facility]ererum or plasma alanine aminotransferase measurement (enzymatic activity/volume)2020-03-04 14:30:00* Test Item Value Reference Range Interpretation Comments Alanine Aminotransferase (ALT/SGPT) (test code = 1742-6) 9 0-55 [facility] plasma protein measurement (mass/volume)2020-03-04 14:30:00* Test Item Value Reference Range Interpretation Comments Total Protein (test code = 2885-2) 7.6 6.5-8.1 [facility]ererum or plasma albumin measurement (mass/volume)2020-03-04 14:30:00* Test Item Value Reference Range Interpretation Comments Albumin (test code = 1751-7) 3.7 3.5-5.0 [facility]lakePlasma globulin measurement (mass/volume) 2020-03-04 14:30:00* Test Item Value Reference Range Interpretation Comments Globulin (test code = 00699-4) 3.9 2.3-3.5 [facility] plasma albumin/globulin mass mohom4510-95-62 14:30:00* Test Item Value Reference Range Interpretation Comments Albumin/Globulin Ratio (test code = 1759-0) 0.9 0.8-2.0 [facility]ererum or plasma alkaline phosphatase measurement (enzymatic activity/volume)2020-03-04 14:30:00* Test Item Value Reference Range Interpretation Comments Alkaline Phosphatase (test code = 6768-6) 129 40-150 [facility]lakeBNP Dlt-tZjv2712-16-25 14:30:00* Test Item Value Reference Range Interpretation Comments B-Type Natriuretic Peptide (test code = 83285-1) 2843.4 0-100 [facility] SouthlakeBASIC METABOLIC IOFTL3028-84-37 10:45:00 * Test Item Value Reference Range Interpretation [...] CA) 9.4 mg/dL 8.5-10.1 N BASIC METABOLIC VGFKY6534-06-43 10:31:00* Test Item Value Reference Range Interpretation [...] code = CA) mg/dL 8.5-10.1 CBC W/AUTO DGJW5217-00-20 10:04:00* Test Item Value Reference Range Interpretation [...] 0.02 K/mm3 0.0-0.1 N AB HEPATITIS B FABGTCB4640-31-50 07:11:00* Test Item Value Reference Range Interpretation Comments AB HEPATITIS B SURFACE (test code = HBSAB) Reactive () Non Reactive: Inconsistent with immunity, less than 10 mIU/mL Reactive: Consistent with immunity, greater than 9.9 mIU/mLPerformed At: [facility] [address] [place], [place] [id number] Froylan Hernandez MD Ph:[phone] HEPATITIS B CORE ANTIBODY,ULH8369-03-81 07:11:00* Test Item Value Reference Range Interpretation Comments HEPATITIS B CORE ANTIBODY,TOT (test code = HBCAB) Negative Nega tive Performed At: [facility] [address] [place], [place] [id number] Kyle L MD Ph:[phone] CBC W/O HEWA5902-53-70 08:59:00* Test Item Value Reference Range Interpretation [...] code = MPV) fL 6.7-11.0 COMMENTS TO FOLDER TAPER OPERATOR: REDRAW DUE TO HEMOLYZED SAMPLECBC W/O OAPW7928-48-53 08:59:00* Test Item Value Reference Range Interpretation [...] MPV) 10.9 fL 6.7-11.0 N COMMENTS TO FOLDER TAPER OPERATOR: REDRAW DUE TO HEMOLYZED SAMPLERENAL FUNCTION PANEL [...] PHOS) 5.6 mg/dL 2.5-4.9 H B-TYPE NATRIURETIC XESYONZ8984-34-24 05:59:00* Test Item Value Reference Range Interpretation Comments B-TYPE NATRIURETIC PEPTIDE (test code = BNP) 876.07 pgram/mL 0-100 H PROTHROMBIN PSLS2906-94-75 05:08:00* Test Item Value Reference Range Interpretation [...] (2.5-3.5) IS PATIENT ON ANTICOAGULANTS? NTHROMBOPLASTIN TIME SJXBDKX6884-40-16 05:08:00* Test Item Value Reference Range Interpretation Comments THROMBOPLASTIN TIME PARTIAL (test code = PTT) 32.4 seconds 23.0-37. 0 N IS PATIENT ON ANTICOAGULANTS? NCBC W/O QXIR5971-67-96 05:00:00* Test Item Value Reference Range Interpretation [...] MPV) 10.9 fL 6.7-11.0 N BASIC METABOLIC NQQTM9097-98-06 05:48:00* Test Item Value Reference Range Interpretation [...] CA) 9.0 mg/dL 8.5-10.1 N BASIC METABOLIC PFBFE0857-90-46 05:36:00* Test Item Value Reference Range Interpretation [...] = CA) mg/dL 8.5-10.1 AG HEPAT B RDVB6402-39-08 21:19:00* Test Item Value Reference Range Interpretation Comments AG HEPAT B SURF (test code = HBSAG) Nonreactive Index Nonreactive IGLKCZHOA5615-18-47 08:38:00* Test Item Value Reference Range Interpretation Comments POTASSIUM (test code = K) 4.7 mmol/L 3.5-5.1 N Novel Coronavirus [id number] 12:55:00* Test Item Value Reference Range Interpretation Comments Novel Coronavirus 2019 Inhouse (test code = JEOLW22FC) Negative Negative Positive results are indicative of the presence vdAYBN-UdI-5 RNA, clinical correlation with patient historyand other [...] for the identification of SARS-CoV-2 RNA usingthe Elizabeth M2000 System under the FDA Emergency UseAuthorization. The testing is performed by personneltrained in the procedures for the Elizabeth M2000 moleculardiagnostic SARS-CoV-2 assay in vitro. Testing Criteria: Preprocedure ScreeningComments: PROCEDURE SCHEDULED FOR Novel Coronavirus [id number] 12:55:00* Test Item Value Reference Range Interpretation Comments Novel Coronavirus 2019 Inhouse (test code = UKSPH56DD) Negative Negative Positive results are indicative of the presence fpBBBD-TaF-6 RNA, clinical correlation with patient historyand other [...] for the identification of SARS-CoV-2 RNA usingthe Elizabeth M2000 System under the FDA Emergency UseAuthorization. The testing is performed by personneltrained in the procedures for the Elizabeth M2000 moleculardiagnostic SARS-CoV-2 assay in vitro. Testing Criteria: Preprocedure ScreeningComments: PROCEDURE SCHEDULED FOR PROTHROMBIN TFZR6011-42-65 16:26:00* Test Item Value Reference Range Interpretation [...] (2.5-3.5) IS PATIENT ON ANTICOAGULANTS? NTHROMBOPLASTIN TIME IVDEVVB1251-70-11 16:26:00* Test Item Value Reference Range Interpretation Comments THROMBOPLASTIN TIME PARTIAL (test code = PTT) 99.0 seconds 23.0-37. 0 CALLED OFFICE BUT NO REPONSELEFT A VOICEMAIL AT DR. AQUINO OFFICEAT [phone], ALSO FAXED REPORT TO [phone] IS PATIENT ON ANTICOAGULANTS? NCOMPREHENSIVE METABOLIC [id number] 15:46:00 * Test Item Value Reference Range [...] due to change in reagent. COMPREHENSIVE METABOLIC HQQYS8103-58-43 15:39:00* Test Item Value Reference Range Interpretation [...] code = ALKP) IUnit/L 45-117 CBC W/AUTO TQQY7318-71-88 15:28:00* Test Item Value Reference Range Interpretation [...] = MDIFF) NO - XR CHEST 1 [id number] 14:55:00 FAX: Britton Sanchez MD [phone] [place]: St: PRE FAX: Gabrielle EscotoKumar [phone] Name: LUIZA CHUN [facility] : 1985 Age/S: 34/M [address] [facility] Unit #: [id number] Loc: [place] [address] Phys: Britton Aquino MD Acct: [id number] Dis Date: Status: PRE IN PHONE #: [phone] Exam Date: 11/06/2019 2532 FAX #: [phone] Reason: PREOP EXAMS: CPT CODE: [id number] XR CHEST 1 V 33036 REASON FOR EXAM: PREOP Exam Order Date: 11/06/2019 2:34 PM Ordering M.DChikis: Britton Aquino MD PROCEDURE: - XR CHEST [...] process or change from prior exam. Location: [facility] at 9015 Reported and signed by: Augustin Álvarez MD CC: Britton Aquino MD; Kumar Ding MD Technologist: RT RADHA(R) Trnscrd Date/Time/By: 11/06/2019 (0412) : By: [email or web address] Orig Print D/T: S: 11/06/2019 (3580) PAGE 1 Signed Report BASIC METABOLIC [id number] 07:37:00* Test Item Value Reference Range Interpretation [...] CA) 9.0 mg/dL 8.5-10.1 N BASIC METABOLIC OMQDZ2508-32-95 07:32:00* Test Item Value Reference Range Interpretation [...] code = CA) mg/dL 8.5-10.1 CBC W/AUTO UPCV3097-02-60 07:18:00* Test Item Value Reference Range Interpretation [...] NRBC#) 0.00 K/mm3 0.0-0.1 N CBC W/AUTO [id number] 07:14:00* Test Item Value Reference Range Interpretation [...] BA#) K/mm3 0.0-0.2 - XR CHEST 2 [id number] 06:46:00 FAX: Britton Sanchez MD [phone] [place]: St: REG FAX: Gabrielle EscotoKumar [phone] Name: LUIZA CHUN [facility] : 1985 Age/S: 34/M [address] [facility] Unit #: [id number] Loc: [place] [address] Phys: Britton Aquino MD Acct: [id number] Dis Date: Status: REG [facility] PHONE #: [phone] Exam Date: 11/02/2019 0629 FAX #: [phone] Reason: PREOP TESTING EXAMS: CPT CODE: [id number] XR CHEST 2 V 85099 EXAM: - XR CHEST 2 V HISTORY: [...] Kumar Ding MD Technologist: PAUL AMADOR JR Trnmtrd Date/Time/By: 11/02/2019 (46) : By: Maria [email or web address] Orig Print D/T: S: 11/02/2019 (0649) PAGE 1 Signed Report CARDIAC [id number] 17:51:0040[facility]annCARDIAC CTSMIRO9812-16-55 17:51:00<0.02[facility]annCHEM XBDCC4995-95-30 17:51:0088[facility] HermannCHEM QMESO9852-69-16 17:51:0044[facility] HermannCHEM TKEXH6807-46-10 17:51:008.39[facility] HermannCHEM MNTRN3319-16-74 17:51:18306Lqjkfhmg HermannCHEM SECNZ9631-83-06 17:51:005.0 [facility]annCHEM MIXJI9092-95-31 17:51:22082Uikyebey HermannCHEM PANEL 2019-08-18 17:51:0027[facility] HermannCHEM EPJKW9138-34-54 17:51:009.3[facility] HermannCHEM IBLJP3349-12-66 17:51:009.0[facility]annCHEM ZHRJG3499-19-68 17:51:004.4[facility] HermannCHEM UWIIE2982-85-96 17:51:0066[facility] HermannCHEM XGVUX6172-74-84 17:51:0035[facility] HermannCHEM YPNGP8311-86-34 17:51:61056 [facility]annCHEM UTGAN1789-87-55 17:51:000.5[facility] HermannCHEM PANEL 2019-08-18 17:51:0014.0[facility] HermannCHEM XIHIN9546-32-40 17:51:00* Test Item Value Reference Range Interpretation Comments B/C Ratio (test code = B/C Ratio) 5 1 6-25 [facility] HermannCHEM DZTNV8125-36-89 17:51:004.6[facility] HermannCHEM PANEL 2019-08-18 17:51:00* Test Item Value Reference Range Interpretation Comments A/G Ratio (test code = A/G Ratio) 1.0 1 0.7-1.6 [facility]annCHEM ATVNP1653-61-50 17:51:008[facility] HermannCHEM PANEL 2019-08-18 17:51:002.3[facility] HermannCHEM ZJYMD2851-21-99 17:51:006.2[facility] EpginxnWUPBEUTVQW6324-72-09 17:51:005.3[facility] ZvpabupDDKJMNKVTF7554-77-21 17:51:004.58[facility] EfsaromYVIRKUTJNX3329-64-78 17:51:0014.5[facility] MMWTDGENWF8135-63-17 17:51:0044.3[facility] GllmyqwWHHNSHNVJN8163-19-63 17:51:00 96.7[facility] QdklvsaTXAFJEFFRO1347-25-14 17:51:00* Test Item Value Reference Range Interpretation Comments MCH (test code = MCH) 31.8 pg 27.0-31.0 [facility] LjpfusxBUHBUKRTTR9643-90-64 17:51:0032.8[facility] HermannHEMATOLOGY 2019-08-18 17:51:0019.4[facility] QkrwybhVXQGEDEFJW3611-66-51 17:51:12085Azgypbon DustuuaOAFSVLPPAC4071-16-58 17:51:008.3[facility] WajujfuXWZSBQIMUF5937-94-15 17:51:0046.6[facility] TtlhpgsFXEFZKBRXO9974-06-01 17:51:0041.7[facility] HXEMUFOFBG9609-45-29 17:51:0010.2[facility] GolkyesMSVGVLLUUA1615-43-80 17:51:00 0.4[facility] FblykwvWPIGRDLKIZ8235-84-80 17:51:001.1[facility] HermannHEMATOLOGY 2019-08-18 17:51:002.5[facility] GaneahmSTPLQYXNWE3537-70-58 17:51:002.2[facility] BivirrwAXNKFUCGIY0900-35-37 17:51:000.5[facility] InynyqlNLKDJYCPKA4692-72-92 17:51:000.1[facility] HermannCHEM HKMJN9791-06-47 09:23:78772Lumqwdvu HermannCHEM AXVZX5687-06-59 09:23:0021[facility] HermannCHEM WTOWU5130-24-98 09:23:006.91 [facility] HermannCHEM KOLAH7451-71-47 09:23:29810Mczlfmdd HermannCHEM PANEL 2019-05-20 09:23:005.1[facility] HermannCHEM RDBRO4735-29-39 09:23:98814Zxflzaxi HermannCHEM VERNO5712-49-81 09:23:0027[facility] HermannCHEM JSXKM0256-74-46 09:23:0011.1[facility] HermannCHEM HSRGV3107-63-70 09:23:007.7[facility] HermannCHEM WWCHV8812-22-96 09:23:0010[facility] XddaypkKHARXARNJJ0278-98-64 09:23:004.6 [facility] JigafciLROHDAABVU9330-65-12 09:23:002.46[facility] HermannHEMATOLOGY 2019-05-20 09:23:008.4[facility] AsnchigLJFBFRZUNN9575-89-86 09:23:0025.9[facility] FykpejvNSAYYIZSAX6703-05-36 09:23:01469.3[facility] UcsdrfgKOSBWOSRVO3086-66-10 09:23:00* Test Item Value Reference Range Interpretation Comments MCH (test code = MCH) 34.0 pg 27.0-31.0 [facility] NxkojifNQFLVDLBGQ1542-01-31 09:23:0032.3[facility] HermannHEMATOLOGY 2019-05-20 09:23:0020.3[facility] LtfozcqROBMRLDSJU6118-63-16 09:23:10546Ypqpghgg HafgigtVRUELWOQIE0579-16-12 09:23:009.1[facility] VybzlcwLTQWKEOBXY0176-00-75 09:23:0060.0[facility] GnhutqaEMBURLKOZE0043-67-61 09:23:0028.7[facility] MASHSMIBVV5921-35-16 09:23:008.8[facility] TnnywgtTIEVLAJWFU6171-43-90 09:23:000.9 [facility] SiuteweJVAKIYSSKB9519-42-19 09:23:001.6[facility] HermannHEMATOLOGY 2019-05-20 09:23:002.8[facility] HolzrrrJAXDOCCDTU0245-09-54 09:23:001.3[facility] RuimkzjMBTJPVVQJH5803-12-03 09:23:000.4[facility] SroxyflIFIMLSQGOP4668-49-91 09:23:000.1[facility] PdoubfbNXHXNKOZQN3893-81-43 09:23:002+ *ABN*(05/20/19 3:23 AM)[facility] HOOZVSC5304-45-51 16:00:00Product available (05/19/19 10:00 AM)[facility] HermannBLOOD BANK EYJUQQF4911-47-46 15:29:00Negative (05/19/19 9:29 AM)[facility]annCHEM MLVBG2301-31-72 15:29:0089[facility] [place] CHEM GMZFF7038-30-09 15:29:0053[facility] HermannCHEM UOCDE5859-62-98 15:29:00 13.80[facility] HermannCHEM WAREM5532-11-46 15:29:15497Tajmzqvy HermannCHEM PANEL 2019-05-19 15:29:005.6[facility] HermannCHEM ZVMUE8401-73-74 15:29:32712Swkfgyqe HermannCHEM SFOXP0080-22-44 15:29:0025[facility] HermannCHEM WGAEO5176-87-76 15:29:008.2[facility] HermannCHEM YAHYL8199-62-86 15:29:004[facility] HermannCHEM KRUWX2158-12-86 15:29:0014.6[facility] XctnbopSDVOQDCGPU3381-81-21 15:29:00* Test Item Value Reference Range Interpretation Comments PT (test code = PT) 15.4 s 12.0-14.7 [facility] IiplpovIBPPEFLJDU8423-34-42 15:29:00* Test Item Value Reference Range Interpretation Comments INR (test code = INR) 1.24 1 0.85-1.17 [facility] FgwiazcQDSUIDERES2065-45-90 15:29:00* Test Item Value Reference Range Interpretation Comments PTT (test code = PTT) 36.5 s 22.9-35.8 [facility] GivqfbqSZTPHQBPJN7780-21-02 15:29:00Negative *NA*(05/19/19 9:29 AM) [facility] HermannCHEM KOOIP7835-14-63 22:11:0084[facility] HermannCHEM PANEL 2019-05-18 22:11:0049[facility] HermannCHEM YIYVL0379-79-89 22:11:0012.30[facility] HermannCHEM PZKPJ6966-39-78 22:11:65064Aipvkutm HermannCHEM AUGKD0406-18-29 22:11:005.1[facility] HermannCHEM CVVNB5649-77-58 22:11:36884Ylhqjvpd HermannCHEM ZHOJC5925-44-61 22:11:0024[facility] HermannCHEM SCBXT2602-30-01 22:11:008.9 [facility] HermannCHEM WGQOU2612-68-83 22:11:005[facility] HermannCHEM PANEL 2019-05-18 22:11:0014.1[facility] QgvtjsuOGUZISXBTI0996-38-17 22:11:006.0[facility] PcjwifvMEAAQGOOJG0048-60-33 22:11:002.88[facility] RucszpuSXVLNLSOHA6765-02-11 22:11:009.7[facility] UdfmpomPBNWGIHKPW7934-01-31 22:11:0029.9[facility] KKCSFZXAZY3380-54-54 22:11:97612.9[facility] JmhvahoIQLMIGUNQJ7462-97-26 22:11:00 * Test Item Value Reference Range Interpretation Comments MCH (test code = MCH) 33.7 pg 27.0-31.0 [facility] PxhkjddVUUSVWITGR4351-17-68 22:11:0032.4[facility] HermannHEMATOLOGY 2019-05-18 22:11:0020.7[facility] PdovqrbWVJRQXRSXU1208-65-87 22:11:76521Pdiilvsl GkjqmrxMHYBLIJTVW0365-99-68 22:11:009.0[facility] FjgfcrzSJDOBBQJHU7225-56-84 22:11:00* Test Item Value Reference Range Interpretation Comments PT (test code = PT) 15.0 s 12.0-14.7 [facility] ZniakreJZUIDZJBFM5077-89-27 22:11:00* Test Item Value Reference Range Interpretation Comments INR (test code = INR) 1.20 1 0.85-1.17 [facility] UtmwwevZHCFZHGDQT6614-19-34 22:11:00* Test Item Value Reference Range Interpretation Comments PTT (test code = PTT) 35.2 s 22.9-35.8 [facility] GobaqmxMVQYKDPLJM1935-43-58 22:11:0037.2[facility] HermannHEMATOLOGY 2019-05-18 22:11:0052.1[facility] ZnykpxtYVAQWOLNHW6386-05-39 22:11:007.9[facility] CtqszzlVQQVWCUJFI7806-05-09 22:11:001.0[facility] JncwaxpBCDYYSGFRF2646-41-45 22:11:001.8[facility] XsjavwsDAIINDAYWN0273-91-84 22:11:002.2[facility] IHAJHMJCQZ2006-93-01 22:11:003.1[facility] UqxkhlgHFKFFDCOQJ8589-50-32 22:11:000.5 [facility] DwfezchHNRKSBJYRG5186-48-26 22:11:000.1[facility] HermannHEMATOLOGY 2019-05-18 22:11:000.1[facility] EhusnboLVIUTIJJLA6544-15-68 22:11:001+ *ABN*(05/18/19 4:11 PM)[facility]Sodium Zrcxo8092-89-40 11:47:00* Test Item Value Reference Range Interpretation Comments Sodium Level (test code = 2951-2) 137 136-145 [facility]lakePotassium Kuclq1678-23-26 11:47:00* Test Item Value Reference Range Interpretation Comments Potassium Level (test code = 2823-3) 4.6 3.5-5.1 [facility]lakeChloride Vlbrp2482-89-35 11:47:00* Test Item Value Reference Range Interpretation Comments Chloride Level (test code = 2075-0) 99 98-107 [facility] SouthlakeCarbon Dioxide Sknnq0449-29-71 11:47:00* Test Item Value Reference Range Interpretation Comments Carbon Dioxide Level (test code = 2028-9) 23 22-29 [facility] SouthlakeAnion Bjw1270-37-15 11:47:00* Test Item Value Reference Range Interpretation Comments Anion Gap (test code = 97442-7) 19.6 8-16 H [facility] SouthlakeBlood Urea Kqqrrujm7832-59-60 11:47:00* Test Item Value Reference Range Interpretation Comments Blood Urea Nitrogen (test code = 3094-0) 70 7-26 H [facility] SouthlakeCreatinine2019 11:47:00* Test Item Value Reference Range Interpretation Comments Creatinine (test code = 2160-0) 11.72 0.72-1.25 H [facility]lakeBUN/Creatinine Wfaoi5781-73-17 11:47:00* Test Item Value Reference Range Interpretation Comments BUN/Creatinine Ratio (test code = 3097-3) 6 6-25 [facility] SouthlakeEstimat Glomerular Filtration Rate 2019-04-30 11:47:00* Test Item Value Reference Range Interpretation Comments Estimat Glomerular Filtration Rate (test code = 854578939) 5 >60 L Ranges were taken from the National Kidney Disease Education Program and the [facility] Kidney Foundation literature.Reference ranges:60 or greater: Jbwexo43-65 ( for 3 consecutive months): Chronic kidney disease 15 or less: Kidney failureTexas Health Harris Methodist Hospital SouthlakeGlucose Mysir0548-24-00 11:47:00* Test Item Value Reference Range Interpretation Comments Glucose Level (test code = ZIA4747) 113 74-118 [facility]lakeCalcium Kmmrq0706-08-33 11:47:00* Test Item Value Reference Range Interpretation Comments Calcium Level (test code = 91952-9) 9.1 8.4-10.2 [facility]lakeWhite Blood Pyfst8549-85-37 11:44:00* Test Item Value Reference Range Interpretation Comments White Blood Count (test code = 6690-2) 5.47 4.8-10.8 [facility] SouthlakeRed Blood Kmiuz0515-07-58 11:44:00* Test Item Value Reference Range Interpretation Comments Red Blood Count (test code = 789-8) 2.58 4.3-5.7 L [facility]lakeHemoglobin2019 11:44:00* Test Item Value Reference Range Interpretation Comments Hemoglobin (test code = 11616-5) 8.3 14.0-18.0 L [facility]lakeHematocrit2019 11:44:00* Test Item Value Reference Range Interpretation Comments Hematocrit (test code = 4544-3) 25.6 38.2-49.6 L [facility] SouthlakeMean Corpuscular Qojmbq7559-69-78 11:44:00* Test Item Value Reference Range Interpretation Comments Mean Corpuscular Volume (test code = 787-2) 99.2 81-99 H [facility]lakeMean Corpuscular Dabqeevadw7658-75-29 11:44:00* Test Item Value Reference Range Interpretation Comments Mean Corpuscular Hemoglobin (test code = 785-6) 32.2 28-32 H [facility] SouthlakeMean Corpuscular Hemoglobin Concent 2019-04-30 11:44:00* Test Item Value Reference Range Interpretation Comments Mean Corpuscular Hemoglobin Concent (test code = 786-4) 32.4 31-35 [facility] SouthlakeRed Cell Distribution Jdvpy7505-73-77 11:44:00* Test Item Value Reference Range Interpretation Comments Red Cell Distribution Width (test code = 45721-9) 18.1 11.7 -14.4 H [facility]lakePlatelet [id number] 11:44:00* Test Item Value Reference Range Interpretation Comments Platelet Count (test code = 777-3) 211 140-360 [facility]lakeNeutrophils (%) (Auto)2019-04-30 11:44:00 * Test Item Value Reference Range Interpretation Comments Neutrophils (%) (Auto) (test code = 51494-5) 54.5 38.7-80.0 [facility]lakeLymphocytes (%) (Auto)2019-04-30 11:44:00 * Test Item Value Reference Range Interpretation Comments Lymphocytes (%) (Auto) (test code = 736-9) 33.5 18.0-39.1 [facility]ocytes (%) (Auto)2019-04-30 11:44:00* Test Item Value Reference Range Interpretation Comments Monocytes (%) (Auto) (test code = 5905-5) 9.1 4.4-11.3 [facility]lakeEosinophils (%) (Auto)2019-04-30 11:44:00 * Test Item Value Reference Range Interpretation Comments Eosinophils (%) (Auto) (test code = 713-8) 1.5 0.0-6.0 [facility]ophils (%) (Auto)2019-04-30 11:44:00* Test Item Value Reference Range Interpretation Comments Basophils (%) (Auto) (test code = 706-2) 0.9 0.0-1.0 [facility]lakeIM GRANULOCYTES %2019-04-30 11:44:00* Test Item Value Reference Range Interpretation Comments IM GRANULOCYTES % (test code = IM GRANULOCYTES %) 0.5 0.0- 1.0 [facility]lakeNeutrophils # (Auto)2019-04-30 11:44:00* Test Item Value Reference Range Interpretation Comments Neutrophils # (Auto) (test code = 751-8) 3.0 2.1-6.9 [facility]lakeLymphocytes # (Auto)2019-04-30 11:44:00* Test Item Value Reference Range Interpretation Comments Lymphocytes # (Auto) (test code = 87615-5) 1.8 1.0-3.2 [facility]lakeMonocytes # (Auto)2019-04-30 11:44:00* Test Item Value Reference Range Interpretation Comments Monocytes # (Auto) (test code = 742-7) 0.5 0.2-0.8 [facility]lakeEosinophils # (Auto)2019-04-30 11:44:00* Test Item Value Reference Range Interpretation Comments Eosinophils # (Auto) (test code = 711-2) 0.1 0.0-0.4 [facility]lakeBasophils # (Auto)2019-04-30 11:44:00* Test Item Value Reference Range Interpretation Comments Basophils # (Auto) (test code = 704-7) 0.1 0.0-0.1 [facility]lakeAbsolute Immature Granulocyte (auto 2019-04-30 11:44:00* Test Item Value Reference Range Interpretation Comments Absolute Immature Granulocyte (auto (gladis t code = Absolute Immature Granulocyte (auto) 0.03 0-0.1 [facility] SouthlakeGentamicin Level Rijlcm1376-60-67 17:37:00* Test Item Value Reference Range Interpretation Comments Gentamicin Level Trough (test code = 3665-7) 0.5 0.5-2.0 Detection Limit = 0.3 <0.3 indicates None DetectedPerformed at: - [facility] [id number] Director: Froylan Flores MD, Phone: [phone] [facility] SouthlakeBlood Yscjogb6321-51-68 16:35:00* Test Item Value Reference Range Interpretation Comments Blood Culture (test code = 86490878) NO GROWTH AFTER 72 HOURS [facility] Killvbc2693-42-14 13:28:00* Test Item Value Reference Range Interpretation Comments Blood Culture (test code = 600-7) No Result Data Provided [facility]lakeBedside Wxyzucj0944-02-20 03:15:00* Test Item Value Reference Range Interpretation Comments Bedside Glucose (test code = 89793-2) 151 70-120 H Meter ID: [id number] [facility]PELVIS W 2019-04-26 19:13:00 [place] [address] Patient Name: LUIZA CHUN MR #: [id number] : 1985 Age/Sex: 33/M Req #: [id number] [facility] Physician: NAEEM AHUMADA MD Ordered by: FRANKLYN PADILLA MD Report #: [id number] Location: MED/SURG3 Room/Bed: [employer] Procedure: [id number] CT/CT A BDOMEN/PELVIS W Exam Date: 04/26/19 Exam Time: 1819 REPORT STATUS: Signed CT Abdomen And Pelvis with Intravenous Contrast INDICATION: r/o abscess, IV MEDI MIN INDICATED PER DR PADILLA [id number] 1819 TECHNIQUE: Thin collimation a xial images obtained [...] 04/26/191920 COPY TO: MALENA PADILLA MD C-Reactive Husonds1446-30-72 11:22:00* Test Item Value Reference Range Interpretation Comments C-Reactive Protein (test code = 1988-5) 67 0-10 H Performed at: [facility] [place] [facility] [id number] Director: Froylan Flores MD, Phone: [phone] Health Harris Methodist Hospital SouthlakeErythrocyte Sedimentation Lzib4449-17-04 12:12:00* Test Item Value Reference Range Interpretation Comments Erythrocyte Sedimentation Rate (test code = 4537-7) 31 0- 13 H [facility]lakeTotal Nkwokcneb7522-92-21 06:54:00* Test Item Value Reference Range Interpretation Comments Total Bilirubin (test code = 1975-2) 0.3 0.2-1.2 [facility] SouthlakeAspartate Amino Transf (AST/SGOT) 2019-04-25 06:54:00* Test Item Value Reference Range Interpretation Comments Aspartate Amino Transf (AST/SGOT) (test code = Aspartate Amino Transf (AST/SGOT)) 24 5-34 [facility]lakeAlanine Aminotransferase (ALT/SGPT) 2019-04-25 06:54:00* Test Item Value Reference Range Interpretation Comments Alanine Aminotransferase (ALT/SGPT) (test code = 1742-6) 25 0-55 [facility]lakeTotal Mmfqkzh8184-80-25 06:54:00* Test Item Value Reference Range Interpretation Comments Total Protein (test code = 2885-2) 5.7 6.5-8.1 L [facility] SouthlakeAlbumin2019-10-16 06:54:00* Test Item Value Reference Range Interpretation Comments Albumin (test code = 1751-7) 2.1 3.5-5.0 L [facility]lakeGlobulin2019-10-16 06:54:00* Test Item Value Reference Range Interpretation Comments Globulin (test code = 01587-3) 3.6 2.3-3.5 H [facility]lakeAlbumin/Globulin Iehgx6996-64-49 06:54:00 * Test Item Value Reference Range Interpretation Comments Albumin/Globulin Ratio (test code = 1759-0) 0.6 0.8-2.0 L [facility] SouthlakeAlkaline Putgqqgdyfq2123-43-83 06:54:00* Test Item Value Reference Range Interpretation Comments Alkaline Phosphatase (test code = 6768-6) 228 40-150 H [facility] SouthlakeHepatitis B Surface Antibody, Quant 2019-04-24 08:21:00* Test Item Value Reference Range Interpretation Comments Hepatitis B Surface Antibody, Quant (test code = 5194-6) >1000.0 Immunity>9.9 Status of Immunity Anti-HBs Level Inconsistent with Immunity 0.0 - 9.9Consistent with Immunity >9.9[facility]He[facility] B Core Total Wykcpyus4007-51-10 08:21:00* Test Item Value Reference Range Interpretation Comments Hepatitis B Core Total Antibody (test code = 82822-6) Negative Negative [facility]He[facility] B Surface Lnjghgt5755-76-82 08:21:00* Test Item Value Reference Range Interpretation Comments Hepatitis B Surface Antigen (test code = 5196-1) Negative Negat teagan [facility] B Core IgM Fnnlcjpr5663-83-80 08:21:00* Test Item Value Reference Range Interpretation Comments Hepatitis B Core IgM Antibody (test code = 98869-4) Negative Ne gative Performed at: [employer] - [facility] [id number] Director: Froylan Flores MD, Phone: [phone] Health [facility] SouthlakeCreatine Kinase YE0720-24-58 10:51:00* Test Item Value Reference Range Interpretation Comments Creatine Kinase MB (test code = 00609-5) 1.50 0-5.0 [facility] SouthlakeTroponin T4601-05-62 10:51:00* Test Item Value Reference Range Interpretation Comments Troponin I (test code = AZT0131) 1.234 0-0.300 H Elevated result called to barber milligan at 1049 on 04/23/19 by Belia Guadalupe. [facility] SouthlakeLactic Acid Yvxsm3783-48-03 10:41:00* Test Item Value Reference Range Interpretation Comments Lactic Acid Level (test code = Lactic Acid Level) 11.5 4.5- 19.8 [facility] SouthlakeCreatine Lujbet5415-03-79 10:41:00* Test Item Value Reference Range Interpretation Comments Creatine Kinase (test code = 2157-6) 9 30-200 L [facility] SouthlakeCHEST SINGLE (NOT PORTABLE)2019-04-22 21:06:00 [facility] [address] [place] [address] Patient Name: LUIZA CHUN MR #: [id number] : 1985 Age/Sex: 33/M Req #: [id number] Adm Physician: Ordered by: DEBBIE MUNROE [employer]ER Report #: [id number] Location: ER Room/Bed: Procedure: [id number] DX/ CHEST SINGLE (NOT PORTABLE) Exam Date: [...] DEBBIE MUNROE NP Influenza Virus Types A,B Kbajnjo7712-20-81 19:43:00* Test Item Value Reference Range Interpretation Comments Influenza Virus Types A,B Antigen (test code = 33572-9) NEGATIVE NEGATIVE [facility] TexasMagnesium Qeioq3133-42-27 19:35:00* Test Item Value Reference Range Interpretation Comments Magnesium Level (test code = 53890-9) 2.2 1.3-2.1 H [facility] SouthlakeUrine Ozcpr2866-66-94 19:28:00* Test Item Value Reference Range Interpretation Comments Urine Color (test code = 5778-6) YELLOW YELLOW [facility] SouthlakeUrine Jtmxipq7263-98-18 19:28:00* Test Item Value Reference Range Interpretation Comments Urine Clarity (test code = 39047-7) HAZY CLEAR [facility] SouthlakeUrine Specific Jwrojjh1618-30-78 19:28:00 * Test Item Value Reference Range Interpretation Comments Urine Specific [place] (test code = 5811-5) 1.010 1.010-1.02 5 [facility] SouthlakeUrine aA3804-70-53 19:28:00* Test Item Value Reference Range Interpretation Comments Urine pH (test code = 99331-3) 7.5 5-7 [facility] SouthlakeUrine Leukocyte Scwdwzxk5225-84-51 19:28:00* Test Item Value Reference Range Interpretation Comments Urine Leukocyte Esterase (test code = 5799-2) 1+ NEGATIVE H [facility] SouthlakeUrine Hzfejgo8550-51-86 19:28:00* Test Item Value Reference Range Interpretation Comments Urine Nitrite (test code = 07598-9) NEGATIVE NEGATIVE [facility] SouthlakeUrine Ozcwbij7230-14-15 19:28:00* Test Item Value Reference Range Interpretation Comments Urine Protein (test code = 5804-0) 2+ NEGATIVE H [facility] SouthlakeUrine Glucose (UA)2019-04-22 19:28:00* Test Item Value Reference Range Interpretation Comments Urine Glucose (UA) (test code = 2349-9) NEGATIVE NEGATIVE [facility] SouthlakeUrine Dwzxuhk3387-08-82 19:28:00* Test Item Value Reference Range Interpretation Comments Urine Ketones (test code = 55125-2) NEGATIVE NEGATIVE [facility] SouthlakeUrine Byzogyeiljnp8087-25-83 19:28:00* Test Item Value Reference Range Interpretation Comments Urine Urobilinogen (test code = 85058-8) 0.2 0.2-1 [facility]lakeUrine Fqoybuvzi2943-09-58 19:28:00* Test Item Value Reference Range Interpretation Comments Urine Bilirubin (test code = 1978-6) NEGATIVE NEGATIVE [facility] SouthlakeUrine Zzjya0212-19-09 19:28:00* Test Item Value Reference Range Interpretation Comments Urine Blood (test code = 18560-3) 2+ NEGATIVE H [facility] SouthlakeUrine QTP7141-71-30 19:28:00* Test Item Value Reference Range Interpretation Comments Urine WBC (test code = 5821-4) 11-20 0-5 H [facility] SouthlakeUrine RRV4237-11-20 19:28:00* Test Item Value Reference Range Interpretation Comments Urine RBC (test code = 82500-2) 11-20 0-5 H [facility] Mqbkwmaj4725-15-49 19:28:00* Test Item Value Reference Range Interpretation Comments Urine Bacteria (test code = 81947-6) FEW NONE [facility]lakeUrine Epithelial Uegpw7373-29-17 19:28:00 * Test Item Value Reference Range Interpretation Comments Urine Epithelial Cells (test code = 72314-1) FEW NONE [facility] SouthlakeUrine Amorphous Hfqxaqhl4897-97-29 19:28:00* Test Item Value Reference Range Interpretation Comments Urine Amorphous Sediment (test code = 8246-1) FEW FEW [facility] SouthlakeUrine Fine Granular Vhvau0765-80-71 19:28:00* Test Item Value Reference Range Interpretation Comments Urine Fine Granular Casts (test code = 87319-4) 1-5 >0 H [facility] SouthlakeUrine Lbdct8977-46-19 19:28:00* Test Item Value Reference Range Interpretation Comments Urine Mucus (test code = 8247-9) FEW RARE H [facility]lakeGroup A Streptococcus Zfgrte4461-55-13 19:25:00* Test Item Value Reference Range Interpretation Comments Group A Streptococcus Screen (test code = 60058-9) NEGATIVE NEG ATIVE [facility] SouthlakeUrine JUE9796-71-50 13:31:00* Test Item Value Reference Range Interpretation Comments Urine WBC (test code = 5821-4) 6-10 0-5 H [facility] SouthlakeUrine LVN2149-69-65 13:31:00* Test Item Value Reference Range Interpretation Comments Urine RBC (test code = 16268-7) >50 0-5 H [facility]lakeUrine Mcjsvmgw2762-88-40 13:31:00* Test Item Value Reference Range Interpretation Comments Urine Bacteria (test code = 98301-0) MODERATE NONE H [facility] SouthlakeUrine Epithelial Cpfyb4843-65-16 13:31:00 * Test Item Value Reference Range Interpretation Comments Urine Epithelial Cells (test code = 52819-0) MODERATE NONE [facility] SouthlakeUrine Awzil0695-71-28 13:22:00* Test Item Value Reference Range Interpretation Comments Urine Color (test code = 5778-6) YELLOW YELLOW [facility]lakeUrine Xdhtrkf9827-50-94 13:22:00* Test Item Value Reference Range Interpretation Comments Urine Clarity (test code = 74681-4) SL CLOUDY CLEAR H [facility] SouthlakeUrine Specific Icnmlfg7515-45-29 13:22:00 * Test Item Value Reference Range Interpretation Comments Urine Specific [place] (test code = 5811-5) 1.015 1.010-1.02 5 [facility] SouthlakeUrine lN8740-19-76 13:22:00* Test Item Value Reference Range Interpretation Comments Urine pH (test code = 68480-8) 7 5-7 [facility]lakeUrine Leukocyte Awtjrpne3028-91-50 13:22:00* Test Item Value Reference Range Interpretation Comments Urine Leukocyte Esterase (test code = 72315-0) NEGATIVE NEGATIV E [facility] SouthlakeUrine Qlflzai4973-50-97 13:22:00* Test Item Value Reference Range Interpretation Comments Urine Nitrite (test code = 46365-6) NEGATIVE NEGATIVE [facility]lakeUrine Qazjxqp9470-71-15 13:22:00* Test Item Value Reference Range Interpretation Comments Urine Protein (test code = 87025-4) 2+ NEGATIVE H [facility]lakeUrine Glucose (UA)2019-03-11 13:22:00* Test Item Value Reference Range Interpretation Comments Urine Glucose (UA) (test code = 72497-5) 1+ NEGATIVE H [facility] SouthlakeUrine Bfologr4207-57-49 13:22:00* Test Item Value Reference Range Interpretation Comments Urine Ketones (test code = 19296-1) NEGATIVE NEGATIVE [facility]lakeUrine Waxuseozvncr6289-55-97 13:22:00* Test Item Value Reference Range Interpretation Comments Urine Urobilinogen (test code = 38172-5) 0.2 0.2-1 [facility]lakeUrine Golkozbkx5982-60-02 13:22:00* Test Item Value Reference Range Interpretation Comments Urine Bilirubin (test code = 1977-8) NEGATIVE NEGATIVE [facility]lakeUrine Kgsgk6438-89-70 13:22:00* Test Item Value Reference Range Interpretation Comments Urine Blood (test code = 61839-1) 3+ NEGATIVE [facility] Centerodium Emgef5618-46-51 12:05:00* Test Item Value Reference Range Interpretation Comments Sodium Level (test code = 2951-2) 143 136-145 [facility]lakePotassium Ctmmy8421-27-55 12:05:00* Test Item Value Reference Range Interpretation Comments Potassium Level (test code = 2823-3) 4.7 3.5-5.1 [facility] SouthlakeChloride Etcyt1371-58-09 12:05:00* Test Item Value Reference Range Interpretation Comments Chloride Level (test code = 2075-0) 100 98-107 [facility] SouthlakeCarbon Dioxide Qmrhe9757-09-39 12:05:00* Test Item Value Reference Range Interpretation Comments Carbon Dioxide Level (test code = 2028-9) 29 22-29 [facility] SouthlakeAnion Sfr1181-87-69 12:05:00* Test Item Value Reference Range Interpretation Comments Anion Gap (test code = 06829-6) 18.7 8-16 H [facility] SouthlakeBlood Urea Nnlxbemt2848-24-06 12:05:00* Test Item Value Reference Range Interpretation Comments Blood Urea Nitrogen (test code = 3094-0) 64 7-26 H [facility] SouthlakeCreatinine2019-09-01 12:05:00* Test Item Value Reference Range Interpretation Comments Creatinine (test code = 2160-0) 11.35 0.72-1.25 H [facility] SouthlakeBUN/Creatinine Estlc2007-01-44 12:05:00* Test Item Value Reference Range Interpretation Comments BUN/Creatinine Ratio (test code = 3097-3) 6 6-25 [facility] SouthlakeEstimat Glomerular Filtration Rate 2019-03-11 12:05:00* Test Item Value Reference Range Interpretation Comments Estimat Glomerular Filtration Rate (test code = 681050872) 5 >60 L Ranges were taken from the National Kidney Disease Education Program and the [facility] Kidney Foundation literature.Reference ranges:60 or greater: Fnnbqj11-87 ( for 3 consecutive months): Chronic kidney disease 15 or less: Kidney failureTexas Health Harris [facility] Hospital SouthlakeGlucose Rhklg7939-20-47 12:05:00* Test Item Value Reference Range Interpretation Comments Glucose Level (test code = WSM9629) 117 74-118 [facility] SouthlakeCalcium Ryaft1999-32-45 12:05:00* Test Item Value Reference Range Interpretation Comments Calcium Level (test code = 82834-7) 9.4 8.4-10.2 [facility]lakeTotal Ibdgixqeq1127-31-80 12:05:00* Test Item Value Reference Range Interpretation Comments Total Bilirubin (test code = 1975-2) 0.5 0.2-1.2 [facility] SouthlakeAspartate Amino Transf (AST/SGOT) 2019-03-11 12:05:00* Test Item Value Reference Range Interpretation Comments Aspartate Amino Transf (AST/SGOT) (test code = Aspartate Amino Transf (AST/SGOT)) 15 5-34 [facility] SouthlakeAlanine Aminotransferase (ALT/SGPT) 2019-03-11 12:05:00* Test Item Value Reference Range Interpretation Comments Alanine Aminotransferase (ALT/SGPT) (test code = 1742-6) 40 0-55 [facility]lakeTotal Hvbhfko4124-69-98 12:05:00* Test Item Value Reference Range Interpretation Comments Total Protein (test code = 2885-2) 7.6 6.5-8.1 [facility] SouthlakeAlbumin2019-09-01 12:05:00* Test Item Value Reference Range Interpretation Comments Albumin (test code = 1751-7) 3.3 3.5-5.0 L [facility] SouthlakeGlobulin2019-09-01 12:05:00* Test Item Value Reference Range Interpretation Comments Globulin (test code = 15174-3) 4.3 2.3-3.5 H [facility] SouthlakeAlbumin/Globulin Usoch4657-47-02 12:05:00 * Test Item Value Reference Range Interpretation Comments Albumin/Globulin Ratio (test code = 1759-0) 0.8 0.8-2.0 [facility] SouthlakeAlkaline Vlpohyhndns4418-85-13 12:05:00* Test Item Value Reference Range Interpretation Comments Alkaline Phosphatase (test code = 6768-6) 118 40-150 [facility] SouthlakeWhite Blood Jwvhz6197-30-94 11:50:00* Test Item Value Reference Range Interpretation Comments White Blood Count (test code = 6690-2) 6.42 4.8-10.8 [facility] SouthlakeRed Blood Tijym9733-10-45 11:50:00* Test Item Value Reference Range Interpretation Comments Red Blood Count (test code = 789-8) 3.33 4.3-5.7 L [facility]lakeHemoglobin2019-09-01 11:50:00* Test Item Value Reference Range Interpretation Comments Hemoglobin (test code = 52193-3) 11.2 14.0-18.0 L [facility] SouthlakeHematocrit2019-09-01 11:50:00* Test Item Value Reference Range Interpretation Comments Hematocrit (test code = 4544-3) 33.5 38.2-49.6 L [facility] SouthlakeMean Corpuscular Ctudsx8145-42-75 11:50:00* Test Item Value Reference Range Interpretation Comments Mean Corpuscular Volume (test code = 787-2) 100.6 81-99 H [facility] SouthlakeMean Corpuscular Cdkthsyxse7959-92-76 11:50:00* Test Item Value Reference Range Interpretation Comments Mean Corpuscular Hemoglobin (test code = 785-6) 33.6 28-32 H [facility] SouthlakeMean Corpuscular Hemoglobin Concent 2019-03-11 11:50:00* Test Item Value Reference Range Interpretation Comments Mean Corpuscular Hemoglobin Concent (test code = 786-4) 33.4 31-35 [facility] SouthlakeRed Cell Distribution Eksdd3914-23-13 11:50:00* Test Item Value Reference Range Interpretation Comments Red Cell Distribution Width (test code = 59383-1) 14.7 11.7 -14.4 H [facility] SouthlakePlatelet Klgva0922-96-34 11:50:00* Test Item Value Reference Range Interpretation Comments Platelet Count (test code = 777-3) 224 140-360 [facility] SouthlakeNeutrophils (%) (Auto)2019-03-11 11:50:00 * Test Item Value Reference Range Interpretation Comments Neutrophils (%) (Auto) (test code = 50721-3) 60.8 38.7-80.0 [facility] SouthlakeLymphocytes (%) (Auto)2019-03-11 11:50:00 * Test Item Value Reference Range Interpretation Comments Lymphocytes (%) (Auto) (test code = 736-9) 26.0 18.0-39.1 [facility]lakeMonocytes (%) (Auto)2019-03-11 11:50:00* Test Item Value Reference Range Interpretation Comments Monocytes (%) (Auto) (test code = 5905-5) 11.4 4.4-11.3 H [facility]lakeEosinophils (%) (Auto)2019-03-11 11:50:00 * Test Item Value Reference Range Interpretation Comments Eosinophils (%) (Auto) (test code = 713-8) 0.5 0.0-6.0 [facility]lakeBasophils (%) (Auto)2019-03-11 11:50:00* Test Item Value Reference Range Interpretation Comments Basophils (%) (Auto) (test code = 706-2) 0.8 0.0-1.0 [facility] SouthlakeIM GRANULOCYTES %2019-03-11 11:50:00* Test Item Value Reference Range Interpretation Comments IM GRANULOCYTES % (test code = IM GRANULOCYTES %) 0.5 0.0- 1.0 [facility]lakeNeutrophils # (Auto)2019-03-11 11:50:00* Test Item Value Reference Range Interpretation Comments Neutrophils # (Auto) (test code = 751-8) 3.9 2.1-6.9 [facility] SouthlakeLymphocytes # (Auto)2019-03-11 11:50:00* Test Item Value Reference Range Interpretation Comments Lymphocytes # (Auto) (test code = 25506-9) 1.7 1.0-3.2 [facility]lakeMonocytes # (Auto)2019-03-11 11:50:00* Test Item Value Reference Range Interpretation Comments Monocytes # (Auto) (test code = 742-7) 0.7 0.2-0.8 [facility]lakeEosinophils # (Auto)2019-03-11 11:50:00* Test Item Value Reference Range Interpretation Comments Eosinophils # (Auto) (test code = 711-2) 0.0 0.0-0.4 [facility]lakeBasophils # (Auto)2019-03-11 11:50:00* Test Item Value Reference Range Interpretation Comments Basophils # (Auto) (test code = 704-7) 0.1 0.0-0.1 [facility] SouthlakeAbsolute Immature Granulocyte (auto 2019-03-11 11:50:00* Test Item Value Reference Range Interpretation Comments Absolute Immature Granulocyte (auto (gladis t code = Absolute Immature Granulocyte (auto) 0.03 0-0.1 [facility] SouthlakeCT ABDOMEN/PELVIS IJ8416-34-91 11:32:00 [facility] [address] [place] [place] [address] Patient Name: LUIAZ CHUN MR #: [id number] : 1985 Age/Sex: 33/M Req #: [id number] Adm Physician: Ordered by: MARISELA LYN MD Report #: [id number] Location: ER Room/Bed: Procedure: [id number] CT/C T ABDOMEN/PELVIS WO Exam Date: 03/11/19 [...] By: SAUNDRA on 03/11/19 1146 COPY TO: MARISELA LYN MD CHEST SINGLE (PORTABLE)2018-09-05 02:49:00 [place] [address] Patient Name: LUIZA CHUN MR #: [id number] : 1985 Age/Sex: 32/M Req #: [id number] Adm Physician: Ordered by: CARI HARRIS MD Report #: [id number] Location: ER Room/Bed: Procedure: [id number] DX/[facility] SINGLE (PORTABLE) Exam Date: Exam Time: REPORT STATUS: Signed EXAMINATION: [facility] SINGLE (PORTABLE) COMPARISON: Chest x-ray 04/07/2018 INDICATION: [...] COPY TO: CARI HARRIS MD CT BRAIN BQ8084-04-26 19:49:00 [place] [address] Patient Name: LUIZA CHUN MR #: [id number] : 1985 Age/Sex: 32/M Req #: [id number] Adm Physician: Ordered by: NATE DE LA VEGA NP Report #: [id number] Location: ER Room/Bed: Procedure: [id number] CT/CT BRAIN WO Exam Date: Exam Time: [...] TO: NATE DE LA VEGA NP Magnesium Vaddl3166-94-58 19:38:00* Test Item Value Reference Range Interpretation Comments Magnesium Level (test code = 77334-8) 1.9 1.3-2.1 [facility]lake[facility] Kifkh3728-88-14 19:38:00* Test Item Value Reference Range Interpretation Comments Magnesium Level (test code = 41085-1) 1.9 1.3-2.1 [facility]lakeCreatine Kinase [id number] 19:26:00* Test Item Value Reference Range Interpretation Comments Creatine Kinase MB (test code = 05021-3) 0.40 0-5.0 [facility]lakeTraitkin hospital [id number] 19:26:00* Test Item Value Reference Range Interpretation Comments Troponin I (test code = ALU4976) 0.007 0-0.300 [facility]lakeCreatine Kinase [id number] 19:26:00* Test Item Value Reference Range Interpretation Comments Creatine Kinase MB (test code = 36957-0) 0.40 0-5.0 [place] 35210018-09-28 19:26:00* Test Item Value Reference Range Interpretation Comments Troponin I (test code = GHC6172) 0.007 0-0.300 [facility]odium Letzm9866-27-60 19:20:00* Test Item Value Reference Range Interpretation Comments Sodium Level (test code = 2951-2) 143 136-145 [facility]lakePotassium Gbjqt1790-82-50 19:20:00* Test Item Value Reference Range Interpretation Comments Potassium Level (test code = 2823-3) 3.6 3.5-5.1 [facility]lakeChloride Ibouh7051-48-73 19:20:00* Test Item Value Reference Range Interpretation Comments Chloride Level (test code = 2075-0) 102 98-107 [facility] SouthlakeCarbon Dioxide Ypbtv2241-61-43 19:20:00* Test Item Value Reference Range Interpretation Comments Carbon Dioxide Level (test code = 2028-9) 30 22-29 H [facility] SouthlakeAnion Gbj3427-98-14 19:20:00* Test Item Value Reference Range Interpretation Comments Anion Gap (test code = 65459-9) 14.6 8-16 [facility] SouthlakeBlood Urea Melcttql2918-11-14 19:20:00* Test Item Value Reference Range Interpretation Comments Blood Urea Nitrogen (test code = 3094-0) 17 7-26 [facility] SouthlakeCreatinine2018-09-28 19:20:00* Test Item Value Reference Range Interpretation Comments Creatinine (test code = 2160-0) 3.81 0.72-1.25 H [facility]lakeBUN/Creatinine Sgnny1623-77-43 19:20:00* Test Item Value Reference Range Interpretation Comments BUN/Creatinine Ratio (test code = 3097-3) 4 6-25 L [facility] SouthlakeEstimat Glomerular Filtration Rate 2018-04-07 19:20:00* Test Item Value Reference Range Interpretation Comments Estimat Glomerular Filtration Rate (test code = 331594013) 19 >60 L Ranges were taken from the National Kidney Disease Education Program and the [facility] Kid[facility] Foundation literature.Reference ranges:60 or greater: Fnlmif65-16 ( for 3 consecutive months): Chronic kidney disease 15 or less: Kidney failureTexas [facility] Hospital SouthlakeGlucose Tpgxh1335-04-49 19:20:00* Test Item Value Reference Range Interpretation Comments Glucose Level (test code = SMM6514) 112 74-118 [facility] SouthlakeCalcium Dwtcy7063-73-04 19:20:00* Test Item Value Reference Range Interpretation Comments Calcium Level (test code = 85005-6) 9.0 8.4-10.2 [facility] SouthlakeTotal Zbiscuenq1657-81-94 19:20:00* Test Item Value Reference Range Interpretation Comments Total Bilirubin (test code = 1975-2) 0.3 0.2-1.2 [facility] SouthlakeAspartate Amino Transf (AST/SGOT) 2018-04-07 19:20:00* Test Item Value Reference Range Interpretation Comments Aspartate Amino Transf (AST/SGOT) (test code = Aspartate Amino Transf (AST/SGOT)) 21 5-34 [facility] SouthlakeAlanine Aminotransferase (ALT/SGPT) 2018-04-07 19:20:00* Test Item Value Reference Range Interpretation Comments Alanine Aminotransferase (ALT/SGPT) (test code = 1742-6) 15 0-55 [facility] SouthlakeTotal Awstmhs0736-89-90 19:20:00* Test Item Value Reference Range Interpretation Comments Total Protein (test code = 2885-2) 7.6 6.5-8.1 [facility] SouthlakeAlbumin2018-09-28 19:20:00* Test Item Value Reference Range Interpretation Comments Albumin (test code = 1751-7) 3.7 3.5-5.0 [facility] SouthlakeGlobulin2018-09-28 19:20:00* Test Item Value Reference Range Interpretation Comments Globulin (test code = 88223-7) 3.9 2.3-3.5 H [facility] SouthlakeAlbumin/Globulin Lkmoz2905-97-29 19:20:00 * Test Item Value Reference Range Interpretation Comments Albumin/Globulin Ratio (test code = 1759-0) 0.9 0.8-2.0 [facility] SouthlakeAlkaline Jrxnaubxseg1005-37-35 19:20:00* Test Item Value Reference Range Interpretation Comments Alkaline Phosphatase (test code = 6768-6) 107 40-150 [facility] SouthlakeCreatine Ldvhbw2048-25-74 19:20:00* Test Item Value Reference Range Interpretation Comments Creatine Kinase (test code = 2157-6) 57 30-200 [facility]odium Uwebg5096-10-86 19:20:00* Test Item Value Reference Range Interpretation Comments Sodium Level (test code = 2951-2) 143 136-145 [facility] SouthlakePotassium Qgkut8102-68-97 19:20:00* Test Item Value Reference Range Interpretation Comments Potassium Level (test code = 2823-3) 3.6 3.5-5.1 [facility] SouthlakeChloride Ogndx1149-08-58 19:20:00* Test Item Value Reference Range Interpretation Comments Chloride Level (test code = 2075-0) 102 98-107 [facility] SouthlakeCarbon Dioxide Aoufq3128-39-18 19:20:00* Test Item Value Reference Range Interpretation Comments Carbon Dioxide Level (test code = 2028-9) 30 22-29 H [facility] SouthlakeAnion Hxh0691-50-54 19:20:00* Test Item Value Reference Range Interpretation Comments Anion Gap (test code = 40849-2) 14.6 8-16 [facility] SouthlakeBlood Urea Fxatoctt8665-40-06 19:20:00* Test Item Value Reference Range Interpretation Comments Blood Urea Nitrogen (test code = 3094-0) 17 7-26 [facility] SouthlakeCreatinine2018-09-28 19:20:00* Test Item Value Reference Range Interpretation Comments Creatinine (test code = 2160-0) 3.81 0.72-1.25 H [facility] SouthlakeBUN/Creatinine Itghs3867-75-49 19:20:00* Test Item Value Reference Range Interpretation Comments BUN/Creatinine Ratio (test code = 3097-3) 4 6-25 L [facility] SouthlakeEstimat Glomerular Filtration Rate 2018-04-07 19:20:00* Test Item Value Reference Range Interpretation Comments Estimat Glomerular Filtration Rate (test code = 681526087) 19 >60 L Ranges were taken from the National Kidney Disease Education Program and the [facility] Kid[facility] Foundation literature.Reference ranges:60 or greater: Pmgjoq71-60 ( for 3 consecutive months): Chronic kidney disease 15 or less: Kidney failureTexas Health [facility] Hospital SouthlakeGlucose Xlobp3454-94-46 19:20:00* Test Item Value Reference Range Interpretation Comments Glucose Level (test code = SBO1905) 112 74-118 [facility] SouthlakeCalcium Oqcjz1079-25-61 19:20:00* Test Item Value Reference Range Interpretation Comments Calcium Level (test code = 43658-9) 9.0 8.4-10.2 [facility] SouthlakeTotal Nwaldolho1443-39-31 19:20:00* Test Item Value Reference Range Interpretation Comments Total Bilirubin (test code = 1975-2) 0.3 0.2-1.2 [facility] SouthlakeAspartate Amino Transf (AST/SGOT) 2018-04-07 19:20:00* Test Item Value Reference Range Interpretation Comments Aspartate Amino Transf (AST/SGOT) (test code = Aspartate Amino Transf (AST/SGOT)) 21 5-34 [facility] SouthlakeAlanine Aminotransferase (ALT/SGPT) 2018-04-07 19:20:00* Test Item Value Reference Range Interpretation Comments Alanine Aminotransferase (ALT/SGPT) (test code = 1742-6) 15 0-55 [facility] SouthlakeTotal Xdxmzto7118-25-12 19:20:00* Test Item Value Reference Range Interpretation Comments Total Protein (test code = 2885-2) 7.6 6.5-8.1 [facility] SouthlakeAlbumin2018-09-28 19:20:00* Test Item Value Reference Range Interpretation Comments Albumin (test code = 1751-7) 3.7 3.5-5.0 [facility] SouthlakeGlobulin2018-09-28 19:20:00* Test Item Value Reference Range Interpretation Comments Globulin (test code = 18935-6) 3.9 2.3-3.5 H [facility] SouthlakeAlbumin/Globulin Xjgqa0706-45-57 19:20:00 * Test Item Value Reference Range Interpretation Comments Albumin/Globulin Ratio (test code = 1759-0) 0.9 0.8-2.0 [facility] SouthlakeAlkaline Jntfgybmvxi5153-08-92 19:20:00* Test Item Value Reference Range Interpretation Comments Alkaline Phosphatase (test code = 6768-6) 107 40-150 [facility] SouthlakeCreatine Bnjofi6254-35-06 19:20:00* Test Item Value Reference Range Interpretation Comments Creatine Kinase (test code = 2157-6) 57 30-200 [facility] SouthlakeCHEST SINGLE (PORTABLE)2018-04-07 19:14:00 [facility] [address] [place] [address] Patient Name: LUIZA CHUN MR #: [id number] : 1985 Age/Sex: 32/M Req #: [id number] Adm Physician: Ordered by: KIRK MCFARALND MD Report #: [id number] Location: ER Room/Bed: Procedure: [id number] DX/CHEST SINGLE (PORTABLE) E xam Date: 04/07/18 [...] COPY TO: KIRK MCFARLAND MD White Blood Ihrvr4001-24-11 18:59:00* Test Item Value Reference Range Interpretation Comments White Blood Count (test code = 6690-2) 3.80 4.8-10.8 L [facility] SouthlakeRed Blood Mteok6687-58-01 18:59:00* Test Item Value Reference Range Interpretation Comments Red Blood Count (test code = 789-8) 2.60 4.3-5.7 L [facility] SouthlakeHemoglobin2018-09-28 18:59:00* Test Item Value Reference Range Interpretation Comments Hemoglobin (test code = 88010-8) 8.4 14.0-18.0 L [facility] SouthlakeHematocrit2018-09-28 18:59:00* Test Item Value Reference Range Interpretation Comments Hematocrit (test code = 4544-3) 26.0 38.2-49.6 L [facility] SouthlakeMean Corpuscular Rqixye4736-60-35 18:59:00* Test Item Value Reference Range Interpretation Comments Mean Corpuscular Volume (test code = 787-2) 100.0 81-99 H [facility] SouthlakeMean Corpuscular Ntuucxoauj4805-22-42 18:59:00* Test Item Value Reference Range Interpretation Comments Mean Corpuscular Hemoglobin (test code = 785-6) 32.3 28-32 H [facility] SouthlakeMean Corpuscular Hemoglobin Concent 2018-04-07 18:59:00* Test Item Value Reference Range Interpretation Comments Mean Corpuscular Hemoglobin Concent (test code = 786-4) 32.3 31-35 [facility] SouthlakeRed Cell Distribution Isgvg0244-71-58 18:59:00* Test Item Value Reference Range Interpretation Comments Red Cell Distribution Width (test code = 20593-5) 14.4 11.7 -14.4 [facility] SouthlakePlatelet Zqojr8788-40-47 18:59:00* Test Item Value Reference Range Interpretation Comments Platelet Count (test code = 777-3) 249 140-360 [facility] SouthlakeNeutrophils (%) (Auto)2018-04-07 18:59:00 * Test Item Value Reference Range Interpretation Comments Neutrophils (%) (Auto) (test code = 09273-5) 27.1 38.7-80.0 L [facility] SouthlakeLymphocytes (%) (Auto)2018-04-07 18:59:00 * Test Item Value Reference Range Interpretation Comments Lymphocytes (%) (Auto) (test code = 736-9) 58.2 18.0-39.1 H [facility] SouthlakeMonocytes (%) (Auto)2018-04-07 18:59:00* Test Item Value Reference Range Interpretation Comments Monocytes (%) (Auto) (test code = 5905-5) 10.5 4.4-11.3 [facility] SouthlakeEosinophils (%) (Auto)2018-04-07 18:59:00 * Test Item Value Reference Range Interpretation Comments Eosinophils (%) (Auto) (test code = 713-8) 2.6 0.0-6.0 [facility] SouthlakeBasophils (%) (Auto)2018-04-07 18:59:00* Test Item Value Reference Range Interpretation Comments Basophils (%) (Auto) (test code = 706-2) 1.3 0.0-1.0 H [facility] SouthlakeIM GRANULOCYTES %2018-04-07 18:59:00* Test Item Value Reference Range Interpretation Comments IM GRANULOCYTES % (test code = IM GRANULOCYTES %) 0.3 0.0- 1.0 [facility] SouthlakeNeutrophils # (Auto)2018-04-07 18:59:00* Test Item Value Reference Range Interpretation Comments Neutrophils # (Auto) (test code = 751-8) 1.0 2.1-6.9 L [facility] SouthlakeLymphocytes # (Auto)2018-04-07 18:59:00* Test Item Value Reference Range Interpretation Comments Lymphocytes # (Auto) (test code = 48946-5) 2.2 1.0-3.2 [facility] SouthlakeMonocytes # (Auto)2018-04-07 18:59:00* Test Item Value Reference Range Interpretation Comments Monocytes # (Auto) (test code = 742-7) 0.4 0.2-0.8 [facility]lakeEosinophils # (Auto)2018-04-07 18:59:00* Test Item Value Reference Range Interpretation Comments Eosinophils # (Auto) (test code = 711-2) 0.1 0.0-0.4 [facility] SouthlakeBasophils # (Auto)2018-04-07 18:59:00* Test Item Value Reference Range Interpretation Comments Basophils # (Auto) (test code = 704-7) 0.1 0.0-0.1 [facility] SouthlakeAbsolute Immature Granulocyte (auto 2018-04-07 18:59:00* Test Item Value Reference Range Interpretation Comments Absolute Immature Granulocyte (auto (gladis t code = Absolute Immature Granulocyte (auto) 0.01 0-0.1 [facility] SouthlakeWhite Blood Cxzff1783-78-47 18:59:00* Test Item Value Reference Range Interpretation Comments White Blood Count (test code = 6690-2) 3.80 4.8-10.8 L [facility] SouthlakeRed Blood Yorzi3314-01-61 18:59:00* Test Item Value Reference Range Interpretation Comments Red Blood Count (test code = 789-8) 2.60 4.3-5.7 L [facility] SouthlakeHemoglobin2018-09-28 18:59:00* Test Item Value Reference Range Interpretation Comments Hemoglobin (test code = 50894-6) 8.4 14.0-18.0 L [facility] SouthlakeHematocrit2018-09-28 18:59:00* Test Item Value Reference Range Interpretation Comments Hematocrit (test code = 4544-3) 26.0 38.2-49.6 L [facility] SouthlakeMean Corpuscular Bdrsex3019-73-65 18:59:00* Test Item Value Reference Range Interpretation Comments Mean Corpuscular Volume (test code = 787-2) 100.0 81-99 H [facility] SouthlakeMean Corpuscular Jojgpvwzhq1234-31-71 18:59:00* Test Item Value Reference Range Interpretation Comments Mean Corpuscular Hemoglobin (test code = 785-6) 32.3 28-32 H [facility] SouthlakeMean Corpuscular Hemoglobin Concent 2018-04-07 18:59:00* Test Item Value Reference Range Interpretation Comments Mean Corpuscular Hemoglobin Concent (test code = 786-4) 32.3 31-35 [facility] SouthlakeRed Cell Distribution Pdjvy2541-50-83 18:59:00* Test Item Value Reference Range Interpretation Comments Red Cell Distribution Width (test code = 80113-7) 14.4 11.7 -14.4 [facility] SouthlakePlatelet Avvhp6383-68-97 18:59:00* Test Item Value Reference Range Interpretation Comments Platelet Count (test code = 777-3) 249 140-360 [facility] SouthlakeNeutrophils (%) (Auto)2018-04-07 18:59:00 * Test Item Value Reference Range Interpretation Comments Neutrophils (%) (Auto) (test code = 89209-5) 27.1 38.7-80.0 L [facility] SouthlakeLymphocytes (%) (Auto)2018-04-07 18:59:00 * Test Item Value Reference Range Interpretation Comments Lymphocytes (%) (Auto) (test code = 736-9) 58.2 18.0-39.1 H [facility] SouthlakeMonocytes (%) (Auto)2018-04-07 18:59:00* Test Item Value Reference Range Interpretation Comments Monocytes (%) (Auto) (test code = 5905-5) 10.5 4.4-11.3 [facility] SouthlakeEosinophils (%) (Auto)2018-04-07 18:59:00 * Test Item Value Reference Range Interpretation Comments Eosinophils (%) (Auto) (test code = 713-8) 2.6 0.0-6.0 [facility] SouthlakeBasophils (%) (Auto)2018-04-07 18:59:00* Test Item Value Reference Range Interpretation Comments Basophils (%) (Auto) (test code = 706-2) 1.3 0.0-1.0 H [facility] SouthlakeIM GRANULOCYTES %2018-04-07 18:59:00* Test Item Value Reference Range Interpretation Comments IM GRANULOCYTES % (test code = IM GRANULOCYTES %) 0.3 0.0- 1.0 [facility] SouthlakeNeutrophils # (Auto)2018-04-07 18:59:00* Test Item Value Reference Range Interpretation Comments Neutrophils # (Auto) (test code = 751-8) 1.0 2.1-6.9 L [facility] SouthlakeLymphocytes # (Auto)2018-04-07 18:59:00* Test Item Value Reference Range Interpretation Comments Lymphocytes # (Auto) (test code = 97710-5) 2.2 1.0-3.2 [facility] SouthlakeMonocytes # (Auto)2018-04-07 18:59:00* Test Item Value Reference Range Interpretation Comments Monocytes # (Auto) (test code = 742-7) 0.4 0.2-0.8 [facility] SouthlakeEosinophils # (Auto)2018-04-07 18:59:00* Test Item Value Reference Range Interpretation Comments Eosinophils # (Auto) (test code = 711-2) 0.1 0.0-0.4 [facility]lakeBasophils # (Auto)2018-04-07 18:59:00* Test Item Value Reference Range Interpretation Comments Basophils # (Auto) (test code = 704-7) 0.1 0.0-0.1 [facility] SouthlakeAbsolute Immature Granulocyte (auto 2018-04-07 18:59:00* Test Item Value Reference Range Interpretation Comments Absolute Immature Granulocyte (auto (gladis t code = Absolute Immature Granulocyte (auto) 0.01 0-0.1 [facility] SouthlakeU/S, PELVIC, [id number] 18:20:00 Reason for Exam:->CKD/KIDNEY TRANSPLANT EVALUATIONFINAL REPORT [...] Shahana ified Date/Time: 11/07/2017 18:20:05 Reading Location: [address] Ultrasound Reading Room 0 6:20 PM U/S, ABDOMINAL, BWKDREMD9587-44-04 18:20:00Reason for Exam:->CKD/KIDNEY TRANSPLANT EVALUATIONFINAL REPORT HISTORY [...] Abel Verified Date/Time: 11/07/2017 18:20:05 Reading Location: [address] Ultrasound Reading Room 0 6:20 PM RAD, CHEST, 2 [id number] 11:05:00Reason for Exam:->CKD/KIDNEY TRANSPLANT EVALUATIONFINAL REPORT TECHNIQUE: 2 views of the chest. COMPARISON: None FINDINGS: The cardiac silhouette is within normal limits. Mediastinum is unremarkable. Lungs are clear. Osseous structures appear unremarkable. Soft tissues appear unremarkable. IMPRESSION: Normal chest exam. Signed: John Paul Rios Verified Date/Time: 11/07/2017 11:05:03 Reading Location: [facility] Radiology Reading Room D [id number] 08:01:00* Test Item Value Reference Range Interpretation [...] High 160-189 Very High >=190 OCCULT BLOOD, SWCFZ8265-07-70 01:02:00* Test Item Value Reference Range Interpretation Comments FECAL OCCULT BLOOD (BEAKER) (test code = 618) Negative Negative OCCULT BLOOD, XCQBE7687-11-83 01:02:00* Test Item Value Reference Range Interpretation Comments FECAL OCCULT BLOOD (BEAKER) (test code = 618) Negative Negative URINE YVVPCDM0976-03-46 10:07:00* Test Item Value Reference Range Interpretation Comments CULTURE (BEAKER) (test code = 1095) 10-19,000 col/mL skin chanelle VARICELLA ZOSTER ANTIBODY, [id number] 13:40:00* Test Item Value Reference Range Interpretation Comments VARICELLA ZOSTER IGG (AL) (BEAKER) (test code = 3197) 2.5 Al VARICELLA ZOSTER RESULT INTERPRETATIONS: <=0.8 Al Nonreactive: Presumed non-immune to VZV 0.9-1.0 Al Equivocal >=1.1 Al Reactive: Presumed immune to VZVCYTOMEGALOVIRUS ANTIBODY, GFY9690-09-43 13:37:00* Test Item Value Reference Range Interpretation Comments CYTOMEGALOVIRUS IGG ANTIBODY (BEAKER) (test code = 790) Positive CYTOMEGALOVIRUS ANTIBODY, [id number] 13:37:00* Test Item Value Reference Range Interpretation Comments CYTOMEGALOVIRUS IGM ANTIBODY (BEAKER) (test code = 816) Negative EBV-VCA ANTIBODY, [id number] 13:37:00* Test Item Value Reference Range Interpretation Comments NEFTALY-HATCH VCA IGG (BEAKER) (test code = 983) Positive EBV-VCA ANTIBODY, [id number] 13:37:00* Test Item Value Reference Range Interpretation Comments NEFTALY-HATCH VCA IGM (BEAKER) (test code = 984) Negative [id number] 23:19:00* Test Item Value Reference Range Interpretation Comments RPR SCREEN (BEAKER) (test code = 420) Nonreactive Nonreactive HEPATITIS B SURFACE KGFBTMBX9673-69-10 15:15:00* Test Item Value Reference Range Interpretation Comments HEPATITIS B SURFACE ANTIBODY (BEAKER) (test code = 647) 9.7 mIU/mL <8.0 H HEPATITIS B SURFACE YUVXSZX5563-50-57 15:13:00* Test Item Value Reference Range Interpretation Comments HEPATITIS B SURFACE ANTIGEN (2) (BEAKER) (test code = 2585) Nonreactive Nonreactive HEPATITIS B CORE ANTIBODY, [id number] 15:13:00* Test Item Value Reference Range Interpretation Comments HEPATITIS B CORE IGM ANTIBODY (BEAKER) (test code = 645) Non reactive Nonreactive HEPATITIS C NWZBGGBQ3387-76-75 15:13:00* Test Item Value Reference Range Interpretation Comments HEPATITIS C ANTIBODY (BEAKER) (test code = 367) Nonreactive Nonrea ctive HIV-1 ANTIGEN WITH HIV-1/2 [id number] 15:13:00* Test Item Value Reference Range Interpretation Comments HIV-1 ANTIGEN WITH HIV 1\T\2 ANTIBODY (2) (BEAKER) (te st code = 2586) Nonreactive Nonreactive HEMOGLOBIN [id number] 13:30:00* Test Item Value Reference Range Interpretation Comments HEMOGLOBIN A1C (BEAKER) (test code = 368) 5.2 % 4.3-6.1 URINALYSIS W/ VJJLJJMVAFZ2635-06-82 12:03:00* Test Item Value Reference Range Interpretation [...] = 2795) CBC W/PLT COUNT & AUTO QXBGUTPQTIEY4113-01-26 12:02:00* Test Item Value Reference Range Interpretation [...] = 2801) 0 % 0-1 COMPREHENSIVE METABOLIC [id number] 11:44:00* Test Item Value Reference Range Interpretation [...] IS NOT APPLICABLE FOR DIALYSIS PATIENTS. URIC [id number] 11:42:00* Test Item Value Reference Range Interpretation Comments URIC ACID (BEAKER) (test code = 773) 12.7 mg/dL 2.6-7.2 H BLFSPZACAQ3438-16-42 11:42:00* Test Item Value Reference Range Interpretation [...] = 635) 138 U/L 125-2 20 PTH, [id number] 11:37:00* Test Item Value Reference Range Interpretation Comments PARATHYROID HORMONE INTACT (BEAKER) (test code = 577) 265.3 pg/mL 8.5-72.5 H PT/[id number] 11:11:00* Test Item Value Reference Range Interpretation [...]
--- NOTE | 2020-03-11 08:40 | Emergency Department Note ---
History of Present Illnes History of Present Illness Chief Complaint: COVID PUI History of Present Illness This is a 34 year old male COUGHING WITH WHITE PHLEGM X 6 DAYS SLIGHTLY BLOOD-TINGED SINCE LAST NIGHT. NO FEVER. PT HERE 03/04/20 WITH SAME, PULMONARY/CARDIAC WORK UP DONE. PT WAS SENT HOME THAT DAY. PT HAS DOWN SYNDROME AND HEART MURMUR AND IS A DIALYSIS PT. PT IS TUES/THURS/SAT. LAST DIALYSIS WAS TUESDAY. PT WENT TO DIALYSIS TODAY AND WAS TOLD TO COME TO ER. PT DID NOT RECEIVE DIALYSIS YET TODAY. PT AWAKE, ALERT. DENIES SOB. PT VERY PLEASANT AND COOPERATIVE. Historian: Patient, Family Member Arrival Mode: Car [employer] Basic Required: No Onset (how long ago): day(s) (6) Location: LUNGS Quality: COUGH Radiation: Reports non-radiation Severity: mild Onset quality: gradual Timing of current episode: intermittent Progression: unchanged Chronicity: new Context: Denies recent illness Relieving factors: none Exacerbating factors: none Associated symptoms: Reports denies other symptoms Treatments prior to arrival: none Past Medical/Family History Physician Review I have reviewed the patient's past medical and family history. Any updates have been documented here. Past Medical History Recent Fever: No Clinical Suspicion of Infectio: No New/Unexplained Change in Ment: No Past Medical History: ESRD, Hemodyalisis Other Medical History: down syndrome H/O ENTEROCOCCUS ENDOCARDITIS OF AORTIC VALVE 2019 GOUT HEART MURMUR Other Surgery: right tunneled dialysis catheter, REMOVED FISTULA RIGHT UPPER ARM Social History Smoking Cessation: Never Smoker Counseling Performed: No Alcohol Use: None Any Illegal Drug Use: No TB Exposure/Symptoms: No Physically hurt or threatened: No Family History Family history of heart diseas: No Other Last Tetanus: UNKNOWN Any Pre-Existing Lines (PICC,: No Review of Systems Review of Systems Constitutional: Reports no symptoms; Denies chills, Denies fever EENTM: Reports no symptoms Cardiovascular: Reports no symptoms Respiratory: Reports as per HPI, Reports cough, Reports hemoptysis (SLIGHTLY BLOOD-TINGED (MOTHER SHOWED ME A PICTURE ON HER PHONE)); Denies dyspnea, Denies dyspnea on exertion Gastrointestinal: Reports no symptoms Genitourinary: Reports no symptoms Musculoskeletal: Reports no symptoms Integumentary: Reports no symptoms Neurological: Reports no symptoms Psychological: Reports no symptoms Endocrine: Reports no symptoms Hematological/Lymphatic: Reports no symptoms Physical Exam Related Data Allergies: Coded Allergies: No Known Allergies (Unverified , 04/07/18) Triage Vital Signs Vital Signs Date Time Temp Pulse Resp B/P (MAP) Pulse Ox O2 Delivery O2 Flow Rate FiO2 03/11/20 08:01 97.7 105 16 147/64 99 Room Air Vital signs reviewed: Yes Physical Exam CONSTITUTIONAL Constitutional: Present well-developed, Present well-nourished HENT HENT: Present normocephalic, Present atraumatic, Present oropharynx clear/moist, Present oropharynx normal, Present nose normal; Absent nasal discharge, Absent nasal congestion, Absent rhinorrhea, Absent oropharyngeal exudate, Absent tonsillar excudate HENT L/R: Present left ext ear normal, Present right ext ear normal EYES Eyes: Reports PERRL, Reports conjunctivae normal NECK Neck: Present ROM normal PULMONARY Pulmonary: Present effort normal, Present breath sounds normal; Absent respiratory distress CARDIOVASCULAR Cardiovascular: Present regular rhythm, Present heart sounds normal, Present capillary refill normal, Present normal rate, Present murmur (2/6 SYSTOLIC) GASTROINTESTINAL Abdominal: Present soft, Present nontender, Present bowel sounds normal GENITOURINARY Genitourinary: Present exam deferred SKIN Skin: Present warm, Present dry MUSCULOSKELETAL Musculoskeletal: Present ROM normal, Present other (RIGHT UPPER ARM FISTULA WITH GOOD THRILL) NEUROLOGICAL Neurological: Present alert, Present oriented x 3, Present no gross motor or sensory deficits, Present other (POSITIVE HORIZONTAL NYSTAGMUS (MOM SAYS IT IS CHRONIC SINCE )) PSYCHOLOGICAL Psychological: Present mood/affect normal, Present judgement normal Results Laboratory Laboratory Laboratory Tests Test 03/11/20 08:00 Lab results reviewed: Yes Imaging Imaging results reviewed: Yes Impressions Procedure: [id number] DX/CHEST SINGLE (PORTABLE) Exam Date: 03/11/20 Exam Time: 0840 REPORT STATUS: Signed TECHNIQUE: Frontal view of the chest. INDICATION: ^Y ^COUGH ^[id number] ^0840 COMPARISON: 03/04/2020 DISCUSSION: Limited evaluation due to portable technique. Lines and hardware: None Heart and mediastinum: Cardiomediastinal silhouette is enlarged. There is new central vascular congestion. Trachea projects midline. Lungs and pleura: There are new hazy bilateral perihilar opacities. Patchy opacities are also noted at the right lung base. Negative for large effusion or pneumothorax. Soft tissues and bones: No acute abnormality. IMPRESSION: Stable cardiomegaly with new central vascular congestion and perihilar interstitial airspace opacities are concerning for fluid overload/edema. Patchy opacities at the right lung base could relate to additional endings of edema however developing consolidation is difficult to exclude at this location. Signed by: Maykel Lassiter MD on 03/11/2020 8:55 AM Assessment & Plan Medical Decision Making MDM COUGH X 6 DAYS IN PATIENT WITH DOWN'S SYNDROME AND ESRD ON HD, SENT FROM HD CENTER DUE TO MOM CONCERNED THAT HE NOW HAS BLOOD-TINGED SPUTUM - HE LOOKS WELL, IN NO DISTRESS, NO COUGHING AT ALL DURING HX & PHYSICAL EXAM , O2 SAT 99% ON RA - WILL GET CXR AND COVID SWAB (ALTHOUGH HE HAS NO F/C OR OTHER SX'S OF COVID, PT IS ESRD ON HD AND THEY LIKELY WANT NEGATIVE TEST PRIOR TO CONTINUING HD) - R/O PNEUMONIA BUT MORE LIKELY HAS BRONCHITIS, R/O COVID19 CHART REVIEW - PT HERE 5 DAYS AGO, LABS ESSENTIALLY NORMAL - ANEMIC (ESRD) BUT NORMAL WBC. Reassessment Reassessment covid negative, DC with Vernell F/U PCP and needs HD today - Jeannine NARVAEZ called HD center and they will get him in at 12:45 Assessment & Plan Final Impression: (1) Bronchitis (2) ESRD (end stage renal disease) Depart Disposition: HOME, SELF-CARE Last Vital Signs Date Time Temp Pulse Resp B/P (MAP) Pulse Ox O2 Delivery O2 Flow Rate FiO2 03/11/20 08:01 97.7 105 16 147/64 99 Room Air Home Meds Reported Medications Calcium Acetate (CALCIUM ACETATE) 667 Mg Capsule, 667 MG PO TIDWM 04/27/19 Cholecalciferol (Vitamin D3) (VITAMIN D3) 5,000 Unit Tablet, 5000 UNITS PO DAILY 04/23/19 Levothyroxine Sodium (LEVOTHYROXINE SODIUM) 50 Mcg Tablet, 25 MCG PO DAILY, #30 TAB 04/23/19 [Linzess] No Conflict Check, 145 MCG PO DAILY 04/23/19 Allopurinol (ALLOPURINOL) 300 Mg Tablet, 300 MG PO DAILY, #30 TAB 04/23/19 Multivits,Ca,Minerals/Iron/Fa (THERA-M TABLET) 1 Each Tablet, 1 TAB PO DAILY 04/23/19 Metoclopramide Hcl (METOCLOPRAMIDE HCL) 10 Mg Tablet, 10 MG PO BID PRN for NAUSEA, TAB 04/23/19 Montelukast Sodium (MONTELUKAST SODIUM) 10 Mg Tablet, 10 MG PO DAILY, #30 TAB 04/23/19 Omeprazole (OMEPRAZOLE) 40 Mg Capsule.dr, 1 CAP PO DAILY 04/23/19 CARI HARRIS MD Mar 11, 2020 08:40
--- NOTE | 2020-03-11 08:59 | Diagnostic Imaging Report ---
TECHNIQUE: Frontal view of the chest. INDICATION: ^Y ^COUGH ^[id number] ^0840 COMPARISON: 03/04/2020 DISCUSSION: Limited evaluation due to portable technique. Lines and hardware: None Heart and mediastinum: Cardiomediastinal silhouette is enlarged. There is new central vascular congestion. Trachea projects midline. Lungs and pleura: There are new hazy bilateral perihilar opacities. Patchy opacities are also noted at the right lung base. Negative for large effusion or pneumothorax. Soft tissues and bones: No acute abnormality. IMPRESSION: Stable cardiomegaly with new central vascular congestion and perihilar interstitial airspace opacities are concerning for fluid overload/edema. Patchy opacities at the right lung base could relate to additional endings of edema however developing consolidation is difficult to exclude at this location. Signed by: Maykel Lassiter MD on 03/11/2020 8:55 AM
--- NOTE | 2020-03-11 09:15 | NUR ---
negative COVID swab results reported to Dr. Lea
--- NOTE | 2020-03-11 09:37 | NUR ---
called and spoke with Elvin at [facility] at [phone] at [facility] who states for pt to be there at 12:45 for chair time today. information translated and in occitan to pt and mother. copy of covid negative testing given at discharge as well.
--- NOTE | 2020-03-11 09:39 | NUR ---
both stated verbal understanding
== END 2020-03-11 09:52 | disposition home or self-care (01) ==
LOC: ER 08:01
DX: J40 Bronchitis, not specified as acute or chronic (principal); R05 Cough; N18.6 End stage renal disease; Z99.2 Dependence on renal dialysis; Q90.9 Down syndrome, unspecified; M10.9 Gout, unspecified; R01.1 Cardiac murmur, unspecified
CPT/HCPCS: 71045; 99283; U0002

== ENCOUNTER 2020-03-17 20:07 | Inpatient (IN) | payer OTHER ==
[~2020-03-17] VITALS: Ht 149.9 cm; Wt 52.6 kg
--- NOTE | 2020-03-17 20:24 | Emergency Department Note ---
History of Present Illnes History of Present Illness Chief Complaint: Chest Pain History of Present Illness This is a 34 year old male with esrd on dialysis tue, , sat with c/o chest pain that started about one hour ago and woke him up. Chest pain is reproducable. Patient c.o nasuea as well.. Historian: Patient Arrival Mode: Car Onset (how long ago): hour(s) (1) Location: right chest Quality: pain Radiation: Reports non-radiation Severity: moderate Onset quality: sudden Duration (how long): hour(s) (1) Timing of current episode: constant Progression: unchanged Chronicity: new Context: Denies recent illness, Denies recent surgery, Denies trauma/injury Relieving factors: none Exacerbating factors: movement Associated symptoms: Reports denies other symptoms Treatments prior to arrival: none Past Medical/Family History Physician Review I have reviewed the patient's past medical and family history. Any updates have been documented here. Past Medical History Recent Fever: No Clinical Suspicion of Infectio: No New/Unexplained Change in Ment: No Past Medical History: ESRD, Hemodyalisis Other Medical History: down syndromeH/O ENTEROCOCCUS ENDOCARDITIS OF AORTIC VALVE 2019GOUTHEART MURMUR Other Surgery: right tunneled dialysis catheter, REMOVED FISTULA RIGHT UPPER ARM Social History Smoking Cessation: Never Smoker Alcohol Use: None Any Illegal Drug Use: No Family History Family history of heart diseas: No Other Last Tetanus: UNKNOWN Review of Systems Review of Systems Constitutional: Reports no symptoms EENTM: Reports no symptoms Cardiovascular: Reports as per HPI Respiratory: Reports no symptoms Gastrointestinal: Reports no symptoms Genitourinary: Reports no symptoms Musculoskeletal: Reports no symptoms Integumentary: Reports no symptoms Neurological: Reports no symptoms Psychological: Reports no symptoms Endocrine: Reports no symptoms Hematological/Lymphatic: Reports no symptoms Physical Exam Related Data Allergies: Coded Allergies: No Known Allergies (Unverified , 04/07/18) Triage Vital Signs Vital Signs Date Time Temp Pulse Resp B/P (MAP) Pulse Ox O2 Delivery O2 Flow Rate FiO2 03/17/20 20:10 98.5 56 20 121/53 97 Room Air Vital signs reviewed: Yes Physical Exam CONSTITUTIONAL Constitutional: Present well-developed, Present well-nourished; Absent distressed HENT HENT: Present normocephalic, Present atraumatic, Present oropharynx clear/moist, Present nose normal HENT L/R: Present left ext ear normal, Present right ext ear normal EYES Eyes: Reports PERRL, Reports conjunctivae normal NECK Neck: Present ROM normal PULMONARY Pulmonary: Present effort normal, Present rales (BASES BILATERAL), Present chest tenderness (to right anterior chest wall, pain is reproducible) CARDIOVASCULAR Cardiovascular: Present regular rhythm, Present heart sounds normal, Present capillary refill normal, Present normal rate GASTROINTESTINAL Abdominal: Present soft, Present nontender, Present bowel sounds normal GENITOURINARY Genitourinary: Present exam deferred SKIN Skin: Present warm, Present dry MUSCULOSKELETAL Musculoskeletal: Present ROM normal NEUROLOGICAL Neurological: Present alert, Present no gross motor or sensory deficits, Present other (at baseline) PSYCHOLOGICAL Psychological: Present mood/affect normal, Present judgement normal Results Laboratory Laboratory Laboratory Tests Test 03/17/20 10:19 White Blood Count 4.54 x10e3/uL (4.8-10.8) Red Blood Count 2.81 x10e6/uL (4.3-5.7) Hemoglobin 9.0 g/dL (14.0-18.0) Hematocrit 28.4 % (38.2-49.6) Mean Corpuscular Volume 101.1 fL (81-99) Mean Corpuscular Hemoglobin 32.0 pg (28-32) Mean Corpuscular Hemoglobin Concent 31.7 g/dL (31-35) Red Cell Distribution Width 18.6 % (11.7-14.4) Platelet Count 195 x10e3/uL (140-360) Neutrophils (%) (Auto) 48.3 % (38.7-80.0) Lymphocytes (%) (Auto) 42.1 % (18.0-39.1) Monocytes (%) (Auto) 6.8 % (4.4-11.3) Eosinophils (%) (Auto) 1.3 % (0.0-6.0) Basophils (%) (Auto) 1.3 % (0.0-1.0) Neutrophils # (Auto) 2.2 (2.1-6.9) Lymphocytes # (Auto) 1.9 (1.0-3.2) Monocytes # (Auto) 0.3 (0.2-0.8) Eosinophils # (Auto) 0.1 (0.0-0.4) Basophils # (Auto) 0.1 (0.0-0.1) Absolute Immature Granulocyte (auto 0.01 x10e3/uL (0-0.1) Sodium Level 141 mmol/L (136-145) Potassium Level 4.0 mmol/L (3.5-5.1) Chloride Level 98 mmol/L (98-107) Carbon Dioxide Level 24 mmol/L (22-29) Anion Gap 23.0 mmol/L (8-16) Blood Urea Nitrogen 83 mg/dL (7-26) Creatinine 10.65 mg/dL (0.72-1.25) Estimat Glomerular Filtration Rate 6 ML/MIN (60-) BUN/Creatinine Ratio 8 (6-25) Glucose Level 99 mg/dL (74-118) Calcium Level 8.1 mg/dL (8.4-10.2) Total Bilirubin 0.4 mg/dL (0.2-1.2) Aspartate Amino Transf (AST/SGOT) 14 IU/L (5-34) Alanine Aminotransferase (ALT/SGPT) 11 IU/L (0-55) Alkaline Phosphatase 130 IU/L (40-150) Creatine Kinase 51 IU/L (30-200) Creatine Kinase MB 0.90 ng/mL (0-5.0) Troponin I 0.075 ng/mL (0-0.300) Total Protein 6.8 g/dL (6.5-8.1) Albumin 3.8 g/dL (3.5-5.0) Globulin 3.0 g/dL (2.3-3.5) Albumin/Globulin Ratio 1.3 (0.8-2.0) Lab results reviewed: Yes Imaging Imaging results reviewed: Yes Impressions Procedure: [id number] DX/CHEST SINGLE (PORTABLE) Exam Date: 03/17/20 Exam Time: 2040 REPORT STATUS: Signed EXAMINATION: CHEST SINGLE (PORTABLE) INDICATION: Chest pain COMPARISON: Chest x-ray 03/11/2020 FINDINGS: TUBES and LINES: None. LUNGS: Hyperexpanded lungs. Haziness in the bilateral mid to lower lung august. Pulmonary vascular congestion. PLEURA: No pleural effusion or pneumothorax. HEART AND MEDIASTINUM: Cardiac size is moderately enlarged. BONES AND SOFT TISSUES: No acute osseous lesion. Surgical clips about the right elbow. UPPER ABDOMEN: No free air under the diaphragm. IMPRESSION: Moderate cardiomegaly and probable pulmonary edema. Superimposed pneumonia is possible. Signed by: Anthony Bettencourt DO on 03/17/2020 9:40 PM Dictated By: ANTHONY BETTENCOURT DO 39 Transcribed By: SAUNDRA on 03/17/202139 COPY TO: KOBE JARAMILLO MD~ Procedures 12 Lead ECG Interpretation ECG Interpretation : ECG: ECG 1 [place]: Interpreted by ED physician Date: Mar 17, 2020 Time: 20:11 Rhythm: sinus tachycardia Ectopy: PVC's Rate: normal BPM: 104 T waves normal: Yes Q waves: V1, V2 Clinical Impression: abnormal ECG Assessment & Plan Medical Decision Making MDM pt with reproducible chest pain to right side of chest cbc, cmp, ekg, cardiac enzymes, cxr ordered to eval for myocardial infarction, pneumonia, pneumothorax, electrolyte abnormality PT WITH PULMONARY EDEMA AND VOLUME OVERLOAD I SPOKE WITH DR CRUZ AND VICKY COVERING FOR DR RUTH CALL DIALYSIS NURSE FOR EMERGENT DIALYSIS Reassessment Reassessment time: 22:10 Reassessment PT OXYGEN SATURATION 94 % ON 3 LPM VIA NC RR 28 Assessment & Plan Final Impression: (1) Chest wall pain (2) ESRD (end stage renal disease) (3) Pulmonary edema Depart Disposition: ADMITTED Last Vital Signs Date Time Temp Pulse Resp B/P (MAP) Pulse Ox O2 Delivery O2 Flow Rate FiO2 03/17/20 20:10 98.5 56 20 121/53 97 Room Air Home Meds Reported Medications Calcium Acetate (CALCIUM ACETATE) 667 Mg Capsule, 667 MG PO TIDWM 04/27/19 Cholecalciferol (Vitamin D3) (VITAMIN D3) 5,000 Unit Tablet, 5000 UNITS PO DAILY 04/23/19 Levothyroxine Sodium (LEVOTHYROXINE SODIUM) 50 Mcg Tablet, 25 MCG PO DAILY, #30 TAB 04/23/19 [Linzess] No Conflict Check, 145 MCG PO DAILY 04/23/19 Allopurinol (ALLOPURINOL) 300 Mg Tablet, 300 MG PO DAILY, #30 TAB 04/23/19 Multivits,Ca,Minerals/Iron/Fa (THERA-M TABLET) 1 Each Tablet, 1 TAB PO DAILY 04/23/19 Metoclopramide Hcl (METOCLOPRAMIDE HCL) 10 Mg Tablet, 10 MG PO BID PRN for NAUSEA, TAB 04/23/19 Montelukast Sodium (MONTELUKAST SODIUM) 10 Mg Tablet, 10 MG PO DAILY, #30 TAB 04/23/19 Omeprazole (OMEPRAZOLE) 40 Mg Capsule., 1 CAP PO DAILY 04/23/19 KOBE JARAMILLO MD Mar 17, 2020 20:23
[2020-03-17 20:35] LABS: BASOPHILS # (AUTO) 0.1 (0.0-0.1); BASOPHILS % 1.3 % (0.0-1.0); EOSINOPHILS # (AUTO) 0.1 (0.0-0.4); EOSINOPHILS % 1.3 % (0.0-6.0); HEMATOCRIT 28.4 % (38.2-49.6); LYMPHOCYTES # (AUTO) 1.9 (1.0-3.2); LYMPHOCYTES % 42.1 % (18.0-39.1); MEAN CORPUSCULAR HGB CONC 31.7 g/dL (31-35); MEAN CORPUSCULAR VOLUME 101.1 fL (81-99); MONOCYTES # (AUTO) 0.3 (0.2-0.8); MONOCYTES % 6.8 % (4.4-11.3); NEUTROPHILS # (AUTO) 2.2 (2.1-6.9); NEUTROPHILS % 48.3 % (38.7-80.0); PLATELET COUNT 195 x10e3/uL (140-360); RED BLOOD COUNT 2.81 x10e6/uL (4.3-5.7); RED CELL DISTRIBUTION WIDTH 18.6 % (11.7-14.4)
[2020-03-17 20:51] LABS: ALBUMIN 3.8 g/dL (3.5-5.0); ALBUMIN/GLOBULIN RATIO 1.3 (0.8-2.0); CALCIUM 8.1 mg/dL (8.4-10.2); CREATININE, SERUM 10.65 mg/dL (0.72-1.25)
[2020-03-17 20:57] LABS: CREATINE KINASE MB 0.9 ng/mL (0-5.0)
--- NOTE | 2020-03-17 21:44 | Diagnostic Imaging Report ---
EXAMINATION: CHEST SINGLE (PORTABLE) INDICATION: Chest pain COMPARISON: Chest x-ray 03/11/2020 FINDINGS: TUBES and LINES: None. LUNGS: Hyperexpanded lungs. Haziness in the bilateral mid to lower lung august. Pulmonary vascular congestion. PLEURA: No pleural effusion or pneumothorax. HEART AND MEDIASTINUM: Cardiac size is moderately enlarged. BONES AND SOFT TISSUES: No acute osseous lesion. Surgical clips about the right elbow. UPPER ABDOMEN: No free air under the diaphragm. IMPRESSION: Moderate cardiomegaly and probable pulmonary edema. Superimposed pneumonia is possible. Signed by: Anthony Bettencourt DO on 03/17/2020 9:40 PM
[2020-03-17] MEDS ORDERED: FUROSEMIDE INJ 10 MG/ML 4 ML VIAL IV ONE (22:15)
--- NOTE | 2020-03-17 22:20 | NUR ---
[facility] called for STAT dialysis at this time.
--- OUTSIDE RECORDS SUMMARY | 2020-03-17 22:20 | XMS REPORT | Clinical Summary ---
Author Author [facility] Address Unknown Phone Unavailable Care Team Providers Care Window Caser Name Role Phone Kumar Echevarria MD PCP Allergies No Known Allergies Medications End Date Status Medication Sig Dispensed Refills Start Date Active allopurinol (ZYLOPRIM) DIANA CEELSTINE 1 01 300 MG tablet TABLETA 8 [...] INFLUENZA VACCINE 04/10/2020 Results Not on fileafter 03/17/2019 Insurance Type Payer Benefit Subscriber ID Effective Phone Address Plan / Dates Group [facility] MEDICAID [facility] xxxxxxxxx [id number] COMM STAR+ resent ALEXA Advance Directives For more information, please contact: [phone] Patient Lead Java J2Ee Developer Explanation Type Date Recorded Letter of Guardianship Advance Directives, 10/03/2018 10:58 AM Living Will and Medical Power of [employer]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
--- OUTSIDE RECORDS SUMMARY | 2020-03-17 22:20 | XMS REPORT | Clinical Summary ---
Author Author [facility] Address Unknown Phone Unavailable Care Team Providers Care Pre Fabricator Name Role Phone Locke--Kumar Escoto PCP Allergies [...] rajni Dx) 07/24/2019 Orders Only Transplant after 03/17/2019 Social History Date Tobacco Use Types Packs/Day [...] PANEL 11/07/2020 11/07/2017 Results Not on fileafter 03/17/2019 Insurance Payer Benefit Subscriber ID Type Phone Address Plan / Group OPTUM NON UNITED - OPTUM xxxxxxxxx MEDICAID [place] CARE NON-UNITED STAR MEDICAID - MEDICAID [place] ALEXA [facility] xxxxxxxxx Medica id CARE COMM STAR Contracted PLAN [address] [facility] [place] [phone]
--- OUTSIDE RECORDS SUMMARY | 2020-03-17 22:21 | XMS REPORT | Continuity of Care Document ---
Author Author [facility] t Organization [facility] Address 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 Name Role Phone UMANG SINGH, MD Davina MITCHELL PCP Mary JARAMILLO Attphys Unavailable Davina LEA Attphys Unavailable Real Mckee Attphys Unavailable Elvira SINGH, Tino Carroll Attphys [phone] Sally Turner Attphys Unavailable Maryan NARVAEZ, Love Attphys Unavailable Emiliana Hurst Attphys Unavailable Jo Ann Muñoz Attphys [phone] Nathanael Lin Attphys Davina AHUMADA Attphys Unavailable Zahira LYN Attphys Unavailable Bernie MCFARLAND Attphys Unavailable Milad MUNROE Attphys Unavailable Nathanael Lin Admphys Davina AHUMADA Admphys Unavailable Payers Payer Name Policy Type Policy Number Effective Date Expiration Date S [facility] [id number] 2019 00:00 :00 [facility] OPTUM NON GRIFFITH - MEDICAID MGD CAREOPTUM NON-GRIFFITH STARxxxxxxx xx xxxxxxxxx [facility] - MEDICAID MGD CARED COMM STAR PLANxxxxxxxxxMe dicaid Contracted xxxxxxxxx [facility] Problems Condition Name Condition Details Condition Category Status Onset Date Resolution Date Last Treatment Date Treating Clinician Comments Source Aortic insufficiency Aortic insufficiency Disease Active 00:00:00 [facility] HEADACHE / ARM PAIN HEAD ACHE / ARM PAIN Active 08/18/2019 [facility] Diagnosis Active 2019-08-18 08:00:00 2020-02-22 16:28:00 [facility] AVF TRANSPOSITION, RIGHT UPPER EXTREMITY AVF TRANSPOSITION, RIGHT UPPER EXTREMITY Active 07/31/2019 [facility] Diagnosis Active 2019-07-31 00:00:00 2019-09-16 15:12:00 [facility] PORT COMPLICATIONS PORT COMPLICATIONS Active 05/18/2019 [facility] Diagnosis Active 2019-05-18 00:00:00 2019-05-18 21:44:00 [facility] 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 Urinary tract infection UTI (urinary tract infection) Problem Active [facility] Cough Problem Active [facility] Bronchitis Problem Active [facility] ESRD (end stage renal disease) ESRD (end stage renal disease) Disease Active [facility] Down syndrome Down syndrome Disease Active [facility] [place] History of acute bacterial endocarditis History of acute beth terial endocarditis Disease Active [facility] Chest pain, unspecified Ches t pain, unspecified 08/18/2019 08/20/2019 [facility] Problem 2019-08-18 18:00:00 2019 22:44:50 2019-08-20 22:44:50 [facility] Pain in arm, unspecified Pain in arm, unspecified 08/18/2019 08/20/2019 [facility] Problem 2019-08-18 18:00:00 2019 22:44:50 2019-08-20 22:44:50 [facility] Allergies, Adverse Reactions, Alerts Allergy Name Allergy Type Status Severity Reaction(s) Onset Date Inacti ve Date Treating Clinician Comments Source phenylpropanolamine DA Active [place] 2018-03-09 00:00:00 [facility] brompheniramine DA Active [place] 2018-03-09 00:00:00 [facility] Family History Family Member Diagnosis Comments Start Date Stop Date Source Natural father Hypertension [facility] Natural mother Diabetes [facility]ist Natural mother Hypertension [facility] Natural mother Thyroid disease [place] [facility] Social History Social Habit Start Date Stop Date Quantity Comments Source History SDOH Alcohol Std Drinks [facility] History SDOH Alcohol Binge [facility] Sex Assigned [facility] [place] Alcohol intake 2018-10-04 00:00:00 2018-10-04 00:00:00 Current non-drinker of alcohol (finding) [facility] History SDOH Alcohol Frequency 2018-07-13 00:00:00 2018-07-13 00:00:0 0 1 [facility] Smoking Status Start Date Stop Date Source Social History [facility] Medications Ordered Medication Name Filled Medication Name Start Date Stop Da te Current Medication? Ordering Clinician Indication Dosage Frequency Signature (SIG) Comments Components Source omeprazole (PRILOSEC) 40 MG capsule 2020-01-03 12:48:14 Yes 40mg QD Take 40 mg by mouth daily. [facility] ibuprofen (ADVIL,MOTRIN) 400 MG tablet 2019-12-11 12:47:42 2020-01-03 00:00:00 No 800mg Take 800 mg by mouth every 6 (si x) hours as needed for Pain . [facility] [place] cholecalciferol, vitamin D3, 5,000 unit Tab 2019-11-22 12:22:19 Yes 1000U QD Take 1,000 Units by mouth daily . [facility] [place] levothyroxine (SYNTHROID, LEVOTHROID) 25 MCG tablet 11-21 12:22:19 Yes 25ug Take 25 mcg by mouth Every morning on an empty stomach. [facility] [place] multivit,tx with iron,minerals (THERA-M ORAL) 2019-11-22 12:22:1 8 Yes QD Take by mouth daily. [facility] allopurinoL (ZYLOPRIM) 300 MG tablet 2019-11-22 12:22:18 Ye jason 300mg QD Take 300 mg by mouth daily. [facility] [place] Tylenol 2019-08-18 17:55:00 No 650 mg, Route: PO, Drug form: TAB, ONCE, Dosing Weight 50.909, kg, Priority: STAT, Start date: 08/18/19 11:55:00 EXTENSION ASSOCIATE, Stop date: 08/18/19 11:55:00 EXTENSION ASSOCIATE [facility] Saline Flush 0.9% 2019-08-18 15:32:00 No Notes: (Same as: BD Posiflush) [facility] Allopurinol 2019-05-20 15:00:00 No Notes: ( Same as: Zyloprim) [facility] Vitamin D3 2019-05-20 15:00:00 No Notes: (S jimena as: Vitamin D3) [facility] Linzess 145 mcg oral capsule 2019-05-20 15:00:00 No Linzess 145 mcg oral capsule, 145 microgram, Route: PO, Daily, 05/20/19 9:00:00 EXTENSION ASSOCIATE, Duration: 30 day, Stop date: 06/18/19 9:00:00 EXTENSION ASSOCIATE [facility] Centrum Silver oral tablet 2019-05-20 15:00:00 No Centrum Silver oral tablet, 1 tab, Route: PO, Daily, 05/20/19 9:00:00 EXTENSION ASSOCIATE, Duration: 30 day, Stop date: 06/18/19 9:00:00 EXTENSION ASSOCIATE [facility] multivitamin with minerals 2019-05-20 15:00:00 No Notes: (Same as:Thera-M, Theragran-M) WASTE: F/P - Black; E - Municipal Trash Bin Give with food. [facility] Levothroid 2019-05-20 12:30:00 No Notes: (S jimena as:Levothroid) [facility] heparin 2019-05-20 06:00:00 No Notes: porci ne heparin [facility] montelukast 2019-05-20 03:00:00 No Notes: ( Same as:Singulair) [facility] Vancomycin 2019-05-19 23:00:00 No 2001 mg: infuse over 2.5 hours For adult patients only: Round to nearest 250 mg per Medical Staff approval MEDICATION WASTE Product Size: 1000 mg Product Wasted: ___ mg [facility] [place] Gentamicin 2019-05-19 20:37:00 No Notes: TIME CRITICAL MEDICATION (Same as Garamycin) For adult patients only: Round to nearest 10 mg per Medical Staff approval [facility] Nurse please bring home med LINJANEYS to Pharmacy for label 2019-05-19 20:30:00 No Nurse please b ring home med LINZESS to Pharmacy for label, 1, Drug form: MISC, Route: MISC, TID, 05/19/19 14:30:00 EXTENSION ASSOCIATE, Duration: 30 day, Stop date: 06/18/19 9:00:00 EXTENSION ASSOCIATE, 0 [facility] ePHEDrine ([facility]) 2019-05-19 18:16:00 No Route: IV, Drug form: INJ, ONCE, Stop date: 05/19/19 12:16:00 EXTENSION ASSOCIATE Meghana Alcocerann protamine ([facility]) 2019-05-19 18:16:00 No Route: IV, Drug form: INJ, ONCE, Stop date: 05/19/19 12:16:00 EXTENSION ASSOCIATE Meghana Alcocerann ondansetron ([facility]) 2019-05-19 18:16:00 No Route: IV, Drug form: INJ, ONCE, Stop date: 05/19/19 12:16:00 EXTENSION ASSOCIATE Meghana lopezsytc Nikos phenylephrine ([facility]) 2019-05-19 17:49:00 No Route: IV, Drug form: INJ, ONCE, Stop date: 05/19/19 11:49:00 EXTENSION ASSOCIATE [facility] [place] lidocaine ([facility]) 2019-05-19 17:29:00 No Route: IV, Drug form: INJ, ONCE, Stop date: 05/19/19 11:29:00 EXTENSION ASSOCIATE Meghana lopezsytc Alcocerann fentaNYL ([facility]) 2019-05-19 17:29:00 No Route: IV, Drug form: INJ, ONCE, Stop date: 05/19/19 11:29:00 EXTENSION ASSOCIATE Meghana jasontc [facility] propofol ([facility]) 2019-05-19 17:29:00 No Route: IV, Drug form: INJ, ONCE, Stop date: 05/19/19 11:29:00 EXTENSION ASSOCIATE Meghana lopezsytc [facility] midazolam ([facility]) 2019-05-19 17:24:00 No Route: IV, Drug form: SOLN, ONCE, Stop date: 05/19/19 11:24:00 EXTENSION ASSOCIATE [facility] [place] ceFAZolin (ANES) 2019-05-19 17:24:00 No Route: IV, Drug form: INJ, ONCE, Stop date: 05/19/19 11:24:00 EXTENSION ASSOCIATE [facility] [place] vancomycin (ANES) 1000 mg 2019-05-19 16:40:00 No Route: IV, Drug form: INJ, Start date: 05/19/19 10:40:00 EXTENSION ASSOCIATE, Stop date: 05/19/19 11:40:00 EXTENSION ASSOCIATE [place] Dextrose 50% Syringe 2019-05-19 16:18:00 No 25 gm, Route: IVP, Dosing Weight 60.455, kg, ONCE, STAT, Start date: 05/19/19 10:18:00 EXTENSION ASSOCIATE, Stop date: 05/19/19 10:18:00 EXTENSION ASSOCIATE [facility] Insulin regular 2019-05-19 16:17:00 No 5 unit, Route: IV, ONCE, Dosing Weight 60.455, kg, Priority: STAT, Start date: 05/19/19 10:17:00 EXTENSION ASSOCIATE, Stop date: 05/19/19 10:17:00 EXTENSION ASSOCIATE Kaylin [place] Kayexalate 2019-05-19 16:12:00 No Notes: (sodium polystyrene sulfonate 15 gm/60 ml CAMPOS) Shake well before use. (Same as: Kayexalate, SPS) [facility] ATTN: RN PLEASE UPDATE HWA ON ADHOC 2019-05-19 05:00:00 No ATTN: RN PLEASE UPDATE HWA ON ADHOC, ATTN:RN - UPDATE ALLERGIES !!!, Drug form: MISC, Route: MISC, Q10Min, 05/18/19 23:00:00 EXTENSION ASSOCIATE, Duration: 1 day, Stop date: 05/19/19 22:50:00 EXTENSION ASSOCIATE, 0 [facility] [place] Levothroid 25 mcg (0.025 [...] 1 tab, PO, Daily, 0 Refill(s) [facility] [place] linaclotide 0.145 MG Oral Capsule [Linzess] 2019-05-19 05:00:00 Yes 145 microgram = 1 cap, PO, Daily, 30 minutes prior to the first meal of the day, # 30 cap, 0 Refill(s) [facility] [place] Vitamin D3 2019-05-19 05:00:00 Yes 5,000 IntlUnit, PO, Daily, 0 Refill(s) [facility] ATTN: RN PLEASE UPDATE HWA ON ADHOC 2019-05-19 04:00:00 No ATTN: RN PLEASE UPDATE HWA ON ADHOC, REMINDER, Drug form: MISC, Route: MISC, Q15Min, 05/18/19 22:00:00 EXTENSION ASSOCIATE, Duration: 30 day, Stop date: 06/17/19 21:45:00 EXTENSION ASSOCIATE, 0 [place] Dextrose 50% Syringe 2019-05-19 03:33:00 No 12.5 gm, 25 mL, Route: IVP, Drug Form: INJ, Dosing Weight 52.727, kg, PRN, PRN Blood Glucose Results, Start date: 05/18/19 21:33:00 EXTENSION ASSOCIATE, Duration: 30 day, Stop date: 06/17/19 21:32:00 EXTENSION ASSOCIATE, 0 [facility] Glucagon 2019-05-19 03:33:00 No 1 mg, Route: IM, Drug form: PDR/INJ, PRN, Dosing Weight 52.727, kg, PRN Blood Glucose Results, Start date: 05/18/19 21:33:00 EXTENSION ASSOCIATE, Duration: 30 day, Stop date: 06/17/19 21:32:00 EXTENSION ASSOCIATE, 0 [facility] [place] Ondansetron 2019-05-19 03:33:00 No Notes: (Same as: Zofran) MEDICATION WASTE Product Size: 4 mg Product Wasted: ___ mg [place] Saline Flush 0.9% 2019-05-18 21:53:00 No Notes: (Same as: BD Posiflush) [place] amLODIPine (NORVASC) 5 MG tablet 2018-10-26 13:51:49 Yes 5mg QD Take 5 mg by mouth daily. [facility] linaclotide (LINZESS) 145 mcg Cap 2018-10-26 13:51:48 Yes 145ug QD Take 145 mcg by mouth daily. [facility] sevelamer (RENVELA) 800 mg tablet 2018-10-26 13:51:48 Yes 800mg Take 800 mg by mouth 3 (three) times daily with meals. [facility] [place] docusate sodium (COLACE) 100 MG capsule 2018-10-03 [...] ORALMENTE CADA THOMAS PARA LA TI ROIDES Ismeal Mustafa allopurinol (ZYLOPRIM) 300 MG tablet 2018-06-27 00:00:00 Ye s DIANA CELESTINE TABLETA ORALMENTE CADA THOMAS [facility] ethodist ibuprofen (ADVIL,MOTRIN) 800 MG tablet 2018-06-27 [...] es DIANA CELESTINE TABLETA ORALMENTE CADA THOMAS [facility]ist lovastatin (MEVACOR) 40 MG tablet 2018-06-06 00:00:00 Yes DIANA CELESTINE TABLETA ORALMENTE CADA THOMAS AL ACOSTARSE PARA COLESTEROL Ismael Mustafa lovastatin (ALTOPREV) 40 MG 24 hr tablet 2017-10-25 09:05:40 Yes 40mg QD Take 40 mg by mouth daily. [facility] Allopurinol Allopurinol Yes 300 Daily [facility] Calcium Acetate Calcium Acetate Yes 667 Three Times Daily With Meals [facility] Cholecalciferol (Vitamin D3) (Vitamin D3) 5,000 Unit T ABLET Cholecalciferol (Vitamin D3) (Vitamin D3) 5,000 Unit TABLET Yes 5000 Daily [facility] Levothyroxine Sodium Levothyroxine Sodium Yes 25 Daily [facility] Linzess Linzess Yes 145 Daily [facility] Metoclopramide Hcl Metoclopramide Hcl Yes 10 Twice A Day as needed for Nausea [facility] Montelukast Sodium Montelukast Sodium Yes 10 Da kim [facility] Multivits,Ca,Minerals/Iron/Fa (Thera-M Tablet) 1 Each TABLET Multivits,Ca,Minerals/Iron/Fa (Thera-M Tablet) 1 Each TABLET Yes 1 Daily [facility] Omeprazole Omeprazole Yes 1 Daily CH [facility] Amlodipine Besylate Amlodipine Besylate 2019-05-01 00:00:00 No 5 Daily [facility] Cefuroxime Axetil (Cefuroxime) 500 Mg TABLET Cefuroxim e Axetil (Cefuroxime) 500 Mg TABLET 2019-05-01 00:00:00 No 500 Twice A Day [facility] Sevelamer Hcl (Renvela) 800 Mg TAB Sevelamer Hcl (Renvela) 800 M g TAB 2019-04-27 00:00:00 No 800 Three Times Daily th Meals [facility] Vital Signs Vital Name Observation Time Observation Value Comments Source Weight 2020-03-11 08:01:00 116 [lb_av] [facility] BMI (Body Mass Index) 2020-03-11 08:01:00 17.1 kg/m2 [facility] Body Temperature 2020-03-04 17:35:00 98.7 [degF] [facility] Weight 2020-03-04 14:20:00 116 [lb_av] [facility] BMI (Body Mass Index) 2020-03-04 14:20:00 17.1 kg/m2 [facility] Systolic blood pressure 2020-01-03 12:35:00 123 mm[Hg] [facility] [place] Diastolic blood pressure 2020-01-03 12:35:00 58 mm[Hg] [facility] [place] Heart rate 2020-01-03 12:35:00 86 /min [facility] Body temperature 2020-01-03 12:35:00 36.56 Gricelda [facility] [place] Respiratory rate 2020-01-03 12:35:00 18 /min [facility] [place] Body height 2020-01-03 12:35:00 145.5 cm [facility] Body weight Measured 2020-01-03 12:35:00 52.617 kg [facility] [place] BMI 2020-01-03 12:35:00 24.86 kg/m2 [facility] Oxygen saturation in Arterial blood by Pulse oximetry 01-02 12:35:00 100 /min [facility] Systolic (mm Hg) 2019-08-18 20:38:00 [place] [facility] [place] Diastolic (mm Hg) 2019-08-18 20:38:00 Mem [facility] Heart Rate 2019-08-18 20:38:00 [facility] [place] Respitory Rate 2019-08-18 20:38:00 Mem[facility] Temperature Oral (F) 2019-08-18 20:38:00 98 F [facility] [place] Systolic (mm Hg) 2019-08-18 19:05:00 [place] [facility] [place] Diastolic (mm Hg) 2019-08-18 19:05:00 Mem [facility] Systolic (mm Hg) 2019-08-18 15:29:00 [place] [facility] [place] Diastolic (mm Hg) 2019-08-18 15:29:00 [facility] Heart Rate 2019-08-18 15:29:00 [facility] [place] Respitory Rate 2019-08-18 15:29:00 [facility] [place] Temperature Oral (F) 2019-08-18 15:29:00 97.4 F [facility] [place] Height 2019-08-18 15:29:00 152.4 cm [facility] [place] BMI Calculated 2019-08-18 15:29:00 [facility] [place] Weight 2019-08-18 15:29:00 [facility] [place] Temperature Oral (F) 2019-05-20 18:17:00 98.7 F [facility] Heart Rate 2019-05-20 18:17:00 [facility] [place] Systolic (mm Hg) 2019-05-20 18:17:00 Sunday [facility] Diastolic (mm Hg) 2019-05-20 18:17:00 [facility] Respitory Rate 2019-05-20 18:17:00 [facility] [place] Respitory Rate 2019-05-20 13:44:00 [facility] Systolic (mm Hg) 2019-05-20 13:44:00 Sunday [facility] Diastolic (mm Hg) 2019-05-20 13:44:00 [facility] Heart Rate 2019-05-20 13:44:00 [facility] [place] Temperature Oral (F) 2019-05-20 13:44:00 98.1 F [facility] Respitory Rate 2019-05-20 12:08:00 [facility] Temperature Oral (F) 2019-05-20 09:14:00 98.7 F [facility] Heart Rate 2019-05-20 09:14:00 [facility] [place] Systolic (mm Hg) 2019-05-20 09:14:00 [place] [facility] [place] Diastolic (mm Hg) 2019-05-20 09:14:00 [facility] [place] Height 2019-05-19 04:48:00 160.02 cm [facility] [place] Weight 2019-05-19 04:48:00 [facility] [place] BMI Calculated 2019-05-19 04:48:00 [facility] Height 2019-05-18 21:53:00 127 cm [facility] BMI Calculated 2019-05-18 21:53:00 [facility] Weight 2019-05-18 21:53:00 [facility] [place] Procedures This patient has no known procedures. Plan of Care Planned Activity Planned Date Details Comments Source Future Scheduled Test 2020-11-07 00:00:00 Lipid panel (proce dure) [code = 54956660] [facility] Future Scheduled Test 2020-04-10 00:00:00 INFLUENZA VACCINE [code = INFLUENZA VACCINE] Ismael Mustafa Future Scheduled Test 2020-03-11 00:00:00 INFLUENZA VACCINE (#1) [code = INFLUENZA VACCINE (#1)] [facility] Instructions Bronchitis (Acute) - Adult [facility] Encounters Start Date/Time End Date/Time En[facility] ID Source 2020-03-11 08:01:00 2020-03-11 09:52:00 Departed Emergency Room 1 KIMBERLYNICKYTHERESA [facility] [id number] [facility] 2020-03-04 14:28:00 2020-03-04 17:39:00 Departed Emergency Room 1 Venessa Mckee [facility] [id number] [facility] 2019-08-18 09:26:52 2019-08-18 14:44:00 Out[facility] [id number] 2019-08-18 09:26:00 2019-08-18 09:26:00 Emergency E [facility]SE [id number] 2019-05-18 15:46:07 2019-05-20 17:29:00 Outpatient Noah Lin [facility] [id number] 2019-04-22 21:31:00 2019-05-01 15:43:00 Discharged Inpatient 1 NAEEM AHUMADA [facility] [id number] [facility] 2019-03-11 10:36:00 2019-03-11 15:28:00 Departed Emergency Room 1 MARISELA LYN [facility] [id number] [facility] 2018-09-04 21:46:00 2018-09-05 05:16:00 Departed Emergency Room 1 NICKY LEATHERESA [facility] [id number] [facility] 2018-04-07 18:37:00 2018-04-07 21:49:00 Departed Emergency Room 1 KIRK MCFARLAND [facility] [id number] [facility] Results Test Description Test Time Test Comments Results Result Comments Source CHEST SINGLE (PORTABLE) 2020-03-17 21:38:00 [facility] [address] [address] Patient Name: LUIZA CHUN MR #: [id number] : 1985 Age/Sex: 34/M Req #: [id number] Adm Physician: Ordered by: KOBE JARAMILLO MD Report #: [id number] Location: ER Room/Bed: Procedure: [id number] DX/CHEST SINGLE (PORTABLE) Exam Date: 03/17/20 Exam Time: 2040 REPORT STATUS: Signed EXAMINATION: CHEST SINGLE (PORTABLE) INDICATION: Chest pain COMPARISON: Chest x-ray 03/11/2020 FINDINGS: TUBES and LINES: None. LUNGS: Hyperexpanded lungs. Haziness in the bilateral mid to lower lung august. Pulmo nary vascular congestion. PLEURA: No pleural effusion or pneumothorax. HEART AND MEDIASTINUM: Cardiac size is moderately enlarged. BONES AND SOFT TISSUES: No acute osseous lesion. Surgical clips about the right elbow. UPPER ABDOMEN: No free air under the diaphragm. IMPRESSION: Moderate cardiomegaly and probable pulmonary edema. Superimposed pneumonia is possible. Signed by: Anthony Allen DO on 03/17/2020 9:40 PM Dictated By: ANTHONY ALLEN DO 39 Transcribed By: SAUNDRA on 03/17/202139 COPY TO: KOBE JARAMILLO MD CHEST SINGLE (PORTABLE) 2020-03-11 08:54:[address] [place] [address] Patient Name: LUIZA CHUN MR #: [id number] : 1985 Age/Sex: 34/M Req #: [id number] Adm Physician: Ordered by: CARI LAE MD Report #: [id number] Location: ER Room/Bed: Procedure: [id number] DX/CHEST SINGLE (PORTABLE) Exam Date: 03/11/20 Exam Time: 839 REPORT STATUS: Signed TECHNIQUE: Frontal view of the chest. INDICATION: Y [id number] [id number] COMPARISON: 03/04/2020 DISCUSSION: Limited evaluation due to portable technique. Lines and hardware: None Heart and mediastinum: Cardiomediastinal silhouette i s enlarged. There is new central vascular congestion. Trachea projects midline. Lungs and pleura: There are new hazy bilateral perihilar opacities. Patchy opacities are also noted at the right lung base. Negative for large effusion or pneumothorax. Soft tissues and bones: No acute abnormality. IMPRESSION: Stable cardiomegaly with new central vascular congestion and perihilar interstitial airspace opacities are concerning for fluid overload/edema. Patchy opacities at the right lung base could relate to additional endings of edema however developing consolidation is difficult to exclude at this location. Signed by: Maykel Lassiter MD on 03/11/2020 8:55 AM Dictated By: MAYKEL LASSITER MD 4 Transcribed By: SAUNDRA on 03/11/20854 COPY TO: CARI LEA MD Fluoroscopic procedure less than one hour duration 2020-09-0 1 08:00:00 Test Item Coronavirus (PCR) (test code = Coronavirus (PCR)) NOT DETECTED NOTD ETECTED SARS-COV2/RT-PCR CEPHEIDResults are for the detection of SARS-COV-2 RNA. The FLORIDALMA S-COV-2 RNA is generally detectable in nasopharyngeal swab specimens during the acute phase of infection. Positive results are indicitive of active infection wi SARS-COV-2; clinical correlation with patient history and other diagnostic in formation is necessary to determine patient infection status. Positive results d o not rule out bacterial infection or co-infection with other viruses. The agent detected may not be the definite cause of the disease.The limit of detection for this assay is 250 copies/mLThe SARS-CoV-2 test is a rapid, real-time RT-PCR test intended for the qualitative detection of nucleic acid from SARS-CoV-2 in nolberto opharyngeal swab specimen collected from individuals suspected of COVID-19 by eir healthcare provider. This test has not been Food and Drug Administration (FD A) cleared or approved and has been authorized by FDA under an Emergency Use Aut horization (EUA). This EUA will be effective until the declaration that circumst ances exist justifying the authorization of the emergency use of in vitro diagno stic test for detection and or diagnosis of COVID-19 is terminated under section 564(b) of the Act, or the the EUA is revoked under 564(g) of the ACT.Results ca lled to Dr Mary Lea at 0918 on 03/11/20 by Flaquita Rangel. RB [place].[facility] CenterTroponin I measurement by highly sensitive enzyme rqjhegxcdrp5970-35-49 16:53:00* Test Item Value Reference Range Interpretation Comments Troponin I (test code = 77557-6) 0.477 0-0.300 [facility] CenterTroponin I measurement by highly sensitive enzyme gunvysahuwm5797-78-64 16:53:00* Test Item Value Reference Range Interpretation Comments Troponin I (test code = 86988-3) 0.477 0-0.300 [facility] CenterCHEST SINGLE (PORTABLE)2020-03-04 15:06:00 [place] [id number] Patient Name: LUIZA CHUN MR #: [id number] : 1985 Age/Sex: 34/M Req #: [id number] Adm Physician: Ordered by: Venessa Mckee MD Report #: [id number] Location: ER Room/Bed: Procedure: [id number] DX/CHEST SIN GLE (PORTABLE) Exam Date: 03/04/20 [...] Count (test code = 6690-2) 5.12 4.8-10.8 [facility] CenterBlood erythrocytes automated count (number/volume)2020-03-04 14:30:00* Test Item Value Reference Range Interpretation Comments Red Blood Count (test code = 789-8) 3.08 4.3-5.7 [facility] CenterBlood hemoglobin measurement (moles/volume)2020-03-04 14:30:00* Test Item Value Reference Range Interpretation Comments Hemoglobin (test code = 18598-0) 9.7 14.0-18.0 [facility] CenterAutomated blood hematocrit (volume fraction)2020-03-04 14:30:00* Test Item Value Reference Range Interpretation Comments Hematocrit (test code = 4544-3) 29.7 38.2-49.6 [facility] CenterAutomated erythrocyte mean corpuscular liofbd4065-84-01 14:30:00* Test Item Value Reference Range Interpretation Comments Mean Corpuscular Volume (test code = 787-2) 96.4 81-99 [facility] CenterAutomated erythrocyte mean corpuscular hemoglobin (mass per erythrocyte)2020-03-04 14:30:00* Test Item Value Reference Range Interpretation Comments Mean Corpuscular Hemoglobin (test code = 785-6) 31.5 28-32 [facility] CenterAutomated erythrocyte mean corpuscular hemoglobin concentration measurement (mass/volume)2020-03-04 14:30:00* Test Item Value Reference Range Interpretation Comments Mean Corpuscular Hemoglobin Concent (test code = 786-4) 32.7 31-35 [facility] CenterRDW TguUg-Sux4721-71-25 14:30:00* Test Item Value Reference Range Interpretation Comments Red Cell Distribution Width (test code = 97645-0) 18.7 11.7 -14.4 [facility] CenterAutomated blood platelet count (count/volume)2020-03-04 14:30:00* Test Item Value Reference Range Interpretation Comments Platelet Count (test code = 777-3) 228 140-360 [facility]ased blood segmented neutrophil count as percentage of total hbazzuvctm6893-97-62 14:30:00* Test Item Value Reference Range Interpretation Comments Neutrophils (%) (Auto) (test code = 84135-5) 59.4 38.7-80.0 [facility] CenterAutomated blood lymphocyte count as percentage ot total zjapmqjdqo6118-82-99 14:30:00* Test Item Value Reference Range Interpretation Comments Lymphocytes (%) (Auto) (test code = 736-9) 31.6 18.0-39.1 [facility] CenterAutomated blood monocyte count as percentage of total iugzvnepqw3401-94-12 14:30:00* Test Item Value Reference Range Interpretation Comments Monocytes (%) (Auto) (test code = 5905-5) 7.6 4.4-11.3 [facility] CenterAutomated blood eosinophil count as percentage of total sbnjlfdtqm2350-69-20 14:30:00* Test Item Value Reference Range Interpretation Comments Eosinophils (%) (Auto) (test code = 713-8) 0.4 0.0-6.0 [facility] CenterAutomated blood basophil count as percentage of total ecdkkggsij0367-64-43 14:30:00* Test Item Value Reference Range Interpretation Comments Basophils (%) (Auto) (test code = 706-2) 0.8 0.0-1.0 [facility] CenterFluoroscopic procedure less than one hour ujohsivy3542-36-85 14:30:00* Test Item Value Reference Range Interpretation Comments IM GRANULOCYTES % (test code = IM GRANULOCYTES %) 0.2 0.0- 1.0 [facility] CenterAutomated blood neutrophil count 2020-03-04 14:30:00* Test Item Value Reference Range Interpretation Comments Neutrophils # (Auto) (test code = 751-8) 3.0 2.1-6.9 [facility] CenterBlood lymphocytes count (number/volume) 2020-03-04 14:30:00* Test Item Value Reference Range Interpretation Comments Lymphocytes # (Auto) (test code = 85558-9) 1.6 1.0-3.2 [facility] CenterBlood monocytes automated count (number/volume)2020-03-04 14:30:00* Test Item Value Reference Range Interpretation Comments Monocytes # (Auto) (test code = 742-7) 0.4 0.2-0.8 [facility] CenterAutomated blood eosinophil count 2020-03-04 14:30:00* Test Item Value Reference Range Interpretation Comments Eosinophils # (Auto) (test code = 711-2) 0.0 0.0-0.4 [facility] CenterAutomated blood basophil count (count/volume)2020-03-04 14:30:00* Test Item Value Reference Range Interpretation Comments Basophils # (Auto) (test code = 704-7) 0.0 0.0-0.1 [facility] CenterFluoroscopic procedure less than one hour vbzjwigq9823-41-96 14:30:00* Test Item Value Reference Range Interpretation Comments Absolute Immature Granulocyte (auto (gladis t code = Absolute Immature Granulocyte (auto) 0.01 0-0.1 [facility] sodium measurement (moles/volume)2020-03-04 14:30:00* Test Item Value Reference Range Interpretation Comments Sodium Level (test code = 2951-2) 143 136-145 [facility] Centererum or plasma potassium measurement (moles/volume)2020-03-04 14:30:00* Test Item Value Reference Range Interpretation Comments Potassium Level (test code = 2823-3) 3.4 3.5-5.1 [facility]ererum or plasma chloride measurement (moles/volume)2020-03-04 14:30:00* Test Item Value Reference Range Interpretation Comments Chloride Level (test code = 2075-0) 98 98-107 [facility]ererum or plasma carbon dioxide, total measurement (moles/volume)2020-03-04 14:30:00* Test Item Value Reference Range Interpretation Comments Carbon Dioxide Level (test code = 2028-9) 31 22-29 [facility]ererum or plasma anion tro7881-66-11 14:30:00* Test Item Value Reference Range Interpretation Comments Anion Gap (test code = 39723-3) 17.4 8-16 [facility]ererum or plasma urea nitrogen measurement (mass/volume)2020-03-04 14:30:00* Test Item Value Reference Range Interpretation Comments Blood Urea Nitrogen (test code = 3094-0) 25 7-26 [facility]ererum or plasma creatinine measurement (mass/volume)2020-03-04 14:30:00* Test Item Value Reference Range Interpretation Comments Creatinine (test code = 2160-0) 6.09 0.72-1.25 [facility]ererum or plasma urea nitrogen/creatinine mass skjzi8402-81-35 14:30:00* Test Item Value Reference Range Interpretation Comments BUN/Creatinine Ratio (test code = 3097-3) 4 6-25 [facility] CenterEstimated glomerular filtration rate (GFR) lxpysinilxhhb8107-08-93 14:30:00* Test Item Value Reference Range Interpretation Comments Estimat Glomerular Filtration Rate (test code = 533761376) 11 >60 Ranges were taken from the National Kidney Disease Education Program and the [facility] [employer] literature.Reference ranges:60 or greater: Mylukq33-20 ( for 3 consecutive months): Chronic kidney disease 15 or less: Kidney failureMichael E. DeBakey [facility] of [facility] Affairs Medical CenterGlucose ujgeinrfzqo3650-36-04 14:30:00* Test Item Value Reference Range Interpretation Comments Glucose Level (test code = FQN8873) 100 74-118 [facility]ererum or plasma calcium measurement (mass/volume)2020-03-04 14:30:00* Test Item Value Reference Range Interpretation Comments Calcium Level (test code = 67639-4) 9.5 8.4-10.2 [facility] Centererum or plasma total bilirubin measurement (mass/volume)2020-03-04 14:30:00* Test Item Value Reference Range Interpretation Comments Total Bilirubin (test code = 1975-2) 0.7 0.2-1.2 [facility] CenterFluoroscopic procedure less than one hour htslqdzc7039-93-36 14:30:00* Test Item Value Reference Range Interpretation Comments Aspartate Amino Transf (AST/SGOT) (test code = Aspartate Amino Transf (AST/SGOT)) 15 5-34 [facility] Centererum or plasma alanine aminotransferase measurement (enzymatic activity/volume)2020-03-04 14:30:00* Test Item Value Reference Range Interpretation Comments Alanine Aminotransferase (ALT/SGPT) (test code = 1742-6) 9 0-55 [facility] Centererum or plasma protein measurement (mass/volume)2020-03-04 14:30:00* Test Item Value Reference Range Interpretation Comments Total Protein (test code = 2885-2) 7.6 6.5-8.1 [facility] Centererum or plasma albumin measurement (mass/volume)2020-03-04 14:30:00* Test Item Value Reference Range Interpretation Comments Albumin (test code = 1751-7) 3.7 3.5-5.0 [facility] CenterPlasma globulin measurement (mass/volume) 2020-03-04 14:30:00* Test Item Value Reference Range Interpretation Comments Globulin (test code = 84119-2) 3.9 2.3-3.5 [facility]ererum or plasma albumin/globulin mass gytdw8400-70-75 14:30:00* Test Item Value Reference Range Interpretation Comments Albumin/Globulin Ratio (test code = 1759-0) 0.9 0.8-2.0 [facility]ererum or plasma alkaline phosphatase measurement (enzymatic activity/volume)2020-03-04 14:30:00* Test Item Value Reference Range Interpretation Comments Alkaline Phosphatase (test code = 6768-6) 129 40-150 [facility] CenterBNP Psb-vDzd0335-04-25 14:30:00* Test Item Value Reference Range Interpretation Comments B-Type Natriuretic Peptide (test code = 87420-9) 2843.4 0-100 [facility] CenterBlood leukocytes automated count (number/volume)2020-03-04 14:30:00* Test Item Value Reference Range Interpretation Comments White Blood Count (test code = 6690-2) 5.12 4.8-10.8 [facility] CenterBlood erythrocytes automated count (number/volume)2020-03-04 14:30:00* Test Item Value Reference Range Interpretation Comments Red Blood Count (test code = 789-8) 3.08 4.3-5.7 [facility] CenterBlood hemoglobin measurement (moles/volume)2020-03-04 14:30:00* Test Item Value Reference Range Interpretation Comments Hemoglobin (test code = 40044-3) 9.7 14.0-18.0 [facility] CenterAutomated blood hematocrit (volume fraction)2020-03-04 14:30:00* Test Item Value Reference Range Interpretation Comments Hematocrit (test code = 4544-3) 29.7 38.2-49.6 [facility] CenterAutomated erythrocyte mean corpuscular uyxecj3194-29-08 14:30:00* Test Item Value Reference Range Interpretation Comments Mean Corpuscular Volume (test code = 787-2) 96.4 81-99 [facility] CenterAutomated erythrocyte mean corpuscular hemoglobin (mass per erythrocyte)2020-03-04 14:30:00* Test Item Value Reference Range Interpretation Comments Mean Corpuscular Hemoglobin (test code = 785-6) 31.5 28-32 [facility] CenterAut[facility] erythrocyte mean corpuscular hemoglobin concentration measurement (mass/volume)2020-03-04 14:30:00* Test Item Value Reference Range Interpretation Comments Mean Corpuscular Hemoglobin Concent (test code = 786-4) 32.7 31-35 [facility] CenterRDW RcbVt-Dyj4595-86-25 14:30:00* Test Item Value Reference Range Interpretation Comments Red Cell Distribution Width (test code = 67436-6) 18.7 11.7 -14.4 [facility] CenterAutat[facility] blood platelet count (count/volume)2020-03-04 14:30:00* Test Item Value Reference Range Interpretation Comments Platelet Count (test code = 777-3) 228 140-360 [facility] CenterAutat[facility] blood segmented neutrophil count as percentage of total jzbdidgtfy3554-47-32 14:30:00* Test Item Value Reference Range Interpretation Comments Neutrophils (%) (Auto) (test code = 03552-0) 59.4 38.7-80.0 [facility] CenterAutat[facility] blood lymphocyte count as percentage ot total lbpuabgehr5273-88-68 14:30:00* Test Item Value Reference Range Interpretation Comments Lymphocytes (%) (Auto) (test code = 736-9) 31.6 18.0-39.1 [facility] CenterAutomated blood monocyte count as percentage of total aqxodjgmzx4287-78-82 14:30:00* Test Item Value Reference Range Interpretation Comments Monocytes (%) (Auto) (test code = 5905-5) 7.6 4.4-11.3 [facility] CenterAutomated blood eosinophil count as percentage of total wdkpwulyqk7379-30-54 14:30:00* Test Item Value Reference Range Interpretation Comments Eosinophils (%) (Auto) (test code = 713-8) 0.4 0.0-6.0 [facility] CenterAutomated blood basophil count as percentage of total hcvtkmairq3121-63-12 14:30:00* Test Item Value Reference Range Interpretation Comments Basophils (%) (Auto) (test code = 706-2) 0.8 0.0-1.0 [facility] CenterFluoroscopic procedure less than one hour wlefwtnf1616-83-67 14:30:00* Test Item Value Reference Range Interpretation Comments IM GRANULOCYTES % (test code = IM GRANULOCYTES %) 0.2 0.0- 1.0 [facility] CenterAutomated blood neutrophil count 2020-03-04 14:30:00* Test Item Value Reference Range Interpretation Comments Neutrophils # (Auto) (test code = 751-8) 3.0 2.1-6.9 [facility] CenterBlood lymphocytes count (number/volume) 2020-03-04 14:30:00* Test Item Value Reference Range Interpretation Comments Lymphocytes # (Auto) (test code = 45128-0) 1.6 1.0-3.2 [facility] CenterBlood monocytes automated count (number/volume)2020-03-04 14:30:00* Test Item Value Reference Range Interpretation Comments Monocytes # (Auto) (test code = 742-7) 0.4 0.2-0.8 [facility] CenterAutomated blood eosinophil count 2020-03-04 14:30:00* Test Item Value Reference Range Interpretation Comments Eosinophils # (Auto) (test code = 711-2) 0.0 0.0-0.4 [facility] CenterAutomated blood basophil count (count/volume)2020-03-04 14:30:00* Test Item Value Reference Range Interpretation Comments Basophils # (Auto) (test code = 704-7) 0.0 0.0-0.1 [facility] CenterFluoroscopic procedure less than one hour bewcmzdt0130-53-96 14:30:00* Test Item Value Reference Range Interpretation Comments Absolute Immature Granulocyte (auto (gladis t code = Absolute Immature Granulocyte (auto) 0.01 0-0.1 [facility]ererum or plasma sodium measurement (moles/volume)2020-03-04 14:30:00* Test Item Value Reference Range Interpretation Comments Sodium Level (test code = 2951-2) 143 136-145 [facility]ererum or plasma potassium measurement (moles/volume)2020-03-04 14:30:00* Test Item Value Reference Range Interpretation Comments Potassium Level (test code = 2823-3) 3.4 3.5-5.1 [facility]ererum or plasma chloride measurement (moles/volume)2020-03-04 14:30:00* Test Item Value Reference Range Interpretation Comments Chloride Level (test code = 2075-0) 98 98-107 [facility] Centererum or plasma carbon dioxide, total measurement (moles/volume)2020-03-04 14:30:00* Test Item Value Reference Range Interpretation Comments Carbon Dioxide Level (test code = 2028-9) 31 22-29 [facility]ererum or plasma anion ahf5960-65-08 14:30:00* Test Item Value Reference Range Interpretation Comments Anion Gap (test code = 15999-1) 17.4 8-16 [facility]ererum or plasma urea nitrogen measurement (mass/volume)2020-03-04 14:30:00* Test Item Value Reference Range Interpretation Comments Blood Urea Nitrogen (test code = 3094-0) 25 7-26 [facility]ererum or plasma creatinine measurement (mass/volume)2020-03-04 14:30:00* Test Item Value Reference Range Interpretation Comments Creatinine (test code = 2160-0) 6.09 0.72-1.25 [facility] Centererum or plasma urea nitrogen/creatinine mass wadyg8456-82-77 14:30:00* Test Item Value Reference Range Interpretation Comments BUN/Creatinine Ratio (test code = 3097-3) 4 6-25 [facility] CenterEstimated glomerular filtration rate (GFR) jvbfachncccnr2005-02-16 14:30:00* Test Item Value Reference Range Interpretation Comments Estimat Glomerular Filtration Rate (test code = 283312147) 11 >60 Ranges were taken from the National Kidney Disease Education Program and the [facility] [employer] literature.Reference ranges:60 or greater: Dcqgtm69-52 ( for 3 consecutive months): Chronic kidney disease 15 or less: Kidney failureMichael E. DeBakey [facility] of [facility] Medical CenterGlucose vbmujufrimw5225-24-30 14:30:00* Test Item Value Reference Range Interpretation Comments Glucose Level (test code = QFU7738) 100 74-118 [facility]ererum or plasma calcium measurement (mass/volume)2020-03-04 14:30:00* Test Item Value Reference Range Interpretation Comments Calcium Level (test code = 63654-3) 9.5 8.4-10.2 [facility] Centererum or plasma total bilirubin measurement (mass/volume)2020-03-04 14:30:00* Test Item Value Reference Range Interpretation Comments Total Bilirubin (test code = 1975-2) 0.7 0.2-1.2 [facility] CenterFluoroscopic procedure less than one hour tkcjwvaj5848-09-39 14:30:00* Test Item Value Reference Range Interpretation Comments Aspartate Amino Transf (AST/SGOT) (test code = Aspartate Amino Transf (AST/SGOT)) 15 5-34 [facility] Centererum or plasma alanine aminotransferase measurement (enzymatic activity/volume)2020-03-04 14:30:00* Test Item Value Reference Range Interpretation Comments Alanine Aminotransferase (ALT/SGPT) (test code = 1742-6) 9 0-55 [facility]ererum or plasma protein measurement (mass/volume)2020-03-04 14:30:00* Test Item Value Reference Range Interpretation Comments Total Protein (test code = 2885-2) 7.6 6.5-8.1 [facility]ererum or plasma albumin measurement (mass/volume)2020-03-04 14:30:00* Test Item Value Reference Range Interpretation Comments Albumin (test code = 1751-7) 3.7 3.5-5.0 [facility] CenterPlasma globulin measurement (mass/volume) 2020-03-04 14:30:00* Test Item Value Reference Range Interpretation Comments Globulin (test code = 12558-7) 3.9 2.3-3.5 [facility]ererum or plasma albumin/globulin mass facnh3952-31-54 14:30:00* Test Item Value Reference Range Interpretation Comments Albumin/Globulin Ratio (test code = 1759-0) 0.9 0.8-2.0 [facility]ererum or plasma alkaline phosphatase measurement (enzymatic activity/volume)2020-03-04 14:30:00* Test Item Value Reference Range Interpretation Comments Alkaline Phosphatase (test code = 6768-6) 129 40-150 [facility] CenterBNP Tsr-wJfz9054-23-25 14:30:00* Test Item Value Reference Range Interpretation Comments B-Type Natriuretic Peptide (test code = 71903-4) 2843.4 0-100 [facility] CenterBASIC METABOLIC [id number] 10:45:00 * Test Item Value Reference Range [...] CA) 9.4 mg/dL 8.5-10.1 N BASIC METABOLIC ZMPEC8821-75-45 10:31:00* Test Item Value Reference Range Interpretation [...] code = CA) mg/dL 8.5-10.1 CBC W/AUTO [id number] 10:04:00* Test Item Value Reference Range Interpretation [...] 0.02 K/mm3 0.0-0.1 N AB HEPATITIS B [id number] 07:11:00* Test Item Value Reference Range Interpretation Comments AB HEPATITIS B SURFACE (test code = HBSAB) Reactive () Non Reactive: Inconsistent with immunity, less than 10 mIU/mL Reactive: Consistent with immunity, greater than 9.9 mIU/mLPerformed At: [facility] [address] [id number] Hernandez MD Ph:[phone] HEPATITIS B CORE ANTIBODY,[id number] 07:11:00* Test Item Value Reference Range Interpretation Comments HEPATITIS B CORE ANTIBODY,TOT (test code = HBCAB) Negative Nega tive Performed At: [facility] [id number] Hernandez MD Ph:[phone] CBC W/O [id number] 08:59:00* Test Item Value Reference Range Interpretation [...] code = MPV) fL 6.7-11.0 COMMENTS TO CREDIT PRODUCTS OFFICER: REDRAW DUE TO HEMOLYZED SAMPLECBC W/O [id number] 08:59:00* Test Item Value Reference Range Interpretation [...] MPV) 10.9 fL 6.7-11.0 N COMMENTS TO CREDIT PRODUCTS OFFICER: REDRAW DUE TO HEMOLYZED SAMPLERENAL FUNCTION PANEL [...] PHOS) 5.6 mg/dL 2.5-4.9 H B-TYPE NATRIURETIC [id number] 05:59:00* Test Item Value Reference Range Interpretation Comments B-TYPE NATRIURETIC PEPTIDE (test code = BNP) 876.07 pgram/mL 0-100 H PROTHROMBIN [id number] 05:08:00* Test Item Value Reference Range Interpretation [...] (2.5-3.5) IS PATIENT ON ANTICOAGULANTS? NTHROMBOPLASTIN TIME [id number] 05:08:00* Test Item Value Reference Range Interpretation Comments THROMBOPLASTIN TIME PARTIAL (test code = PTT) 32.4 seconds 23.0-37. 0 N IS PATIENT ON ANTICOAGULANTS? NCBC W/O [id number] 05:00:00* Test Item Value Reference Range Interpretation [...] MPV) 10.9 fL 6.7-11.0 N BASIC METABOLIC [id number] 05:48:00* Test Item Value Reference Range Interpretation [...] CA) 9.0 mg/dL 8.5-10.1 N BASIC METABOLIC [id number] 05:36:00* Test Item Value Reference Range Interpretation [...] = CA) mg/dL 8.5-10.1 AG HEPAT B [id number] 21:19:00* Test Item Value Reference Range Interpretation Comments AG HEPAT B SURF (test code = HBSAG) Nonreactive Index Nonreactive [id number] 08:38:00* Test Item Value Reference Range Interpretation Comments POTASSIUM (test code = K) 4.7 mmol/L 3.5-5.1 N Novel Coronavirus 12:55:00* Test Item Value Reference Range Interpretation Comments Novel Coronavirus 2019 Inhouse (test code = IDNOB35PI) Negative Negative Positive results are indicative of the presence fmKFIG-LdF-0 RNA, clinical correlation with patient historyand other [...] Preprocedure ScreeningComments: PROCEDURE SCHEDULED FOR Novel Coronavirus [id number] 12:55:00* Test Item Value Reference Range Interpretation Comments Novel Coronavirus 2019 Inhouse (test code = [id number]) Negative Negative Positive results are indicative of the presence mfPTHO-OfY-7 RNA, clinical correlation with patient historyand other [...] Criteria: Preprocedure ScreeningComments: PROCEDURE SCHEDULED FOR PROTHROMBIN [id number] 16:26:00* Test Item Value Reference Range Interpretation [...] (2.5-3.5) IS PATIENT ON ANTICOAGULANTS? NTHROMBOPLASTIN TIME [id number] 16:26:00* Test Item Value Reference Range Interpretation Comments THROMBOPLASTIN TIME PARTIAL (test code = PTT) 99.0 seconds 23.0-37. 0 HH CALLED OFFICE BUT NO REPONSELEFT A VOICEMAIL AT DR. [facility] OFFICEAT [phone], ALSO FAXED REPORT TO [phone] IS PATIENT ON ANTICOAGULANTS? NCOMPREHENSIVE METABOLIC MHRCK1763-60-11 15:46:00 * Test Item Value Reference Range [...] due to change in reagent. COMPREHENSIVE METABOLIC WJWZD5878-27-39 15:39:00* Test Item Value Reference Range Interpretation [...] code = ALKP) IUnit/L 45-117 CBC W/AUTO FCUB4974-22-39 15:28:00* Test Item Value Reference Range Interpretation [...] = MDIFF) NO - XR CHEST 1 [id number] 14:55:00 FAX: Britton Sanchez MD [phone] [place]: St: PRE FAX: Gabrielle Kumar Ding [phone] Name: LUIZA CHUN [facility] : 1985 Age/S: 34/M [address] [facility] Unit #: [id number] Loc: [place] [address] Phys: Britton Aquino MD Acct: [id number] Dis Date: Status: PRE IN PHONE #: [phone] Exam Date: 11/06/2019 1436 FAX #: [phone] Reason: PREOP EXAMS: CPT CODE: [id number] XR CHEST 1 V 93409 REASON FOR EXAM: PREOP Exam Order Date: 11/06/2019 2:34 PM Ordering M.D.: Britton Aquino MD PROCEDURE: - XR CHEST [...] process or change from prior exam. Location: [facility] at 1455 Reported and signed by: Augustin Álvarez MD CC: Britton Aquino MD; Kumar Ding MD Technologist: RT RADHA(R) Trnscrd Date/Time/By: 11/06/2019 (0090) : By: [email or web address] Orig Print D/T: S: 11/06/2019 (4642) PAGE 1 Signed Report BASIC METABOLIC [id number] 07:37:00* Test Item Value Reference Range Interpretation [...] CA) 9.0 mg/dL 8.5-10.1 N BASIC METABOLIC FKQCA7381-08-53 07:32:00* Test Item Value Reference Range Interpretation [...] code = CA) mg/dL 8.5-10.1 CBC W/AUTO MMQF1229-75-55 07:18:00* Test Item Value Reference Range Interpretation [...] NRBC#) 0.00 K/mm3 0.0-0.1 N CBC W/AUTO DXVX3716-71-53 07:14:00* Test Item Value Reference Range Interpretation [...] BA#) K/mm3 0.0-0.2 - XR CHEST 2 [id number] 06:46:00 FAX: Britton Sanchez MD [phone] [place]: St: REG FAX: Y Kumar Ding [phone] Name: LUZIA CHUN [facility] : 1985 Age/S: 34/M [address] [facility] Unit #: [id number] Loc: [place] [address] Phys: Britton Aquino MD Acct: [id number] Dis Date: [place] [facility] #: [phone] Exam Date: 11/02/2019628 FAX #: [phone] Reason: PREOP TESTING EXAMS: CPT CODE: [id number] XR CHEST 2 V 63851 EXAM: - XR CHEST 2 V HISTORY: [...] 11/02/2019 (0649) PAGE 1 Signed Report CARDIAC [id number] 17:51:0040[facility] HermannCARDIAC WOANYSN7309-62-16 17:51:00<0.02[facility] HermannCHEM XKSTG1377-54-08 17:51:0088[facility] HermannCHEM CPRGS9803-32-58 17:51:0044[facility] HermannCHEM WRHOQ4248-66-84 17:51:008.39[facility] HermannCHEM SCXZV3650-33-41 17:51:18506Cfyovegi HermannCHEM PGNZD2250-09-94 17:51:005.0 [facility]annCHEM NTZTY4850-15-20 17:51:25993Gkkwzauo HermannCHEM PANEL 2019-08-18 17:51:0027[facility] HermannCHEM JDSTH7572-06-43 17:51:009.3[facility] HermannCHEM SPXDL8942-70-14 17:51:009.0[facility] HermannCHEM VXGVA7817-80-87 17:51:004.4[facility] HermannCHEM IHCBH2084-06-00 17:51:0066[facility] HermannCHEM VSUJB6928-68-52 17:51:0035[facility] HermannCHEM EFIFS9139-04-83 17:51:99983 [facility]annCHEM GXPJU1416-28-58 17:51:000.5[facility] HermannCHEM PANEL 2019-08-18 17:51:0014.0[facility] HermannCHEM SVCIR8965-25-52 17:51:00* Test Item Value Reference Range Interpretation Comments B/C Ratio (test code = B/C Ratio) 5 1 6-25 [facility] HermannCHEM JRSGQ5594-99-90 17:51:004.6[facility] HermannCHEM PANEL 2019-08-18 17:51:00* Test Item Value Reference Range Interpretation Comments A/G Ratio (test code = A/G Ratio) 1.0 1 0.7-1.6 [facility]annCHEM CTWGP0439-89-45 17:51:008[facility] HermannCHEM PANEL 2019-08-18 17:51:002.3[facility] HermannCHEM KSKVM5484-87-02 17:51:006.2[facility] RyefgkaJTGKKPULJU7947-44-57 17:51:005.3[facility] EbzujmzKNGOALMGHN9140-47-80 17:51:004.58[facility] TzrrozlOVXSDCYPKD2036-57-43 17:51:0014.5[facility] CLJSARZTJI9249-87-35 17:51:0044.3[facility] RjidfweGQDFEQCBYG3930-52-10 17:51:00 96.7[facility] FyfcpujVEOMEHXPNS6166-26-26 17:51:00* Test Item Value Reference Range Interpretation Comments MCH (test code = MCH) 31.8 pg 27.0-31.0 [facility] BhszhjiBGMTZGCRYQ2136-26-62 17:51:0032.8[facility] HermannHEMATOLOGY 2019-08-18 17:51:0019.4[facility] CrivbhvPQKWQXGUZY9577-43-86 17:51:28974Cavzeuzb JmslygdKENJGHKMVL2008-85-18 17:51:008.3[facility] EvskxolBXZJCEQBXS3388-18-34 17:51:0046.6[facility] YlbfrurFBZFVNMYRA6123-70-95 17:51:0041.7[facility] [place] TLKFTTKXNR4190-40-62 17:51:0010.2[facility] MtfklmeRMLMDXPWGZ7908-23-59 17:51:00 0.4[facility] YulszerKNFQTVMAYZ5043-25-56 17:51:001.1[facility] HermannHEMATOLOGY 2019-08-18 17:51:002.5[facility] PbxekvrAMRHTHAROM6938-75-51 17:51:002.2[facility] UgudtofOPCFRRLWLC0586-38-52 17:51:000.5[facility] ZynbfihYULKXLPKOH0088-44-78 17:51:000.1[facility] HermannCHEM JOHJS5249-38-69 09:23:84479Hlpayirk HermannCHEM VPHWU2230-92-03 09:23:0021[facility] HermannCHEM WRBEW9539-36-84 09:23:006.91 [facility] HermannCHEM VMKSC7945-26-87 09:23:17792Tyzuxncd HermannCHEM PANEL 2019-05-20 09:23:005.1[facility] HermannCHEM HERJX1053-40-63 09:23:69175Htxubjqf HermannCHEM HCEHO7162-05-17 09:23:0027[facility] HermannCHEM BIAAR8790-05-97 09:23:0011.1[facility] HermannCHEM GASPU4297-82-72 09:23:007.7[facility] HermannCHEM XENVL8778-14-45 09:23:0010Mem[facility] MiwraiuZSCLSVIDRH2019-95-25 09:23:004.6 Memorial GpsesdzXTDIZTNALH4958-87-16 09:23:002.46[facility] HermannHEMATOLOGY 2019-05-20 09:23:008.4[facility] JewgzvhCXBMQSQZTB8333-93-65 09:23:0025.9[facility] LtyqhevSZYVUQSKYD1543-88-31 09:23:42637.3[facility] CpnuemvPRSGFCYJET9654-26-17 09:23:00* Test Item Value Reference Range Interpretation Comments MCH (test code = MCH) 34.0 pg 27.0-31.0 Memorial OjdbsmlZEQTHEPGOI5369-97-88 09:23:0032.3[facility] HermannHEMATOLOGY 2019-05-20 09:23:0020.3[facility] VazgwonJEYBSKJBRU0586-70-18 09:23:04555Hgnrlwpi YzojmlhELSYPHZUOD6376-01-70 09:23:009.1[facility] VcoaujaRVVMYLABKT2849-51-77 09:23:0060.0[facility] OkrmpwoXZDENXGBNO7193-64-20 09:23:0028.7[facility] [place] QKKOTGPHKX9343-99-68 09:23:008.8[facility] XoiprsiFYPECPHROY9653-07-96 09:23:000.9 Memorial XknrxhtGRPZRUYDPM2956-89-84 09:23:001.6[facility] HermannHEMATOLOGY 2019-05-20 09:23:002.8[facility] RyfgxaaKBIHYKHHUR4125-87-54 09:23:001.3[facility] EoktbgbBZRJHGFRNC6102-15-49 09:23:000.4[facility] PzqlxsdNNPSNGEXOI8822-97-51 09:23:000.1[facility] CtfcqyfRYDSXXMPQJ5311-58-76 09:23:002+ *ABN*(05/20/19 3:23 AM)[facility] GQAIMPE3033-25-36 16:00:00Product available (05/19/19 10:00 AM)[facility]BL[facility] BSCCAOO0252-72-89 15:29:00Negative (05/19/19 9:29 AM)[facility] HermannCHEM EZKDM0942-89-28 15:29:0089[facility] [place] CHEM TEGRD6642-00-22 15:29:0053[facility] HermannCHEM OQFFV9345-35-25 15:29:00 13.80[facility] HermannCHEM IEWPF1839-53-37 15:29:85987Hozjlyxn HermannCHEM PANEL 2019-05-19 15:29:005.6[facility] HermannCHEM VMCXM4732-61-19 15:29:09942Psqpfuky HermannCHEM EIYVH8590-50-73 15:29:0025[facility] HermannCHEM SPJWC8051-66-63 15:29:008.2[facility] HermannCHEM EDSOP9685-19-06 15:29:004[facility] HermannCHEM JLYAN3918-73-31 15:29:0014.6[facility] UlepmdxFFMJZSHEKH0633-84-63 15:29:00* Test Item Value Reference Range Interpretation Comments PT (test code = PT) 15.4 s 12.0-14.7 [facility]wayKefubzwHMFIXDLBCN4910-52-36 15:29:00* Test Item Value Reference Range Interpretation Comments INR (test code = INR) 1.24 1 0.85-1.17 [facility] ParkwayGwnhdglSBLKXIDGTB8904-91-07 15:29:00* Test Item Value Reference Range Interpretation Comments PTT (test code = PTT) 36.5 s 22.9-35.8 [facility] FfvqycmKAHYVGEHPE7473-70-10 15:29:00Negative *NA*(05/19/19 9:29 AM) [facility]annCHEM PFDXQ8310-99-19 22:11:0084Mem[facility] HermannCHEM PANEL 2019-05-18 22:11:0049[facility] HermannCHEM AIJHD1869-68-65 22:11:0012.30[facility] HermannCHEM MPDTP2713-61-65 22:11:25892Qbrteiqc HermannCHEM WESQQ6125-03-85 22:11:005.1[facility] HermannCHEM GVHVG0942-18-69 22:11:71134Yogqprct HermannCHEM DZCHM1761-23-04 22:11:0024Mem[facility] HermannCHEM JEFEG7216-06-16 22:11:008.9 [facility] HermannCHEM RFVKK0121-28-23 22:11:005[facility] HermannCHEM PANEL 2019-05-18 22:11:0014.1[facility] AngwyyzZHYKVIJIQO2886-72-13 22:11:006.0[facility] QgudyvoUSULIDUTRI7007-09-19 22:11:002.88[facility] AqccjyiVWRUSBOEMG6670-04-31 22:11:009.7[facility] XdxcspdLSTGIZVSMV0208-44-12 22:11:0029.9[facility] VADWDFFDYC8598-59-87 22:11:37766.9[facility] CaapvfbTNHFKQYQQN0703-54-13 22:11:00 * Test Item Value Reference Range Interpretation Comments MCH (test code = MCH) 33.7 pg 27.0-31.0 [facility] IemvrduXUIRMACFKG0588-99-19 22:11:0032.4[facility] HermannHEMATOLOGY 2019-05-18 22:11:0020.7[facility] IxuwnruQHCBCENSHS5642-12-92 22:11:91678Odmjvzqj SircheuAALDOVEYRR7280-62-91 22:11:009.0[facility] MiopjkuCUQKDZZWJD1531-58-00 22:11:00* Test Item Value Reference Range Interpretation Comments PT (test code = PT) 15.0 s 12.0-14.7 [facility] IauqzfwITDTTCGCDB4400-74-78 22:11:00* Test Item Value Reference Range Interpretation Comments INR (test code = INR) 1.20 1 0.85-1.17 [facility] QprdfklHYLWKBEFOB4329-29-64 22:11:00* Test Item Value Reference Range Interpretation Comments PTT (test code = PTT) 35.2 s 22.9-35.8 [facility] DallasHuqeumeOOTEXRNORV9340-59-24 22:11:0037.2[facility] HermannHEMATOLOGY 2019-05-18 22:11:0052.1[facility] UzumymfDUKIQXOYMU6473-18-36 22:11:007.9[facility] HdkwlgpDJUGSESGOA8540-18-41 22:11:001.0[facility] QaugkecBMCXSBWMIC2075-19-76 22:11:001.8[facility] AekslosPAGYFQEIMP2271-96-20 22:11:002.2[facility] EWCANIFITU7384-18-96 22:11:003.1[facility] WndardgKIBIMGGEHH0305-51-88 22:11:000.5 [facility] UgrobqfQQCMTYJMCY9958-95-32 22:11:000.1[facility] HermannHEMATOLOGY 2019-05-18 22:11:000.1[facility] KvjnoqlRFVDCDRCRK9204-29-05 22:11:001+ *ABN*(05/18/19 4:11 PM)[facility] Qnsob6873-43-77 11:47:00* Test Item Value Reference Range Interpretation Comments Sodium Level (test code = 2951-2) 137 136-145 [facility] Medical CenterPotassium Dzvsc3514-62-03 11:47:00* Test Item Value Reference Range Interpretation Comments Potassium Level (test code = 2823-3) 4.6 3.5-5.1 [facility] CenterChloride Ehqlu1858-43-00 11:47:00* Test Item Value Reference Range Interpretation Comments Chloride Level (test code = 2075-0) 99 98-107 [facility] Medical CenterCarbon Dioxide Svdab6724-18-00 11:47:00* Test Item Value Reference Range Interpretation Comments Carbon Dioxide Level (test code = 2028-9) 23 22-29 [facility] Medical CenterAnion Wsg0495-83-65 11:47:00* Test Item Value Reference Range Interpretation Comments Anion Gap (test code = 23260-3) 19.6 8-16 H [facility] Medical CenterBlood Urea Neqjbyni6264-96-60 11:47:00* Test Item Value Reference Range Interpretation Comments Blood Urea Nitrogen (test code = 3094-0) 70 7-26 H [facility] CenterCreatinine2019 11:47:00* Test Item Value Reference Range Interpretation Comments Creatinine (test code = 2160-0) 11.72 0.72-1.25 H [facility] Medical CenterBUN/Creatinine Eavwc6128-18-98 11:47:00* Test Item Value Reference Range Interpretation Comments BUN/Creatinine Ratio (test code = 3097-3) 6 6-25 [facility] Medical CenterEstimat Glomerular Filtration Rate 2019-04-30 11:47:00* Test Item Value Reference Range Interpretation Comments Estimat Glomerular Filtration Rate (test code = 919558665) 5 >60 L Ranges were taken from the National Kidney Disease Education Program and the [facility] Kidney Foundation literature.Reference ranges:60 or greater: Xvvkuh61-98 ( for 3 consecutive months): Chronic kidney disease 15 or less: Kidney failureMichael E. DeBakey Department of Veterans Affairs Medical CenterGlucose Vudjl0355-56-67 11:47:00* Test Item Value Reference Range Interpretation Comments Glucose Level (test code = FGR5204) 113 74-118 [facility] CenterCalcium Ahosi6439-83-36 11:47:00* Test Item Value Reference Range Interpretation Comments Calcium Level (test code = 69581-9) 9.1 8.4-10.2 [facility] Medical CenterWhite Blood Xlplg7177-60-14 11:44:00* Test Item Value Reference Range Interpretation Comments White Blood Count (test code = 6690-2) 5.47 4.8-10.8 [facility] Medical CenterRed Blood Gwufq7916-66-87 11:44:00* Test Item Value Reference Range Interpretation Comments Red Blood Count (test code = 789-8) 2.58 4.3-5.7 L [facility] Medical CenterHemoglobin2019 11:44:00* Test Item Value Reference Range Interpretation Comments Hemoglobin (test code = 91469-4) 8.3 14.0-18.0 L [facility] Medical CenterHematocrit2019 11:44:00* Test Item Value Reference Range Interpretation Comments Hematocrit (test code = 4544-3) 25.6 38.2-49.6 L [facility] Medical CenterMean Corpuscular Lzdnbh1191-30-05 11:44:00* Test Item Value Reference Range Interpretation Comments Mean Corpuscular Volume (test code = 787-2) 99.2 81-99 H [facility] Medical CenterMean Corpuscular Ttgyrwesro4247-75-52 11:44:00* Test Item Value Reference Range Interpretation Comments Mean Corpuscular Hemoglobin (test code = 785-6) 32.2 28-32 H [facility] Medical CenterMean Corpuscular Hemoglobin Concent 2019-04-30 11:44:00* Test Item Value Reference Range Interpretation Comments Mean Corpuscular Hemoglobin Concent (test code = 786-4) 32.4 31-35 [facility] Medical CenterRed Cell Distribution Rasej3653-73-53 11:44:00* Test Item Value Reference Range Interpretation Comments Red Cell Distribution Width (test code = 03647-7) 18.1 11.7 -14.4 H [facility] Medical CenterPlatelet Jmahm4706-10-76 11:44:00* Test Item Value Reference Range Interpretation Comments Platelet Count (test code = 777-3) 211 140-360 [facility] Medical CenterNeutrophils (%) (Auto)2019-04-30 11:44:00 * Test Item Value Reference Range Interpretation Comments Neutrophils (%) (Auto) (test code = 12124-9) 54.5 38.7-80.0 [facility] Medical CenterLymphocytes (%) (Auto)2019-04-30 11:44:00 * Test Item Value Reference Range Interpretation Comments Lymphocytes (%) (Auto) (test code = 736-9) 33.5 18.0-39.1 [facility] CenterMonocytes (%) (Auto)2019-04-30 11:44:00* Test Item Value Reference Range Interpretation Comments Monocytes (%) (Auto) (test code = 5905-5) 9.1 4.4-11.3 [facility] CenterEosinophils (%) (Auto)2019-04-30 11:44:00 * Test Item Value Reference Range Interpretation Comments Eosinophils (%) (Auto) (test code = 713-8) 1.5 0.0-6.0 [facility] CenterBasophils (%) (Auto)2019-04-30 11:44:00* Test Item Value Reference Range Interpretation Comments Basophils (%) (Auto) (test code = 706-2) 0.9 0.0-1.0 [facility] Medical CenterIM GRANULOCYTES %2019-04-30 11:44:00* Test Item Value Reference Range Interpretation Comments IM GRANULOCYTES % (test code = IM GRANULOCYTES %) 0.5 0.0- 1.0 [facility] CenterNeutrophils # (Auto)2019-04-30 11:44:00* Test Item Value Reference Range Interpretation Comments Neutrophils # (Auto) (test code = 751-8) 3.0 2.1-6.9 [facility] CenterLymphocytes # (Auto)2019-04-30 11:44:00* Test Item Value Reference Range Interpretation Comments Lymphocytes # (Auto) (test code = 16943-8) 1.8 1.0-3.2 [facility] CenterMonocytes # (Auto)2019-04-30 11:44:00* Test Item Value Reference Range Interpretation Comments Monocytes # (Auto) (test code = 742-7) 0.5 0.2-0.8 [facility] CenterEosinophils # (Auto)2019-04-30 11:44:00* Test Item Value Reference Range Interpretation Comments Eosinophils # (Auto) (test code = 711-2) 0.1 0.0-0.4 [facility] CenterBasophils # (Auto)2019-04-30 11:44:00* Test Item Value Reference Range Interpretation Comments Basophils # (Auto) (test code = 704-7) 0.1 0.0-0.1 [facility] Medical CenterAbsolute Immature Granulocyte (auto 2019-04-30 11:44:00* Test Item Value Reference Range Interpretation Comments Absolute Immature Granulocyte (auto (gladis t code = Absolute Immature Granulocyte (auto) 0.03 0-0.1 [facility] Medical CenterGentamicin Level Zrxsxj0453-27-91 17:37:00* Test Item Value Reference Range Interpretation Comments Gentamicin Level Trough (test code = 3665-7) 0.5 0.5-2.0 Detection Limit = 0.3 <0.3 indicates None DetectedPerformed at: [facility] Lab[address] [id number] Director: Froylan Flores MD, Phone: [phone] [facility] Medical CenterBlood Awejxuy2976-14-15 16:35:00* Test Item Value Reference Range Interpretation Comments Blood Culture (test code = 14661615) NO GROWTH AFTER 72 HOURS [facility] Nehgogi2153-11-84 13:28:00* Test Item Value Reference Range Interpretation Comments Blood Culture (test code = 600-7) No Result Data Provided [facility] Medical CenterBedside Xszjoke4610-88-34 03:15:00* Test Item Value Reference Range Interpretation Comments Bedside Glucose (test code = 43479-8) 151 70-120 H Meter ID: [id number] [facility]CT ABDOM[facility]PELVIS W 2019-04-26 19:13:00 [place] [address] Patient Name: LUIZA CHUN MR #: [id number] : 1985 Age/Sex: 33/M Req #: [id number] Adm Physician: NAEEM AHUMADA MD Ordered by: FRANKLYN PADILLA MD Report #: [id number] Location: MED/SURG3 Room/Bed: [facility] Procedure: 7397-2110 CT/CT A BDOMEN/PELVIS W Exam Date: 04/26/19 [...] 04/26/191920 COPY TO: MALENA PADILLA MD C-Reactive Nfxkzwm8042-51-07 11:22:00* Test Item Value Reference Range Interpretation Comments C-Reactive Protein (test code = 1988-5) 67 0-10 H Performed at: - Lab[address] [id number] Director: Froylan Flores MD, Phone: [phone] E. [facility] of Veterans Affairs Medical CenterErythrocyte Sedimentation Ewqw8758-08-79 12:12:00* Test Item Value Reference Range Interpretation Comments Erythrocyte Sedimentation Rate (test code = 4537-7) 31 0- 13 H [facility] Medical CenterTotal Bmzjezdsj6576-16-08 06:54:00* Test Item Value Reference Range Interpretation Comments Total Bilirubin (test code = 1975-2) 0.3 0.2-1.2 [facility] Medical CenterAspartate Amino Transf (AST/SGOT) 2019-04-25 06:54:00* Test Item Value Reference Range Interpretation Comments Aspartate Amino Transf (AST/SGOT) (test code = Aspartate Amino Transf (AST/SGOT)) 24 5-34 [facility] Medical CenterAlanine Aminotransferase (ALT/SGPT) 2019-04-25 06:54:00* Test Item Value Reference Range Interpretation Comments Alanine Aminotransferase (ALT/SGPT) (test code = 1742-6) 25 0-55 [facility] Medical CenterTotal Jkhriju7160-05-98 06:54:00* Test Item Value Reference Range Interpretation Comments Total Protein (test code = 2885-2) 5.7 6.5-8.1 L [facility] Medical CenterAlbumin2019-10-16 06:54:00* Test Item Value Reference Range Interpretation Comments Albumin (test code = 1751-7) 2.1 3.5-5.0 L [facility] Medical CenterGlobulin2019-10-16 06:54:00* Test Item Value Reference Range Interpretation Comments Globulin (test code = 45318-7) 3.6 2.3-3.5 H [facility] Medical CenterAlbumin/Globulin Bfvvy3022-52-29 06:54:00 * Test Item Value Reference Range Interpretation Comments Albumin/Globulin Ratio (test code = 1759-0) 0.6 0.8-2.0 L [facility] Medical CenterAlkaline Rembdahmcgk2199-64-47 06:54:00* Test Item Value Reference Range Interpretation Comments Alkaline Phosphatase (test code = 6768-6) 228 40-150 H [facility] Medical CenterHepatitis B Surface Antibody, Quant 2019-04-24 08:21:00* Test Item Value Reference Range Interpretation Comments Hepatitis B Surface Antibody, Quant (test code = 5194-6) >1000.0 Immunity>9.9 Status of Immunity Anti-HBs Level Inconsistent with Immunity 0.0 - 9.9Consistent with Immunity >9.9[facility]kinHepatierlanger [facility] hospital B Core Total Fvohjkpe0627-88-33 08:21:00* Test Item Value Reference Range Interpretation Comments Hepatitis B Core Total Antibody (test code = 46862-2) Negative Negative [facility] CenterHest. [facility] B Surface Vtzarqm6647-21-08 08:21:00* Test Item Value Reference Range Interpretation Comments Hepatitis B Surface Antigen (test code = 5196-1) Negative Negat teagan [facility] B Core IgM Mzytpxse6239-57-77 08:21:00* Test Item Value Reference Range Interpretation Comments Hepatitis B Core IgM Antibody (test code = 57420-2) Negative Ne gative Performed at: - [facility] [address] [id number] Director: Froylan Flores MD, Phone: [phone] E. [facility] of Veterans Affairs Medical CenterCreatine Kinase KO8491-51-65 10:51:00* Test Item Value Reference Range Interpretation Comments Creatine Kinase MB (test code = 54059-2) 1.50 0-5.0 [facility] Medical CenterTroponin N9485-45-76 10:51:00* Test Item Value Reference Range Interpretation Comments Troponin I (test code = RZR7329) 1.234 0-0.300 H Elevated result called to barber milligan at 1049 on 04/23/19 by Belia Guadalupe. [facility] Medical CenterLactic Acid Ytzgz8500-59-11 10:41:00* Test Item Value Reference Range Interpretation Comments Lactic Acid Level (test code = Lactic Acid Level) 11.5 4.5- 19.8 [facility] Medical CenterCreatine Mmkfer7088-53-05 10:41:00* Test Item Value Reference Range Interpretation Comments Creatine Kinase (test code = 2157-6) 9 30-200 L [facility] Medical CenterCHEST SINGLE (NOT PORTABLE)2019-04-22 21:06:00 [place] [address] Patient Name: LUIZA CHUN MR #: [id number] : 1985 Age/Sex: 33/M Req #: [id number] Adm Physician: Ordered by: DEBBIE MUNROE MID TEACHER Report #: [id number] Location: ER Room/Bed: Procedure: [id number] DX/ CHEST SINGLE (NOT PORTABLE) Exam Date: [...] SAUNDRA on 04/22/192106 COPY TO: DEBBIE MUNROE [employer] TEACHER Influenza Virus Types A,B Hmwfnma9891-57-74 19:43:00* Test Item Value Reference Range Interpretation Comments Influenza Virus Types A,B Antigen (test code = 93846-5) NEGATIVE NEGATIVE [facility] Medical CenterMagnesium Ibgmy4853-46-64 19:35:00* Test Item Value Reference Range Interpretation Comments Magnesium Level (test code = 43612-5) 2.2 1.3-2.1 H [facility] [id number] 19:28:00* Test Item Value Reference Range Interpretation Comments Urine Color (test code = 5778-6) YELLOW YELLOW [facility] [id number] 19:28:00* Test Item Value Reference Range Interpretation Comments Urine Clarity (test code = 12463-3) HAZY CLEAR [facility] [id number] 19:28:00 * Test Item Value Reference Range Interpretation Comments Urine Specific [place] (test code = 5811-5) 1.010 1.010-1.02 5 [facility] [id number] 19:28:00* Test Item Value Reference Range Interpretation Comments Urine pH (test code = 55866-6) 7.5 5-7 [facility] CenterU[facility] Leukocyte Ccfbjzmv2756-64-62 19:28:00* Test Item Value Reference Range Interpretation Comments Urine Leukocyte Esterase (test code = 5799-2) 1+ NEGATIVE H [facility] Wmemzjr3259-45-69 19:28:00* Test Item Value Reference Range Interpretation Comments Urine Nitrite (test code = 92389-5) NEGATIVE NEGATIVE [facility] CenterUrine Bucfyzs7997-04-78 19:28:00* Test Item Value Reference Range Interpretation Comments Urine Protein (test code = 5804-0) 2+ NEGATIVE H [facility] CenterUrine Glucose (UA)2019-04-22 19:28:00* Test Item Value Reference Range Interpretation Comments Urine Glucose (UA) (test code = 2349-9) NEGATIVE NEGATIVE [facility] CenterUrine Rpqmfzr5388-02-99 19:28:00* Test Item Value Reference Range Interpretation Comments Urine Ketones (test code = 40641-5) NEGATIVE NEGATIVE [facility] CenterUrine Swhgfaadbuxz1006-43-14 19:28:00* Test Item Value Reference Range Interpretation Comments Urine Urobilinogen (test code = 42827-7) 0.2 0.2-1 [facility] CenterUrine Awfjgzmps3152-20-72 19:28:00* Test Item Value Reference Range Interpretation Comments Urine Bilirubin (test code = 1978-6) NEGATIVE NEGATIVE [facility] CenterU[facility] Yluuz8150-60-95 19:28:00* Test Item Value Reference Range Interpretation Comments Urine Blood (test code = 29888-9) 2+ NEGATIVE H [facility] CenterUrine PBK7298-98-15 19:28:00* Test Item Value Reference Range Interpretation Comments Urine WBC (test code = 5821-4) 11-20 0-5 H [facility] CenterUrine XTW5191-60-61 19:28:00* Test Item Value Reference Range Interpretation Comments Urine RBC (test code = 48545-3) 11-20 0-5 H [facility] CenterUrine Fhqnwbtr9430-59-45 19:28:00* Test Item Value Reference Range Interpretation Comments Urine Bacteria (test code = 26564-1) FEW NONE [facility] CenterUrine Epithelial Etxmk7058-36-26 19:28:00 * Test Item Value Reference Range Interpretation Comments Urine Epithelial Cells (test code = 50988-5) FEW NONE [facility] Amorphous Amoiosli0832-96-69 19:28:00* Test Item Value Reference Range Interpretation Comments Urine Amorphous Sediment (test code = 8246-1) FEW FEW [facility] CenterUrine Fine Granular Uxwrh3103-84-01 19:28:00* Test Item Value Reference Range Interpretation Comments Urine Fine Granular Casts (test code = 84386-1) 1-5 >0 H [facility] CenterUrine Nvizy2257-89-92 19:28:00* Test Item Value Reference Range Interpretation Comments Urine Mucus (test code = 8247-9) FEW RARE H [facility] CenterGroup A Streptococcus Jgcjgn6663-76-85 19:25:00* Test Item Value Reference Range Interpretation Comments Group A Streptococcus Screen (test code = 33533-7) NEGATIVE NEG ATIVE [facility] CenterUrine KEN2056-80-66 13:31:00* Test Item Value Reference Range Interpretation Comments Urine WBC (test code = 5821-4) 6-10 0-5 H [facility] CenterUrine PKM6559-06-63 13:31:00* Test Item Value Reference Range Interpretation Comments Urine RBC (test code = 53016-5) >50 0-5 H [facility] CenterUrine Ofmdfyhq0903-30-99 13:31:00* Test Item Value Reference Range Interpretation Comments Urine Bacteria (test code = 18691-8) MODERATE NONE H [facility] CenterUrine Epithelial Cfmvf7200-90-50 13:31:00 * Test Item Value Reference Range Interpretation Comments Urine Epithelial Cells (test code = 07436-2) MODERATE NONE [facility] CenterUrine Kvzrv4082-35-95 13:22:00* Test Item Value Reference Range Interpretation Comments Urine Color (test code = 5778-6) YELLOW YELLOW [facility] CenterUrine Snqfzek4517-71-73 13:22:00* Test Item Value Reference Range Interpretation Comments Urine Clarity (test code = 51850-9) SL CLOUDY CLEAR H [facility] CenterUrine Specific Ufpgfja1267-53-51 13:22:00 * Test Item Value Reference Range Interpretation Comments Urine Specific [place] (test code = 5811-5) 1.015 1.010-1.02 5 [facility] CenterUrine [id number] 13:22:00* Test Item Value Reference Range Interpretation Comments Urine pH (test code = 69132-8) 7 5-7 [facility] CenterUrine Leukocyte Njapdlru5583-73-42 13:22:00* Test Item Value Reference Range Interpretation Comments Urine Leukocyte Esterase (test code = 79675-6) NEGATIVE NEGATIV E [facility] CenterUrine Cctplrf9501-11-59 13:22:00* Test Item Value Reference Range Interpretation Comments Urine Nitrite (test code = 79000-0) NEGATIVE NEGATIVE [facility] CenterUrine Vqrarcx0159-10-45 13:22:00* Test Item Value Reference Range Interpretation Comments Urine Protein (test code = 24491-8) 2+ NEGATIVE H [facility] CenterUrine Glucose (UA)2019-03-11 13:22:00* Test Item Value Reference Range Interpretation Comments Urine Glucose (UA) (test code = 23569-9) 1+ NEGATIVE H [facility] CenterUrine Nwdkmzu9911-92-32 13:22:00* Test Item Value Reference Range Interpretation Comments Urine Ketones (test code = 24735-5) NEGATIVE NEGATIVE [facility] CenterUrine Xabiknqjkkyy8679-79-17 13:22:00* Test Item Value Reference Range Interpretation Comments Urine Urobilinogen (test code = 23965-3) 0.2 0.2-1 [facility] CenterUrine Zjngeejhl2466-09-43 13:22:00* Test Item Value Reference Range Interpretation Comments Urine Bilirubin (test code = 1977-8) NEGATIVE NEGATIVE [facility] CenterUrine Rvvah4711-36-68 13:22:00* Test Item Value Reference Range Interpretation Comments Urine Blood (test code = 79418-6) 3+ NEGATIVE [facility] Vgoha8900-10-92 12:05:00* Test Item Value Reference Range Interpretation Comments Sodium Level (test code = 2951-2) 143 136-145 [facility] CenterPotassium Jmmwz7330-94-09 12:05:00* Test Item Value Reference Range Interpretation Comments Potassium Level (test code = 2823-3) 4.7 3.5-5.1 [facility] CenterChloride Utqrh5318-68-35 12:05:00* Test Item Value Reference Range Interpretation Comments Chloride Level (test code = 2075-0) 100 98-107 [facility] CenterCarbon Dioxide Qwwaa4223-74-30 12:05:00* Test Item Value Reference Range Interpretation Comments Carbon Dioxide Level (test code = 2028-9) 29 22-29 [facility] CenterAnion Swv9017-87-12 12:05:00* Test Item Value Reference Range Interpretation Comments Anion Gap (test code = 32818-5) 18.7 8-16 H [facility] CenterBlood Urea Nczahmqi5804-79-01 12:05:00* Test Item Value Reference Range Interpretation Comments Blood Urea Nitrogen (test code = 3094-0) 64 7-26 H [facility] CenterCreatinine2019-09-01 12:05:00* Test Item Value Reference Range Interpretation Comments Creatinine (test code = 2160-0) 11.35 0.72-1.25 H [facility] CenterBUN/Creatinine Idnxf9294-86-53 12:05:00* Test Item Value Reference Range Interpretation Comments BUN/Creatinine Ratio (test code = 3097-3) 6 6-25 [facility] CenterEstimat Glomerular Filtration Rate 2019-03-11 12:05:00* Test Item Value Reference Range Interpretation Comments Estimat Glomerular Filtration Rate (test code = 939595113) 5 >60 L Ranges were taken from the National Kidney Disease Education Program and the [facility] Kid[facility] Foundation literature.Reference ranges:60 or greater: Cdkfkp31-71 ( for 3 consecutive months): Chronic kidney disease 15 or less: Kidney failureMichael E. DeBakey [facility] of [facility] Medical CenterGlucose Htjny0587-12-36 12:05:00* Test Item Value Reference Range Interpretation Comments Glucose Level (test code = YLF2177) 117 74-118 [facility] CenterCalcium Wycok1543-83-36 12:05:00* Test Item Value Reference Range Interpretation Comments Calcium Level (test code = 26191-9) 9.4 8.4-10.2 [facility] CenterTotal Oflfuxumc8694-04-51 12:05:00* Test Item Value Reference Range Interpretation Comments Total Bilirubin (test code = 1975-2) 0.5 0.2-1.2 [facility] Medical CenterAspartate Amino Transf (AST/SGOT) 2019-03-11 12:05:00* Test Item Value Reference Range Interpretation Comments Aspartate Amino Transf (AST/SGOT) (test code = Aspartate Amino Transf (AST/SGOT)) 15 5-34 [facility] CenterAlanine Aminotransferase (ALT/SGPT) 2019-03-11 12:05:00* Test Item Value Reference Range Interpretation Comments Alanine Aminotransferase (ALT/SGPT) (test code = 1742-6) 40 0-55 [facility] CenterTotal Oagilaz8759-14-61 12:05:00* Test Item Value Reference Range Interpretation Comments Total Protein (test code = 2885-2) 7.6 6.5-8.1 [facility] CenterAlbumin2019-09-01 12:05:00* Test Item Value Reference Range Interpretation Comments Albumin (test code = 1751-7) 3.3 3.5-5.0 L [facility] CenterGlobulin2019-09-01 12:05:00* Test Item Value Reference Range Interpretation Comments Globulin (test code = 38971-4) 4.3 2.3-3.5 H [facility] CenterAlbumin/Globulin Pkmfn6204-13-33 12:05:00 * Test Item Value Reference Range Interpretation Comments Albumin/Globulin Ratio (test code = 1759-0) 0.8 0.8-2.0 [facility] CenterAlkaline Qcxlvvsxxda1598-83-06 12:05:00* Test Item Value Reference Range Interpretation Comments Alkaline Phosphatase (test code = 6768-6) 118 40-150 [facility] CenterWhite Blood Spfxh8504-44-20 11:50:00* Test Item Value Reference Range Interpretation Comments White Blood Count (test code = 6690-2) 6.42 4.8-10.8 [facility] CenterRed Blood Xcgwf4643-78-06 11:50:00* Test Item Value Reference Range Interpretation Comments Red Blood Count (test code = 789-8) 3.33 4.3-5.7 L [facility] CenterHemoglobin2019-09-01 11:50:00* Test Item Value Reference Range Interpretation Comments Hemoglobin (test code = 50828-8) 11.2 14.0-18.0 L [facility] CenterHematocrit2019-09-01 11:50:00* Test Item Value Reference Range Interpretation Comments Hematocrit (test code = 4544-3) 33.5 38.2-49.6 L [facility] CenterMean Corpuscular Faorer3207-69-31 11:50:00* Test Item Value Reference Range Interpretation Comments Mean Corpuscular Volume (test code = 787-2) 100.6 81-99 H [facility] CenterMean Corpuscular Jgbyxyypcz5298-72-86 11:50:00* Test Item Value Reference Range Interpretation Comments Mean Corpuscular Hemoglobin (test code = 785-6) 33.6 28-32 H [facility] CenterMean Corpuscular Hemoglobin Concent 2019-03-11 11:50:00* Test Item Value Reference Range Interpretation Comments Mean Corpuscular Hemoglobin Concent (test code = 786-4) 33.4 31-35 [facility] CenterRed Cell Distribution Uamba7275-95-30 11:50:00* Test Item Value Reference Range Interpretation Comments Red Cell Distribution Width (test code = 61180-0) 14.7 11.7 -14.4 H [facility] CenterPlatelet Nczgl2696-85-91 11:50:00* Test Item Value Reference Range Interpretation Comments Platelet Count (test code = 777-3) 224 140-360 [facility] CenterNeutrophils (%) (Auto)2019-03-11 11:50:00 * Test Item Value Reference Range Interpretation Comments Neutrophils (%) (Auto) (test code = 39995-3) 60.8 38.7-80.0 [facility] CenterLymphocytes (%) (Auto)2019-03-11 11:50:00 * Test Item Value Reference Range Interpretation Comments Lymphocytes (%) (Auto) (test code = 736-9) 26.0 18.0-39.1 [facility] CenterMonocytes (%) (Auto)2019-03-11 11:50:00* Test Item Value Reference Range Interpretation Comments Monocytes (%) (Auto) (test code = 5905-5) 11.4 4.4-11.3 H [facility] CenterEosinophils (%) (Auto)2019-03-11 11:50:00 * Test Item Value Reference Range Interpretation Comments Eosinophils (%) (Auto) (test code = 713-8) 0.5 0.0-6.0 [facility] CenterBasophils (%) (Auto)2019-03-11 11:50:00* Test Item Value Reference Range Interpretation Comments Basophils (%) (Auto) (test code = 706-2) 0.8 0.0-1.0 [facility] CenterIM GRANULOCYTES %2019-03-11 11:50:00* Test Item Value Reference Range Interpretation Comments IM GRANULOCYTES % (test code = IM GRANULOCYTES %) 0.5 0.0- 1.0 [facility] CenterNeutrophils # (Auto)2019-03-11 11:50:00* Test Item Value Reference Range Interpretation Comments Neutrophils # (Auto) (test code = 751-8) 3.9 2.1-6.9 [facility] CenterLymphocytes # (Auto)2019-03-11 11:50:00* Test Item Value Reference Range Interpretation Comments Lymphocytes # (Auto) (test code = 83229-9) 1.7 1.0-3.2 [facility] CenterMonocytes # (Auto)2019-03-11 11:50:00* Test Item Value Reference Range Interpretation Comments Monocytes # (Auto) (test code = 742-7) 0.7 0.2-0.8 [facility] CenterEosinophils # (Auto)2019-03-11 11:50:00* Test Item Value Reference Range Interpretation Comments Eosinophils # (Auto) (test code = 711-2) 0.0 0.0-0.4 [facility] CenterBasophils # (Auto)2019-03-11 11:50:00* Test Item Value Reference Range Interpretation Comments Basophils # (Auto) (test code = 704-7) 0.1 0.0-0.1 [facility] CenterAbsolute Immature Granulocyte (auto 2019-03-11 11:50:00* Test Item Value Reference Range Interpretation Comments Absolute Immature Granulocyte (auto (gladis t code = Absolute Immature Granulocyte (auto) 0.03 0-0.1 [facility] Medical CenterCT ABDOMEN/PELVIS GG8753-38-80 11:32:00 [facility] [address] [place] [address] Patient Name: LUIZA CHUN MR #: [id number] : 1985 Age/Sex: 33/M Req #: [id number] Adm Physician: Ordered by: MARISELA LYN MD Report #: [id number] Location: ER Room/Bed: Procedure: [id number] CT/C T ABDOMEN/PELVIS WO Exam Date: 03/11/19 Exam Time: 1 100 REPORT STATUS: Signed EXAM: CT of the abdomen and pelvis WITHOUT contrast HISTORY: Pain, pelvic, lower back, CVA tenderness, dialysis patient COMPARISON: None available. OWOD HNIQUE: The abdomen and pelvis were scanned [...] stone. Signed by: Dr. Latrell Hidalgo D.O., M.M.MChikis on 03/11/2019 11:46 AM Dictated By: LATRELL HIDALGO DO 1146 Transcribed By: SAUNDRA on 03/11/19 1146 COPY TO: MARISELA LYN MD CHEST SINGLE (PORTABLE)2018-09-05 02:49:00 [place] [address] Patient Name: LUIZA CHUN MR #: [id number] : 1985 Age/Sex: 32/M Req #: [id number] Adm Physician: Ordered by: CARI LEA MD Report #: [id number] Location: ER Room/Bed: Procedure: [id number] DX/[facility] ST SINGLE (PORTABLE) Exam Date: Exam Time: REPORT STATUS: Signed EXAMINATION: [facility] ST SINGLE (PORTABLE) COMPARISON: Chest x-ray [...] By: SAUNDRA on 09/05/18250 COPY TO: CARI LEA MD CT BRAIN [id number] 19:49:00 [place] [id number] [place] [address] Patient Name: LUIZA CHUN MR #: [id number] : 1985 Age/Sex: 32/M Req #: [id number] Adm Physician: Ordered by: NATE DE LA VEGA MID TEACHER Report #: [id number] Location: ER Room/Bed: Procedure: [id number] CT/CT BRAIN WO Exam Date: Exam Time: [...] TO: NATE DE LA VEGA NP Magnesium Wmaat9466-49-81 19:38:00* Test Item Value Reference Range Interpretation Comments Magnesium Level (test code = 05458-5) 1.9 1.3-2.1 [facility] CenterMagnesium Kfxmd5546-69-29 19:38:00* Test Item Value Reference Range Interpretation Comments Magnesium Level (test code = 93350-4) 1.9 1.3-2.1 [facility] CenterCreatine Kinase [id number] 19:26:00* Test Item Value Reference Range Interpretation Comments Creatine Kinase MB (test code = 31207-9) 0.40 0-5.0 [facility] CenterTroponin [id number] 19:26:00* Test Item Value Reference Range Interpretation Comments Troponin I (test code = CSB7039) 0.007 0-0.300 [facility] CenterCreatine Kinase HZ7856-17-35 19:26:00* Test Item Value Reference Range Interpretation Comments Creatine Kinase MB (test code = 69146-6) 0.40 0-5.0 [facility] CenterTroponin I2413-12-41 19:26:00* Test Item Value Reference Range Interpretation Comments Troponin I (test code = NFM8085) 0.007 0-0.300 [facility]odium Bdiww1605-54-39 19:20:00* Test Item Value Reference Range Interpretation Comments Sodium Level (test code = 2951-2) 143 136-145 [facility] CenterPotassium Ufsoq1219-62-13 19:20:00* Test Item Value Reference Range Interpretation Comments Potassium Level (test code = 2823-3) 3.6 3.5-5.1 [facility] CenterChloride Ouaph6976-46-95 19:20:00* Test Item Value Reference Range Interpretation Comments Chloride Level (test code = 2075-0) 102 98-107 [facility] CenterCarbon Dioxide Tadpv7660-20-18 19:20:00* Test Item Value Reference Range Interpretation Comments Carbon Dioxide Level (test code = 2028-9) 30 22-29 H [facility] CenterAnion Wng2687-28-42 19:20:00* Test Item Value Reference Range Interpretation Comments Anion Gap (test code = 74298-7) 14.6 8-16 [facility] CenterBlood Urea Ztpuhgpd8168-82-53 19:20:00* Test Item Value Reference Range Interpretation Comments Blood Urea Nitrogen (test code = 3094-0) 17 7-26 [facility] CenterCreatinine2018-09-28 19:20:00* Test Item Value Reference Range Interpretation Comments Creatinine (test code = 2160-0) 3.81 0.72-1.25 H [facility] CenterBUN/Creatinine Pmzwp1764-95-25 19:20:00* Test Item Value Reference Range Interpretation Comments BUN/Creatinine Ratio (test code = 3097-3) 4 6-25 L [facility] CenterEstimat Glomerular Filtration Rate 2018-04-07 19:20:00* Test Item Value Reference Range Interpretation Comments Estimat Glomerular Filtration Rate (test code = 713060587) 19 >60 L Ranges were taken from the National Kidney Disease Education Program and the [facility] Kid[facility] Foundation literature.Reference ranges:60 or greater: Imlgyb97-32 ( for 3 consecutive months): Chronic kidney disease 15 or less: Kidney failureMichael E. DeBakey [facility] of [facility] Affairs Medical CenterGlucose Ghjhj5928-11-12 19:20:00* Test Item Value Reference Range Interpretation Comments Glucose Level (test code = WRE8272) 112 74-118 [facility] CenterCalcium Iroef5254-91-98 19:20:00* Test Item Value Reference Range Interpretation Comments Calcium Level (test code = 83937-9) 9.0 8.4-10.2 [facility] CenterTotal Wgfbmtohf1115-96-95 19:20:00* Test Item Value Reference Range Interpretation Comments Total Bilirubin (test code = 1975-2) 0.3 0.2-1.2 [facility] CenterAspartate Amino Transf (AST/SGOT) 2018-04-07 19:20:00* Test Item Value Reference Range Interpretation Comments Aspartate Amino Transf (AST/SGOT) (test code = Aspartate Amino Transf (AST/SGOT)) 21 5-34 [facility] CenterAlanine Aminotransferase (ALT/SGPT) 2018-04-07 19:20:00* Test Item Value Reference Range Interpretation Comments Alanine Aminotransferase (ALT/SGPT) (test code = 1742-6) 15 0-55 [facility] Pdjfutt3808-41-63 19:20:00* Test Item Value Reference Range Interpretation Comments Total Protein (test code = 2885-2) 7.6 6.5-8.1 [facility] CenterAlbumin2018-09-28 19:20:00* Test Item Value Reference Range Interpretation Comments Albumin (test code = 1751-7) 3.7 3.5-5.0 [facility] CenterGlobulin2018-09-28 19:20:00* Test Item Value Reference Range Interpretation Comments Globulin (test code = 58095-2) 3.9 2.3-3.5 H [facility] CenterAlbumin/Globulin Brulg2369-95-94 19:20:00 * Test Item Value Reference Range Interpretation Comments Albumin/Globulin Ratio (test code = 1759-0) 0.9 0.8-2.0 [facility] CenterAlkaline Uwdxasphger7761-93-93 19:20:00* Test Item Value Reference Range Interpretation Comments Alkaline Phosphatase (test code = 6768-6) 107 40-150 [facility] CenterCreatine Bvcqcp2524-74-93 19:20:00* Test Item Value Reference Range Interpretation Comments Creatine Kinase (test code = 2157-6) 57 30-200 [facility] Centerodium Wqrfk2435-04-59 19:20:00* Test Item Value Reference Range Interpretation Comments Sodium Level (test code = 2951-2) 143 136-145 [facility] CenterPotassium Chuwx3183-18-85 19:20:00* Test Item Value Reference Range Interpretation Comments Potassium Level (test code = 2823-3) 3.6 3.5-5.1 [facility] CenterChloride Jlpxo8216-70-06 19:20:00* Test Item Value Reference Range Interpretation Comments Chloride Level (test code = 2075-0) 102 98-107 [facility] CenterCarbon Dioxide Clcgg1589-49-97 19:20:00* Test Item Value Reference Range Interpretation Comments Carbon Dioxide Level (test code = 2028-9) 30 22-29 H [facility] CenterAnion Ghy5973-23-34 19:20:00* Test Item Value Reference Range Interpretation Comments Anion Gap (test code = 32484-5) 14.6 8-16 [facility] CenterBlood Urea Eeqrqgmr5953-79-57 19:20:00* Test Item Value Reference Range Interpretation Comments Blood Urea Nitrogen (test code = 3094-0) 17 7-26 [facility] [facility] CenterCreatinine2018-09-28 19:20:00* Test Item Value Reference Range Interpretation Comments Creatinine (test code = 2160-0) 3.81 0.72-1.25 [facility] CenterBUN/Creatinine [id number] 19:20:00* Test Item Value Reference Range Interpretation Comments BUN/Creatinine Ratio (test code = 3097-3) 4 6-25 L [facility] CenterEstimat Glomerular Filtration Rate 2018-04-07 19:20:00* Test Item Value Reference Range Interpretation Comments Estimat Glomerular Filtration Rate (test code = 353808774) 19 >60 L Ranges were taken from the National Kidney Disease Education Program and the [employer] [employer] [employer] literature.Reference ranges:60 or greater: Rceofj45-56 ( for 3 consecutive months): Chronic kidney disease 15 or less: Kidney failureMichael E. DeB[facility]y [facility] of [facility] Medical CenterGlucose [id number] 19:20:00* Test Item Value Reference Range Interpretation Comments Glucose Level (test code = BWW0272) 112 74-118 [facility] CenterCalcium [id number] 19:20:00* Test Item Value Reference Range Interpretation Comments Calcium Level (test code = 78878-3) 9.0 8.4-10.2 [facility] CenterTotal Pexcoyukj8906-26-08 19:20:00* Test Item Value Reference Range Interpretation Comments Total Bilirubin (test code = 1975-2) 0.3 0.2-1.2 [facility] CenterAspartate Amino Transf (AST/SGOT) 2018-04-07 19:20:00* Test Item Value Reference Range Interpretation Comments Aspartate Amino Transf (AST/SGOT) (test code = Aspartate Amino Transf (AST/SGOT)) 21 5-34 [facility] CenterAlanine Aminotransferase (ALT/SGPT) 2018-04-07 19:20:00* Test Item Value Reference Range Interpretation Comments Alanine Aminotransferase (ALT/SGPT) (test code = 1742-6) 15 0-55 [facility] CenterTotal [id number] 19:20:00* Test Item Value Reference Range Interpretation Comments Total Protein (test code = 2885-2) 7.6 6.5-8.1 [facility] CenterAlbumin2018-09-28 19:20:00* Test Item Value Reference Range Interpretation Comments Albumin (test code = 1751-7) 3.7 3.5-5.0 [facility] CenterGlobulin2018-09-28 19:20:00* Test Item Value Reference Range Interpretation Comments Globulin (test code = 07762-0) 3.9 2.3-3.5 H [facility] CenterAlbumin/Globulin Djxlj7893-14-15 19:20:00 * Test Item Value Reference Range Interpretation Comments Albumin/Globulin Ratio (test code = 1759-0) 0.9 0.8-2.0 [facility] CenterAlkaline Gvsuivgdbei8028-64-32 19:20:00* Test Item Value Reference Range Interpretation Comments Alkaline Phosphatase (test code = 6768-6) 107 40-150 [facility] CenterCreatine [id number] 19:20:00* Test Item Value Reference Range Interpretation Comments Creatine Kinase (test code = 2157-6) 57 30-[address] [facility] S[facility] ([facility]ABLE)2018-04-07 19:14:00 [facility] [address] [address] Patient Name: LUIZA CHUN MR #: [id number] : 1985 Age/Sex: 32/M Req #: [id number] Adm Physician: Ordered by: KIRK MCFARLAND MD Report #: [id number] Location: ER Room/Bed: Procedure: [id number] DX/CHEST SINGLE (PORTABLE) E xam Date: 04/07/18 [...] COPY TO: KIRK MCFARLAND MD White Blood [id number] 18:59:00* Test Item Value Reference Range Interpretation Comments White Blood Count (test code = 6690-2) 3.80 4.8-10.8 L [facility] CenterRed Blood [id number] 18:59:00* Test Item Value Reference Range Interpretation Comments Red Blood Count (test code = 789-8) 2.60 4.3-5.7 L [facility] CenterHemoglobin2018-09-28 18:59:00* Test Item Value Reference Range Interpretation Comments Hemoglobin (test code = 97462-4) 8.4 14.0-18.0 L [facility] CenterHematocrit2018-09-28 18:59:00* Test Item Value Reference Range Interpretation Comments Hematocrit (test code = 4544-3) 26.0 38.2-49.6 L [facility] CenterMean Corpuscular Qlsagb2483-76-85 18:59:00* Test Item Value Reference Range Interpretation Comments Mean Corpuscular Volume (test code = 787-2) 100.0 81-99 [facility] CenterMean Corpuscular Cvofzgemzx2124-17-12 18:59:00* Test Item Value Reference Range Interpretation Comments Mean Corpuscular Hemoglobin (test code = 785-6) 32.3 28-32 H [facility] CenterMean Corpuscular Hemoglobin Concent 2018-04-07 18:59:00* Test Item Value Reference Range Interpretation Comments Mean Corpuscular Hemoglobin Concent (test code = 786-4) 32.3 31-35 [facility] CenterRed Cell Distribution Bpuvu3922-87-12 18:59:00* Test Item Value Reference Range Interpretation Comments Red Cell Distribution Width (test code = 91721-7) 14.4 11.7 -14.4 [facility] CenterPlatelet Yxpna4481-15-37 18:59:00* Test Item Value Reference Range Interpretation Comments Platelet Count (test code = 777-3) 249 140-360 [facility] CenterNeutrophils (%) (Auto)2018-04-07 18:59:00 * Test Item Value Reference Range Interpretation Comments Neutrophils (%) (Auto) (test code = 55923-7) 27.1 38.7-80.0 L [facility] CenterLymphocytes (%) (Auto)2018-04-07 18:59:00 * Test Item Value Reference Range Interpretation Comments Lymphocytes (%) (Auto) (test code = 736-9) 58.2 18.0-39.1 H [facility] CenterMonocytes (%) (Auto)2018-04-07 18:59:00* Test Item Value Reference Range Interpretation Comments Monocytes (%) (Auto) (test code = 5905-5) 10.5 4.4-11.3 [facility] CenterEosinophils (%) (Auto)2018-04-07 18:59:00 * Test Item Value Reference Range Interpretation Comments Eosinophils (%) (Auto) (test code = 713-8) 2.6 0.0-6.0 [facility] CenterBasophils (%) (Auto)2018-04-07 18:59:00* Test Item Value Reference Range Interpretation Comments Basophils (%) (Auto) (test code = 706-2) 1.3 0.0-1.0 H [facility] CenterIM GRANULOCYTES %2018-04-07 18:59:00* Test Item Value Reference Range Interpretation Comments IM GRANULOCYTES % (test code = IM GRANULOCYTES %) 0.3 0.0- 1.0 [facility] CenterNeutrophils # (Auto)2018-04-07 18:59:00* Test Item Value Reference Range Interpretation Comments Neutrophils # (Auto) (test code = 751-8) 1.0 2.1-6.9 L [facility] CenterLymphocytes # (Auto)2018-04-07 18:59:00* Test Item Value Reference Range Interpretation Comments Lymphocytes # (Auto) (test code = 05879-6) 2.2 1.0-3.2 [facility] CenterMonocytes # (Auto)2018-04-07 18:59:00* Test Item Value Reference Range Interpretation Comments Monocytes # (Auto) (test code = 742-7) 0.4 0.2-0.8 [facility] CenterEosinophils # (Auto)2018-04-07 18:59:00* Test Item Value Reference Range Interpretation Comments Eosinophils # (Auto) (test code = 711-2) 0.1 0.0-0.4 [facility] CenterBasophils # (Auto)2018-04-07 18:59:00* Test Item Value Reference Range Interpretation Comments Basophils # (Auto) (test code = 704-7) 0.1 0.0-0.1 [facility] Medical CenterAbsolute Immature Granulocyte (auto 2018-04-07 18:59:00* Test Item Value Reference Range Interpretation Comments Absolute Immature Granulocyte (auto (gladis t code = Absolute Immature Granulocyte (auto) 0.01 0-0.1 [facility] CenterWhite Blood [id number] 18:59:00* Test Item Value Reference Range Interpretation Comments White Blood Count (test code = 6690-2) 3.80 4.8-10.8 L [facility] CenterRed Blood Myxdo6577-10-75 18:59:00* Test Item Value Reference Range Interpretation Comments Red Blood Count (test code = 789-8) 2.60 4.3-5.7 L [facility] CenterHemoglobin2018-09-28 18:59:00* Test Item Value Reference Range Interpretation Comments Hemoglobin (test code = 30372-3) 8.4 14.0-18.0 L [facility] CenterHematocrit2018-09-28 18:59:00* Test Item Value Reference Range Interpretation Comments Hematocrit (test code = 4544-3) 26.0 38.2-49.6 L [facility] CenterMean Corpuscular Kmufzb9850-72-24 18:59:00* Test Item Value Reference Range Interpretation Comments Mean Corpuscular Volume (test code = 787-2) 100.0 81-99 H [facility] CenterMean Corpuscular Mghyhxmvem6033-23-97 18:59:00* Test Item Value Reference Range Interpretation Comments Mean Corpuscular Hemoglobin (test code = 785-6) 32.3 28-32 H [facility] CenterMean Corpuscular Hemoglobin Concent 2018-04-07 18:59:00* Test Item Value Reference Range Interpretation Comments Mean Corpuscular Hemoglobin Concent (test code = 786-4) 32.3 31-35 [facility] CenterRed Cell Distribution [id number] 18:59:00* Test Item Value Reference Range Interpretation Comments Red Cell Distribution Width (test code = 93288-1) 14.4 11.7 -14.4 [facility] CenterPlatelet Taqgy8250-19-12 18:59:00* Test Item Value Reference Range Interpretation Comments Platelet Count (test code = 777-3) 249 140-360 [facility] CenterNeutrophils (%) (Auto)2018-04-07 18:59:00 * Test Item Value Reference Range Interpretation Comments Neutrophils (%) (Auto) (test code = 80385-3) 27.1 38.7-80.0 L [facility] CenterLymphocytes (%) (Auto)2018-04-07 18:59:00 * Test Item Value Reference Range Interpretation Comments Lymphocytes (%) (Auto) (test code = 736-9) 58.2 18.0-39.1 H [facility] CenterMonocytes (%) (Auto)2018-04-07 18:59:00* Test Item Value Reference Range Interpretation Comments Monocytes (%) (Auto) (test code = 5905-5) 10.5 4.4-11.3 [facility] CenterEosinophils (%) (Auto)2018-04-07 18:59:00 * Test Item Value Reference Range Interpretation Comments Eosinophils (%) (Auto) (test code = 713-8) 2.6 0.0-6.0 [facility] CenterBasophils (%) (Auto)2018-04-07 18:59:00* Test Item Value Reference Range Interpretation Comments Basophils (%) (Auto) (test code = 706-2) 1.3 0.0-1.0 H [facility] CenterIM GRANULOCYTES %2018-04-07 18:59:00* Test Item Value Reference Range Interpretation Comments IM GRANULOCYTES % (test code = IM GRANULOCYTES %) 0.3 0.0- 1.0 [facility] CenterNeutrophils # (Auto)2018-04-07 18:59:00* Test Item Value Reference Range Interpretation Comments Neutrophils # (Auto) (test code = 751-8) 1.0 2.1-6.9 L [facility] CenterLymphocytes # (Auto)2018-04-07 18:59:00* Test Item Value Reference Range Interpretation Comments Lymphocytes # (Auto) (test code = 65049-0) 2.2 1.0-3.2 [facility] CenterMonocytes # (Auto)2018-04-07 18:59:00* Test Item Value Reference Range Interpretation Comments Monocytes # (Auto) (test code = 742-7) 0.4 0.2-0.8 [facility] CenterEosinophils # (Auto)2018-04-07 18:59:00* Test Item Value Reference Range Interpretation Comments Eosinophils # (Auto) (test code = 711-2) 0.1 0.0-0.4 [facility] CenterBasophils # (Auto)2018-04-07 18:59:00* Test Item Value Reference Range Interpretation Comments Basophils # (Auto) (test code = 704-7) 0.1 0.0-0.1 [facility] CenterAbsolute Immature Granulocyte (auto 2018-04-07 18:59:00* Test Item Value Reference Range Interpretation Comments Absolute Immature Granulocyte (auto (gladis t code = Absolute Immature Granulocyte (auto) 0.01 0-0.1 [facility] CenterU/S, PELVIC, [id number] 18:20:00 Reason for Exam:->CKD/KIDNEY TRANSPLANT EVALUATIONFINAL REPORT [...] Shahana ified Date/Time: 11/07/2017 18:20:05 Reading Location: [address] Ultrasound Reading Room 0 6:20 PM U/S, ABDOMINAL, [id number] 18:20:00Reason for Exam:->CKD/KIDNEY TRANSPLANT EVALUATIONFINAL REPORT HISTORY [...] medical renal disease. Signed: Miguelangel Abel MDReport Verified Date/Time: 11/07/2017 18:20:05 Reading Location: [facility] P006J Ultrasound Reading Room 0 6:20 PM RAD, CHEST, 2 [id number] 11:05:00Reason for Exam:->CKD/KIDNEY TRANSPLANT EVALUATIONFINAL REPORT TECHNIQUE: 2 views of the chest. COMPARISON: None FINDINGS: The cardiac silhouette is within normal limits. Mediastinum is unremarkable. Lungs are clear. Osseous structures appear unremarkable. Soft tissues appear unremarkable. IMPRESSION: Normal chest exam. Signed: John Paul Rios MDReport Verified Date/Time: 11/07/2017 11:05:03 Reading Location: [facility] Radiology Reading Room D [id number] 08:01:00* Test Item Value Reference Range Interpretation Comments TRIGLYCERIDES ([facility]) (test code = 540) 141 mg/dL CHOLESTEROL ([facility]) (test code = 631) 148 mg/dL HDL CHOLESTEROL ([facility]) (test code = 976) 27 mg/dL LDL CHOLESTEROL CALCULATED ([facility]) (test code = 633) 93 mg/dL Triglyceride Reference Range: Low Risk <150 Borderline 150-199 High Risk 200-499 Very High Risk >=500Cholesterol Reference Range: Low Risk <200 Borderline 200-239 High Risk >240HDL Cholesterol Reference Range: Low Risk >=60 High Risk <40LDL Cholesterol Reference Range: Optimal <100 Near Optimal 100-129 Borderline 130-159 High 160-189 Very High >=190 OCCULT BLOOD, [id number] 01:02:00* Test Item Value Reference Range Interpretation Comments FECAL OCCULT BLOOD (BEAKER) (test code = 618) Negative Negative OCCULT BLOOD, [id number] 01:02:00* Test Item Value Reference Range Interpretation Comments FECAL OCCULT BLOOD (BEAKER) (test code = 618) Negative Negative URINE [id number] 10:07:00* Test Item Value Reference Range Interpretation Comments CULTURE (BEAKER) (test code = 1095) 10-19,000 col/mL skin chanelle VARICELLA ZOSTER ANTIBODY, [id number] 13:40:00* Test Item Value Reference Range Interpretation Comments VARICELLA ZOSTER IGG (AL) (BEAKER) (test code = 3197) 2.5 Al VARICELLA ZOSTER RESULT INTERPRETATIONS: <=0.8 Al Nonreactive: Presumed non-immune to VZV 0.9-1.0 Al Equivocal >=1.1 Al Reactive: Presumed immune to VZVCYTOMEGALOVIRUS ANTIBODY, [id number] 13:37:00* Test Item Value Reference Range Interpretation Comments CYTOMEGALOVIRUS IGG ANTIBODY (BEAKER) (test code = 790) Positive CYTOMEGALOVIRUS ANTIBODY, [id number] 13:37:00* Test Item Value Reference Range Interpretation Comments CYTOMEGALOVIRUS IGM ANTIBODY (BEAKER) (test code = 816) Negative EBV-VCA ANTIBODY, [id number] 13:37:00* Test Item Value Reference Range Interpretation Comments NEFTALY-HATCH VCA IGG (BEAKER) (test code = 983) Positive EBV-VCA ANTIBODY, [id number] 13:37:00* Test Item Value Reference Range Interpretation Comments NEFTALY-HATCH VCA IGM (BEAKER) (test code = 984) Negative [id number] 23:19:00* Test Item Value Reference Range Interpretation Comments RPR SCREEN (BEAKER) (test code = 420) Nonreactive Nonreactive HEPATITIS B SURFACE [id number] 15:15:00* Test Item Value Reference Range Interpretation Comments HEPATITIS B SURFACE ANTIBODY (BEAKER) (test code = 647) 9.7 mIU/mL <8.0 H HEPATITIS B SURFACE [id number] 15:13:00* Test Item Value Reference Range Interpretation Comments HEPATITIS B SURFACE ANTIGEN (2) (BEAKER) (test code = 2585) Nonreactive Nonreactive HEPATITIS B CORE ANTIBODY, [id number] 15:13:00* Test Item Value Reference Range Interpretation Comments HEPATITIS B CORE IGM ANTIBODY (BEAKER) (test code = 645) Non reactive Nonreactive HEPATITIS C [id number] 15:13:00* Test Item Value Reference Range Interpretation Comments HEPATITIS C ANTIBODY (BEAKER) (test code = 367) Nonreactive Nonrea ctive HIV-1 ANTIGEN WITH HIV-1/2 [id number] 15:13:00* Test Item Value Reference Range Interpretation Comments HIV-1 ANTIGEN WITH HIV 1\T\2 ANTIBODY (2) (BEAKER) (te st code = 2586) Nonreactive Nonreactive HEMOGLOBIN [id number] 13:30:00* Test Item Value Reference Range Interpretation Comments HEMOGLOBIN A1C (BEAKER) (test code = 368) 5.2 % 4.3-6.1 URINALYSIS W/ [id number] 12:03:00* Test Item Value Reference Range Interpretation [...] 516) < /HPF SOURCE(BEAKER) (test code = 3645) CBC W/PLT COUNT & AUTO [id number] 12:02:00* Test Item Value Reference Range Interpretation [...] = 2801) 0 % 0-1 COMPREHENSIVE METABOLIC [id number] 11:44:00* Test Item Value Reference Range Interpretation [...] IS NOT APPLICABLE FOR DIALYSIS PATIENTS. URIC [id number] 11:42:00* Test Item Value Reference Range Interpretation Comments URIC ACID (BEAKER) (test code = 773) 12.7 mg/dL 2.6-7.2 H [id number] 11:42:00* Test Item Value Reference Range Interpretation [...] = 635) 138 U/L 125-2 20 PTH, [id number] 11:37:00* Test Item Value Reference Range Interpretation Comments PARATHYROID HORMONE INTACT (BEAKER) (test code = 577) 265.3 pg/mL 8.5-72.5 H PT/[id number] 11:11:00* Test Item Value Reference Range Interpretation [...]
--- OUTSIDE RECORDS SUMMARY | 2020-03-17 22:29 | XMS REPORT | Clinical Summary ---
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
--- OUTSIDE RECORDS SUMMARY | 2020-03-17 22:29 | XMS REPORT | Clinical Summary ---
Author Author [facility] Address Unknown Phone Unavailable Care Team Providers Care Chute Worker Name Role Phone Locke--Kumar Escoto PCP Allergies [...] id CARE COMM STAR Contracted [address]AN [address] [place] [address]
[2020-03-17] MEDS ORDERED: ONDANSETRON HCL INJ 2MG/ML 2ML 2 MG/ML VIAL IV PRN (22:30)
--- NOTE | 2020-03-17 22:30 | NUR ---
Patient's current O2 sat at 83% on 2L via nasal cannula, Dr. Frausto ordered 80 mg of Lasix IV to be given and to place patient on 15L/min via NRB
--- OUTSIDE RECORDS SUMMARY | 2020-03-17 22:30 | XMS REPORT | Continuity of Care Document ---
Author Author [facility] t Organization [facility] Address [address] [place] [address] Phone Unavailable Care Team Providers Care Digital Data Analyst Name Role Phone UMANG SINGH, MD Davina MITCHELL PCP Mary JARAMILLO Attphys Unavailable Davina LEA Attphys Unavailable Real Mckee Attphys Unavailable Elvira SINGH, Tino Carroll Attphys [phone] Sally Turner Attphys Unavailable Maryan NARVAEZ, Love Attphys Unavailable Emiliana Hurst Attphys Unavailable Jo Ann Muñoz Attphys Nathanael Lin Attphys Davina AHUMADA Attphys Unavailable Zahira LYN Attphys Unavailable Bernie MCFARLAND Attphys Unavailable Milad MUNROE Attphys Unavailable Nathanael Lin Admphys Davina AHUMADA Admphys Unavailable Payers Payer Name Policy Type Policy Number Effective Date Expiration Date S [facility] [id number] 2019 00:00 :00 [facility] OPTUM NON BINGEN - MEDICAID MGD CAREOPTUM NON-BINGEN STARxxxxxxx xx xxxxxxxxx [facility] MED[facility] - [facility]ICAID MGD CARED COMM STAR PLANxxxxxxxxxMe dicaid Contracted xxxxxxxxx [facility] Problems Condition Name Condition Details Condition Category Status Onset Date Resolution Date Last Treatment Date Treating Clinician Comments Source Aortic insufficiency Aortic insufficiency Disease Active 00:00:00 [facility] HEADACHE / ARM PAIN HEAD ACHE / ARM PAIN Active 08/18/2019 [facility] Active 2019-08-18 08:00:00 2020-02-22 16:28:00 [facility] AVF TRANSPOSITION, RIGHT UPPER EXTREMITY AVF TRANSPOSITION, RIGHT UPPER EXTREMITY Active 07/31/2019 [facility] Active 2019-07-31 00:00:00 2019-09-16 15:12:00 [facility] PORT COMPLICATIONS PORT COMPLICATIONS Active 05/18/2019 [facility] Active 2019-05-18 00:00:00 2019-05-18 21:44:00 [facility] 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 Fever with chills Fever and chills Problem Active [facility] Urinary tract infection UTI (urinary tract infection) Problem Active [facility] Cough Problem Active [facility] Bronchitis Problem Active [facility] ESRD (end stage renal disease) ESRD (end stage renal disease) Disease Active [facility] Down syndrome Down syndrome Disease Active [facility] History of acute bacterial endocarditis History of acute beth terial endocarditis Disease Active [facility] Chest pain, unspecified [place] t pain, unspecified 08/18/2019 08/20/2019 [facility] Problem 2019-08-18 18:00:00 2019 22:44:50 2019-08-20 22:44:50 [facility] Pain in arm, unspecified Pain in arm, unspecified 08/18/2019 08/20/2019 [facility] Problem 2019-08-18 18:00:00 2019 22:44:50 2019-08-20 22:44:50 [facility] Allergies, Adverse Reactions, Alerts Allergy Name Allergy Type Status Severity Reaction(s) Onset Date Inacti ve Date Treating Clinician Comments Source phenylpropanolamine DA Active [place] 2018-03-09 00:00:00 [facility] brompheniramine DA Active [place] 2018-03-09 00:00:00 [facility] Family History Family Member Diagnosis Comments Start Date Stop Date Source Natural father Hypertension [place] [facility] Natural mother Diabetes [facility] Natural mother Hypertension [facility] Natural mother Thyroid disease [place] [facility] Social History Social Habit Start Date Stop Date Quantity Comments Source History SDOH Alcohol Std Drinks [place] [facility] History SDOH Alcohol Binge [facility] Sex Assigned At [facility] Alcohol intake 2018-10-04 00:00:00 2018-10-04 00:00:00 Current non-drinker of alcohol (finding) [place] [facility] History SDOH Alcohol Frequency 2018-07-13 00:00:00 2018-07-13 00:00:0 0 1 [place] [facility] Smoking Status Start Date Stop Date Source Social History [facility] Medications Ordered Medication Name Filled Medication Name Start Date Stop Da te Current Medication? Ordering Clinician Indication Dosage Frequency Signature (SIG) Comments Components Source omeprazole (PRILOSEC) 40 MG capsule 2020-01-03 12:48:14 Yes 40mg QD Take 40 mg by mouth daily. [facility] ibuprofen (ADVIL,MOTRIN) 400 MG tablet 2019-12-11 12:47:42 2020-01-03 00:00:00 No 800mg Take 800 mg by mouth every 6 (si x) hours as needed for Pain . [facility] cholecalciferol, vitamin D3, 5,000 unit Tab 2019-11-22 12:22:19 Yes 1000U QD Take 1,000 Units by mouth daily . [facility] levothyroxine (SYNTHROID, LEVOTHROID) 25 MCG tablet 11-21 12:22:19 Yes 25ug Take 25 mcg by mouth Every morning on an empty stomach. [facility] multivit,tx with iron,minerals (THERA-M ORAL) 2019-11-22 12:22:1 8 Yes QD Take by mouth daily. [facility] allopurinoL (ZYLOPRIM) 300 MG tablet 2019-11-22 12:22:18 Ye jason 300mg QD Take 300 mg by mouth daily. [facility] Tylenol 2019-08-18 17:55:00 No 650 mg, Route: PO, Drug form: TAB, ONCE, Dosing Weight 50.909, kg, Priority: STAT, Start date: 08/18/19 11:55:00 LOW PRESSURE KETTLE OPERATOR, Stop date: 08/18/19 11:55:00 LOW PRESSURE KETTLE OPERATOR [facility] Saline Flush 0.9% 2019-08-18 15:32:00 No Notes: (Same as: BD Posiflush) [facility] Allopurinol 2019-05-20 15:00:00 No Notes: ( Same as: Zyloprim) [facility] Vitamin D3 2019-05-20 15:00:00 No Notes: (S jimena as: Vitamin D3) [facility] Linzess 145 mcg oral capsule 2019-05-20 15:00:00 No Linzess 145 mcg oral capsule, 145 microgram, Route: PO, Daily, 05/20/19 9:00:00 LOW PRESSURE KETTLE OPERATOR, Duration: 30 day, Stop date: 06/18/19 9:00:00 LOW PRESSURE KETTLE OPERATOR [facility] Centrum Silver oral tablet 2019-05-20 15:00:00 No Centrum Silver oral tablet, 1 tab, Route: PO, Daily, 05/20/19 9:00:00 LOW PRESSURE KETTLE OPERATOR, Duration: 30 day, Stop date: 06/18/19 9:00:00 LOW PRESSURE KETTLE OPERATOR [facility] multivitamin with minerals 2019-05-20 15:00:00 No Notes: (Same as:Thera-M, Theragran-M) WASTE: F/P - Black; E - Municipal Trash Bin Give with food. [facility] Levothroid 2019-05-20 12:30:00 No Notes: (S jimena as:Levothroid) [facility] heparin 2019-05-20 06:00:00 No Notes: porci ne heparin [facility] montelukast 2019-05-20 03:00:00 No Notes: ( Same as:Singulair) [facility] Vancomycin 2019-05-19 23:00:00 No 2001 mg: infuse [...] form: MISC, Route: MISC, TID, 05/19/19 14:30:00 LOW PRESSURE KETTLE OPERATOR, Duration: 30 day, Stop date: 06/18/19 9:00:00 LOW PRESSURE KETTLE OPERATOR, 0 [place] keller ePHEDrine ([facility]) 2019-05-19 18:16:00 No Route: IV, Drug form: INJ, ONCE, Stop date: 05/19/19 12:16:00 LOW PRESSURE KETTLE OPERATOR Meghana Alcocerann protamine ([facility]) 2019-05-19 18:16:00 No Route: IV, Drug form: INJ, ONCE, Stop date: 05/19/19 12:16:00 LOW PRESSURE KETTLE OPERATOR Meghana Alcocerann ondansetron ([facility]) 2019-05-19 18:16:00 No Route: IV, Drug form: INJ, ONCE, Stop date: 05/19/19 12:16:00 LOW PRESSURE KETTLE OPERATOR Meghana lopezsytc Nikos phenylephrine ([facility]) 2019-05-19 17:49:00 No Route: IV, Drug form: INJ, ONCE, Stop date: 05/19/19 11:49:00 LOW PRESSURE KETTLE OPERATOR Kings Alcocerann lidocaine ([facility]) 2019-05-19 17:29:00 No Route: IV, Drug form: INJ, ONCE, Stop date: 05/19/19 11:29:00 LOW PRESSURE KETTLE OPERATOR Meghana lopezsytc Alcocerann fentaNYL ([facility]) 2019-05-19 17:29:00 No Route: IV, Drug form: INJ, ONCE, Stop date: 05/19/19 11:29:00 LOW PRESSURE KETTLE OPERATOR Meghana jasontc Nikos propofol ([facility]) 2019-05-19 17:29:00 No Route: IV, Drug form: INJ, ONCE, Stop date: 05/19/19 11:29:00 LOW PRESSURE KETTLE OPERATOR Meghana lopezsytc Nikos midazolam ([facility]) 2019-05-19 17:24:00 No Route: IV, Drug form: SOLN, ONCE, Stop date: 05/19/19 11:24:00 LOW PRESSURE KETTLE OPERATOR Meghana Knott ceFAZolin (ANES) 2019-05-19 17:24:00 No Route: IV, Drug form: INJ, ONCE, Stop date: 05/19/19 11:24:00 LOW PRESSURE KETTLE OPERATOR Meghana Knott vancomycin (ANES) 1000 mg 2019-05-19 16:40:00 No Route: IV, Drug form: INJ, Start date: 05/19/19 10:40:00 LOW PRESSURE KETTLE OPERATOR, Stop date: 05/19/19 11:40:00 LOW PRESSURE KETTLE OPERATOR Kings Knott Dextrose 50% Syringe 2019-05-19 16:18:00 No 25 gm, Route: IVP, Dosing Weight 60.455, kg, ONCE, STAT, Start date: 05/19/19 10:18:00 LOW PRESSURE KETTLE OPERATOR, Stop date: 05/19/19 10:18:00 LOW PRESSURE KETTLE OPERATOR Kings Her lambert Insulin regular 2019-05-19 16:17:00 No 5 unit, Route: IV, ONCE, Dosing Weight 60.455, kg, Priority: STAT, Start date: 05/19/19 10:17:00 LOW PRESSURE KETTLE OPERATOR, Stop date: 05/19/19 10:17:00 LOW PRESSURE KETTLE OPERATOR Kaylin Knott Kayexalate 2019-05-19 16:12:00 No Notes: (sodium polystyrene sulfonate 15 gm/60 ml CAMPOS) Shake well before use. (Same as: Kayexalate, SPS) Kings Knott ATTN: RN PLEASE UPDATE HWA ON ADHOC 2019-05-19 05:00:00 No ATTN: RN PLEASE UPDATE HWA ON ADHOC, ATTN:RN - UPDATE ALLERGIES !!!, Drug form: MISC, Route: MISC, Q10Min, 05/18/19 23:00:00 LOW PRESSURE KETTLE OPERATOR, Duration: 1 day, Stop date: 05/19/19 22:50:00 LOW PRESSURE KETTLE OPERATOR, 0 Kings Knott Levothroid 25 mcg (0.025 [...] 1 tab, PO, Daily, 0 Refill(s) [place] linaclotide 0.145 MG Oral Capsule [Linzess] 2019-05-19 [...] form: MISC, Route: MISC, Q15Min, 05/18/19 22:00:00 LOW PRESSURE KETTLE OPERATOR, Duration: 30 day, Stop date: 06/17/19 21:45:00 LOW PRESSURE KETTLE OPERATOR, 0 Kings Knott Dextrose 50% Syringe 2019-05-19 03:33:00 No 12.5 gm, 25 mL, Route: IVP, Drug Form: INJ, Dosing Weight 52.727, kg, PRN, PRN Blood Glucose Results, Start date: 05/18/19 21:33:00 LOW PRESSURE KETTLE OPERATOR, Duration: 30 day, Stop date: 06/17/19 21:32:00 LOW PRESSURE KETTLE OPERATOR, 0 Kings Nikos Glucagon 2019-05-19 03:33:00 No 1 mg, Route: IM, Drug form: PDR/INJ, PRN, Dosing Weight 52.727, kg, PRN Blood Glucose Results, Start date: 05/18/19 21:33:00 LOW PRESSURE KETTLE OPERATOR, Duration: 30 day, Stop date: 06/17/19 21:32:00 LOW PRESSURE KETTLE OPERATOR, 0 [place] Ondansetron 2019-05-19 03:33:00 No Notes: (Same as: Zofran) MEDICATION WASTE Product Size: 4 mg Product Wasted: ___ mg Kings Knott Saline Flush 0.9% 2019-05-18 21:53:00 No Notes: (Same as: BD Posiflush) [facility] [place] amLODIPine (NORVASC) 5 MG tablet 2018-10-26 13:51:49 Yes 5mg QD Take 5 mg by mouth daily. [facility] linaclotide (LINZESS) 145 mcg Cap 2018-10-26 13:51:48 Yes 145ug QD Take 145 mcg by mouth daily. [facility] sevelamer (RENVELA) 800 mg tablet 2018-10-26 13:51:48 Yes 800mg Take 800 mg by mouth 3 (three) times daily with meals. [facility] docusate sodium (COLACE) 100 MG capsule 2018-10-03 [...] s DIANA CELESTINE TABLETA ORALMENTE CADA THOMAS [facility] ethodist ibuprofen (ADVIL,MOTRIN) 800 MG [...] es DIANA CELESTINE TABLETA ORALMENTE CADA THOMAS [facility] ethodist lovastatin (MEVACOR) 40 MG tablet 2018-06-06 00:00:00 Yes DIANA CELESTINE TABLETA ORALMENTE CADA THOMAS AL ACOSTARSE PARA COLESTEROL Ismael Mustafa lovastatin (ALTOPREV) 40 MG 24 hr tablet 2017-10-25 09:05:40 Yes 40mg QD Take 40 mg by mouth daily. [facility] S [facility] Allopurinol Allopurinol Yes 300 Daily [facility] Calcium Acetate Calcium Acetate Yes 667 Three Times Daily With Meals [facility] Cholecalciferol (Vitamin D3) (Vitamin D3) 5,000 Unit T ABLET Cholecalciferol (Vitamin D3) (Vitamin D3) 5,000 Unit TABLET Yes 5000 Daily [facility] Levothyroxine Sodium Levothyroxine Sodium Yes 25 Daily [facility] Linzess Linzess Yes 145 Daily [facility] Metoclopramide Hcl Metoclopramide Hcl Yes 10 Twice A Day as needed for Nausea [facility] Montelukast Sodium Montelukast Sodium Yes 10 Da kim [facility] Multivits,Ca,Minerals/Iron/Fa (Thera-M Tablet) 1 Each TABLET Multivits,Ca,Minerals/Iron/Fa (Thera-M Tablet) 1 Each TABLET Yes 1 Daily [facility] Omeprazole Omeprazole Yes 1 Daily [facility] Amlodipine Besylate Amlodipine Besylate 2019-05-01 00:00:00 No 5 Daily [facility] Cefuroxime Axetil (Cefuroxime) 500 Mg TABLET Cefuroxim e Axetil (Cefuroxime) 500 Mg TABLET 2019-05-01 00:00:00 No 500 Twice A Day [facility] Sevelamer Hcl (Renvela) 800 Mg TAB Sevelamer Hcl (Renvela) 800 M g TAB 2019-04-27 00:00:00 No 800 Three Times Daily th Meals [facility] Vital Signs Vital Name Observation Time Observation Value Comments Source Weight 2020-03-11 08:01:00 116 [lb_av] [facility] BMI (Body Mass Index) 2020-03-11 08:01:00 17.1 kg/m2 [facility] Body Temperature 2020-03-04 17:35:00 98.7 [degF] [facility] Weight 2020-03-04 14:20:00 116 [lb_av] [facility] BMI (Body Mass Index) 2020-03-04 14:20:00 17.1 kg/m2 [facility] Systolic blood pressure 2020-01-03 12:35:00 123 mm[Hg] [facility] Diastolic blood pressure 2020-01-03 12:35:00 58 mm[Hg] [facility] Heart rate 2020-01-03 12:35:00 86 /min [facility] Body temperature 2020-01-03 12:35:00 36.56 Gricelda [facility] Respiratory rate 2020-01-03 12:35:00 18 /min [facility] Body height 2020-01-03 12:35:00 145.5 cm [facility] Body weight Measured 2020-01-03 12:35:00 52.617 kg [facility] BMI 2020-01-03 12:35:00 24.86 kg/m2 [facility] Oxygen saturation in Arterial blood by Pulse oximetry 01-02 12:35:00 100 /min [facility] Systolic (mm Hg) 2019-08-18 20:38:00 Sunday [place] Diastolic (mm Hg) 2019-08-18 20:38:00 Mem orial Nikos Heart Rate 2019-08-18 20:38:00 [facility] [place] Respitory Rate 2019-08-18 20:38:00 Memori al Nikos Temperature Oral (F) 2019-08-18 20:38:00 98 F [facility] [place] Systolic (mm Hg) 2019-08-18 19:05:00 Sunday [place] Diastolic (mm Hg) 2019-08-18 19:05:00 Mem orial Nikos Systolic (mm Hg) 2019-08-18 15:29:00 Sunday [place] Diastolic (mm Hg) 2019-08-18 15:29:00 Mem orial [facility] Heart Rate 2019-08-18 15:29:00 [facility] [place] Respitory Rate 2019-08-18 15:29:00 Memori [facility] [place] Temperature Oral (F) 2019-08-18 15:29:00 97.4 F [facility] [place] Height 2019-08-18 15:29:00 152.4 cm [facility] [place] BMI Calculated 2019-08-18 15:29:00 [facility] [place] Weight 2019-08-18 15:29:00 [facility] [place] Temperature Oral (F) 2019-05-20 18:17:00 98.7 F [facility] Heart Rate 2019-05-20 18:17:00 [facility] [place] Systolic (mm Hg) 2019-05-20 18:17:00 Sunday rial [facility] Diastolic (mm Hg) 2019-05-20 18:17:00 Mem orial [facility] Respitory Rate 2019-05-20 18:17:00 Memori [facility] [place] Respitory Rate 2019-05-20 13:44:00 Memori al [facility] Systolic (mm Hg) 2019-05-20 13:44:00 Sunday rial [place] Diastolic (mm Hg) 2019-05-20 13:44:00 Mem orial [facility] Heart Rate 2019-05-20 13:44:00 [facility] [place] Temperature Oral (F) 2019-05-20 13:44:00 98.1 F [facility] Respitory Rate 2019-05-20 12:08:00 Memori al [facility] Temperature Oral (F) 2019-05-20 09:14:00 98.7 F [facility] Heart Rate 2019-05-20 09:14:00 [facility] [place] Systolic (mm Hg) 2019-05-20 09:14:00 Sunday [facility] [place] Diastolic (mm Hg) 2019-05-20 09:14:00 Mem [facility] [place] Height 2019-05-19 04:48:00 160.02 cm [facility] [place] Weight 2019-05-19 04:48:00 [facility] [place] BMI Calculated 2019-05-19 04:48:00 [facility] Height 2019-05-18 21:53:00 127 cm [facility] BMI Calculated 2019-05-18 21:53:00 [facility] Weight 2019-05-18 21:53:00 [facility] [place] Procedures This patient has no known procedures. Plan of Care Planned Activity Planned Date Details Comments Source Future Scheduled Test 2020-11-07 00:00:00 Lipid panel (proce dure) [code = 76168136] [facility] Future Scheduled Test 2020-04-10 00:00:00 INFLUENZA VACCINE [code = INFLUENZA VACCINE] Ismael Mustafa Future Scheduled Test 2020-03-11 00:00:00 INFLUENZA VACCINE (#1) [code = INFLUENZA VACCINE (#1)] [facility] Inst[facility] Bronchitis (Acute) - Adult C [facility] Encounters Start Date/Time End Date/Time [facility] ID Source 2020-03-11 08:01:00 2020-03-11 09:52:00 Departed Emergency Room 1 KIMBERLYNICKYTHERESA [facility] [id number] [facility] 2020-03-04 14:28:00 2020-03-04 17:39:00 Departed Emergency Room 1 Venessa Mckee [facility] [id number] I [facility] 2019-08-18 09:26:52 2019-08-18 14:44:00 Outpatient F [facility] [id number] 2019-08-18 09:26:00 2019-08-18 09:26:00 Emergency E [id number] 2019-05-18 15:46:07 2019-05-20 17:29:00 Outpatient Noah Lin [facility] [id number] 2019-04-22 21:31:00 2019-05-01 15:43:00 Discharged Inpatient 1 NAEEM AHUMADA [facility] [id number] [facility] 2019-03-11 10:36:00 2019-03-11 15:28:00 Departed Emergency Room 1 MARISELA LYN [facility] [id number] [facility] 2018-09-04 21:46:00 2018-09-05 05:16:00 Departed Emergency Room 1 NICKY LEATHERESA [facility] [id number] [facility] 2018-04-07 18:37:00 2018-04-07 21:49:00 Departed Emergency Room 1 KIRK MCFARLAND [facility] [id number] [facility] Results Test Description Test Time Test Comments Results Result Comments Source CHEST SINGLE (PORTABLE) 2020-03-17 21:38:00 [facility] [address] [address] Patient Name: LUIZA CHUN MR #: [id number] : 1985 Age/Sex: 34/M Req #: [id number] Adm Physician: Ordered by: KOBE JARAMILLO MD Report #: [id number] Location: ER Room/Bed: Procedure: [id number] DX/CHEST SINGLE (PORTABLE) Exam Date: 03/17/20 Exam [...] JARAMILLO MD CHEST SINGLE (PORTABLE) 2020-03-11 08:54:[address] [address] Patient Name: LUIZA CHUN MR #: [id number] : 1985 Age/Sex: 34/M Req #: [id number] Adm Physician: Ordered by: CARI LEA MD Report #: [id number] Location: ER Room/Bed: Procedure: [id number] DX/CHEST SINGLE (PORTABLE) Exam Date: 03/11/20 Exam [...] detection of nucleic acid from SARS-CoV-2 in [place] opharyngeal swab specimen collected from individuals suspected [...] 0918 on 03/11/20 by Flaquita Rangel. RB [place].[facility] measurement by highly sensitive enzyme [id number] 16:53:00* Test Item Value Reference Range Interpretation Comments Troponin I (test code = 58444-3) 0.477 0-0.300 [facility] measurement by highly sensitive enzyme [id number] 16:53:00* Test Item Value Reference Range Interpretation Comments Troponin I (test code = 73755-7) 0.477 0-0.300 [facility]2020-03-04 15:06:[address] [id number] Patient Name: LUIZA CHUN MR #: [id number] : 1985 Age/Sex: 34/M Req #: [id number] Adm Physician: Ordered by: Venessa Mckee MD Report #: [id number] Location: ER Room/Bed: Procedure: [id number] DX/CHEST SIN GLE (PORTABLE) Exam Date: 03/04/20 [...] Count (test code = 6690-2) 5.12 4.8-10.8 [facility] automated count (number/volume)2020-03-04 14:30:00* Test Item Value Reference Range Interpretation Comments Red Blood Count (test code = 789-8) 3.08 4.3-5.7 [facility] measurement (moles/volume)2020-03-04 14:30:00* Test Item Value Reference Range Interpretation Comments Hemoglobin (test code = 46239-4) 9.7 14.0-18.0 [facility] hematocrit (volume fraction)2020-03-04 14:30:00* Test Item Value Reference Range Interpretation Comments Hematocrit (test code = 4544-3) 29.7 38.2-49.6 [facility] eryth[facility] mean corpuscular [id number] 14:30:00* Test Item Value Reference Range Interpretation Comments Mean Corpuscular Volume (test code = 787-2) 96.4 81-99 [facility] mean corpuscular hemoglobin (mass per erythrocyte)2020-03-04 14:30:00* Test Item Value Reference Range Interpretation Comments Mean Corpuscular Hemoglobin (test code = 785-6) 31.5 28-32 [facility] mean corpuscular hemoglobin concentration measurement (mass/volume)2020-03-04 14:30:00* Test Item Value Reference Range Interpretation Comments Mean Corpuscular Hemoglobin Concent (test code = 786-4) 32.7 31-35 [facility] HospitalRDW AhtRr-Zxi5982-22-25 14:30:00* Test Item Value Reference Range Interpretation Comments Red Cell Distribution Width (test code = 82118-7) 18.7 11.7 -14.4 [facility] platelet count (count/volume)2020-03-04 14:30:00* Test Item Value Reference Range Interpretation Comments Platelet Count (test code = 777-3) 228 140-360 [facility] blood segmented neutrophil count as percentage of total cjuztwpeun0022-05-73 14:30:00* Test Item Value Reference Range Interpretation Comments Neutrophils (%) (Auto) (test code = 40515-7) 59.4 38.7-80.0 [facility] lymphocyte count as percentage ot total [id number] 14:30:00* Test Item Value Reference Range Interpretation Comments Lymphocytes (%) (Auto) (test code = 736-9) 31.6 18.0-39.1 [facility] monocyte count as percentage of total rgompxutca8556-20-99 14:30:00* Test Item Value Reference Range Interpretation Comments Monocytes (%) (Auto) (test code = 5905-5) 7.6 4.4-11.3 [facility] eosinophil count as percentage of total haypohiuas5131-42-43 14:30:00* Test Item Value Reference Range Interpretation Comments Eosinophils (%) (Auto) (test code = 713-8) 0.4 0.0-6.0 [facility] basophil count as percentage of total lmfzabvqcw5807-38-95 14:30:00* Test Item Value Reference Range Interpretation Comments Basophils (%) (Auto) (test code = 706-2) 0.8 0.0-1.0 [facility] HospitalFluoroscopic procedure less than one hour [id number] 14:30:00* Test Item Value Reference Range Interpretation Comments IM GRANULOCYTES % (test code = IM GRANULOCYTES %) 0.2 0.0- 1.0 [facility] neutrophil count 2020-03-04 14:30:00* Test Item Value Reference Range Interpretation Comments Neutrophils # (Auto) (test code = 751-8) 3.0 2.1-6.9 [facility] lymphocytes count (number/volume) 2020-03-04 14:30:00* Test Item Value Reference Range Interpretation Comments Lymphocytes # (Auto) (test code = 01262-5) 1.6 1.0-3.2 [facility] monocytes automated count (number/volume)2020-03-04 14:30:00* Test Item Value Reference Range Interpretation Comments Monocytes # (Auto) (test code = 742-7) 0.4 0.2-0.8 [facility] eosinophil count 2020-03-04 14:30:00* Test Item Value Reference Range Interpretation Comments Eosinophils # (Auto) (test code = 711-2) 0.0 0.0-0.4 [facility] HospitalAutomated blood basophil count (count/volume)2020-03-04 14:30:00* Test Item Value Reference Range Interpretation Comments Basophils # (Auto) (test code = 704-7) 0.0 0.0-0.1 [facility] HospitalFluoroscopic procedure less than one hour ykmadhvv9738-91-21 14:30:00* Test Item Value Reference Range Interpretation Comments Absolute Immature Granulocyte (auto (gladis t code = Absolute Immature Granulocyte (auto) 0.01 0-0.1 [facility] sodium [facility] (moles/volume)2020-03-04 14:30:00* Test Item Value Reference Range Interpretation Comments Sodium Level (test code = 2951-2) 143 136-145 [facility] potassium measurement (moles/volume)2020-03-04 14:30:00* Test Item Value Reference Range Interpretation Comments Potassium Level (test code = 2823-3) 3.4 3.5-5.1 [facility] plasma chloride measurement (moles/volume)2020-03-04 14:30:00* Test Item Value Reference Range Interpretation Comments Chloride Level (test code = 2075-0) 98 98-107 [facility] plasma carbon dioxide, total measurement (moles/volume)2020-03-04 14:30:00* Test Item Value Reference Range Interpretation Comments Carbon Dioxide Level (test code = 2028-9) 31 22-29 [facility] plasma anion cxg4532-32-23 14:30:00* Test Item Value Reference Range Interpretation Comments Anion Gap (test code = 16756-2) 17.4 8-16 [facility] urea nitrogen measurement (mass/volume)2020-03-04 14:30:00* Test Item Value Reference Range Interpretation Comments Blood Urea Nitrogen (test code = 3094-0) 25 7-26 [facility] creatinine measurement (mass/volume)2020-03-04 14:30:00* Test Item Value Reference Range Interpretation Comments Creatinine (test code = 2160-0) 6.09 0.72-1.25 [facility] plasma urea nitrogen/creatinine mass hkqtr0964-08-44 14:30:00* Test Item Value Reference Range Interpretation Comments BUN/Creatinine Ratio (test code = 3097-3) 4 6-25 [facility] HospitalEstimated glomerular filtration rate (GFR) kwkosxgbshfne4117-96-43 14:30:00* Test Item Value Reference Range Interpretation Comments Estimat Glomerular Filtration Rate (test code = 768982483) 11 >60 Ranges were taken from the National Kidney Disease Education Program and the [facility] [employer] literature.Reference ranges:60 or greater: Llmmdl38-84 ( for 3 consecutive months): Chronic kidney disease 15 or less: Kidney failureCovenant Children's HospitalGlucose ntwjmlgauys4002-26-60 14:30:00* Test Item Value Reference Range Interpretation Comments Glucose Level (test code = XTP9272) 100 74-118 [facility] calcium measurement (mass/volume)2020-03-04 14:30:00* Test Item Value Reference Range Interpretation Comments Calcium Level (test code = 48961-0) 9.5 8.4-10.2 [facility] plasma total bilirubin measurement (mass/volume)2020-03-04 14:30:00* Test Item Value Reference Range Interpretation Comments Total Bilirubin (test code = 1975-2) 0.7 0.2-1.2 [facility] HospitalFluoroscopic procedure less than one hour ilgfngir4065-80-45 14:30:00* Test Item Value Reference Range Interpretation Comments Aspartate Amino Transf (AST/SGOT) (test code = Aspartate Amino Transf (AST/SGOT)) 15 5-34 [facility] plasma alanine aminotransferase measurement (enzymatic activity/volume)2020-03-04 14:30:00* Test Item Value Reference Range Interpretation Comments Alanine Aminotransferase (ALT/SGPT) (test code = 1742-6) 9 0-55 [facility] protein measurement (mass/volume)2020-03-04 14:30:00* Test Item Value Reference Range Interpretation Comments Total Protein (test code = 2885-2) 7.6 6.5-8.1 [facility] albumin measurement (mass/volume)2020-03-04 14:30:00* Test Item Value Reference Range Interpretation Comments Albumin (test code = 1751-7) 3.7 3.5-5.0 [facility] HospitalPlasma globulin measurement (mass/volume) 2020-03-04 14:30:00* Test Item Value Reference Range Interpretation Comments Globulin (test code = 57249-9) 3.9 2.3-3.5 [facility] plasma albumin/globulin mass pufym6769-22-83 14:30:00* Test Item Value Reference Range Interpretation Comments Albumin/Globulin Ratio (test code = 1759-0) 0.9 0.8-2.0 [facility] plasma alkaline phosphatase measurement (enzymatic activity/volume)2020-03-04 14:30:00* Test Item Value Reference Range Interpretation Comments Alkaline Phosphatase (test code = 6768-6) 129 40-150 [facility] HospitalBNP Mma-pHtv7310-02-25 14:30:00* Test Item Value Reference Range Interpretation Comments B-Type Natriuretic Peptide (test code = 90714-8) 2843.4 0-100 [facility] HospitalBlood leukocytes automated count (number/volume)2020-03-04 14:30:00* Test Item Value Reference Range Interpretation Comments White Blood Count (test code = 6690-2) 5.12 4.8-10.8 [facility] HospitalBlood erythrocytes automated count (number/volume)2020-03-04 14:30:00* Test Item Value Reference Range Interpretation Comments Red Blood Count (test code = 789-8) 3.08 4.3-5.7 [facility] HospitalBlood hemoglobin measurement (moles/volume)2020-03-04 14:30:00* Test Item Value Reference Range Interpretation Comments Hemoglobin (test code = 51012-3) 9.7 14.0-18.0 [facility] HospitalAutomated blood hematocrit (volume fraction)2020-03-04 14:30:00* Test Item Value Reference Range Interpretation Comments Hematocrit (test code = 4544-3) 29.7 38.2-49.6 [facility] HospitalAutomated erythrocyte mean corpuscular vrlyfz5067-39-37 14:30:00* Test Item Value Reference Range Interpretation Comments Mean Corpuscular Volume (test code = 787-2) 96.4 81-99 [facility] HospitalAutomated erythrocyte mean corpuscular hemoglobin (mass per erythrocyte)2020-03-04 14:30:00* Test Item Value Reference Range Interpretation Comments Mean Corpuscular Hemoglobin (test code = 785-6) 31.5 28-32 [facility] HospitalAut[facility] eryth[facility] mean corpuscular hemoglobin concentration measurement (mass/volume)2020-03-04 14:30:00* Test Item Value Reference Range Interpretation Comments Mean Corpuscular Hemoglobin Concent (test code = 786-4) 32.7 31-35 [facility] HospitalRDW RcyVi-Nhp8879-27-25 14:30:00* Test Item Value Reference Range Interpretation Comments Red Cell Distribution Width (test code = 60674-3) 18.7 11.7 -14.4 [facility] HospitalAutformerly [facility] blood platelet count (count/volume)2020-03-04 14:30:00* Test Item Value Reference Range Interpretation Comments Platelet Count (test code = 777-3) 228 140-360 [facility] HospitalAutformerly [facility] blood segmented neutrophil count as percentage of total oedsyjjbxv0638-46-73 14:30:00* Test Item Value Reference Range Interpretation Comments Neutrophils (%) (Auto) (test code = 48859-8) 59.4 38.7-80.0 [facility] HospitalAutformerly [facility] blood lymphocyte count as percentage ot total ybkscmzugn2554-82-97 14:30:00* Test Item Value Reference Range Interpretation Comments Lymphocytes (%) (Auto) (test code = 736-9) 31.6 18.0-39.1 [facility] HospitalAutomated blood monocyte count as percentage of total hmeazriuoh3557-29-87 14:30:00* Test Item Value Reference Range Interpretation Comments Monocytes (%) (Auto) (test code = 5905-5) 7.6 4.4-11.3 [facility] HospitalAutomated blood eosinophil count as percentage of total ydgpqptpnk8608-19-58 14:30:00* Test Item Value Reference Range Interpretation Comments Eosinophils (%) (Auto) (test code = 713-8) 0.4 0.0-6.0 [facility] HospitalAutomated blood basophil count as percentage of total paiwbgfqyz2344-09-02 14:30:00* Test Item Value Reference Range Interpretation Comments Basophils (%) (Auto) (test code = 706-2) 0.8 0.0-1.0 [facility] HospitalFluoroscopic procedure less than one hour ohewhbzh6476-47-55 14:30:00* Test Item Value Reference Range Interpretation Comments IM GRANULOCYTES % (test code = IM GRANULOCYTES %) 0.2 0.0- 1.0 [facility] HospitalAutomated blood neutrophil count 2020-03-04 14:30:00* Test Item Value Reference Range Interpretation Comments Neutrophils # (Auto) (test code = 751-8) 3.0 2.1-6.9 [facility] HospitalBlood lymphocytes count (number/volume) 2020-03-04 14:30:00* Test Item Value Reference Range Interpretation Comments Lymphocytes # (Auto) (test code = 05194-5) 1.6 1.0-3.2 [facility] HospitalBlood monocytes automated count (number/volume)2020-03-04 14:30:00* Test Item Value Reference Range Interpretation Comments Monocytes # (Auto) (test code = 742-7) 0.4 0.2-0.8 [facility] HospitalAutomated blood eosinophil count 2020-03-04 14:30:00* Test Item Value Reference Range Interpretation Comments Eosinophils # (Auto) (test code = 711-2) 0.0 0.0-0.4 [facility] HospitalAutomated blood basophil count (count/volume)2020-03-04 14:30:00* Test Item Value Reference Range Interpretation Comments Basophils # (Auto) (test code = 704-7) 0.0 0.0-0.1 [facility] HospitalFluoroscopic procedure less than one hour qanciszk8818-62-01 14:30:00* Test Item Value Reference Range Interpretation Comments Absolute Immature Granulocyte (auto (gladis t code = Absolute Immature Granulocyte (auto) 0.01 0-0.1 [facility] plasma sodium measurement (moles/volume)2020-03-04 14:30:00* Test Item Value Reference Range Interpretation Comments Sodium Level (test code = 2951-2) 143 136-145 [facility] or plasma potassium measurement (moles/volume)2020-03-04 14:30:00* Test Item Value Reference Range Interpretation Comments Potassium Level (test code = 2823-3) 3.4 3.5-5.1 [facility] or plasma chloride measurement (moles/volume)2020-03-04 14:30:00* Test Item Value Reference Range Interpretation Comments Chloride Level (test code = 2075-0) 98 98-107 [facility] or plasma carbon dioxide, total measurement (moles/volume)2020-03-04 14:30:00* Test Item Value Reference Range Interpretation Comments Carbon Dioxide Level (test code = 2028-9) 31 22-29 [facility] or plasma anion sgd8865-05-08 14:30:00* Test Item Value Reference Range Interpretation Comments Anion Gap (test code = 51469-2) 17.4 8-16 [facility] plasma urea nitrogen measurement (mass/volume)2020-03-04 14:30:00* Test Item Value Reference Range Interpretation Comments Blood Urea Nitrogen (test code = 3094-0) 25 7-26 [facility] or plasma creatinine measurement (mass/volume)2020-03-04 14:30:00* Test Item Value Reference Range Interpretation Comments Creatinine (test code = 2160-0) 6.09 0.72-1.25 [facility] plasma urea nitrogen/creatinine mass jbfvh7829-17-08 14:30:00* Test Item Value Reference Range Interpretation Comments BUN/Creatinine Ratio (test code = 3097-3) 4 6-25 [facility] HospitalEstimated glomerular filtration rate (GFR) fexphmmzfcotq7074-81-33 14:30:00* Test Item Value Reference Range Interpretation Comments Estimat Glomerular Filtration Rate (test code = 897078653) 11 >60 Ranges were taken from the National Kidney Disease Education Program and the [facility] literature.Reference ranges:60 or greater: Hxicvp72-18 ( for 3 consecutive months): Chronic kidney disease 15 or less: Kidney failureCovenant Children's HospitalGlucose neibbqtjzwl8028-20-91 14:30:00* Test Item Value Reference Range Interpretation Comments Glucose Level (test code = JOS8865) 100 74-118 [facility] calcium measurement (mass/volume)2020-03-04 14:30:00* Test Item Value Reference Range Interpretation Comments Calcium Level (test code = 66437-6) 9.5 8.4-10.2 [facility] or plasma total bilirubin measurement (mass/volume)2020-03-04 14:30:00* Test Item Value Reference Range Interpretation Comments Total Bilirubin (test code = 1975-2) 0.7 0.2-1.2 [facility] HospitalFluoroscopic procedure less than one hour pomqrbeo5346-58-65 14:30:00* Test Item Value Reference Range Interpretation Comments Aspartate Amino Transf (AST/SGOT) (test code = Aspartate Amino Transf (AST/SGOT)) 15 5-34 [facility] plasma alanine aminotransferase measurement (enzymatic activity/volume)2020-03-04 14:30:00* Test Item Value Reference Range Interpretation Comments Alanine Aminotransferase (ALT/SGPT) (test code = 1742-6) 9 0-55 [facility] or plasma protein measurement (mass/volume)2020-03-04 14:30:00* Test Item Value Reference Range Interpretation Comments Total Protein (test code = 2885-2) 7.6 6.5-8.1 [facility] or plasma albumin measurement (mass/volume)2020-03-04 14:30:00* Test Item Value Reference Range Interpretation Comments Albumin (test code = 1751-7) 3.7 3.5-5.0 [facility] HospitalPlasma globulin measurement (mass/volume) 2020-03-04 14:30:00* Test Item Value Reference Range Interpretation Comments Globulin (test code = 35820-1) 3.9 2.3-3.5 [facility] or plasma albumin/globulin mass rvynz5638-18-70 14:30:00* Test Item Value Reference Range Interpretation Comments Albumin/Globulin Ratio (test code = 1759-0) 0.9 0.8-2.0 [facility] or plasma alkaline phosphatase measurement (enzymatic activity/volume)2020-03-04 14:30:00* Test Item Value Reference Range Interpretation Comments Alkaline Phosphatase (test code = 6768-6) 129 40-150 [facility] HospitalBNP Kgf-cQqv1962-39-25 14:30:00* Test Item Value Reference Range Interpretation Comments B-Type Natriuretic Peptide (test code = 31316-6) 2843.4 0-100 [facility] HospitalBASIC METABOLIC XBKWF6693-52-77 10:45:00 * Test Item Value Reference Range [...] CA) 9.4 mg/dL 8.5-10.1 N BASIC METABOLIC JYLZL0545-62-78 10:31:00* Test Item Value Reference Range Interpretation [...] code = CA) mg/dL 8.5-10.1 CBC W/AUTO IZRJ8231-72-57 10:04:00* Test Item Value Reference Range Interpretation [...] 0.02 K/mm3 0.0-0.1 N AB HEPATITIS B VHICCUF8135-32-43 07:11:00* Test Item Value Reference Range Interpretation Comments AB HEPATITIS B SURFACE (test code = HBSAB) Reactive () Non Reactive: Inconsistent with immunity, less than 10 mIU/mL Reactive: Consistent with immunity, greater than 9.9 mIU/mLPerformed At: [facility] [address] [id number] Hernandez MD Ph:[phone] HEPATITIS B CORE ANTIBODY,[id number] 07:11:00* Test Item Value Reference Range Interpretation Comments HEPATITIS B CORE ANTIBODY,TOT (test code = HBCAB) Negative Nega tive Performed At: [facility] [id number] Hernandez MD Ph:[phone] CBC W/O BNVM4276-06-51 08:59:00* Test Item Value Reference Range Interpretation [...] code = MPV) fL 6.7-11.0 COMMENTS TO MARKET RESEARCH CONSULTANT: REDRAW DUE TO HEMOLYZED SAMPLECBC W/O DGHX1703-01-10 08:59:00* Test Item Value Reference Range Interpretation [...] MPV) 10.9 fL 6.7-11.0 N COMMENTS TO MARKET RESEARCH CONSULTANT: REDRAW DUE TO HEMOLYZED SAMPLERENAL FUNCTION PANEL [...] PHOS) 5.6 mg/dL 2.5-4.9 H B-TYPE NATRIURETIC SGUQSCF2836-11-58 05:59:00* Test Item Value Reference Range Interpretation Comments B-TYPE NATRIURETIC PEPTIDE (test code = BNP) 876.07 pgram/mL 0-100 H PROTHROMBIN YEEW4922-17-25 05:08:00* Test Item Value Reference Range Interpretation [...] (2.5-3.5) IS PATIENT ON ANTICOAGULANTS? NTHROMBOPLASTIN TIME GNVPKAD5004-20-16 05:08:00* Test Item Value Reference Range Interpretation Comments THROMBOPLASTIN TIME PARTIAL (test code = PTT) 32.4 seconds 23.0-37. 0 N IS PATIENT ON ANTICOAGULANTS? NCBC W/O UIQV0857-44-93 05:00:00* Test Item Value Reference Range Interpretation [...] MPV) 10.9 fL 6.7-11.0 N BASIC METABOLIC SHBIG4188-12-07 05:48:00* Test Item Value Reference Range Interpretation [...] CA) 9.0 mg/dL 8.5-10.1 N BASIC METABOLIC GDJYR7789-53-18 05:36:00* Test Item Value Reference Range Interpretation [...] = CA) mg/dL 8.5-10.1 AG HEPAT B OMEJ3815-21-86 21:19:00* Test Item Value Reference Range Interpretation Comments AG HEPAT B SURF (test code = HBSAG) Nonreactive Index Nonreactive OJARWKQJA6275-54-71 08:38:00* Test Item Value Reference Range Interpretation Comments POTASSIUM (test code = K) 4.7 mmol/L 3.5-5.1 N Novel Coronavirus 12:55:00* Test Item Value Reference Range Interpretation Comments Novel Coronavirus 2019 Inhouse (test code = SAZYU93LF) Negative Negative Positive results are indicative of the presence mpUNQM-CmJ-0 RNA, clinical correlation with patient historyand other [...] Preprocedure ScreeningComments: PROCEDURE SCHEDULED FOR Novel Coronavirus [id number] 12:55:00* Test Item Value Reference Range Interpretation Comments Novel Coronavirus 2019 Inhouse (test code = JBQUO91NM) Negative Negative Positive results are indicative of the presence slTRML-SxT-6 RNA, clinical correlation with patient historyand other [...] Criteria: Preprocedure ScreeningComments: PROCEDURE SCHEDULED FOR PROTHROMBIN [id number] 16:26:00* Test Item Value Reference Range Interpretation [...] (2.5-3.5) IS PATIENT ON ANTICOAGULANTS? NTHROMBOPLASTIN TIME ZWFHMTC0639-59-65 16:26:00* Test Item Value Reference Range Interpretation Comments THROMBOPLASTIN TIME PARTIAL (test code = PTT) 99.0 seconds 23.0-37. 0 HH CALLED OFFICE BUT NO REPONSELEFT A VOICEMAIL AT DR. AQUINO OFFICEAT [phone], ALSO FAXED REPORT TO [phone] IS PATIENT ON ANTICOAGULANTS? NCOMPREHENSIVE METABOLIC EVAKG7184-52-77 15:46:00 * Test Item Value Reference Range [...] due to change in reagent. COMPREHENSIVE METABOLIC OLGQT4149-11-78 15:39:00* Test Item Value Reference Range Interpretation [...] code = ALKP) IUnit/L 45-117 CBC W/AUTO KCTP7595-97-97 15:28:00* Test Item Value Reference Range Interpretation [...] = MDIFF) NO - XR CHEST 1 [id number] 14:55:00 FAX: Britton Sanchez MD [phone] [place]: St: PRE FAX: Gabrielle Kumar Ding [phone] Name: LUIZA CHUN [facility] : 1985 Age/S: 34/M [address] [facility] Unit #: [id number] Loc: [place] [address] Phys: Britton Aquino MD Acct: [id number] Dis Date: Status: PRE IN PHONE #: [phone] Exam Date: 11/06/2019 1436 FAX #: [phone] Reason: PREOP EXAMS: CPT CODE: [id number] XR CHEST 1 V 14575 REASON FOR EXAM: PREOP Exam Order Date: [...] change from prior exam. Location: [facility] at 1455 Reported and signed by: Augustin Álvarez MD CC: Britton Aquino MD; Kumar Ding MD Technologist: RT RADHA(R) Trnscrd Date/Time/By: 11/06/2019 (9257) : By: [email or web address] Orig Print D/T: S: 11/06/2019 (6928) PAGE 1 Signed Report BASIC METABOLIC [id number] 07:37:00* Test Item Value Reference Range Interpretation [...] CA) 9.0 mg/dL 8.5-10.1 N BASIC METABOLIC EZNNY1707-87-14 07:32:00* Test Item Value Reference Range Interpretation [...] code = CA) mg/dL 8.5-10.1 CBC W/AUTO [id number] 07:18:00* Test Item Value Reference Range Interpretation [...] NRBC#) 0.00 K/mm3 0.0-0.1 N CBC W/AUTO MVEX0115-03-03 07:14:00* Test Item Value Reference Range Interpretation [...] BA#) K/mm3 0.0-0.2 - XR CHEST 2 [id number] 06:46:00 FAX: Britton Sanchez MD [phone] [place]: St: REG FAX: Y Kumar Ding [phone] Name: LUIZA CHUN [facility] : 1985 Age/S: 34/M [address] [facility] Unit #: [id number] Loc: [place] [address] Phys: Britton Aquino MD Acct: [id number] Dis Date: Status: REG [facility] PHONE #: [phone] Exam Date: 11/02/2019628 FAX #: [phone] Reason: PREOP TESTING EXAMS: CPT CODE: [id number] XR CHEST 2 V 04719 EXAM: - XR CHEST 2 V HISTORY: [...] 11/02/2019 (0649) PAGE 1 Signed Report CARDIAC [id number] 17:51:0040[facility]annCARDIAC AAQUZYT6373-63-92 17:51:00<0.02[facility] HermannCHEM TESJS5856-74-43 17:51:0088[facility] HermannCHEM JPWAB9991-97-59 17:51:0044[facility] HermannCHEM NVDNG6259-67-99 17:51:008.39[facility] HermannCHEM OLAJA1884-08-59 17:51:58170Xdzaarxe HermannCHEM SCVME1405-17-08 17:51:005.0 [facility]annCHEM EFNHQ8447-62-81 17:51:82817Rkbbhwvn HermannCHEM PANEL 2019-08-18 17:51:0027[facility] HermannCHEM YCGCR2931-42-15 17:51:009.3[facility] HermannCHEM QHMTT3104-61-51 17:51:009.0[facility] HermannCHEM JAICD9071-73-02 17:51:004.4[facility]annCHEM BEMTK4372-40-69 17:51:0066[facility] HermannCHEM SRXPK3037-38-20 17:51:0035[facility] HermannCHEM BHNXV2273-54-81 17:51:27644 [facility]annCHEM EHAJU9214-69-02 17:51:000.5[facility]annCHEM PANEL 2019-08-18 17:51:0014.0[facility] HermannCHEM EWAZY1470-35-65 17:51:00* Test Item Value Reference Range Interpretation Comments B/C Ratio (test code = B/C Ratio) 5 1 6-25 [facility]annCHEM KBCMP6901-18-10 17:51:004.6[facility] HermannCHEM PANEL 2019-08-18 17:51:00* Test Item Value Reference Range Interpretation Comments A/G Ratio (test code = A/G Ratio) 1.0 1 0.7-1.6 [facility]annCHEM [id number] 17:51:008[facility] HermannCHEM PANEL 2019-08-18 17:51:002.3[facility] HermannCHEM MROTE0942-57-22 17:51:006.2[facility] EzohmurCFYHHNPLUD7473-75-58 17:51:005.3[facility] AoipxykLAAXJGPCZP7178-84-82 17:51:004.58[facility] ExokqqoOZTXNXKEKA4537-73-25 17:51:0014.5[facility] Nikos UGZZJATFKZ0758-68-14 17:51:0044.3[facility] GmwwujgUEPPQRQDYN3673-94-62 17:51:00 96.7[facility] QwvanjeBTVFKNWFWA9951-05-87 17:51:00* Test Item Value Reference Range Interpretation Comments MCH (test code = MCH) 31.8 pg 27.0-31.0 [facility] ZrkoaneGZSTFIFOYQ5611-78-94 17:51:0032.8[facility] HermannHEMATOLOGY 2019-08-18 17:51:0019.4[facility] SisnhowRIOYDLYDUZ7694-62-79 17:51:39665Mdgmknfb XhwcwznKJYXRJHCXE1168-80-91 17:51:008.3[facility] KmtrbhlYZIMEZOOPR1470-59-46 17:51:0046.6[facility] VpvnacdJREWFMNVHZ4885-46-28 17:51:0041.7[facility] [place] VFTELAUZXD0393-93-20 17:51:0010.2[facility] OpvrfuzXBZYLNAPXY1801-32-16 17:51:00 0.4[facility] UudxqblPURCHVWKRZ8888-68-82 17:51:001.1[facility]annHEMATOLOGY 2019-08-18 17:51:002.5[facility] ZxtenqmNHRBETNQLE0824-21-70 17:51:002.2[facility] HrcgahyQXMHJVDXBV1786-60-14 17:51:000.5[facility] JixiuviJFOSDWIQIJ2186-28-78 17:51:000.1[facility] HermannCHEM UFUWH1639-12-33 09:23:17686Tyeyzove HermannCHEM EMGRF9926-82-89 09:23:0021[facility] HermannCHEM UAVBZ8307-14-46 09:23:006.91 [facility]annCHEM VVAGB2218-47-56 09:23:42711Thnrlccq HermannCHEM PANEL 2019-05-20 09:23:005.1[facility] HermannCHEM BBVOB6554-61-87 09:23:34685Bujkovzx HermannCHEM VYMNC7882-06-10 09:23:0027[facility] HermannCHEM EGUOO3484-23-82 09:23:0011.1[facility] HermannCHEM WOZJD5099-70-78 09:23:007.7[facility] HermannCHEM VXFLN1023-92-27 09:23:0010[facility] NnksbzwGTAAKWQZVI6194-67-27 09:23:004.6 [facility] EhlnjxxICXIGEAKHE2953-14-78 09:23:002.46[facility] HermannHEMATOLOGY 2019-05-20 09:23:008.4[facility] GvzuhlnGTTLZYPGAO6154-26-63 09:23:0025.9[facility] CrrfnkoRPLJGMQFZU7697-55-49 09:23:26403.3[facility] BlvlewqMUBDADDTHI2520-60-28 09:23:00* Test Item Value Reference Range Interpretation Comments MCH (test code = MCH) 34.0 pg 27.0-31.0 Memorial NkxxeyvFIOBQPLHMH6845-23-32 09:23:0032.3[facility] HermannHEMATOLOGY 2019-05-20 09:23:0020.3[facility] CbpgnsfBXDRSNRWPJ8904-74-11 09:23:20363Bjztupmi KrwpneqGVYLIJQKKG3573-70-70 09:23:009.1[facility] WciwfbuPBPZHMDUMS3000-87-43 09:23:0060.0[facility] PnigzogJVHNQAQXYD2587-50-81 09:23:0028.7[facility] [place] PMKVNJDZEF6032-39-35 09:23:008.8[facility] LxumvsiATFNGZDNHV8998-30-82 09:23:000.9 Memorial CbakbemXGCEXXZMXI5690-58-37 09:23:001.6[facility] HermannHEMATOLOGY 2019-05-20 09:23:002.8[facility] QvaswevFACKUYFHTK2489-22-69 09:23:001.3[facility] UjfxjphVMXYXBPXNF5106-53-35 09:23:000.4[facility] CufxmfrIMXNVHNDSX0151-59-36 09:23:000.1[facility] TuijvcwMRHHIPXWHE2688-34-71 09:23:002+ *ABN*(05/20/19 3:23 AM)[facility] FOMGTPI6619-02-78 16:00:00Product available (05/19/19 10:00 AM)[facility] NUASBKU0700-46-30 15:29:00Negative (05/19/19 9:29 AM)[facility] HermannCHEM DKYLV8141-31-56 15:29:0089[facility] [place] CHEM VHYES5300-24-45 15:29:0053[facility] HermannCHEM QEYCQ4242-34-00 15:29:00 13.80[facility]annCHEM BTTDV3841-54-11 15:29:64477Ptasqgdr HermannCHEM PANEL 2019-05-19 15:29:005.6[facility] HermannCHEM XMNCO8137-90-80 15:29:61975Hgadqfao HermannCHEM HVCAA7437-13-64 15:29:0025[facility] HermannCHEM KNCPE1049-08-78 15:29:008.2[facility] HermannCHEM CKWZD7652-57-99 15:29:004[facility] HermannCHEM MPXEA8013-99-17 15:29:0014.6[facility] NpnizzzQTFZNEPCGQ4839-78-71 15:29:00* Test Item Value Reference Range Interpretation Comments PT (test code = PT) 15.4 s 12.0-14.7 [facility]nhmbDNHJSUJWYY8174-89-19 15:29:00* Test Item Value Reference Range Interpretation Comments INR (test code = INR) 1.24 1 0.85-1.17 [facility] CenterOviwixsDSWLJDPIBX4306-07-37 15:29:00* Test Item Value Reference Range Interpretation Comments PTT (test code = PTT) 36.5 s 22.9-35.8 [facility] BcoaapvWDWPPDPIBW4538-54-70 15:29:00Negative *NA*(05/19/19 9:29 AM) [facility]ann[facility] MVNOM5099-16-09 22:11:0084[facility] HermannCHEM PANEL 2019-05-18 22:11:0049[facility] HermannCHEM VIURR5430-75-12 22:11:0012.30[facility] HermannCHEM BFIOX6368-27-55 22:11:53708Jugmrkrn HermannCHEM YDMNI2369-85-86 22:11:005.1[facility] HermannCHEM PORDF2009-62-23 22:11:53645Dddkpjvi HermannCHEM QDQDV1626-10-72 22:11:0024[facility] HermannCHEM AUUOU6761-04-28 22:11:008.9 [facility]annCHEM PQEIR3713-39-70 22:11:005[facility] HermannCHEM PANEL 2019-05-18 22:11:0014.1[facility] EgmeueiAYZACFHDET4130-63-44 22:11:006.0[facility] HwzbpckTMKHFOSRIS8709-41-65 22:11:002.88[facility] ZvajsjtBBLEFCOFWE8439-82-81 22:11:009.7[facility] AzvzsmlUQQZPNZKSE1170-01-09 22:11:0029.9[facility] Nikos FFJDEHOREB1143-20-54 22:11:49272.9[facility] EemjfkeMCYTMDDPQR7421-48-90 22:11:00 * Test Item Value Reference Range Interpretation Comments MCH (test code = MCH) 33.7 pg 27.0-31.0 [facility] RlapmliJESACMUUDT8775-77-40 22:11:0032.4[facility] HermannHEMATOLOGY 2019-05-18 22:11:0020.7[facility] EkmqbheCWTMCJMCXA0723-56-59 22:11:50389Ekmztvbz WorxxbpZXEYJIIHOG5678-20-54 22:11:009.0[facility] SwcabixQHZBTWYCTQ1537-20-98 22:11:00* Test Item Value Reference Range Interpretation Comments PT (test code = PT) 15.0 s 12.0-14.7 [facility] YqisiwgGRGXDNNJFX0645-72-30 22:11:00* Test Item Value Reference Range Interpretation Comments INR (test code = INR) 1.20 1 0.85-1.17 [facility] GgoprzqLKMKFDPLPW8946-50-44 22:11:00* Test Item Value Reference Range Interpretation Comments PTT (test code = PTT) 35.2 s 22.9-35.8 [facility]FdljokmQTLFAXMEFK0255-18-92 22:11:0037.2[facility] HermannHEMATOLOGY 2019-05-18 22:11:0052.1[facility] FjqotvtNMKPJMFZJR8628-06-34 22:11:007.9[facility] FiccxuwRUWDSRXHIG7509-26-69 22:11:001.0[facility] FakequaRJBMTFAUGZ7548-73-62 22:11:001.8[facility] WzcaycgPPVSYITNPH6513-46-48 22:11:002.2[facility] Nikos XEVHXOAWRR0738-11-73 22:11:003.1[facility] DqrazkvCZWZGYTXFX0764-00-18 22:11:000.5 [facility] HfzppyhFTDEDNLLRH6534-13-36 22:11:000.1[facility] HermannHEMATOLOGY 2019-05-18 22:11:000.1[facility] IaplkbpRTNQUCPXOJ4018-23-89 22:11:001+ *ABN*(05/18/19 4:11 PM)[facility] Pyzef4479-78-86 11:47:00* Test Item Value Reference Range Interpretation Comments Sodium Level (test code = 2951-2) 137 136-145 [facility] HospitalPotassium Lisxr8765-05-20 11:47:00* Test Item Value Reference Range Interpretation Comments Potassium Level (test code = 2823-3) 4.6 3.5-5.1 [facility] HospitalChloride Mxvsm1652-42-98 11:47:00* Test Item Value Reference Range Interpretation Comments Chloride Level (test code = 2075-0) 99 98-107 [facility] HospitalCarbon Dioxide Fnrbw9338-34-73 11:47:00* Test Item Value Reference Range Interpretation Comments Carbon Dioxide Level (test code = 2028-9) 23 22-29 [facility] HospitalAnion Tdq3252-72-78 11:47:00* Test Item Value Reference Range Interpretation Comments Anion Gap (test code = 17728-9) 19.6 8-16 H [facility] HospitalBlood Urea Rmwiuvmf8475-05-92 11:47:00* Test Item Value Reference Range Interpretation Comments Blood Urea Nitrogen (test code = 3094-0) 70 7-26 H [facility] HospitalCreatinine2019 11:47:00* Test Item Value Reference Range Interpretation Comments Creatinine (test code = 2160-0) 11.72 0.72-1.25 H [facility] HospitalBUN/Creatinine Ybquc4732-20-49 11:47:00* Test Item Value Reference Range Interpretation Comments BUN/Creatinine Ratio (test code = 3097-3) 6 6-25 [facility] HospitalEstimat Glomerular Filtration Rate 2019-04-30 11:47:00* Test Item Value Reference Range Interpretation Comments Estimat Glomerular Filtration Rate (test code = 023420075) 5 >60 L Ranges were taken from the National Kidney Disease Education Program and the [facility] Kidney Foundation literature.Reference ranges:60 or greater: Lawibr49-44 ( for 3 consecutive months): Chronic kidney disease 15 or less: Kidney failureCovenant Children's HospitalGlucose Cjani4803-00-04 11:47:00* Test Item Value Reference Range Interpretation Comments Glucose Level (test code = KYZ4071) 113 74-118 [facility] HospitalCalcium Jtcla1580-14-09 11:47:00* Test Item Value Reference Range Interpretation Comments Calcium Level (test code = 50030-7) 9.1 8.4-10.2 [facility] HospitalWhite Blood Exxmi6675-79-83 11:44:00* Test Item Value Reference Range Interpretation Comments White Blood Count (test code = 6690-2) 5.47 4.8-10.8 [facility] HospitalRed Blood Zjvcc5982-06-48 11:44:00* Test Item Value Reference Range Interpretation Comments Red Blood Count (test code = 789-8) 2.58 4.3-5.7 L [facility] HospitalHemoglobin2019 11:44:00* Test Item Value Reference Range Interpretation Comments Hemoglobin (test code = 73639-2) 8.3 14.0-18.0 L [facility] HospitalHematocrit2019 11:44:00* Test Item Value Reference Range Interpretation Comments Hematocrit (test code = 4544-3) 25.6 38.2-49.6 L [facility] HospitalMean Corpuscular Uyyvon8807-50-75 11:44:00* Test Item Value Reference Range Interpretation Comments Mean Corpuscular Volume (test code = 787-2) 99.2 81-99 H [facility] HospitalMean Corpuscular Qbwcbwrush0875-41-61 11:44:00* Test Item Value Reference Range Interpretation Comments Mean Corpuscular Hemoglobin (test code = 785-6) 32.2 28-32 H [facility] HospitalMean Corpuscular Hemoglobin Concent 2019-04-30 11:44:00* Test Item Value Reference Range Interpretation Comments Mean Corpuscular Hemoglobin Concent (test code = 786-4) 32.4 31-35 [facility] HospitalRed Cell Distribution Fvljs8792-04-41 11:44:00* Test Item Value Reference Range Interpretation Comments Red Cell Distribution Width (test code = 73957-2) 18.1 11.7 -14.4 H [facility] HospitalPlatelet Ogocl9020-08-02 11:44:00* Test Item Value Reference Range Interpretation Comments Platelet Count (test code = 777-3) 211 140-360 [facility] HospitalNeutrophils (%) (Auto)2019-04-30 11:44:00 * Test Item Value Reference Range Interpretation Comments Neutrophils (%) (Auto) (test code = 13668-3) 54.5 38.7-80.0 [facility] HospitalLymphocytes (%) (Auto)2019-04-30 11:44:00 * Test Item Value Reference Range Interpretation Comments Lymphocytes (%) (Auto) (test code = 736-9) 33.5 18.0-39.1 [facility] HospitalMonocytes (%) (Auto)2019-04-30 11:44:00* Test Item Value Reference Range Interpretation Comments Monocytes (%) (Auto) (test code = 5905-5) 9.1 4.4-11.3 [facility] HospitalEosinophils (%) (Auto)2019-04-30 11:44:00 * Test Item Value Reference Range Interpretation Comments Eosinophils (%) (Auto) (test code = 713-8) 1.5 0.0-6.0 [facility] HospitalBasophils (%) (Auto)2019-04-30 11:44:00* Test Item Value Reference Range Interpretation Comments Basophils (%) (Auto) (test code = 706-2) 0.9 0.0-1.0 [facility] HospitalIM GRANULOCYTES %2019-04-30 11:44:00* Test Item Value Reference Range Interpretation Comments IM GRANULOCYTES % (test code = IM GRANULOCYTES %) 0.5 0.0- 1.0 [facility] HospitalNeutrophils # (Auto)2019-04-30 11:44:00* Test Item Value Reference Range Interpretation Comments Neutrophils # (Auto) (test code = 751-8) 3.0 2.1-6.9 [facility] HospitalLymphocytes # (Auto)2019-04-30 11:44:00* Test Item Value Reference Range Interpretation Comments Lymphocytes # (Auto) (test code = 46488-1) 1.8 1.0-3.2 [facility] HospitalMonocytes # (Auto)2019-04-30 11:44:00* Test Item Value Reference Range Interpretation Comments Monocytes # (Auto) (test code = 742-7) 0.5 0.2-0.8 [facility] HospitalEosinophils # (Auto)2019-04-30 11:44:00* Test Item Value Reference Range Interpretation Comments Eosinophils # (Auto) (test code = 711-2) 0.1 0.0-0.4 [facility] HospitalBasophils # (Auto)2019-04-30 11:44:00* Test Item Value Reference Range Interpretation Comments Basophils # (Auto) (test code = 704-7) 0.1 0.0-0.1 [facility] HospitalAbsolute Immature Granulocyte (auto 2019-04-30 11:44:00* Test Item Value Reference Range Interpretation Comments Absolute Immature Granulocyte (auto (gladis t code = Absolute Immature Granulocyte (auto) 0.03 0-0.1 [facility] HospitalGentamicin Level Lizjsm3457-26-58 17:37:00* Test Item Value Reference Range Interpretation Comments Gentamicin Level Trough (test code = 3665-7) 0.5 0.5-2.0 Detection Limit = 0.3 <0.3 indicates None DetectedPerformed at: [facility] [place] [facility] [id number] Director: Froylan Flores MD, Phone: [phone] [facility] HospitalBlood Dhbesxd6332-97-07 16:35:00* Test Item Value Reference Range Interpretation Comments Blood Culture (test code = 75608764) NO GROWTH AFTER 72 HOURS [facility] Awhlkcl6491-88-59 13:28:00* Test Item Value Reference Range Interpretation Comments Blood Culture (test code = 600-7) No Result Data Provided [facility] HospitalBedside Nxsijuy2539-29-38 03:15:00* Test Item Value Reference Range Interpretation Comments Bedside Glucose (test code = 79730-3) 151 70-120 H Meter ID: [id number] W 2019-04-26 19:13:00 [place] [address] Patient Name: LUIZA CHUN MR #: [id number] : 1985 Age/Sex: 33/M Req #: [id number] Adm Physician: NAEEM AHUMADA MD Ordered by: FRANKLYN PADILLA MD Report #: [id number] Location: MED/SURG3 Room/Bed: [facility] Procedure: [id number] CT/CT A BDOMEN/PELVIS W Exam Date: 04/26/19 [...] 04/26/191920 COPY TO: MALENA PADILLA MD C-Reactive Lncvado9020-07-78 11:22:00* Test Item Value Reference Range Interpretation Comments C-Reactive Protein (test code = 1988-5) 67 0-10 H Performed at: - Lab[address] [id number] Director: Froylan Flores MD, Phone: [phone] Children's HospitalErythrocyte Sedimentation Ddhf3981-33-95 12:12:00* Test Item Value Reference Range Interpretation Comments Erythrocyte Sedimentation Rate (test code = 4537-7) 31 0- 13 H [facility] HospitalTotal Ksgeeuyud6718-65-31 06:54:00* Test Item Value Reference Range Interpretation Comments Total Bilirubin (test code = 1975-2) 0.3 0.2-1.2 [facility] HospitalAspartate Amino Transf (AST/SGOT) 2019-04-25 06:54:00* Test Item Value Reference Range Interpretation Comments Aspartate Amino Transf (AST/SGOT) (test code = Aspartate Amino Transf (AST/SGOT)) 24 5-34 [facility] HospitalAlanine Aminotransferase (ALT/SGPT) 2019-04-25 06:54:00* Test Item Value Reference Range Interpretation Comments Alanine Aminotransferase (ALT/SGPT) (test code = 1742-6) 25 0-55 [facility] HospitalTotal Yabodyb2757-57-87 06:54:00* Test Item Value Reference Range Interpretation Comments Total Protein (test code = 2885-2) 5.7 6.5-8.1 L [facility] HospitalAlbumin2019-10-16 06:54:00* Test Item Value Reference Range Interpretation Comments Albumin (test code = 1751-7) 2.1 3.5-5.0 L [facility] HospitalGlobulin2019-10-16 06:54:00* Test Item Value Reference Range Interpretation Comments Globulin (test code = 77449-0) 3.6 2.3-3.5 H [facility] HospitalAlbumin/Globulin Gzmda6167-40-63 06:54:00 * Test Item Value Reference Range Interpretation Comments Albumin/Globulin Ratio (test code = 1759-0) 0.6 0.8-2.0 L [facility] HospitalAlkaline Ckohybhtujr5009-53-52 06:54:00* Test Item Value Reference Range Interpretation Comments Alkaline Phosphatase (test code = 6768-6) 228 40-150 H [facility] HospitalHepatitis B Surface Antibody, Quant 2019-04-24 08:21:00* Test Item Value Reference Range Interpretation Comments Hepatitis B Surface Antibody, Quant (test code = 5194-6) >1000.0 Immunity>9.9 Status of Immunity Anti-HBs Level Inconsistent with Immunity 0.0 - 9.9Consistent with Immunity >9.9CH[facility] HospitalHepatiind[facility] B Core Total Zxulzccu7065-76-43 08:21:00* Test Item Value Reference Range Interpretation Comments Hepatitis B Core Total Antibody (test code = 81552-2) Negative Negative [facility] HospitalH[facility] B Surface Domdaqs2788-99-29 08:21:00* Test Item Value Reference Range Interpretation Comments Hepatitis B Surface Antigen (test code = 5196-1) Negative Negat teagan [facility] B Core IgM Bbeexvwd4822-73-37 08:21:00* Test Item Value Reference Range Interpretation Comments Hepatitis B Core IgM Antibody (test code = 28272-3) Negative Ne gative Performed at: - [facility] [address] [id number] Director: Froylan Flores MD, Phone: [phone] Children's HospitalCreatine Kinase TF1168-51-93 10:51:00* Test Item Value Reference Range Interpretation Comments Creatine Kinase MB (test code = 90567-5) 1.50 0-5.0 [facility] HospitalTroponin K2276-26-16 10:51:00* Test Item Value Reference Range Interpretation Comments Troponin I (test code = WRU5225) 1.234 0-0.300 H Elevated result called to barber milligan at 1049 on 04/23/19 by Belia Guadalupe. [facility] HospitalLactic Acid Ourth4346-58-52 10:41:00* Test Item Value Reference Range Interpretation Comments Lactic Acid Level (test code = Lactic Acid Level) 11.5 4.5- 19.8 [facility] HospitalCreatine Ijookk9823-69-12 10:41:00* Test Item Value Reference Range Interpretation Comments Creatine Kinase (test code = 2157-6) 9 30-200 L [facility] HospitalCHEST SINGLE (NOT PORTABLE)2019-04-22 21:06:00 [place] [address] Patient Name: LUIZA CHUN MR #: [id number] : 1985 Age/Sex: 33/M Req #: [id number] Adm Physician: Ordered by: DEBBIE MUNROE REPAIRING CALIBRATOR Report #: [id number] Location: ER Room/Bed: Procedure: [id number] DX/ CHEST SINGLE (NOT PORTABLE) Exam Date: [...] SAUNDRA on 04/22/192106 COPY TO: DEBBIE MUNROE REPAIRING CALIBRATOR Influenza Virus Types A,B Kvjyuzy7785-81-94 19:43:00* Test Item Value Reference Range Interpretation Comments Influenza Virus Types A,B Antigen (test code = 02191-1) NEGATIVE NEGATIVE [facility] HospitalMagnesium Owxlr6131-19-11 19:35:00* Test Item Value Reference Range Interpretation Comments Magnesium Level (test code = 53479-9) 2.2 1.3-2.1 H [facility] HospitalUrine Bzoxh5329-62-99 19:28:00* Test Item Value Reference Range Interpretation Comments Urine Color (test code = 5778-6) YELLOW YELLOW [facility] HospitalUrine Sgllipi7050-44-67 19:28:00* Test Item Value Reference Range Interpretation Comments Urine Clarity (test code = 82055-4) HAZY CLEAR [facility] HospitalUrine Specific Rkpisdb4711-44-08 19:28:00 * Test Item Value Reference Range Interpretation Comments Urine Specific [place] (test code = 5811-5) 1.010 1.010-1.02 5 [facility] HospitalUrine mS1811-38-07 19:28:00* Test Item Value Reference Range Interpretation Comments Urine pH (test code = 98362-2) 7.5 5-7 [facility] HospitalUrine Leukocyte Vtaqeies6239-11-86 19:28:00* Test Item Value Reference Range Interpretation Comments Urine Leukocyte Esterase (test code = 5799-2) 1+ NEGATIVE H [facility] Whfekdi4390-92-70 19:28:00* Test Item Value Reference Range Interpretation Comments Urine Nitrite (test code = 21116-7) NEGATIVE NEGATIVE [facility] HospitalUrine Gmvyckr7989-06-54 19:28:00* Test Item Value Reference Range Interpretation Comments Urine Protein (test code = 5804-0) 2+ NEGATIVE H [facility] HospitalUrine Glucose (UA)2019-04-22 19:28:00* Test Item Value Reference Range Interpretation Comments Urine Glucose (UA) (test code = 2349-9) NEGATIVE NEGATIVE [facility] HospitalUrine Uofkkkg4891-59-50 19:28:00* Test Item Value Reference Range Interpretation Comments Urine Ketones (test code = 39226-6) NEGATIVE NEGATIVE [facility] HospitalUrine Oqcaukogebwi7333-31-33 19:28:00* Test Item Value Reference Range Interpretation Comments Urine Urobilinogen (test code = 72641-0) 0.2 0.2-1 [facility] HospitalUrine Cslzzjfpx4062-12-41 19:28:00* Test Item Value Reference Range Interpretation Comments Urine Bilirubin (test code = 1978-6) NEGATIVE NEGATIVE [facility] HospitalUrine Zfgck1632-76-80 19:28:00* Test Item Value Reference Range Interpretation Comments Urine Blood (test code = 74093-9) 2+ NEGATIVE H [facility] HospitalUrine TOI7109-56-68 19:28:00* Test Item Value Reference Range Interpretation Comments Urine WBC (test code = 5821-4) 11-20 0-5 H [facility] HospitalUrine VSP5989-59-54 19:28:00* Test Item Value Reference Range Interpretation Comments Urine RBC (test code = 77257-1) 11-20 0-5 H [facility] HospitalUrine Wixhepay3948-34-62 19:28:00* Test Item Value Reference Range Interpretation Comments Urine Bacteria (test code = 04418-2) FEW NONE [facility] HospitalUrine Epithelial Xzsqi9494-89-38 19:28:00 * Test Item Value Reference Range Interpretation Comments Urine Epithelial Cells (test code = 68983-0) FEW NONE [facility] Amorphous Tzkrthzw4135-17-91 19:28:00* Test Item Value Reference Range Interpretation Comments Urine Amorphous Sediment (test code = 8246-1) FEW FEW [facility] HospitalUrine Fine Granular Hupnb0177-93-86 19:28:00* Test Item Value Reference Range Interpretation Comments Urine Fine Granular Casts (test code = 56865-4) 1-5 >0 H [facility] HospitalUrine Bzuqm7218-39-03 19:28:00* Test Item Value Reference Range Interpretation Comments Urine Mucus (test code = 8247-9) FEW RARE H [facility] HospitalGroup A Streptococcus Sxlitv9754-30-41 19:25:00* Test Item Value Reference Range Interpretation Comments Group A Streptococcus Screen (test code = 26856-3) NEGATIVE NEG ATIVE [facility] HospitalUrine ZUI9634-17-01 13:31:00* Test Item Value Reference Range Interpretation Comments Urine WBC (test code = 5821-4) 6-10 0-5 H [facility] HospitalUrine JHM7753-45-12 13:31:00* Test Item Value Reference Range Interpretation Comments Urine RBC (test code = 10120-9) >50 0-5 H [facility] HospitalUrine Sananyao1954-81-41 13:31:00* Test Item Value Reference Range Interpretation Comments Urine Bacteria (test code = 10932-2) MODERATE NONE H [facility] HospitalUrine Epithelial Gnhpo5847-35-82 13:31:00 * Test Item Value Reference Range Interpretation Comments Urine Epithelial Cells (test code = 31239-0) MODERATE NONE [facility] HospitalUrine Zcmbu7055-08-47 13:22:00* Test Item Value Reference Range Interpretation Comments Urine Color (test code = 5778-6) YELLOW YELLOW [facility] HospitalUrine Wmkzfyb9477-20-67 13:22:00* Test Item Value Reference Range Interpretation Comments Urine Clarity (test code = 98277-3) SL CLOUDY CLEAR H [facility] HospitalUrine Specific Smkzzfu2491-00-99 13:22:00 * Test Item Value Reference Range Interpretation Comments Urine Specific [place] (test code = 5811-5) 1.015 1.010-1.02 5 [facility] HospitalUrine jF0619-53-75 13:22:00* Test Item Value Reference Range Interpretation Comments Urine pH (test code = 50821-1) 7 5-7 [facility] HospitalUrine Leukocyte Nxyibnmb1308-22-57 13:22:00* Test Item Value Reference Range Interpretation Comments Urine Leukocyte Esterase (test code = 28780-2) NEGATIVE NEGATIV E [facility] HospitalUrine Xcwoauq4721-30-99 13:22:00* Test Item Value Reference Range Interpretation Comments Urine Nitrite (test code = 76921-1) NEGATIVE NEGATIVE [facility] HospitalUrine Uwegyiu7038-03-12 13:22:00* Test Item Value Reference Range Interpretation Comments Urine Protein (test code = 12685-2) 2+ NEGATIVE H [facility] HospitalUrine Glucose (UA)2019-03-11 13:22:00* Test Item Value Reference Range Interpretation Comments Urine Glucose (UA) (test code = 64261-7) 1+ NEGATIVE H [facility] HospitalUrine Fbhlqjl9571-95-24 13:22:00* Test Item Value Reference Range Interpretation Comments Urine Ketones (test code = 16140-3) NEGATIVE NEGATIVE [facility] HospitalUrine Rgwmgouhwzmp8891-47-25 13:22:00* Test Item Value Reference Range Interpretation Comments Urine Urobilinogen (test code = 61318-1) 0.2 0.2-1 [facility] HospitalUrine Cvyfkoyis6425-32-48 13:22:00* Test Item Value Reference Range Interpretation Comments Urine Bilirubin (test code = 1977-8) NEGATIVE NEGATIVE [facility] HospitalUrine Tbnys0140-38-95 13:22:00* Test Item Value Reference Range Interpretation Comments Urine Blood (test code = 66741-5) 3+ NEGATIVE [facility] [place]6490-58-31 12:05:00* Test Item Value Reference Range Interpretation Comments Sodium Level (test code = 2951-2) 143 136-145 [facility] HospitalPotassium Nzzwb9237-39-40 12:05:00* Test Item Value Reference Range Interpretation Comments Potassium Level (test code = 2823-3) 4.7 3.5-5.1 [facility] HospitalChloride Iervx3823-12-15 12:05:00* Test Item Value Reference Range Interpretation Comments Chloride Level (test code = 2075-0) 100 98-107 [facility] HospitalCarbon Dioxide Axxyo0451-37-34 12:05:00* Test Item Value Reference Range Interpretation Comments Carbon Dioxide Level (test code = 2028-9) 29 22-29 [facility] HospitalAnion Swy4286-87-66 12:05:00* Test Item Value Reference Range Interpretation Comments Anion Gap (test code = 63584-8) 18.7 8-16 H [facility] HospitalBlood Urea Iqpaxsdj3589-48-95 12:05:00* Test Item Value Reference Range Interpretation Comments Blood Urea Nitrogen (test code = 3094-0) 64 7-26 H [facility] HospitalCreatinine2019-09-01 12:05:00* Test Item Value Reference Range Interpretation Comments Creatinine (test code = 2160-0) 11.35 0.72-1.25 H [facility] HospitalBUN/Creatinine Yqbhu1988-63-38 12:05:00* Test Item Value Reference Range Interpretation Comments BUN/Creatinine Ratio (test code = 3097-3) 6 6-25 [facility] HospitalEstimat Glomerular Filtration Rate 2019-03-11 12:05:00* Test Item Value Reference Range Interpretation Comments Estimat Glomerular Filtration Rate (test code = 719661220) 5 >60 L Ranges were taken from the National Kidney Disease Education Program and the [facility] Foundation literature.Reference ranges:60 or greater: Gkpaea05-72 ( for 3 consecutive months): Chronic kidney disease 15 or less: Kidney failureCovenant Children's HospitalGlucose Abqcj1857-72-32 12:05:00* Test Item Value Reference Range Interpretation Comments Glucose Level (test code = RNP2943) 117 74-118 [facility] HospitalCalcium Wgqks8805-74-72 12:05:00* Test Item Value Reference Range Interpretation Comments Calcium Level (test code = 75203-0) 9.4 8.4-10.2 [facility] HospitalTotal Yjhjddnpd9951-68-37 12:05:00* Test Item Value Reference Range Interpretation Comments Total Bilirubin (test code = 1975-2) 0.5 0.2-1.2 [facility] HospitalAspartate Amino Transf (AST/SGOT) 2019-03-11 12:05:00* Test Item Value Reference Range Interpretation Comments Aspartate Amino Transf (AST/SGOT) (test code = Aspartate Amino Transf (AST/SGOT)) 15 5-34 [facility] HospitalAlanine Aminotransferase (ALT/SGPT) 2019-03-11 12:05:00* Test Item Value Reference Range Interpretation Comments Alanine Aminotransferase (ALT/SGPT) (test code = 1742-6) 40 0-55 [facility] HospitalTotal Yhgcslj5097-52-23 12:05:00* Test Item Value Reference Range Interpretation Comments Total Protein (test code = 2885-2) 7.6 6.5-8.1 [facility] HospitalAlbumin2019-09-[facility] 12:05:00* Test Item Value Reference Range Interpretation Comments Albumin (test code = 1751-7) 3.3 3.5-5.0 L [facility] HospitalGlobulin2019-09-01 12:05:00* Test Item Value Reference Range Interpretation Comments Globulin (test code = 02615-6) 4.3 2.3-3.5 H [facility] HospitalAlbumin/Globulin Rjfci5969-57-54 12:05:00 * Test Item Value Reference Range Interpretation Comments Albumin/Globulin Ratio (test code = 1759-0) 0.8 0.8-2.0 [facility] HospitalAlkaline Dgzacnlpnel5465-57-50 12:05:00* Test Item Value Reference Range Interpretation Comments Alkaline Phosphatase (test code = 6768-6) 118 40-150 [facility] HospitalWhite Blood Cqpaj4922-06-02 11:50:00* Test Item Value Reference Range Interpretation Comments White Blood Count (test code = 6690-2) 6.42 4.8-10.8 [facility] HospitalRed Blood Toiot0966-37-84 11:50:00* Test Item Value Reference Range Interpretation Comments Red Blood Count (test code = 789-8) 3.33 4.3-5.7 L [facility] HospitalHemoglobin2019-09-01 11:50:00* Test Item Value Reference Range Interpretation Comments Hemoglobin (test code = 72177-0) 11.2 14.0-18.0 L [facility] HospitalHematocrit2019-09-01 11:50:00* Test Item Value Reference Range Interpretation Comments Hematocrit (test code = 4544-3) 33.5 38.2-49.6 L [facility] HospitalMean Corpuscular Yjvicv2064-95-36 11:50:00* Test Item Value Reference Range Interpretation Comments Mean Corpuscular Volume (test code = 787-2) 100.6 81-99 H [facility] HospitalMean Corpuscular Viyqydmrlk7952-41-03 11:50:00* Test Item Value Reference Range Interpretation Comments Mean Corpuscular Hemoglobin (test code = 785-6) 33.6 28-32 H [facility] HospitalMean Corpuscular Hemoglobin Concent 2019-03-11 11:50:00* Test Item Value Reference Range Interpretation Comments Mean Corpuscular Hemoglobin Concent (test code = 786-4) 33.4 31-35 [facility] HospitalRed Cell Distribution Nopoh1278-64-90 11:50:00* Test Item Value Reference Range Interpretation Comments Red Cell Distribution Width (test code = 06174-8) 14.7 11.7 -14.4 H [facility] HospitalPlatelet Ttxhb5769-19-72 11:50:00* Test Item Value Reference Range Interpretation Comments Platelet Count (test code = 777-3) 224 140-360 [facility] HospitalNeutrophils (%) (Auto)2019-03-11 11:50:00 * Test Item Value Reference Range Interpretation Comments Neutrophils (%) (Auto) (test code = 47027-9) 60.8 38.7-80.0 [facility] HospitalLymphocytes (%) (Auto)2019-03-11 11:50:00 * Test Item Value Reference Range Interpretation Comments Lymphocytes (%) (Auto) (test code = 736-9) 26.0 18.0-39.1 [facility] HospitalMonocytes (%) (Auto)2019-03-11 11:50:00* Test Item Value Reference Range Interpretation Comments Monocytes (%) (Auto) (test code = 5905-5) 11.4 4.4-11.3 H [facility] HospitalEosinophils (%) (Auto)2019-03-11 11:50:00 * Test Item Value Reference Range Interpretation Comments Eosinophils (%) (Auto) (test code = 713-8) 0.5 0.0-6.0 [facility] HospitalBasophils (%) (Auto)2019-03-11 11:50:00* Test Item Value Reference Range Interpretation Comments Basophils (%) (Auto) (test code = 706-2) 0.8 0.0-1.0 [facility] HospitalIM GRANULOCYTES %2019-03-11 11:50:00* Test Item Value Reference Range Interpretation Comments IM GRANULOCYTES % (test code = IM GRANULOCYTES %) 0.5 0.0- 1.0 [facility] HospitalNeutrophils # (Auto)2019-03-11 11:50:00* Test Item Value Reference Range Interpretation Comments Neutrophils # (Auto) (test code = 751-8) 3.9 2.1-6.9 [facility] HospitalLymphocytes # (Auto)2019-03-11 11:50:00* Test Item Value Reference Range Interpretation Comments Lymphocytes # (Auto) (test code = 23276-4) 1.7 1.0-3.2 [facility] HospitalMonocytes # (Auto)2019-03-11 11:50:00* Test Item Value Reference Range Interpretation Comments Monocytes # (Auto) (test code = 742-7) 0.7 0.2-0.8 [facility] HospitalEosinophils # (Auto)2019-03-11 11:50:00* Test Item Value Reference Range Interpretation Comments Eosinophils # (Auto) (test code = 711-2) 0.0 0.0-0.4 [facility] HospitalBasophils # (Auto)2019-03-11 11:50:00* Test Item Value Reference Range Interpretation Comments Basophils # (Auto) (test code = 704-7) 0.1 0.0-0.1 [facility] HospitalAbsolute Immature Granulocyte (auto 2019-03-11 11:50:00* Test Item Value Reference Range Interpretation Comments Absolute Immature Granulocyte (auto (gladis t code = Absolute Immature Granulocyte (auto) 0.03 0-0.1 [facility] HospitalCT ABDOMEN/PELVIS [id number] 11:32:00 [facility] [address] [place] [address] Patient Name: LUIZA CHUN MR #: [id number] : 1985 Age/Sex: 33/M Req #: [id number] Adm Physician: Ordered by: MARISELA LYN MD Report #: [id number] Location: ER Room/Bed: Procedure: [id number] CT/C T ABDOMEN/PELVIS WO Exam Date: 03/11/19 [...] MARISELA LYN MD CHEST SINGLE (PORTABLE)2018-09-05 02:49:00 [place] [address] Patient Name: LUIZA CHUN MR #: [id number] : 1985 Age/Sex: 32/M Req #: [id number] Adm Physician: Ordered by: CARI LEA MD Report #: [id number] Location: ER Room/Bed: Procedure: [id number] DX/WIL[facility] ST SINGLE (PORTABLE) Exam Date: Exam Time: REPORT STATUS: Signed EXAMINATION: [facility] ST SINGLE (PORTABLE) COMPARISON: Chest x-ray [...] COPY TO: CARI LEA MD CT BRAIN [id number] 19:49:00 [place] [id number] [place] [address] Patient Name: LUIZA CHUN MR #: [id number] : 1985 Age/Sex: 32/M Req #: [id number] Adm Physician: Ordered by: NATE DE LA VEGA REPAIRING CALIBRATOR Report #: [id number] Location: ER Room/Bed: Procedure: [id number] CT/CT BRAIN WO Exam Date: Exam Time: [...] TO: NATE DE LA VEGA NP Magnesium Cmnkm9999-55-45 19:38:00* Test Item Value Reference Range Interpretation Comments Magnesium Level (test code = 77673-3) 1.9 1.3-2.1 [facility] HospitalMagnesium Sdxxj4086-74-71 19:38:00* Test Item Value Reference Range Interpretation Comments Magnesium Level (test code = 14336-2) 1.9 1.3-2.1 [facility] HospitalCreatine Kinase XZ0168-68-46 19:26:00* Test Item Value Reference Range Interpretation Comments Creatine Kinase MB (test code = 57483-2) 0.40 0-5.0 [facility] HospitalTroponin M0134-06-62 19:26:00* Test Item Value Reference Range Interpretation Comments Troponin I (test code = IZZ2970) 0.007 0-0.300 [facility] HospitalCreatine Kinase ZK6410-73-78 19:26:00* Test Item Value Reference Range Interpretation Comments Creatine Kinase MB (test code = 89144-0) 0.40 0-5.0 [facility] HospitalTroponin H9994-46-37 19:26:00* Test Item Value Reference Range Interpretation Comments Troponin I (test code = XIB3719) 0.007 0-0.300 [facility] Trvey8463-84-29 19:20:00* Test Item Value Reference Range Interpretation Comments Sodium Level (test code = 2951-2) 143 136-145 [facility] HospitalPotassium Wgjue8671-55-61 19:20:00* Test Item Value Reference Range Interpretation Comments Potassium Level (test code = 2823-3) 3.6 3.5-5.1 [facility] HospitalChloride Rdghr2251-54-90 19:20:00* Test Item Value Reference Range Interpretation Comments Chloride Level (test code = 2075-0) 102 98-107 [facility] HospitalCarbon Dioxide Yzxgc9214-71-67 19:20:00* Test Item Value Reference Range Interpretation Comments Carbon Dioxide Level (test code = 2028-9) 30 22-29 H [facility] HospitalAnion Tik1756-38-48 19:20:00* Test Item Value Reference Range Interpretation Comments Anion Gap (test code = 60927-8) 14.6 8-16 [facility] HospitalBlood Urea Wyemsygo3529-06-95 19:20:00* Test Item Value Reference Range Interpretation Comments Blood Urea Nitrogen (test code = 3094-0) 17 7-26 [facility] HospitalCreatinine2018-09-28 19:20:00* Test Item Value Reference Range Interpretation Comments Creatinine (test code = 2160-0) 3.81 0.72-1.25 H [facility] HospitalBUN/Creatinine Qoqpc0117-97-66 19:20:00* Test Item Value Reference Range Interpretation Comments BUN/Creatinine Ratio (test code = 3097-3) 4 6-25 L [facility] HospitalEstimat Glomerular Filtration Rate 2018-04-07 19:20:00* Test Item Value Reference Range Interpretation Comments Estimat Glomerular Filtration Rate (test code = 045611823) 19 >60 L Ranges were taken from the National Kidney Disease Education Program and the [facility] [employer] literature.Reference ranges:60 or greater: Seivoe43-70 ( for 3 consecutive months): Chronic kidney disease 15 or less: Kidney failureCovenant Children's HospitalGlucose Otkgc4081-20-79 19:20:00* Test Item Value Reference Range Interpretation Comments Glucose Level (test code = HKV6112) 112 74-118 [facility] HospitalCalcium Mlfet9318-09-52 19:20:00* Test Item Value Reference Range Interpretation Comments Calcium Level (test code = 32049-2) 9.0 8.4-10.2 [facility] HospitalTotal Yhnveaqeg0123-22-99 19:20:00* Test Item Value Reference Range Interpretation Comments Total Bilirubin (test code = 1975-2) 0.3 0.2-1.2 [facility] HospitalAspartate Amino Transf (AST/SGOT) 2018-04-07 19:20:00* Test Item Value Reference Range Interpretation Comments Aspartate Amino Transf (AST/SGOT) (test code = Aspartate Amino Transf (AST/SGOT)) 21 5-34 [facility] HospitalAlanine Aminotransferase (ALT/SGPT) 2018-04-07 19:20:00* Test Item Value Reference Range Interpretation Comments Alanine Aminotransferase (ALT/SGPT) (test code = 1742-6) 15 0-55 [facility] Xblegiq5650-51-18 19:20:00* Test Item Value Reference Range Interpretation Comments Total Protein (test code = 2885-2) 7.6 6.5-8.1 [facility] HospitalAlbumin2018-09-28 19:20:00* Test Item Value Reference Range Interpretation Comments Albumin (test code = 1751-7) 3.7 3.5-5.0 [facility] HospitalGlobulin2018-09-28 19:20:00* Test Item Value Reference Range Interpretation Comments Globulin (test code = 39475-9) 3.9 2.3-3.5 H [facility] HospitalAlbumin/Globulin Zvvcp5729-64-16 19:20:00 * Test Item Value Reference Range Interpretation Comments Albumin/Globulin Ratio (test code = 1759-0) 0.9 0.8-2.0 [facility] HospitalAlkaline Ksdpudbexln0120-96-16 19:20:00* Test Item Value Reference Range Interpretation Comments Alkaline Phosphatase (test code = 6768-6) 107 40-150 [facility] HospitalCreatine Rcjfhn3081-55-64 19:20:00* Test Item Value Reference Range Interpretation Comments Creatine Kinase (test code = 2157-6) 57 30-200 [facility] Cxlri6514-86-93 19:20:00* Test Item Value Reference Range Interpretation Comments Sodium Level (test code = 2951-2) 143 136-145 [facility] HospitalPotassium Kgwkg0422-51-02 19:20:00* Test Item Value Reference Range Interpretation Comments Potassium Level (test code = 2823-3) 3.6 3.5-5.1 [facility] HospitalChloride Nvgib4172-21-49 19:20:00* Test Item Value Reference Range Interpretation Comments Chloride Level (test code = 2075-0) 102 98-107 [facility] HospitalCarbon Dioxide Optmq9332-75-71 19:20:00* Test Item Value Reference Range Interpretation Comments Carbon Dioxide Level (test code = 2028-9) 30 22-29 H [facility] HospitalAnion Off8189-58-05 19:20:00* Test Item Value Reference Range Interpretation Comments Anion Gap (test code = 19011-2) 14.6 8-16 [facility] HospitalBlood Urea Cmnmkjiq7969-83-42 19:20:00* Test Item Value Reference Range Interpretation Comments Blood Urea Nitrogen (test code = 3094-0) 17 7-26 [facility] HospitalCreatinine2018-09-28 19:20:00* Test Item Value Reference Range Interpretation Comments Creatinine (test code = 2160-0) 3.81 0.72-1.25 H [facility] HospitalBUN/Creatinine Lxsoq7558-93-80 19:20:00* Test Item Value Reference Range Interpretation Comments BUN/Creatinine Ratio (test code = 3097-3) 4 6-25 L [facility] HospitalEstimat Glomerular Filtration Rate 2018-04-07 19:20:00* Test Item Value Reference Range Interpretation Comments Estimat Glomerular Filtration Rate (test code = 255598123) 19 >60 L Ranges were taken from the National Kidney Disease Education Program and the [facility] literature.Reference ranges:60 or greater: Bnyuqg08-17 ( for 3 consecutive months): Chronic kidney disease 15 or less: Kidney failureCovenant Children's HospitalGlucose Vsesl0643-57-16 19:20:00* Test Item Value Reference Range Interpretation Comments Glucose Level (test code = BGU7195) 112 74-118 [facility] HospitalCalcium Tsvwt6454-33-54 19:20:00* Test Item Value Reference Range Interpretation Comments Calcium Level (test code = 69530-7) 9.0 8.4-10.2 [facility] HospitalTotal Zkqnfrxzf7342-86-93 19:20:00* Test Item Value Reference Range Interpretation Comments Total Bilirubin (test code = 1975-2) 0.3 0.2-1.2 [facility] HospitalAspartate Amino Transf (AST/SGOT) 2018-04-07 19:20:00* Test Item Value Reference Range Interpretation Comments Aspartate Amino Transf (AST/SGOT) (test code = Aspartate Amino Transf (AST/SGOT)) 21 5-34 [facility] HospitalAlanine Aminotransferase (ALT/SGPT) 2018-04-07 19:20:00* Test Item Value Reference Range Interpretation Comments Alanine Aminotransferase (ALT/SGPT) (test code = 1742-6) 15 0-55 [facility] HospitalTotal Botvmse5890-71-04 19:20:00* Test Item Value Reference Range Interpretation Comments Total Protein (test code = 2885-2) 7.6 6.5-8.1 [facility] HospitalAlbumin2018-09-28 19:20:00* Test Item Value Reference Range Interpretation Comments Albumin (test code = 1751-7) 3.7 3.5-5.0 [facility] HospitalGlobulin2018-09-28 19:20:00* Test Item Value Reference Range Interpretation Comments Globulin (test code = 91240-6) 3.9 2.3-3.5 H [facility] HospitalAlbumin/Globulin Qtnkb5110-96-33 19:20:00 * Test Item Value Reference Range Interpretation Comments Albumin/Globulin Ratio (test code = 1759-0) 0.9 0.8-2.0 [facility] HospitalAlkaline Jvdmvfwckat3898-05-71 19:20:00* Test Item Value Reference Range Interpretation Comments Alkaline Phosphatase (test code = 6768-6) 107 40-150 [facility] HospitalCreatine Kxrsno2931-01-61 19:20:00* Test Item Value Reference Range Interpretation Comments Creatine Kinase (test code = 2157-6) 57 30-200 [facility]2018-04-07 19:14:00 [facility] [address] [place] [address] Patient Name: LUIZA CHUN MR #: [id number] : 1985 Age/Sex: 32/M Req #: [id number] Adm Physician: Ordered by: KIRK MCFARLAND MD Report #: [id number] Location: ER Room/Bed: Procedure: [id number] DX/CHEST SINGLE (PORTABLE) E xam Date: 04/07/18 [...] COPY TO: KIRK MCFARLAND MD White Blood Rpjnd9598-63-56 18:59:00* Test Item Value Reference Range Interpretation Comments White Blood Count (test code = 6690-2) 3.80 4.8-10.8 L [facility] HospitalRed Blood Pejqq6012-88-12 18:59:00* Test Item Value Reference Range Interpretation Comments Red Blood Count (test code = 789-8) 2.60 4.3-5.7 L [facility] HospitalHemoglobin2018-09-28 18:59:00* Test Item Value Reference Range Interpretation Comments Hemoglobin (test code = 30069-7) 8.4 14.0-18.0 L [facility] HospitalHematocrit2018-09-28 18:59:00* Test Item Value Reference Range Interpretation Comments Hematocrit (test code = 4544-3) 26.0 38.2-49.6 L [facility] HospitalMean Corpuscular Ainngj6636-32-52 18:59:00* Test Item Value Reference Range Interpretation Comments Mean Corpuscular Volume (test code = 787-2) 100.0 81-99 H [facility] HospitalMean Corpuscular Yxgrmwbcfk0374-17-61 18:59:00* Test Item Value Reference Range Interpretation Comments Mean Corpuscular Hemoglobin (test code = 785-6) 32.3 28-32 H [facility] HospitalMean Corpuscular Hemoglobin Concent 2018-04-07 18:59:00* Test Item Value Reference Range Interpretation Comments Mean Corpuscular Hemoglobin Concent (test code = 786-4) 32.3 31-35 [facility] HospitalRed Cell Distribution Bysfb6273-24-90 18:59:00* Test Item Value Reference Range Interpretation Comments Red Cell Distribution Width (test code = 73740-3) 14.4 11.7 -14.4 [facility] HospitalPlatelet Rqmfr5496-68-78 18:59:00* Test Item Value Reference Range Interpretation Comments Platelet Count (test code = 777-3) 249 140-360 [facility] HospitalNeutrophils (%) (Auto)2018-04-07 18:59:00 * Test Item Value Reference Range Interpretation Comments Neutrophils (%) (Auto) (test code = 24880-5) 27.1 38.7-80.0 L [facility] HospitalLymphocytes (%) (Auto)2018-04-07 18:59:00 * Test Item Value Reference Range Interpretation Comments Lymphocytes (%) (Auto) (test code = 736-9) 58.2 18.0-39.1 H [facility] HospitalMonocytes (%) (Auto)2018-04-07 18:59:00* Test Item Value Reference Range Interpretation Comments Monocytes (%) (Auto) (test code = 5905-5) 10.5 4.4-11.3 [facility] HospitalEosinophils (%) (Auto)2018-04-07 18:59:00 * Test Item Value Reference Range Interpretation Comments Eosinophils (%) (Auto) (test code = 713-8) 2.6 0.0-6.0 [facility] HospitalBasophils (%) (Auto)2018-04-07 18:59:00* Test Item Value Reference Range Interpretation Comments Basophils (%) (Auto) (test code = 706-2) 1.3 0.0-1.0 H [facility] HospitalIM GRANULOCYTES %2018-04-07 18:59:00* Test Item Value Reference Range Interpretation Comments IM GRANULOCYTES % (test code = IM GRANULOCYTES %) 0.3 0.0- 1.0 [facility] HospitalNeutrophils # (Auto)2018-04-07 18:59:00* Test Item Value Reference Range Interpretation Comments Neutrophils # (Auto) (test code = 751-8) 1.0 2.1-6.9 L [facility] HospitalLymphocytes # (Auto)2018-04-07 18:59:00* Test Item Value Reference Range Interpretation Comments Lymphocytes # (Auto) (test code = 40889-7) 2.2 1.0-3.2 [facility] HospitalMonocytes # (Auto)2018-04-07 18:59:00* Test Item Value Reference Range Interpretation Comments Monocytes # (Auto) (test code = 742-7) 0.4 0.2-0.8 [facility] HospitalEosinophils # (Auto)2018-04-07 18:59:00* Test Item Value Reference Range Interpretation Comments Eosinophils # (Auto) (test code = 711-2) 0.1 0.0-0.4 [facility] HospitalBasophils # (Auto)2018-04-07 18:59:00* Test Item Value Reference Range Interpretation Comments Basophils # (Auto) (test code = 704-7) 0.1 0.0-0.1 [facility] HospitalAbsolute Immature Granulocyte (auto 2018-04-07 18:59:00* Test Item Value Reference Range Interpretation Comments Absolute Immature Granulocyte (auto (gladis t code = Absolute Immature Granulocyte (auto) 0.01 0-0.1 [facility] HospitalWhite Blood Vjzyc6310-96-41 18:59:00* Test Item Value Reference Range Interpretation Comments White Blood Count (test code = 6690-2) 3.80 4.8-10.8 L [facility] HospitalRed Blood Nyqtx6409-55-90 18:59:00* Test Item Value Reference Range Interpretation Comments Red Blood Count (test code = 789-8) 2.60 4.3-5.7 L [facility] HospitalHemoglobin2018-09-28 18:59:00* Test Item Value Reference Range Interpretation Comments Hemoglobin (test code = 04997-3) 8.4 14.0-18.0 L [facility] HospitalHematocrit2018-09-28 18:59:00* Test Item Value Reference Range Interpretation Comments Hematocrit (test code = 4544-3) 26.0 38.2-49.6 L [facility] HospitalMean Corpuscular Ldpvqn8527-84-55 18:59:00* Test Item Value Reference Range Interpretation Comments Mean Corpuscular Volume (test code = 787-2) 100.0 81-99 H [facility] HospitalMean Corpuscular Yddrszchda6634-91-63 18:59:00* Test Item Value Reference Range Interpretation Comments Mean Corpuscular Hemoglobin (test code = 785-6) 32.3 28-32 H [facility] HospitalMean Corpuscular Hemoglobin Concent 2018-04-07 18:59:00* Test Item Value Reference Range Interpretation Comments Mean Corpuscular Hemoglobin Concent (test code = 786-4) 32.3 31-35 [facility] HospitalRed Cell Distribution Xahsw4261-89-55 18:59:00* Test Item Value Reference Range Interpretation Comments Red Cell Distribution Width (test code = 75348-5) 14.4 11.7 -14.4 [facility] HospitalPlatelet Ysquh9548-67-40 18:59:00* Test Item Value Reference Range Interpretation Comments Platelet Count (test code = 777-3) 249 140-360 [facility] HospitalNeutrophils (%) (Auto)2018-04-07 18:59:00 * Test Item Value Reference Range Interpretation Comments Neutrophils (%) (Auto) (test code = 72777-9) 27.1 38.7-80.0 L [facility] HospitalLymphocytes (%) (Auto)2018-04-07 18:59:00 * Test Item Value Reference Range Interpretation Comments Lymphocytes (%) (Auto) (test code = 736-9) 58.2 18.0-39.1 H [facility] HospitalMonocytes (%) (Auto)2018-04-07 18:59:00* Test Item Value Reference Range Interpretation Comments Monocytes (%) (Auto) (test code = 5905-5) 10.5 4.4-11.3 [facility] HospitalEosinophils (%) (Auto)2018-04-07 18:59:00 * Test Item Value Reference Range Interpretation Comments Eosinophils (%) (Auto) (test code = 713-8) 2.6 0.0-6.0 [facility] HospitalBasophils (%) (Auto)2018-04-07 18:59:00* Test Item Value Reference Range Interpretation Comments Basophils (%) (Auto) (test code = 706-2) 1.3 0.0-1.0 H [facility] HospitalIM GRANULOCYTES %2018-04-07 18:59:00* Test Item Value Reference Range Interpretation Comments IM GRANULOCYTES % (test code = IM GRANULOCYTES %) 0.3 0.0- 1.0 [facility] HospitalNeutrophils # (Auto)2018-04-07 18:59:00* Test Item Value Reference Range Interpretation Comments Neutrophils # (Auto) (test code = 751-8) 1.0 2.1-6.9 L [facility] HospitalLymphocytes # (Auto)2018-04-07 18:59:00* Test Item Value Reference Range Interpretation Comments Lymphocytes # (Auto) (test code = 13171-3) 2.2 1.0-3.2 [facility] HospitalMonocytes # (Auto)2018-04-07 18:59:00* Test Item Value Reference Range Interpretation Comments Monocytes # (Auto) (test code = 742-7) 0.4 0.2-0.8 [facility] HospitalEosinophils # (Auto)2018-04-07 18:59:00* Test Item Value Reference Range Interpretation Comments Eosinophils # (Auto) (test code = 711-2) 0.1 0.0-0.4 [facility] HospitalBasophils # (Auto)2018-04-07 18:59:00* Test Item Value Reference Range Interpretation Comments Basophils # (Auto) (test code = 704-7) 0.1 0.0-0.1 [facility] HospitalAbsolute Immature Granulocyte (auto 2018-04-07 18:59:00* Test Item Value Reference Range Interpretation Comments Absolute Immature Granulocyte (auto (gladis t code = Absolute Immature Granulocyte (auto) 0.01 0-0.1 [facility] HospitalU/S, PELVIC, [id number] 18:20:00 Reason for Exam:->CKD/KIDNEY TRANSPLANT EVALUATIONFINAL REPORT [...] Shahana ified Date/Time: 11/07/2017 18:20:05 Reading Location: [address] Ultrasound Reading Room 0 6:20 PM U/S, ABDOMINAL, UATWOAOH7199-97-54 18:20:00Reason for Exam:->CKD/KIDNEY TRANSPLANT EVALUATIONFINAL REPORT HISTORY [...] MDReport Verified Date/Time: 11/07/2017 18:20:05 Reading Location: [facility] [id number] Ultrasound Reading Room 0 6:20 PM RAD, CHEST, 2 WHBHW9420-61-10 11:05:00Reason for Exam:->CKD/KIDNEY TRANSPLANT EVALUATIONFINAL REPORT TECHNIQUE: 2 views of the chest. COMPARISON: None FINDINGS: The cardiac silhouette is within normal limits. Mediastinum is unremarkable. Lungs are clear. Osseous structures appear unremarkable. Soft tissues appear unremarkable. IMPRESSION: Normal chest exam. Signed: John Paul Rios MDReport Verified Date/Time: 11/07/2017 11:05:03 Reading Location: [facility] Rad[facility] Reading Room D ZCLKY0940-92-95 08:01:00* Test Item Value Reference Range Interpretation Comments TRIGLYCERIDES ([facility]) (test code = 540) 141 mg/dL CHOLESTEROL ([facility]) (test code = 631) 148 mg/dL HDL CHOLESTEROL ([facility]) (test code = 976) 27 mg/dL LDL CHOLESTEROL CALCULATED ([facility]) (test code = 633) 93 mg/dL Triglyceride Reference Range: Low Risk <150 Borderline 150-199 High Risk 200-499 Very High Risk >=500Cholesterol Reference Range: Low Risk <200 Borderline 200-239 High Risk >240HDL Cholesterol Reference Range: Low Risk >=60 High Risk <40LDL Cholesterol Reference Range: Optimal <100 Near Optimal 100-129 Borderline 130-159 High 160-189 Very High >=190 OCCULT BLOOD, [id number] 01:02:00* Test Item Value Reference Range Interpretation Comments FECAL OCCULT BLOOD (BEAKER) (test code = 618) Negative Negative OCCULT BLOOD, [id number] 01:02:00* Test Item Value Reference Range Interpretation Comments FECAL OCCULT BLOOD (BEAKER) (test code = 618) Negative Negative URINE [id number] 10:07:00* Test Item Value Reference Range Interpretation Comments CULTURE (BEAKER) (test code = 1095) 10-19,000 col/mL skin chanelle VARICELLA ZOSTER ANTIBODY, [id number] 13:40:00* Test Item Value Reference Range Interpretation Comments VARICELLA ZOSTER IGG (AL) (BEAKER) (test code = 3197) 2.5 Al VARICELLA ZOSTER RESULT INTERPRETATIONS: <=0.8 Al Nonreactive: Presumed non-immune to VZV 0.9-1.0 Al Equivocal >=1.1 Al Reactive: Presumed immune to VZVCYTOMEGALOVIRUS ANTIBODY, [id number] 13:37:00* Test Item Value Reference Range Interpretation Comments CYTOMEGALOVIRUS IGG ANTIBODY (BEAKER) (test code = 790) Positive CYTOMEGALOVIRUS ANTIBODY, [id number] 13:37:00* Test Item Value Reference Range Interpretation Comments CYTOMEGALOVIRUS IGM ANTIBODY (BEAKER) (test code = 816) Negative EBV-VCA ANTIBODY, [id number] 13:37:00* Test Item Value Reference Range Interpretation Comments NEFTALY-HATCH VCA IGG (BEAKER) (test code = 983) Positive EBV-VCA ANTIBODY, [id number] 13:37:00* Test Item Value Reference Range Interpretation Comments NEFTALY-HATCH VCA IGM (BEAKER) (test code = 984) Negative [id number] 23:19:00* Test Item Value Reference Range Interpretation Comments RPR SCREEN (BEAKER) (test code = 420) Nonreactive Nonreactive HEPATITIS B SURFACE [id number] 15:15:00* Test Item Value Reference Range Interpretation Comments HEPATITIS B SURFACE ANTIBODY (BEAKER) (test code = 647) 9.7 mIU/mL <8.0 H HEPATITIS B SURFACE [id number] 15:13:00* Test Item Value Reference Range Interpretation Comments HEPATITIS B SURFACE ANTIGEN (2) (BEAKER) (test code = 2585) Nonreactive Nonreactive HEPATITIS B CORE ANTIBODY, [id number] 15:13:00* Test Item Value Reference Range Interpretation Comments HEPATITIS B CORE IGM ANTIBODY (BEAKER) (test code = 645) Non reactive Nonreactive HEPATITIS C [id number] 15:13:00* Test Item Value Reference Range Interpretation Comments HEPATITIS C ANTIBODY (BEAKER) (test code = 367) Nonreactive Nonrea ctive HIV-1 ANTIGEN WITH HIV-1/2 [id number] 15:13:00* Test Item Value Reference Range Interpretation Comments HIV-1 ANTIGEN WITH HIV 1\T\2 ANTIBODY (2) (BEAKER) (te st code = 2586) Nonreactive Nonreactive HEMOGLOBIN [id number] 13:30:00* Test Item Value Reference Range Interpretation Comments HEMOGLOBIN A1C (BEAKER) (test code = 368) 5.2 % 4.3-6.1 URINALYSIS W/ [id number] 12:03:00* Test Item Value Reference Range Interpretation [...] 516) < /HPF SOURCE(BEAKER) (test code = 1455) CBC W/PLT COUNT & AUTO [id number] 12:02:00* Test Item Value Reference Range Interpretation [...] = 2801) 0 % 0-1 COMPREHENSIVE METABOLIC [id number] 11:44:00* Test Item Value Reference Range Interpretation [...] IS NOT APPLICABLE FOR DIALYSIS PATIENTS. URIC [id number] 11:42:00* Test Item Value Reference Range Interpretation Comments URIC ACID (BEAKER) (test code = 773) 12.7 mg/dL 2.6-7.2 H [id number] 11:42:00* Test Item Value Reference Range Interpretation [...] = 635) 138 U/L 125-2 20 PTH, [id number] 11:37:00* Test Item Value Reference Range Interpretation Comments PARATHYROID HORMONE INTACT (BEAKER) (test code = 577) 265.3 pg/mL 8.5-72.5 H [id number] 11:11:00* Test Item Value Reference Range Interpretation [...]
--- NOTE | 2020-03-17 23:10 | NUR ---
Received pt. from ER via stretcher accompanied by nurse and pt. mother. Pt. alert and oriented x person. Pt. on non rebreather mask . Oxygen saturation is 98%. Fistula to her R upper arm intact.
[2020-03-17 23:30] VITALS: BP 150/63
[2020-03-17 23:40] VITALS: BP 150/63
[2020-03-17] MEDS ORDERED: SODIUM CHLORIDE 0.9% 1000ML 2,000 ML ONE (23:42)
[2020-03-18] VITALS (11 sets, daily range): BP systolic 107–139; BP diastolic 45–72
--- NOTE | 2020-03-18 00:15 | NUR ---
Pt. on Bipap. Dialysis nurse in room. Pt. on dialysis. Mother at his bedside.
[2020-03-18 04:42] LABS: BASOPHILS # (AUTO) 0.1 (0.0-0.1); BASOPHILS % 0.6 % (0.0-1.0); EOSINOPHILS % 0.2 % (0.0-6.0); HEMATOCRIT 35.8 % (38.2-49.6); HEMOGLOBIN 11.4 g/dL (14.0-18.0); LYMPHOCYTES % 8.5 % (18.0-39.1); MEAN CORPUSCULAR HEMOGLOBIN 32.7 pg (28-32); MEAN CORPUSCULAR HGB CONC 31.8 g/dL (31-35); MEAN CORPUSCULAR VOLUME 102.6 fL (81-99); MONOCYTES # (AUTO) 0.8 (0.2-0.8); MONOCYTES % 6.7 % (4.4-11.3); NEUTROPHILS % 83.5 % (38.7-80.0); PLATELET COUNT 185 x10e3/uL (140-360); RED BLOOD COUNT 3.49 x10e6/uL (4.3-5.7); RED CELL DISTRIBUTION WIDTH 18.6 % (11.7-14.4)
[2020-03-18 05:03] LABS: ALBUMIN 4.6 g/dL (3.5-5.0); ALBUMIN/GLOBULIN RATIO 1.2 (0.8-2.0); CALCIUM 9.4 mg/dL (8.4-10.2); CREATININE, SERUM 6.35 mg/dL (0.72-1.25)
--- NOTE | 2020-03-18 08:32 | NUR ---
Called Dr. Quintana to make him aware patient's temperature 100.0 recived orders to give Tylenol 650mg PO and resume home medications.
[2020-03-18] MEDS: ACETAMINOPHEN 325 MG TAB PO PRN ×2 (08:49→14:00)
[2020-03-18] MEDS ORDERED: LOVASTATIN40 MG PO (09:17)
[2020-03-18] MEDS ORDERED: folic acid PO (09:17)
[2020-03-18] MEDS ORDERED: AMLODIPINE BESYL5 MG PO (09:17)
--- NOTE | 2020-03-18 09:23 | NUR ---
Medications reconciled mother of patient provided medication bottles, for the allopurinol, Elba Mobleyjason mother states: " I only give this medications when he needs them".
[2020-03-18] MEDS ORDERED: ALLOPURINOL 300 MG TAB PO PRN (09:30)
[2020-03-18] MEDS ORDERED: METOCLOPRAMIDE HCL 10 MG TAB PO PRN (09:30)
[2020-03-18] MEDS ORDERED: LINACLOTIDE 145 MCG CAPSULE PO PRN (09:30)
[2020-03-18 09:55] LABS: ABG HCO3 32 mmol/L (22-26); ABG PCO2 41 mmHg (35-45); ABG PH 7.49 (7.35-7.45); ABG PO2 120 mmHg (80-105); ABG TCO2 33
[2020-03-18] MEDS ORDERED: VANCOMYCIN 1GM/NS 250 ML 250 ML IV ONE (10:00)
[2020-03-18] MEDS ORDERED: DEXAMETHASONE SOD PHOS INJ 4 MG/ML VIAL IV ONE (10:30)
[2020-03-18] MEDS ORDERED: CEFEPIME 1GM/NS 0.9% 50 ML 50 ML IV ONE (11:00)
[2020-03-18] MEDS: CALCIUM ACETATE 667 MG GELCAP PO SCH ×2 (11:50→17:11)
[2020-03-18] MEDS ORDERED: AZITHROMYCIN 500MG/NS 250 ML 250 ML IV ONE (12:30)
--- NOTE | 2020-03-18 13:24 | Consultation ---
DATE OF CONSULTATION: 03/18/2020 Pulmonary Medicine Consult PRIMARY CARE DOCTOR: Kumar Locke MD. CHIEF COMPLAINT: Shortness of breath. HISTORY OF PRESENT ILLNESS: Mr. Hill is a pleasant 34-year-old gentleman with shortness of breath. The patient presented to [facility] on March 17, 2020. The patient had chest pain. Of note, he is not the best historian due to developmental delay. Chest pain is reproducible. Mild nausea. He came to the emergency room. Chest x-ray demonstrated some pulmonary edema. At this point, the patient is admitted and being arranged for emergency dialysis. He had emergency dialysis last night and had 3.5 L removed. Temperature 100.0. Of note, patient is being followed [facility] by Dr. Felix for cardiac valvular infection due to enterococcus . I asked the patient's mother knowledge of any prolonged antibiotic course and she does not have that knowledge. The infection was diagnosed in 2018. PAST MEDICAL HISTORY: Trisomy 21, enterococcus endocarditis of aortic valve 2019, hypertension, end-stage renal disease on hemodialysis. MEDICATIONS: Home medicine list reviewed per the chart record. ALLERGIES: NO KNOWN DRUG ALLERGIES. SOCIAL HISTORY: No alcohol. No smoking. No drugs. FAMILY HISTORY: Noncontributory to this. REVIEW OF SYSTEMS: Cannot get reliably as the patient is not a good historian. PHYSICAL EXAMINATION: VITAL SIGNS: Right now, patient with 100.0 temperature continues. Vital signs reviewed per the chart record. Currently on 3 L/minute oxygen with 97% oxygen saturation. On 2 L oxygen desaturation 91%. GENERAL: In no acute distress. Alert, calm, in bed, conversive. HEENT: Normocephalic, atraumatic. NECK: Supple. Throat midline. LUNGS: Bilateral air entry. EXTREMITIES: No clubbing, no cyanosis. No edema. INTEGUMENT: No rash. No purpura. LABORATORY DATA: 4.0 potassium, BUN, 6.4 creatinine. 4 white count, 36 hematocrit, 185 platelets. Chest x-ray is noted with pulmonary edema. Previous April 2019, CT abdomen and pelvis showed small pericardial effusion, small pleural effusions rather minimal, and mild edema at the base of the lungs that were evaluated. IMPRESSION AND PLAN: 1. Respiratory distress due to pulmonary edema. 2. Cardiac valvulopathy reported aortic valve endocarditis. 3. End-stage renal disease on hemodialysis. 4. Gout. 5. Trisomy 21. 6. Blindness, decreased vision. 7. Temperature maximum 100.0, possible sepsis. 8. Hypertension. At this time initial antibiotics have been given. We await cultures. The patient will have another x-ray tomorrow to ensure further appropriate resolution in pulmonary edema. Cardiology notified the patient is present. They can re-evaluate the heart as needed. The patient can continue oxygen per protocol and hopefully wean as he improves. We can consider getting physical therapy back with the patient with better improvement. The patient underwent dialysis yesterday and next dialysis is likely tomorrow per dialysis nurse. Thank you very much. Please call for any questions. MD LETHA Carey/LAURITA /[id number]
--- NOTE | 2020-03-18 15:20 | NUR ---
Consult to Dr. Garcia called to Dr. Rockwell office.
[2020-03-18] MEDS ORDERED: FUROSEMIDE INJ 10 MG/ML 4 ML VIAL IV ONE (17:30)
--- NOTE | 2020-03-18 18:51 | Consultation ---
DATE OF CONSULTATION: 03/18/2020 Cardiology Consultation REASON FOR CONSULTATION: Shortness of breath. HISTORY OF PRESENT ILLNESS: A 34-year-old man presents for shortness of breath and episodes of chest discomfort. He is noted to have pulmonary edema on chest x-ray. He has had previous history of aortic valve Enterococcus endocarditis in 2019. He has been advised on valve replacement, however, he has not proceeded with this given issues with scheduling COVID-19 pandemia per family report. He has Trisomy 21, end-stage renal disease on dialysis and hypertension. At this point in time, Mr. Hill has no current complaints. REVIEW OF SYSTEMS: A 12-System review is negative except for as noted above. ALLERGIES: NO KNOWN DRUG ALLERGIES. SOCIAL HISTORY: No drug, alcohol, or smoking. FAMILY HISTORY: Noncontributory. PHYSICAL EXAMINATION: VITAL SIGNS: Temperature 99.8, heart rate 97, respiratory rate 25, blood pressure 119/58, O2 saturation 95% on nasal cannula. GENERAL: In no acute distress. Alert. NECK: No JVD. CHEST: Clear to auscultation. CARDIOVASCULAR: Regular rate and rhythm. Normal S1 and S2. Systolic ejection murmur. No S3 or S4. ABDOMEN: Soft. Bowel sounds positive. EXTREMITIES: No edema. Warm distal extremities. CARDIOVASCULAR MEDICATIONS: Have been reviewed. On vancomycin, cefepime antibiotics, simvastatin 5 mg at bedtime, amlodipine 5 mg daily, levothyroxine 25 mcg daily. STUDIES: Reviewed. White blood cells 12, hemoglobin 11.4, platelets 185. Sodium 142, potassium 4, chloride 100, bicarbonate 21, BUN 38 creatinine 6.3, glucose 91, lactic acid 2. Blood cultures ordered and pending. Chest x-ray with moderate cardiomegaly, pulmonary edema and infiltrates. Telemetry, sinus rhythm with PVCs. ASSESSMENT AND PLAN: 1. The patient with aortic valve endocarditis. Had recent JOSE MARIA on earlier admission to this institution. Please see separate JOSE MARIA report. Now presenting with shortness of breath, pulmonary edema versus associated pneumonia on chest x-ray. Trisomy 21, decreased visual acuity, end-stage renal disease and hypertension. Recommend antibiotics per Infectious Disease. The patient to have repeat transthoracic echocardiogram. Blood cultures performed and pending. 2. Volume optimization per Nephrology expertise. Overall, guarded prognosis. Valve replacement has been advised, however, it is not being completed. We will optimize volume standpoint with antibiotics. However, cardiothoracic surgical consultation for valve replacement, higher level of care institution may be advisable. MD SEAN Hairston/LAURITA /[id number]
--- NOTE | 2020-03-18 19:00 | NUR ---
Bedside report received from Lianet Victor RN. Pt received resting in bed with eyes open, AAO and following commands, HOB elevated 30 degrees, bed in lowest and locked position, call light in reach, pt mother is staying with the pt, pt reports no pain or discomfort at this time. Lianet Victor RN to straight catheterize the pt at this time per md order.
--- NOTE | 2020-03-18 19:26 | Consultation ---
DATE OF CONSULTATION: 03/18/2020 HISTORY OF PRESENT ILLNESS: The patient well known to me, 34-year-old young patient, underlying history of end-stage renal disease, who has Down syndrome as well as significant aortic regurgitation, was supposed to get an aortic valve replaced. The patient has been followed by Dr. Helio Ruelas and he had arranged the transfer, but due to COVID, his surgery was postponed. He currently was admitted yesterday with shortness of breath and got emergent dialysis late at night. With successful results, treatment noted, goal achieved. The patient is resting, asymptomatic, mother by bedside. No nausea, vomiting, diarrhea, fever, or chills reported. LABORATORY DATA: Show potassium 4, creatinine 6.35 with a lactic acid of 2. Total protein 8.5. ALLERGIES: NO APPARENT DRUG ALLERGIES. SOCIAL HISTORY: Does not smoke or drink. FAMILY HISTORY: Significant for hypertension. MEDICATIONS: Currently on Zocor, Singulair, multivitamins, folic acid, allopurinol. Started on azithromycin and vancomycin, on dialysis. Received one time dose of cefepime. Also, on amlodipine, allopurinol p.r.n. for gout, which I am going to stop and amlodipine 5 mg daily, calcium acetate with meals, and folic acid 1 mg p.o. daily. PHYSICAL EXAMINATION: GENERAL: Awake, alert, and oriented x3, lying supine, in no apparent distress. VITAL SIGNS: Blood pressure 119/58, pulse rate 103, afebrile, temperature was 100 max earlier on this morning. HEAD AND NECK: Cornea clear. Oral mucosa moist. LUNGS: Relatively clear. HEART: S1 and S2 audible. ABDOMEN: Soft and nontender. EXTREMITIES: Lower extremity, no edema. The patient has a classic murmur of aortic regurgitation, predominantly diastolic. So far, cultures are negative. IMPRESSION AND PLAN: Evidence of fluid overload, congestive heart failure, resolved; aortic regurgitation for valve replacement, underlying end-stage renal disease, empirically being treated with antibiotics. I will place on renal diet. Discussed with mother. Dialysis arranged in the morning. MD CARMEN Mason/LAURITA /[id number]
[2020-03-18] MEDS: SIMVASTATIN 40 MG TAB PO SCH (20:00)
--- NOTE | 2020-03-18 21:00 | NUR ---
Safety rounds completed at this time. Pt reports no pain or discomfort at this time. Turned off overhead lights but left on night lights per pt request. Pts mother remains in the room with the pt.
--- NOTE | 2020-03-18 22:00 | NUR ---
HISTORY OF PRESENT ILLNESS 34-year-old man with recently 21, history of enterococcus endocarditis of aortic valve on 2019, history of hypertension, history of end-stage renal disease currently on hemodialysis, was brought to the ER complaining of shortness of breath, as well as chest pain, temperature 100.0. Chest x-ray: Pulmonary edema, he was admitted for emergency dialysis, 3.5 L removed. History provided by mother, unclear of prolonged antibiotic treatment. The patient has been advised of aortic valve replacement, which was postponed due to COVID-19 pandemia. Review of systems: Unable to obtain due to medical condition. Medications: Zocor, Singulair, multivitamins, folic acid, allopurinol. Started on azithromycin and vancomycin, on dialysis. Received one time dose of cefepime. Also, on amlodipine, allopurinol p.r.n. for gout, which I am going to stop and amlodipine 5 mg daily, calcium acetate with meals, and folic acid 1 mg p.o. daily. Physical exam: Temperature 100.0, heart rate 97, sinus rhythm with PVCs, respiratory rate 25, blood pressure 120/60, O2 sat 97%, 3 L oxygen, when placed on 2 L oxygen the patient desaturated to 91. Constitutional: The patient is awake, alert, no acute distress. HEENT: No gross abnormalities Neck: Supple no JVD Lungs: Clear to auscultation. Heart: Regular rate and rhythm, no murmurs no gallops Abdomen: Soft non tender, no guarding. Extremities: No edema Neurologic: Alert oriented 3, no focal weakness. Psychiatrist: Normal mood, normal judgment. Skin: No rashes Lab data: WBC 12, hemoglobin 11.4, platelets 185, sodium 142, potassium 4, chloride 100, bicarbonate 21, BUN 38, creatinine 6.3, glucose 91, lactic acid 2. Blood cultures pending. Chest x-ray: Moderate cardiomegaly, pulmonary edema and infiltrates. CT of the abdomen pelvis on April 2019: Small pericardial effusion, pleural effusion rather minimal, mild edema at the base of the lungs. Assessment Acute hypoxic respiratory failure secondary to pulmonary edema. ESRD as cause of above Pneumonia cannot be excluded Fluid overload Sepsis Cardiomyopathy reported aortic valve endocarditis History of treatment 21 Decreased vision Fever Hypertension Plan Reconcile home medications Oxygen as needed BP control Glycemic control Pain control Electrolyte control DVT/GI prophylaxis Hemodialysis Broad-spectrum antibiotic Sepsis work-up Consult critical care ID consult Cardiology consult
[2020-03-19] VITALS (7 sets, daily range): BP systolic 112–128; BP diastolic 52–64
--- NOTE | 2020-03-19 04:30 | NUR ---
Nicolasa from lab is present and collecting AM labs.
[2020-03-19 04:50] LABS: BASOPHILS % 0.4 % (0.0-1.0); EOSINOPHILS % 0.1 % (0.0-6.0); HEMATOCRIT 27.7 % (38.2-49.6); HEMOGLOBIN 8.9 g/dL (14.0-18.0); LYMPHOCYTES # (AUTO) 1.3 (1.0-3.2); LYMPHOCYTES % 13.2 % (18.0-39.1); MEAN CORPUSCULAR HEMOGLOBIN 32.7 pg (28-32); MEAN CORPUSCULAR HGB CONC 32.1 g/dL (31-35); MEAN CORPUSCULAR VOLUME 101.8 fL (81-99); MONOCYTES # (AUTO) 0.6 (0.2-0.8); MONOCYTES % 6.4 % (4.4-11.3); NEUTROPHILS # (AUTO) 7.5 (2.1-6.9); NEUTROPHILS % 79.6 % (38.7-80.0); PLATELET COUNT 193 x10e3/uL (140-360); RED BLOOD COUNT 2.72 x10e6/uL (4.3-5.7); RED CELL DISTRIBUTION WIDTH 18.5 % (11.7-14.4)
[2020-03-19] MEDS ORDERED: LEVOTHYROXINE SODIUM 25 MCG TABLET PO SCH (06:00)
[2020-03-19 07:55] LABS: ANION GAP 22.5 mmol/L (8-16); CALCIUM 9.1 mg/dL (8.4-10.2); CREATININE, SERUM 10.15 mg/dL (0.72-1.25); POTASSIUM 4.5 mmol/L (3.5-5.1)
--- NOTE | 2020-03-19 08:32 | Diagnostic Imaging Report ---
EXAM: CHEST SINGLE (PORTABLE) DATE: 03/19/2020 5:15 AM INDICATION: CHF COMPARISON: 03/17/2020 FINDINGS: Trachea is midline. There are mildly increased interstitial opacities present, improved from the prior examination suggestive of resolving edema. There is no evidence for new large focal consolidation, pneumothorax, or significant bony pleural effusion. The cardiac silhouette remains enlarged. Mediastinal contours are unremarkable. No acute osseous abnormality is identified. IMPRESSION: Interval improvement in bilateral interstitial opacities suggestive of resolving edema. Stable cardiomegaly. Signed by: Dr. Isai Garcia MD on 03/19/2020 8:29 AM
[2020-03-19] MEDS: CALCIUM ACETATE 667 MG GELCAP PO SCH ×3 (08:34→17:59)
[2020-03-19] MEDS ORDERED: MONTELUKAST SODIUM 10 MG TAB PO SCH (09:00)
[2020-03-19] MEDS ORDERED: PANTOPRAZOLE SOD 40 MG TABEC PO SCH (09:00)
[2020-03-19] MEDS ORDERED: CHOLECALCIFEROL 1,000 UNIT TAB PO SCH (09:00)
[2020-03-19] MEDS ORDERED: MULTIVITAMINS/MINERALS TAB PO SCH (09:00)
[2020-03-19] MEDS ORDERED: AMLODIPINE BESYLATE 5 MG TAB PO SCH (09:00)
[2020-03-19] MEDS ORDERED: FOLIC ACID 1 MG TAB PO SCH (09:00)
--- NOTE | 2020-03-19 11:09 | Progress Note ---
DATE: 03/19/2020 Cardiology Progress Note SUBJECTIVE: Shortness of breath has improved somewhat. Denies chest pain. No other complaints. OBJECTIVE: VITAL SIGNS: Temperature 98.4, heart rate 80, respiratory rate 20, blood pressure 112/52, and O2 saturation 93%. GENERAL: In no acute distress. Alert. NECK: Supple. CHEST: Clear to auscultation. CARDIOVASCULAR: Regular rate and rhythm. Normal S1 and S2. Systolic ejection murmur 3/6. Diastolic murmur noted too. ABDOMEN: Soft. Bowel sounds positive. EXTREMITIES: No edema. Warm extremities. CARDIOVASCULAR MEDICATIONS: Reviewed. Amlodipine 5 mg daily, simvastatin 40 mg at bedtime, status post on cefepime and vancomycin. STUDIES: Reviewed. Sodium 141, potassium 4.5, chloride 103, bicarbonate 20, BUN 72, creatinine 10.1, and glucose 110. White blood cells 9.4, hemoglobin 8.9, and platelets 193. AST 22, ALT 11, and alkaline phosphatase 144. ASSESSMENT AND PLAN: 1. A 34-year-old man presents with anemia, hypertension, severe aortic insufficiency in the setting of aortic valve endocarditis. 2. Dilated left ventricle with [id number] systolic heart failure, LVEF 45% to 50%. RECOMMEND: The patient would benefit from aortic valve replacement. Transfer for higher level of care advised. Awaiting blood cultures and ID recommendations regarding antibiotics. From a cardiac standpoint, suggest initiating transfer to higher level of care. MD SEAN Hairston/LAURITA /[id number]
--- NOTE | 2020-03-19 14:23 | NUR ---
ORDERS TO TRANSFER PT TO HIGHER LEVEL OF CARE REC'D IN CM SPOKE WITH NURSE RENNY AT 2:20 TODAY WHO STATES THAT [facility] HAS INITIATED TRANSFER CM ON STANDBY IF NEEDED
[2020-03-19] MEDS ORDERED: CEFEPIME 1GM/NS 0.9% 50 ML 50 ML IV SCH (15:00)
[2020-03-19] MEDS ORDERED: VANCOMYCIN 750MG/NS 150ML IVPB 150 ML IV SCH (16:00)
--- NOTE | 2020-03-19 19:37 | Progress Note ---
DATE: SUBJECTIVE: Mr. Hill is a very pleasant 34-year-old, who has history of endocarditis with enterococcus. He was treated with 8 weeks of Rocephin and ampicillin back in 2019. The patient apparently had one episode of shortness of breath about a week ago. He was diagnosed with bronchitis. According to the family, he was discharged home. Now, he is coming again with shortness of breath and apparently he was in fluid overload. The patient is currently alert, oriented and comfortable. He is feeling great. I called his daughter who speak Spanish and his mother at the bedside. The patient was currently with no complaints, but he does have history of endocarditis as mentioned above. The patient was seen by Cardiology. Echocardiogram was done. He had aortic valve endocarditis, apparently severe. The patient is currently lying in bed comfortably. PHYSICAL EXAMINATION: GENERAL: He is currently alert and oriented. VITAL SIGNS: Stable, afebrile. HEENT: He is not icteric. NECK: Supple. CHEST: Clear. HEART: S1, S2. ABDOMEN: Soft. EXTREMITIES: No edema/. SKIN: No rash. IMPRESSION: Respiratory failure. He got better, fluid overload, endocarditis. Recommendation; consult cardiovascular surgery. Agree with blood cultures. If blood cultures are negative, can proceed with evaluation for aortic valve replacement. Continue vancomycin. We will put him on Rocephin for the time being. Await for the blood cultures. Consider cardiovascular evaluation. MD IRMA Fletcher/LAURITA /[id number]
[2020-03-19] MEDS: SIMVASTATIN 40 MG TAB PO SCH (21:31)
--- NOTE | 2020-03-19 21:31 | NUR ---
Patient stable, report called in to [facility] here, ready for transfer
[2020-03-20] MEDS ORDERED: CEFEPIME 1GM/NS 0.9% 50 ML 50 ML IV SCH (16:00)
[2020-03-20] MEDS ORDERED: VANCOMYCIN 750MG/NS 150ML IVPB 150 ML IV SCH (17:00)
== END 2020-03-19 21:40 | disposition short-term general hospital (02) | DRG 871 ==
LOC: ER 20:30 → ERHOLD 22:23 → IMCU 23:15 → OBSVTOIN 03-19 07:52
PROVIDERS: ADMIT Internal Medicine; ATTEND Internal Medicine
PROC: 5A1D70Z Performance of Urinary Filtration, Intermittent, Less than 6 Hours Per Day (ICD-10-PCS; principal; 2020-03-18)
DX: A41.9 Sepsis, unspecified organism (principal); I50.23 Acute on chronic systolic (congestive) heart failure; J96.01 Acute respiratory failure with hypoxia; N18.6 End stage renal disease; J18.9 Pneumonia, unspecified organism; I13.2 Hypertensive heart and chronic kidney disease with heart failure and with stage 5 chronic kidney disease, or end stage renal disease; Q90.9 Down syndrome, unspecified; F79 Unspecified intellectual disabilities; M10.9 Gout, unspecified; H54.7 Unspecified visual loss; I35.8 Other nonrheumatic aortic valve disorders; D64.9 Anemia, unspecified; Z99.2 Dependence on renal dialysis; Z11.59 Encounter for screening for other viral diseases
CPT/HCPCS: 36415; 36600; 71045; 80048; 80053; 82550; 82553; 82805; 83605; 84145; 84484; 85025; 86704; 86705; 86707; 87040; 87340; 93005; 93306; 94660; 99284; G0378; J0456; J0692; J1100; J1940; J3370; J7030; U0002